=== PATIENT | female | born 1985 | race Asian ===

== ENCOUNTER 2023-04-07 09:47 | Outpatient (AMB) | payer OTHER, SELFPAY ==
[2023-04-07 09:54] VITALS: BP 150/90; PULSE 74; BMI 18.0
--- NOTE | 2023-04-07 09:54 | HO.NEPHOV_ITS ---
HPI HPI Comments History of Present Illness Details Thank you for referring Mr. Gasca for investigations and management of her chronic kidney disease. She has not had any regular physician appointments for many years until this year. She was found to be hypertensive and had been on amlodipine, the dose of which has been adjusted. Her blood pressure control continues to be labile. She has been feeling weak and tired. She denies diabetes, edema, microscopic or macroscopic hematuria, photosensitivity, joint swellings, hematemesis, melena, edema, proximal nocturnal dyspnea, orthopnea or chest pain. Her appetite is fair. 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 Her serum creatinine has been found to be close to 4. She denies taking excessive nonsteroidal anti-inflammatory medications. She has no other systemic complaints. She recently had some rash after eating some food which has been treated. She has strong family history of chronic kidney disease. She underwent an ultrasound of the kidneys recently. She has no new bone pain or back pain. She has a remote history of epistaxis which happened only once. She does not take any of his or any other jzfz-ipk-yddpslm medications. She is concerned about her renal dysfunction. [facility] Medical History (Updated 04/07/23 @ 16:44 by Niraj Corbin MD) Elevated blood pressure reading Gastroesophageal reflux disease Chronic kidney disease, stage 4 (severe) Family History (Updated 04/07/23 @ 08:54 by Janel Lange MA) Father Myocardial infarct Sister Chronic kidney disease Hypertension Hypercholesteremia Diabetes Mother Hypertension Hypercholesteremia Diabetes Coronary artery disease Brother Diabetes Hypercholesteremia Social History (Updated 04/07/23 @ 09:58 by Janel Lange MA) Alcohol intake: never Patient Tobacco Use Status: Never used Tobacco Vital Signs 04/07/23 09:54 Height 4 ft 10 in Weight 86 lb 4 oz BMI 18.0 BP 150/90 H Blood Pressure Location Lt brachial Position Sitting Pulse 74 Pulse Source Pulse Oximeter Physical Exam Vital Signs: Last Vital Signs Pulse 74 04/07/23 09:54 BP 150/90 H 08 09:54 BMI result Body Mass Index 18.0 Const General: comfortable and no acute distress Orientation/consciousness: patient oriented x3 HEENT Head: Yes normocephalic Mouth: Normal oral and palatal mucosa present Eyes EOM: EOMs intact bilaterally Neck Neck: Yes supple Resp Auscultation: clear to auscultation bilaterally Cardio Jugular venous distension: no JVD Rate: regular rate Heart sounds: Murmur heart sound present GI Palpation (GI): Soft to palpation Auscultation: normal bowel sounds General: Yes no CVA tenderness Back/Spine/Pelvis Back: no CVA tenderness Skin General skin exam: no rashes or lesions noted Neuro General: patient oriented x3 and moves all extremities Extrem General: Yes no pedal edema Assessment & Plan Assessment & Plan (1) HTN (hypertension): Code(s): I10 - Essential (primary) hypertension Qualifiers: Hypertension type: secondary to other renal disorders Qualified Code(s): I15.1 - Hypertension secondary to other renal disorders (2) Chronic kidney disease, stage 4 (severe): Code(s): N18.4 - Chronic kidney disease, stage 4 (severe) Plan Olesya has advanced chronic kidney disease due to unknown etiology. She is hypertensive. She is currently on amlodipine 7.5 mg daily which I have increased to 10 mg daily. She had a renal ultrasound the results of which not were not available for review at the time this consultation. I ordered further workup. Based on the workup and imaging studies I will consider whether she needs a renal biopsy. She should avoid nonsteroidal anti-inflammatory medications and any other ntqe-gdg-bpwgoru medications in addition to any unusual herbs. She should remain well hydrated. She could minimize animal protein intake. She is going to be seen in the office in couple weeks. At that time if she is not going to have renal biopsy, I intend to order 24 urine collection for estimation of GFR. If the GFR is low and she is thought to have advanced chronic kidney disease, further discussions are going to happen regarding renal replacement therapy and or renal transplantation. Further man agement has been involving data. All questions were answered. Time spent for retrieving data, patient encounter and documentation 47 minutes. Orders: Orders Hepatitis B Surface Antigen Today I10 - Essential (primary) hypertension, N18.4 - Chronic kidney disease, stage 4 (severe) Phosphorus Today I10 - Essential (primary) hypertension, N18.4 - Chronic kidney disease, stage 4 (severe) Vitamin D 25-OH Total Today I10 - Essential (primary) hypertension, N18.4 - Chronic kidney disease, stage 4 (severe) PTHI Today I10 - Essential (primary) hypertension, N18.4 - Chronic kidney disease, stage 4 (severe) Ferritin Today I10 - Essential (primary) hypertension, N18.4 - Chronic kidney disease, stage 4 (severe) Electrolytes Today I10 - Essential (primary) hypertension, N18.4 - Chronic kidney disease, stage 4 (severe) ELADIA Reflex Titer and Pattern Today I10 - Essential (primary) hypertension, N18.4 - Chronic kidney disease, stage 4 (severe) Streptolysin O Antibody Today I10 - Essential (primary) hypertension, N18.4 - Chronic kidney disease, stage 4 (severe) Anti DNA DS Antibody Today I10 - Essential (primary) hypertension, N18.4 - Chronic kidney disease, stage 4 (severe) Complement C3 Today I10 - Essential (primary) hypertension, N18.4 - Chronic kidney disease, stage 4 (severe) Neutrophil Cytoplasma Ab Today I10 - Essential (primary) hypertension, N18.4 - Chronic kidney disease, stage 4 (severe) Sjogren's Antibodies Today I10 - Essential (primary) hypertension, N18.4 - Chronic kidney disease, stage 4 (severe) Myeloperoxidase Antibody Today I10 - Essential (primary) hypertension, N18.4 - Chronic kidney disease, stage 4 (severe) Protein Electrophoresis, Serum Today I10 - Essential (primary) hypertension, N18.4 - Chronic kidney disease, stage 4 (severe) DIAZ 1 Antibody Today I10 - Essential (primary) hypertension, N18.4 - Chronic kidney disease, stage 4 (severe) Anti Glomerular Basement Memb Today I10 - Essential (primary) hypertension, N18.4 - Chronic kidney disease, stage 4 (severe) Immunofixation Pnl, Serum Today I10 - Essential (primary) hypertension, N18.4 - Chronic kidney disease, stage 4 (severe) UA and rflx microscopic Today I10 - Essential (primary) hypertension, N18.4 - Chronic kidney disease, stage 4 (severe) Hepatitis B Surface Antibody Today I10 - Essential (primary) hypertension, N18.4 - Chronic kidney disease, stage 4 (severe) Hepatitis B Core Antibody Today I10 - Essential (primary) hypertension, N18.4 - Chronic kidney disease, stage 4 (severe) Hepatitis C Antibody Reflex Today I10 - Essential (primary) hypertension, N18.4 - Chronic kidney disease, stage 4 (severe) Calcium Today I10 - Essential (primary) hypertension, N18.4 - Chronic kidney disease, stage 4 (severe) IRON PROFILE Today I10 - Essential (primary) hypertension, N18.4 - Chronic kidney disease, stage 4 (severe) Blood Urea Nitrogen Today I10 - Essential (primary) hypertension, N18.4 - Chronic kidney disease, stage 4 (severe) Creatinine Today I10 - Essential (primary) hypertension, N18.4 - Chronic kidney disease, stage 4 (severe) Phospholipase A2 Receptor Pnl Today I10 - Essential (primary) hypertension, N18.4 - Chronic kidney disease, stage 4 (severe) Anti Extractable Nuclear Ag Today I10 - Essential (primary) hypertension, N18.4 - Chronic kidney disease, stage 4 (severe) Complement C4 Today I10 - Essential (primary) hypertension, N18.4 - Chronic kidney disease, stage 4 (severe) Immunoglobulin A Today I10 - Essential (primary) hypertension, N18.4 - Chronic kidney disease, stage 4 (severe) Scleroderma 70 Antibody Today I10 - Essential (primary) hypertension, N18.4 - Chronic kidney disease, stage 4 (severe) Proteinase 3 PR3 Antibodies Today I10 - Essential (primary) hypertension, N18.4 - Chronic kidney disease, stage 4 (severe) Complete Blood Count Auto Diff Today I10 - Essential (primary) hypertension, N18.4 - Chronic kidney disease, stage 4 (severe) Prothrombin Time INR Today I10 - Essential (primary) hypertension, N18.4 - Chronic kidney disease, stage 4 (severe) Protein Creatinine Ratio, Ur Today I10 - Essential (primary) hypertension, N18.4 - Chronic kidney disease, stage 4 (severe) Medications: New amlodipine 10 mg PO DAILY 30 tabs 8RF Coding Level of Care Code New Pt Level 4 (24819) Diagnoses Hypertension secondary to other renal disorders I15.1 Hypertension type: secondary to other renal disorders Chronic kidney disease, stage 4 (severe) N18.4
== END 2023-04-07 10:37 | disposition home or self-care (01) ==
PROVIDERS: PCP Student in an Organized Health Care Education/Training Program; Visit Provider Internal Medicine Nephrology
DX: I15.1 Hypertension secondary to other renal disorders (principal); N18.4 Chronic kidney disease, stage 4 (severe)
CPT/HCPCS: 99204

== ENCOUNTER → 2023-04-07 09:47 | Outpatient (BNVA) | payer OTHER, SELFPAY | PROVIDERS: Visit Provider Internal Medicine Nephrology | DX: I15.1 Hypertension secondary to other renal disorders (principal); N18.4 Chronic kidney disease, stage 4 (severe) | CPT/HCPCS: 99202 ==

== ENCOUNTER 2023-04-29 09:15 | Outpatient (AMB) | payer OTHER, SELFPAY ==
--- NOTE | 2023-04-29 09:29 | HO.NEPHOV_ITS ---
HPI HPI Comments History of Present Illness Details I had the pleasure of seeing Ms. Gasca in follow up of her chronic kidney disease and hypertension. Recently she was found to be hypertensive and had been on amlodipine, the dose of which has been adjusted. Her blood pressure control continues to be labile. She has been feeling weak and tired. She is anemic. She denies diabetes, edema, microscopic or macroscopic hematuria, photosensitivity, joint swellings, hematemesis, melena, edema, proximal nocturnal dyspnea, orthopnea or chest pain. Her appetite is fair. 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 Her serum creatinine has been found to be close to mid 3's. She denies taking excessive nonsteroidal anti-inflammatory medications. She has no other systemic complaints. She recently had some rash after eating some food which has been treated. She has strong family history of chronic kidney disease. She underwent an ultrasound of the kidneys recently. She has no new bone pain or back pain. She has a remote history of epistaxis which happened only once. She does not take any of his or any other nccn-shh-ldnstmk medications. She is concerned about her renal dysfunction. 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 [facility] Medical History (Updated 04/29/23 @ 09:53 by Niraj Corbin MD) Elevated blood pressure reading Gastroesophageal reflux disease Chronic kidney disease, stage 4 (severe) Family History Father Myocardial infarct Sister Chronic kidney disease Hypertension Hypercholesteremia Diabetes Mother Hypertension Hypercholesteremia Diabetes Coronary artery disease Brother Diabetes Hypercholesteremia Social History Alcohol intake: never Patient Tobacco Use Status: Never used Tobacco Vital Signs 04/29/23 09:30 Height 4 ft 10 in Weight 88 lb 2 oz BMI 18.4 BP 134/90 H Blood Pressure Location Lt brachial Position Sitting Pulse 76 Pulse Source Pulse Oximeter Physical Exam Vital Signs: Last Vital Signs Pulse 76 04/29/23 09:30 BP 134/90 H 04/29/23 09:30 BMI result Body Mass Index 18.4 Assessment & Plan Assessment & Plan (1) Chronic kidney disease, stage 4 (severe): Code(s): N18.4 - Chronic kidney disease, stage 4 (severe) (2) HTN (hypertension): Code(s): I10 - Essential (primary) hypertension Qualifiers: Hypertension type: secondary to other renal disorders Qualified Code(s): I15.1 - Hypertension secondary to other renal disorders (3) Anemia in chronic kidney disease: Code(s): N18.9 - Chronic kidney disease, unspecified; D63.1 - Anemia in chronic kidney disease (4) PR3 ANCA antibodies present: Code(s): R76.8 - Other specified abnormal immunological findings in serum (5) Vitamin D deficiency: Code(s): E55.9 - Vitamin D deficiency, unspecified Plan 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 She had epistaxis and is Anti HI 3 positive. She is hypertensive. She is currently on amlodipine 5 mg twice daily. She had a renal ultrasound . she needs a renal biopsy( arranged). She should avoid nonsteroidal anti-inflammatory medications and any other hppc-cuq-fwuvmll medications in addition to any unusual herbs. She should remain well hydrated. She could minimize animal protein intake. I increased her Iron tablets to 2 tablets a day. I started her on Vitamin D 82709 Units once a week . She is going to be seen in the office in couple weeks. After next visit I intend to order 24 urine collection for estimation of GFR. If the GFR remains low, further discussions are going to happen regarding renal replacement therapy and or renal transplantation. Further management has been involving data. All questions were answered. Time spent for retrieving data, patient encounter and documentation 21 minutes Orders: Orders US biopsy renal Today N18.4 - Chronic kidney disease, stage 4 (severe), R76.8 - Other specified abnormal immunological findings in serum Medications: New ferrous sulfate 325 mg PO BID 180 tabs 3RF 90 days amlodipine 5 mg PO BID 180 tabs 3RF 90 days cholecalciferol (vitamin D3) 1,250 mcg PO QWEEK 13 caps 1RF 90 days Coding Level of Care Code Est Pt Level 4 (56437) Diagnoses Chronic kidney disease, stage 4 (severe) N18.4 Hypertension secondary to other renal disorders I15.1 Hypertension type: secondary to other renal disorders Anemia in chronic kidney disease N18.9; D63.1 PR3 ANCA antibodies present R76.8 Vitamin D deficiency E55.9
[2023-04-29 09:30] VITALS: BP 134/90; PULSE 76; BMI 18.4
== END 2023-04-29 10:06 | disposition home or self-care (01) ==
PROVIDERS: PCP Student in an Organized Health Care Education/Training Program; Visit Provider Internal Medicine Nephrology
DX: N18.4 Chronic kidney disease, stage 4 (severe) (principal); I15.1 Hypertension secondary to other renal disorders; N18.9 Chronic kidney disease, unspecified; D63.1 Anemia in chronic kidney disease; R76.8 Other specified abnormal immunological findings in serum; E55.9 Vitamin D deficiency, unspecified
CPT/HCPCS: 99214

== ENCOUNTER → 2023-04-29 09:15 | Outpatient (BNVA) | payer OTHER, SELFPAY | PROVIDERS: PCP Student in an Organized Health Care Education/Training Program; Visit Provider Internal Medicine Nephrology | DX: R76.8 Other specified abnormal immunological findings in serum (principal); I15.1 Hypertension secondary to other renal disorders; N18.4 Chronic kidney disease, stage 4 (severe); D63.1 Anemia in chronic kidney disease; E55.9 Vitamin D deficiency, unspecified | CPT/HCPCS: 99212 ==

== ENCOUNTER 2023-06-03 08:11 | Day surgery (SDC) | payer OTHER, SELFPAY ==
[2023-06-03] VITALS (11 sets, daily range): BP systolic 108–133; BP diastolic 74–88; PULSE 69–76; RESP 14–16; TEMP 36.9–37.1; O2SAT 100; BMI 18.1
--- NOTE | ~2023-06-03 | CT_ITS ---
CLINICAL HISTORY: Chronic kidney disease, + ANCA PROCEDURES: 1. Limited preprocedure CT of the abdomen. Permanent images saved in PACS. 2. Total of 3 core biopsies of the right kidney cortex 3. Limited post procedure CT of the abdomen. Permanent images taken PACS. CLINICIANS: Shaquille Roche PA-C MEDICATIONS: -Versed 1.5 mg, Fentanyl 75 mcg, and lidocaine 1% 10 mL SQ -Antibiotics: None -For additional details, please see nursing flowsheet. COMPLICATIONS: None ESTIMATED BLOOD LOSS: < 5 ml CONTRAST: None SPECIMENS: Total of 3 18-gauge biopsies of the right kidney MODERATE SEDATION TIME: 27 min PROCEDURE NOTE: The procedure, risks, benefits, and alternatives were carefully explained to the patient and written informed consent was obtained. The patient was placed prone on the CT table. A timeout was performed. A limited CT of the abdomen was performed to localize the right kidney and choose appropriate needle entry and trajectory. The patient was prepped and draped in usual sterile fashion. The skin and subcutaneous tissues were anesthetized with lidocaine. Under CT guidance, a trocar was advanced to the right mid/lower pole of the kidney. A 18-gauge core biopsy device was inserted through the double wall needle, with the needle tip advanced into the right renal cortex. A total of 3 core biopsies were obtained and sent fresh to histology. The trocar needle was then removed. A post procedure CT was then obtained, which demonstrated a small perinephric hematoma. The patient was stable after the procedure and was transferred to the post anesthesia care unit. The procedure was done under moderate sedation with a dedicated nurse for monitoring of vital signs. CT/CT biopsy renal LT Impression: CT-guided right renal biopsy. Small perinephric hematoma. This procedure was performed by Shaquille Roche PA-C and supervised by Dr. Aguilera.
--- NOTE | 2023-06-03 14:14 | PM.EVENT ---
Event Note Date of Service: 06/03/23 Event Note: Patient seen and examined. She is 2.5 hr post right renal biopsy. She had a small perinephric hematoma that did not worsen throughout the procedure. She reports of right flank pain at the biopsy site with movement, but denies discomfort at rest. Her BP have been consistent 110's to 130's post procedure and she has no tachycardia. She tolerated a small meal without nausea or vomiting. Will plan to discharge her within the next 30 min. She was educated on signs and symptoms of bleeding and to return to the hospital should she experience them. [employer] notified of plan for discharge. Shaquille DAVILA Time Spent With Patient Time: Total time managing care of this patient today ____ minutes.
--- NOTE | 2023-06-04 12:51 | HO.RADPN ---
RADIOLOGY Narrative Narrative: Procedure Note: CT right renal biopsy Indications: +ANCA, CKD Events: 3 x 18 g cores performed. Small perinephric hematoma Shaquille DAVILA Interventional Radiology
== END 2023-06-03 14:35 | disposition home or self-care (01) ==
PROVIDERS: Radiology Vascular & Interventional Radiology; PCP Student in an Organized Health Care Education/Training Program; Visit Provider Internal Medicine Nephrology
DX: N99.841 Postprocedural hematoma of a genitourinary system organ or structure following other procedure (principal); N18.4 Chronic kidney disease, stage 4 (severe); I15.1 Hypertension secondary to other renal disorders; I77.82 Antineutrophilic cytoplasmic antibody [ANCA] vasculitis; R10.9 Unspecified abdominal pain; R76.8 Other specified abnormal immunological findings in serum; E55.9 Vitamin D deficiency, unspecified
CPT/HCPCS: 36415; 50200; 77012; 81025; 85025; 85610; 85730; 86850; 86900; 86901; 88300; 88305; 88313; 88346; 88348; 88350; 99152; 99153; J2250; J2310; J3010

== ENCOUNTER → 2023-06-03 08:11 | Outpatient (BNV) | payer OTHER, SELFPAY | PROVIDERS: PCP Student in an Organized Health Care Education/Training Program; Visit Provider Physician Assistant Surgical | DX: R76.8 Other specified abnormal immunological findings in serum (principal) | CPT/HCPCS: 50200; 77012; 99152; 99499 ==

== ENCOUNTER 2023-06-15 09:48 | Outpatient (AMB) | payer OTHER, SELFPAY ==
--- NOTE | 2023-06-15 09:58 | HO.NEPHOV ---
HPI HPI Comments History of Present Illness Details I had the pleasure of seeing Ms. Gasca in follow up of her chronic kidney disease and hypertension. Recently she was found to be hypertensive and had been on amlodipine, the dose of which has been adjusted. Her blood pressure control continues to be labile, but better. She has been feeling weak and tired. She is anemic. She denies diabetes, edema, microscopic or macroscopic hematuria, photosensitivity, joint swellings, hematemesis, melena, edema, proximal nocturnal dyspnea, orthopnea or chest pain. Her appetite is fair. 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 Her serum creatinine has been found to be close to mid 3's. She denies taking excessive nonsteroidal anti-inflammatory medications. She has no other systemic complaints. She recently had some rash after eating some food which has been treated. She has strong family history of chronic kidney disease. She underwent an ultrasound and biopsy of the kidney recently. She has no new bone pain or back pain. She has a remote history of epistaxis which happened only once. She does not take any of his or any other acbc-tca-kduzfsn medications. She is concerned about her renal dysfunction. 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 [facility] Medical History (Updated 06/15/23 @ 10:00 by Niraj Corbin MD) Elevated blood pressure reading Gastroesophageal reflux disease Chronic kidney disease, stage 4 (severe) Family History Father Myocardial infarct Sister Chronic kidney disease Hypertension Hypercholesteremia Diabetes Mother Hypertension Hypercholesteremia Diabetes Coronary artery disease Brother Diabetes Hypercholesteremia Social History Alcohol intake: never Patient Tobacco Use Status: Never used Tobacco Vital Signs 06/15/23 10:02 Height 4 ft 10 in Weight 86 lb 4 oz BMI 18.0 BP 158/82 H Blood Pressure Location Lt brachial Position Sitting Pulse 79 Pulse Source Pulse Oximeter Pulse Oximetry (%) 100 Oxygen Delivery Method Room Air Physical Exam Vital Signs: Last Vital Signs Pulse 79 06/15/23 10:02 BP 158/82 H 06/15/23 10:02 Pulse Ox 100 06/15/23 10:02 Oxygen Delivery Method Room Air 06/15/23 10:02 BMI result Body Mass Index 18.0 Const General: comfortable and no acute distress Orientation/consciousness: patient oriented x3 HEENT Head: Yes normocephalic Mouth: Normal oral and palatal mucosa present Eyes EOM: EOMs intact bilaterally Neck Neck: Yes supple Resp Auscultation: clear to auscultation bilaterally Cardio Jugular venous distension: no JVD Rate: regular rate GI Palpation (GI): Soft to palpation Auscultation: normal bowel sounds General: Yes no CVA tenderness Back/Spine/Pelvis Back: no CVA tenderness Skin General skin exam: no rashes or lesions noted Neuro General: patient oriented x3 and moves all extremities Extrem General: Yes no pedal edema Assessment & Plan Assessment & Plan (1) Chronic kidney disease, stage 4 (severe): Code(s): N18.4 - Chronic kidney disease, stage 4 (severe) (2) HTN (hypertension): Code(s): I10 - Essential (primary) hypertension Qualifiers: Hypertension type: secondary to other renal disorders Qualified Code(s): I15.1 - Hypertension secondary to other renal disorders (3) Anemia in chronic kidney disease: Code(s): N18.9 - Chronic kidney disease, unspecified; D63.1 - Anemia in chronic kidney disease Qualifiers: Chronic kidney disease stage: stage 4 (severe) (4) PR3 ANCA antibodies present: Code(s): R76.8 - Other specified abnormal immunological findings in serum (5) Vitamin D deficiency: Code(s): E55.9 - Vitamin D deficiency, unspecified Plan Olesya has advanced chronic kidney disease .She had epistaxis and is Anti MO 3 positive. She underwent renal biopsy . Preliminary biopsy report showed focal segmental glomerulosclerosis with perihilar, peripheral and tip lesion. 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 Biopsy also showed severe interstitial fibrosis and tubular atrophy. There was arterial and arteriolar sclerosis variably mild to severe, with hyaline sclerosis. She is hypertensive. She should continue amlodipine 10 mg daily. I started her on PO prednisone 40 mg daily in the morning with food for a month. Side effects explained. She should avoid nonsteroidal anti-inflammatory medications and any other owmc-fzd-jzynfos medications in addition to any unusual herbs. She should remain well hydrated. She could minimize animal protein intake. She should continue 2 Iron tablets a day along with Vitamin D 80944 Units once a week . She is going to be seen in the office in couple weeks. After next visit I intend to order 24 urine collection for estimation of GFR. If the GFR remains low, further discussions are going to happen regarding renal replacement therapy and or renal transplantation. Further management has been involving data. All questions were answered. Orders: Orders Electrolytes 6 Weeks D63.1 - Anemia in chronic kidney disease, E55.9 - Vitamin D deficiency, unspecified, I10 - Essential (primary) hypertension, N18.4 - Chronic kidney disease, stage 4 (severe), N18.9 - Chronic kidney disease, unspecified, R76.8 - Other specified abnormal immunological findings in serum Creatinine 6 Weeks D63.1 - Anemia in chronic kidney disease, E55.9 - Vitamin D deficiency, unspecified, I10 - Essential (primary) hypertension, N18.4 - Chronic kidney disease, stage 4 (severe), N18.9 - Chronic kidney disease, unspecified, R76.8 - Other specified abnormal immunological findings in serum Proteinase 3 PR3 Antibodies Today D63.1 - Anemia in chronic kidney disease, E55.9 - Vitamin D deficiency, unspecified, I10 - Essential (primary) hypertension, N18.4 - Chronic kidney disease, stage 4 (severe), N18.9 - Chronic kidney disease, unspecified, R76.8 - Other specified abnormal immunological findings in serum Complete Blood Count Auto Diff 6 Weeks D63.1 - Anemia in chronic kidney disease, E55.9 - Vitamin D deficiency, unspecified, I10 - Essential (primary) hypertension, N18.4 - Chronic kidney disease, stage 4 (severe), N18.9 - Chronic kidney disease, unspecified, R76.8 - Other specified abnormal immunological findings in serum Electrolytes Today D63.1 - Anemia in chronic kidney disease, E55.9 - Vitamin D deficiency, unspecified, I10 - Essential (primary) hypertension, N18.4 - Chronic kidney disease, stage 4 (severe), N18.9 - Chronic kidney disease, unspecified, R76.8 - Other specified abnormal immunological findings in serum Blood Urea Nitrogen Today D63.1 - Anemia in chronic kidney disease, E55.9 - Vitamin D deficiency, unspecified, I10 - Essential (primary) hypertension, N18.4 - Chronic kidney disease, stage 4 (severe), N18.9 - Chronic kidney disease, unspecified, R76.8 - Other specified abnormal immunological findings in serum Calcium Today D63.1 - Anemia in chronic kidney disease, E55.9 - Vitamin D deficiency, unspecified, I10 - Essential (primary) hypertension, N18.4 - Chronic kidney disease, stage 4 (severe), N18.9 - Chronic kidney disease, unspecified, R76.8 - Other specified abnormal immunological findings in serum Creatinine Today D63.1 - Anemia in chronic kidney disease, E55.9 - Vitamin D deficiency, unspecified, I10 - Essential (primary) hypertension, N18.4 - Chronic kidney disease, stage 4 (severe), N18.9 - Chronic kidney disease, unspecified, R76.8 - Other specified abnormal immunological findings in serum Medications: New prednisone 40 mg (4 x 10 mg) PO DAILY 360 tabs 0RF 90 days Coding Level of Care Code Est Pt Level 4 (01397) Diagnoses Chronic kidney disease, stage 4 (severe) N18.4 Hypertension secondary to other renal disorders I15.1 Hypertension type: secondary to other renal disorders Anemia in chronic kidney disease N18.9; D63.1 Chronic kidney disease stage: stage 4 (severe) PR3 ANCA antibodies present R76.8 Vitamin D deficiency E55.9 Results Reviewed Nephrology Results: Hgb 10.7 g/dl (12.0-16.0) L 06/03/23 WBC 6.7 X10*3/uL (4.8-10.8) 06/03/23 Plt Count 172 X10*3/uL (160-400) 06/03/23
[2023-06-15 10:02] VITALS: BP 158/82; PULSE 79; O2SAT 100; BMI 18.0
== END 2023-06-15 10:18 | disposition home or self-care (01) ==
PROVIDERS: PCP Student in an Organized Health Care Education/Training Program; Visit Provider Internal Medicine Nephrology
DX: N18.4 Chronic kidney disease, stage 4 (severe) (principal); I15.1 Hypertension secondary to other renal disorders; N18.9 Chronic kidney disease, unspecified; D63.1 Anemia in chronic kidney disease; R76.8 Other specified abnormal immunological findings in serum; E55.9 Vitamin D deficiency, unspecified
CPT/HCPCS: 99214

== ENCOUNTER → 2023-06-15 09:48 | Outpatient (BNVA) | payer OTHER, SELFPAY | PROVIDERS: PCP Student in an Organized Health Care Education/Training Program; Visit Provider Internal Medicine Nephrology | DX: I12.9 Hypertensive chronic kidney disease with stage 1 through stage 4 chronic kidney disease, or unspecified chronic kidney disease (principal); N18.4 Chronic kidney disease, stage 4 (severe); R76.8 Other specified abnormal immunological findings in serum; E55.9 Vitamin D deficiency, unspecified; Z79.899 Other long term (current) drug therapy | CPT/HCPCS: 99212 ==

== ENCOUNTER 2023-07-06 08:40 | Outpatient (REF) | payer OTHER, SELFPAY ==
[2023-07-06 13:53] LABS: Anion Gap 17 (12-20); Blood Urea Nitrogen 74 mg/dL (9-16); Calcium 9.1 mg/dL (8.4-10.2); Carbon Dioxide 21 mmol/L (22-29); Chloride 103 mmol/L (96-108); Estimated Glomerular Filt Rate 14; Potassium 3.7 mmol/L (3.3-5.1); Sodium 137 mmol/L (135-145)
== END 2023-07-06 08:41 | disposition home or self-care (01) ==
LOC: HO.HKASLDS 08:40
PROVIDERS: Visit Provider Internal Medicine Nephrology
DX: I12.9 Hypertensive chronic kidney disease with stage 1 through stage 4 chronic kidney disease, or unspecified chronic kidney disease (principal); N18.4 Chronic kidney disease, stage 4 (severe); D63.1 Anemia in chronic kidney disease; R76.8 Other specified abnormal immunological findings in serum; E55.9 Vitamin D deficiency, unspecified
CPT/HCPCS: 36415; 80051; 82310; 82565; 84520

== ENCOUNTER 2023-07-27 14:49 | Outpatient (AMB) | payer OTHER, SELFPAY ==
--- NOTE | 2023-07-27 14:52 | HO.NEPHOV ---
HPI HPI Comments History of Present Illness Details I had the pleasure of seeing Ms. Gasca in follow up of her chronic kidney disease and hypertension. Recently she was found to be hypertensive and had been on amlodipine, the dose of which has been adjusted. Her blood pressure control continues to be labile. She is anemic. She denies diabetes, edema, microscopic or macroscopic hematuria, photosensitivity, joint swellings, hematemesis, melena, edema, proximal nocturnal dyspnea, orthopnea or chest pain. Her appetite is fair. 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 Her serum creatinine has been found to be close to mid 3's. She denies taking excessive nonsteroidal anti-inflammatory medications. She has no other systemic complaints. She has strong family history of chronic kidney disease. She underwent an ultrasound of the kidneys recently. She has no new bone pain or back pain. She has a remote history of epistaxis which happened only once. She does not take any of his or any other emsh-gmh-gchbvvg medications. She is concerned about her renal dysfunction. 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 She underwent renal biopsy which showed of focal segmental glomerulosclerosis with a perihilar, peripheral and tip lesions. She has chronic interstitial inflammation. She had global glomerulosclerosis 50-70%. Also there was severe interstitial fibrosis and tubular atrophy at 30-80% along with chronic thrombotic microangiopathic changes. She was started on prednisone 40 mg at the last visit. [facility] Medical History (Updated 06/15/23 @ 10:00 by Niraj Corbin MD) Elevated blood pressure reading Gastroesophageal reflux disease Chronic kidney disease, stage 4 (severe) Family History Father Myocardial infarct Sister Chronic kidney disease Hypertension Hypercholesteremia Diabetes Mother Hypertension Hypercholesteremia Diabetes Coronary artery disease Brother Diabetes Hypercholesteremia Social History Alcohol intake: never Patient Tobacco Use Status: Never used Tobacco Vital Signs 07/27/23 14:53 Height 4 ft 10 in Weight 92 lb 6 oz BMI 19.3 BP 150/80 H Blood Pressure Location Lt brachial Position Sitting Pulse 107 H Pulse Source Pulse Oximeter Pulse Oximetry (%) 99 Oxygen Delivery Method Room Air Physical Exam Vital Signs: Last Vital Signs Pulse 107 H 07/27/23 14:53 BP 150/80 H 07/27/23 14:53 Pulse Ox 99 07/27/23 14:53 Oxygen Delivery Method Room Air 07/27/23 14:53 BMI result Body Mass Index 19.3 Const General: comfortable and no acute distress Orientation/consciousness: patient oriented x3 HEENT Head: Yes normocephalic Mouth: Normal oral and palatal mucosa present Eyes EOM: EOMs intact bilaterally Neck Neck: Yes supple Resp Auscultation: clear to auscultation bilaterally Cardio Jugular venous distension: no JVD Rate: regular rate GI Palpation (GI): Soft to palpation Auscultation: normal bowel sounds General: Yes no CVA tenderness Back/Spine/Pelvis Back: no CVA tenderness Skin General skin exam: no rashes or lesions noted Neuro General: patient oriented x3 and moves all extremities Extrem General: Yes no pedal edema Assessment & Plan Assessment & Plan (1) Chronic kidney disease, stage 4 (severe): Code(s): N18.4 - Chronic kidney disease, stage 4 (severe) (2) HTN (hypertension): Code(s): I10 - Essential (primary) hypertension Qualifiers: Hypertension type: secondary to other renal disorders Qualified Code(s): I15.1 - Hypertension secondary to other renal disorders (3) Anemia in chronic kidney disease: Code(s): N18.9 - Chronic kidney disease, unspecified; D63.1 - Anemia in chronic kidney disease Qualifiers: Chronic kidney disease stage: stage 4 (severe) Qualified Code(s): N18.4 - Chronic kidney disease, stage 4 (severe); D63.1 - Anemia in chronic kidney disease (4) PR3 ANCA antibodies present: Code(s): R76.8 - Other specified abnormal immunological findings in serum (5) Vitamin D deficiency: Code(s): E55.9 - Vitamin D deficiency, unspecified Plan Olesya has advanced chronic kidney disease .She had epistaxis and is Anti MD 3 positive. renal biopsy which showed of focal segmental glomerulosclerosis with a perihilar, peripheral and tip lesions. She has chronic interstitial inflammation. She had global glomerulosclerosis 50-70%. Also there was severe interstitial fibrosis and tubular atrophy at 30-80% along with chronic thrombotic microangiopathic changes. She is hypertensive. She should continue amlodipine 10 mg daily. I started her on PO prednisone 40 mg daily at the last visit to be taken in the morning with food, at the last visit. I reduced her prednisone to 30 mg for 2 weeks followed by 20 mg until she is following with me . She should avoid nonsteroidal anti-inflammatory medications and any other wkzk-lks-jaciknp medications in addition to any unusual herbs. She should remain well hydrated. She could minimize animal protein intake. She should continue 2 Iron tablets a day along with Vitamin D 71504 Units once a week . She is going to be seen in the office in couple weeks. After next visit I intend to order 24 urine collection for estimation of GFR. If the GFR remains low, further discussions are going to happen regarding renal replacement therapy and or renal transplantation. Further management has been involving data. All questions were answered. Orders: Orders Blood Urea Nitrogen Today D63.1 - Anemia in chronic kidney disease, E55.9 - Vitamin D deficiency, unspecified, I10 - Essential (primary) hypertension, N18.4 - Chronic kidney disease, stage 4 (severe), N18.9 - Chronic kidney disease, unspecified, R76.8 - Other specified abnormal immunological findings in serum ANCA Vasculitides Today D63.1 - Anemia in chronic kidney disease, E55.9 - Vitamin D deficiency, unspecified, I10 - Essential (primary) hypertension, N18.4 - Chronic kidney disease, stage 4 (severe), N18.9 - Chronic kidney disease, unspecified, R76.8 - Other specified abnormal immunological findings in serum Creatinine 1 Week D63.1 - Anemia in chronic kidney disease, E55.9 - Vitamin D deficiency, unspecified, I10 - Essential (primary) hypertension, N18.4 - Chronic kidney disease, stage 4 (severe), N18.9 - Chronic kidney disease, unspecified, R76.8 - Other specified abnormal immunological findings in serum Electrolytes 1 Week D63.1 - Anemia in chronic kidney disease, E55.9 - Vitamin D deficiency, unspecified, I10 - Essential (primary) hypertension, N18.4 - Chronic kidney disease, stage 4 (severe), N18.9 - Chronic kidney disease, unspecified, R76.8 - Other specified abnormal immunological findings in serum Complete Blood Count Auto Diff 1 Week D63.1 - Anemia in chronic kidney disease, E55.9 - Vitamin D deficiency, unspecified, I10 - Essential (primary) hypertension, N18.4 - Chronic kidney disease, stage 4 (severe), N18.9 - Chronic kidney disease, unspecified, R76.8 - Other specified abnormal immunological findings in serum Coding Level of Care Code Est Pt Level 4 (14698) Diagnoses Chronic kidney disease, stage 4 (severe) N18.4 Hypertension secondary to other renal disorders I15.1 Hypertension type: secondary to other renal disorders Anemia in stage 4 chronic kidney disease N18.4; D63.1 Chronic kidney disease stage: stage 4 (severe) PR3 ANCA antibodies present R76.8 Vitamin D deficiency E55.9 Results Reviewed Nephrology Results: Hgb 10.7 g/dl (12.0-16.0) L 06/03/23 WBC 6.7 X10*3/uL (4.8-10.8) 06/03/23 Plt Count 172 X10*3/uL (160-400) 06/03/23 Sodium 137 mmol/L (135-145) 07/06/23 Potassium 3.7 mmol/L (3.3-5.1) 07/06/23 Chloride 103 mmol/L (96-108) 07/06/23 Carbon Dioxide 21 mmol/L (22-29) L 07/06/23 BUN 74 mg/dL (9-16) H 07/06/23 Creatinine 3.63 mg/dL (0.5-1.4) H 07/06/23 Calcium 9.1 mg/dL (8.4-10.2) 07/06/23
[2023-07-27 14:53] VITALS: BP 150/80; PULSE 107; O2SAT 99; BMI 19.3
== END 2023-07-27 15:21 | disposition home or self-care (01) ==
PROVIDERS: PCP Student in an Organized Health Care Education/Training Program; Visit Provider Internal Medicine Nephrology
DX: N18.4 Chronic kidney disease, stage 4 (severe) (principal); I15.1 Hypertension secondary to other renal disorders; D63.1 Anemia in chronic kidney disease; R76.8 Other specified abnormal immunological findings in serum; E55.9 Vitamin D deficiency, unspecified
CPT/HCPCS: 99214

== ENCOUNTER → 2023-07-27 14:49 | Outpatient (BNVA) | payer OTHER, SELFPAY | PROVIDERS: PCP Student in an Organized Health Care Education/Training Program; Visit Provider Internal Medicine Nephrology | DX: N18.4 Chronic kidney disease, stage 4 (severe) (principal); I15.1 Hypertension secondary to other renal disorders; D63.1 Anemia in chronic kidney disease; R76.8 Other specified abnormal immunological findings in serum; E55.9 Vitamin D deficiency, unspecified | CPT/HCPCS: 99212 ==

== ENCOUNTER 2023-08-03 08:37 | Outpatient (REF) | payer OTHER, SELFPAY ==
[2023-08-03 12:57] LABS: MANUAL DIFF FLAG NO
[2023-08-03 13:02] LABS: Basophils Percent Auto 0.1 % (0-2); Eosinophils Percent Auto 0.2 % (0-4); Hematocrit 29.6 % (37.0-47.0); Hemoglobin 10.1 g/dl (12.0-16.0); Imm Gran Abs Auto 0.14 X10*3/uL (0.00-0.03); Imm Gran Pct Auto 1.4 % (0.0-0.4); Lymphocytes Absolute Auto 1.7 X10*3/uL (1.2-4.9); Lymphocytes Percent Auto 16.6 % (20-40); Mean Corpuscular HGB Conc 34.1 g/dl (31.0-35.0); Mean Corpuscular Hemoglobin 31.5 pg (27.0-33.0); Mean Corpuscular Volume 92.2 fL (80.0-98.0); Mean Platelet Volume 9.6 fL (9.4-12.3); Monocytes Absolute Auto 0.6 X10*3/uL (0.1-1.2); Monocytes Percent Auto 5.6 % (2-11); Neutrophils Absolute Auto 7.7 x10*3/uL (2.0-8.3); Neutrophils Percent Auto 76.1 % (45-73); Platelet Count 142 X10*3/uL (160-400); Red Blood Count 3.21 X10*6/uL (4.20-5.50); Red Cell Distribution Width 13.2 % (11.0-16.0); White Blood Count 10.1 X10*3/uL (4.8-10.8)
[2023-08-03 14:05] LABS: Anion Gap 12 (12-20); Blood Urea Nitrogen 82 mg/dL (9-16); Carbon Dioxide 23 mmol/L (22-29); Chloride 104 mmol/L (96-108); Estimated Glomerular Filt Rate 13; Potassium 4.1 mmol/L (3.3-5.1); Sodium 135 mmol/L (135-145)
[2023-08-10 07:38] LABS: Myeloperoxidase Antibody <1.0 AI; Proteinase 3 PR3 Antibodies 3.8 AI
== END 2023-08-03 08:38 | disposition home or self-care (01) ==
LOC: HO.HKASLDS 08:37
PROVIDERS: Visit Provider Internal Medicine Nephrology
DX: I12.9 Hypertensive chronic kidney disease with stage 1 through stage 4 chronic kidney disease, or unspecified chronic kidney disease (principal); N18.4 Chronic kidney disease, stage 4 (severe); D63.1 Anemia in chronic kidney disease; R76.8 Other specified abnormal immunological findings in serum; E55.9 Vitamin D deficiency, unspecified
CPT/HCPCS: 36415; 80051; 82565; 84520; 85025; 86021

== ENCOUNTER 2023-08-24 15:05 | Outpatient (AMB) | payer OTHER, SELFPAY ==
[2023-08-24 15:14] VITALS: BP 140/70; PULSE 104; O2SAT 99; BMI 19.7
--- NOTE | 2023-08-24 15:14 | HO.NEPHOV_ITS ---
HPI HPI Comments History of Present Illness Details I had the pleasure of seeing Ms. Gasca in follow up of her chronic kidney disease and hypertension. Recently she was found to be hypertensive and had been on amlodipine, the dose of which has been adjusted. Her blood pressure control continues to be labile. She is anemic. She denies diabetes, edema, microscopic or macroscopic hematuria, photosensitivity, joint swellings, hematemesis, melena, edema, proximal nocturnal dyspnea, orthopnea or chest pain. Her appetite is fair. 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 Her serum creatinine has been found to be close to mid 3's. She denies taking excessive nonsteroidal anti-inflammatory medications. She has no other systemic complaints. She has strong family history of chronic kidney disease. 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 She has chronic interstitial inflammation. She had global glomerulosclerosis 50-70%. Also there was severe interstitial fibrosis and tubular atrophy at 30-80% along with chronic thrombotic microangiopathic changes. She was started on prednisone 40 mg at the last visit, now on a tapering dose. [facility] Medical History (Updated 06/15/23 @ 10:00 by Niraj Corbin MD) Elevated blood pressure reading Gastroesophageal reflux disease Chronic kidney disease, stage 4 (severe) Family History Father Myocardial infarct Sister Chronic kidney disease Hypertension Hypercholesteremia Diabetes Mother Hypertension Hypercholesteremia Diabetes Coronary artery disease Brother Diabetes Hypercholesteremia Social History Alcohol intake: never Patient Tobacco Use Status: Never used Tobacco Vital Signs 08/24/23 15:14 Height 4 ft 10 in Weight 94 lb 6 oz BMI 19.7 BP 140/70 H Blood Pressure Location Lt brachial Position Sitting Pulse 104 H Pulse Source Pulse Oximeter Pulse Oximetry (%) 99 Oxygen Delivery Method Room Air Physical Exam Const General: comfortable and no acute distress Orientation/consciousness: patient oriented x3 HEENT Head: Yes normocephalic Mouth: Normal oral and palatal mucosa present Eyes EOM: EOMs intact bilaterally Neck Neck: Yes supple Resp Auscultation: clear to auscultation bilaterally Cardio Jugular venous distension: no JVD Rate: regular rate GI Palpation (GI): Soft to palpation Auscultation: normal bowel sounds General: Yes no CVA tenderness Back/Spine/Pelvis Back: no CVA tenderness Skin General skin exam: no rashes or lesions noted Neuro General: patient oriented x3 and moves all extremities Extrem General: Yes no pedal edema Assessment & Plan Assessment & Plan (1) Chronic kidney disease, stage 4 (severe): Code(s): N18.4 - Chronic kidney disease, stage 4 (severe) (2) HTN (hypertension): Code(s): I10 - Essential (primary) hypertension Qualifiers: Hypertension type: secondary to other renal disorders Qualified Code(s): I15.1 - Hypertension secondary to other renal disorders (3) Anemia in chronic kidney disease: Code(s): N18.9 - Chronic kidney disease, unspecified; D63.1 - Anemia in chronic kidney disease Qualifiers: Chronic kidney disease stage: stage 4 (severe) Qualified Code(s): N18.4 - Chronic kidney disease, stage 4 (severe); D63.1 - Anemia in chronic kidney disease (4) Vitamin D deficiency: Code(s): E55.9 - Vitamin D deficiency, unspecified (5) PR3 ANCA antibodies present: Code(s): R76.8 - Other specified abnormal immunological findings in serum Danielle Dacosta has advanced chronic kidney disease .She had epistaxis and is Anti DE 3 positive. Her renal biopsy which showed of focal segmental glomerulosclerosis with a perihilar, peripheral and tip lesions. She has chronic interstitial inflammation. She had global glomerulosclerosis 50-70%. Also there was severe interstitial fibrosis and tubular atrophy at 30-80% along with chronic thrombotic microangiopathic changes. She is hypertensive. She should continue amlodipine 10 mg daily. She has been on PO prednisone tapering dose, currently 20 mg . I reduced it to 10 mg daily for 2 weeks followed by 5 mg for 2 weeks and asked her to stop. She should avoid nonsteroidal anti-inflammatory medications and any other irkk-atx-wpiflvd medications in addition to any unusual herbs. She should remain well hydrated. She could minimize animal protein intake. She should continue 2 Iron tablets a day along with Vitamin D 21027 Units once a week . She is going to be seen in the office in couple weeks. After next visit I intend to order 24 urine collection for estimation of GFR. If the GFR remains low, further discussions are going to happen regarding renal replacement therapy and or renal transplantation. Further management has been involving data. All questions were answered. Orders: Orders Electrolytes Today D63.1 - Anemia in chronic kidney disease, E55.9 - Vitamin D deficiency, unspecified, I10 - Essential (primary) hypertension, N18.4 - Chronic kidney disease, stage 4 (severe), N18.9 - Chronic kidney disease, unspecified, R76.8 - Other specified abnormal immunological findings in serum Creatinine Today D63.1 - Anemia in chronic kidney disease, E55.9 - Vitamin D deficiency, unspecified, I10 - Essential (primary) hypertension, N18.4 - Chronic kidney disease, stage 4 (severe), N18.9 - Chronic kidney disease, unspecified, R76.8 - Other specified abnormal immunological findings in serum Blood Urea Nitrogen Today D63.1 - Anemia in chronic kidney disease, E55.9 - Vitamin D deficiency, unspecified, I10 - Essential (primary) hypertension, N18.4 - Chronic kidney disease, stage 4 (severe), N18.9 - Chronic kidney disease, unspecified, R76.8 - Other specified abnormal immunological findings in serum Coding Level of Care Code Est Pt Level 4 (62014) Diagnoses Chronic kidney disease, stage 4 (severe) N18.4 Hypertension secondary to other renal disorders I15.1 Hypertension type: secondary to other renal disorders Anemia in stage 4 chronic kidney disease N18.4; D63.1 Chronic kidney disease stage: stage 4 (severe) Vitamin D deficiency E55.9 PR3 ANCA antibodies present R76.8 Results Reviewed Nephrology Results: Hgb 10.1 g/dl (12.0-16.0) L 08/03/23 WBC 10.1 X10*3/uL (4.8-10.8) 08/03/23 Plt Count 142 X10*3/uL (160-400) L 08/03/23 Sodium 135 mmol/L (135-145) 08/03/23 Potassium 4.1 mmol/L (3.3-5.1) 08/03/23 Chloride 104 mmol/L (96-108) 08/03/23 Carbon Dioxide 23 mmol/L (22-29) 08/03/23 BUN 82 mg/dL (9-16) H 08/03/23 Creatinine 3.83 mg/dL (0.5-1.4) H 08/03/23 Calcium 9.1 mg/dL (8.4-10.2) 07/06/23
== END 2023-08-24 15:34 | disposition home or self-care (01) ==
PROVIDERS: PCP Student in an Organized Health Care Education/Training Program; Visit Provider Internal Medicine Nephrology
DX: N18.4 Chronic kidney disease, stage 4 (severe) (principal); I15.1 Hypertension secondary to other renal disorders; D63.1 Anemia in chronic kidney disease; E55.9 Vitamin D deficiency, unspecified; R76.8 Other specified abnormal immunological findings in serum
CPT/HCPCS: 99214

== ENCOUNTER → 2023-08-24 15:05 | Outpatient (BNVA) | payer OTHER, SELFPAY | PROVIDERS: PCP Student in an Organized Health Care Education/Training Program; Visit Provider Internal Medicine Nephrology | DX: N18.4 Chronic kidney disease, stage 4 (severe) (principal) | CPT/HCPCS: 99212 ==

== ENCOUNTER 2023-09-22 14:32 | Outpatient (REF) | payer OTHER, SELFPAY ==
[2023-09-22 17:52] LABS: Anion Gap 12 (12-20); Blood Urea Nitrogen 33 mg/dL (9-16); Carbon Dioxide 25 mmol/L (22-29); Chloride 104 mmol/L (96-108); Estimated Glomerular Filt Rate 12; Potassium 4.6 mmol/L (3.3-5.1); Sodium 136 mmol/L (135-145)
== END 2023-09-22 14:33 | disposition home or self-care (01) ==
LOC: HO.HKASLDS 14:32
PROVIDERS: Visit Provider Internal Medicine Nephrology
DX: I12.9 Hypertensive chronic kidney disease with stage 1 through stage 4 chronic kidney disease, or unspecified chronic kidney disease (principal); N18.4 Chronic kidney disease, stage 4 (severe); R76.8 Other specified abnormal immunological findings in serum; D63.1 Anemia in chronic kidney disease; E55.9 Vitamin D deficiency, unspecified
CPT/HCPCS: 36415; 80051; 82565; 84520

== ENCOUNTER 2023-09-28 15:25 | Outpatient (AMB) | payer OTHER, SELFPAY ==
[2023-09-28 16:04] VITALS: BP 140/80; PULSE 101; O2SAT 99; BMI 18.9
--- NOTE | 2023-09-28 16:04 | HO.NEPHOV_ITS ---
Vital Signs 09/28/23 16:04 Height 4 ft 10 in Weight 90 lb 8 oz BMI 18.9 BP 140/80 H Blood Pressure Location Lt brachial Position Sitting Pulse 101 H Pulse Source Pulse Oximeter Pulse Oximetry (%) 99 Oxygen Delivery Method Room Air Intake Visit Reasons: 1 month F/U/ Confirmed Property Administrator Required: No Accompanied by: Self / Same As Patient Allergies alcohol Allergy (Verified 09/28/23 16:06) Unknown Beef Containing Products Allergy (Verified 09/28/23 16:06) Unknown HPI Comments Details: I had the pleasure of seeing Ms. Gasca in follow up of her chronic kidney disease and hypertension. Recently she was found to be hypertensive and had been on amlodipine, the dose of which has been adjusted. Her blood pressure control continues to be labile. She is anemic. She denies diabetes, edema, microscopic or macroscopic hematuria, photosensitivity, joint swellings, dheeraj temesis, melena, edema, proximal nocturnal dyspnea, orthopnea or chest pain. Her appetite is fair. 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 Her serum creatinine has been found to be close to mid 3's. She denies taking excessive nonsteroidal anti-inflammatory medications. She has no other systemic complaints. She has strong family history of chronic kidney disease. 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 She has chronic interstitial inflammation. She had global glomerulosclerosis 50-70%. Also there was severe interstitial fibrosis and tubular atrophy at 30-80% along with chronic thrombotic microangiopathic changes. She was started on prednisone 40 mg which was tapered to 5 mg daily. [facility] Medical History (Updated 06/15/23 @ 10:00 by Niraj Corbin MD) Elevated blood pressure reading Gastroesophageal reflux disease Chronic kidney disease, stage 4 (severe) Family History Father Myocardial infarct Sister Chronic kidney disease Hypertension Hypercholesteremia Diabetes Mother Hypertension Hypercholesteremia Diabetes Coronary artery disease Brother Diabetes Hypercholesteremia Social History Alcohol intake: never Patient Tobacco Use Status: Never used Tobacco Physical Exam Vital Signs: Last Vital Signs Pulse 101 H 09/28/23 16:04 BP 152/82 H 09/28/23 16:04 Pulse Ox 99 09/28/23 16:04 Oxygen Delivery Method Room Air 09/28/23 16:04 BMI result Body Mass Index 18.9 Const General: comfortable and no acute distress Orientation/consciousness: patient oriented x3 HEENT Head: Yes normocephalic Mouth: Normal oral and palatal mucosa present Eyes EOM: EOMs intact bilaterally Neck Neck: Yes supple Resp Auscultation: clear to auscultation bilaterally Cardio Jugular venous distension: no JVD Rate: regular rate GI Palpation (GI): Soft to palpation Auscultation: normal bowel sounds General: Yes no CVA tenderness Back/Spine/Pelvis Back: no CVA tenderness Skin General skin exam: no rashes or lesions noted Neuro General: patient oriented x3 and moves all extremities Extrem General: Yes no pedal edema Results Reviewed Nephrology Results: Hgb 10.1 g/dl (12.0-16.0) L 08/03/23 WBC 10.1 X10*3/uL (4.8-10.8) 08/03/23 Plt Count 142 X10*3/uL (160-400) L 08/03/23 Sodium 136 mmol/L (135-145) 09/22/23 Potassium 4.6 mmol/L (3.3-5.1) 09/22/23 Chloride 104 mmol/L (96-108) 09/22/23 Carbon Dioxide 25 mmol/L (22-29) 09/22/23 BUN 33 mg/dL (9-16) H 09/22/23 Creatinine 4.14 mg/dL (0.5-1.4) H* 09/22/23 Calcium 9.1 mg/dL (8.4-10.2) 07/06/23 Assessment & Plan Assessment & Plan (1) Vitamin D deficiency: Code(s): E55.9 - Vitamin D deficiency, unspecified Category: Medical (2) Anemia in chronic kidney disease: Code(s): N18.9 - Chronic kidney disease, unspecified; D63.1 - Anemia in chronic kidney disease Category: Medical Qualifiers: Chronic kidney disease stage: stage 4 (severe) Qualified Code(s): N18.4 - Chronic kidney disease, stage 4 (severe); D63.1 - Anemia in chronic kidney disease (3) HTN (hypertension): Code(s): I10 - Essential (primary) hypertension Category: Medical Qualifiers: Hypertension type: secondary to other renal disorders Qualified Code(s): I15.1 - Hypertension secondary to other renal disorders (4) Chronic kidney disease, stage 4 (severe): Code(s): N18.4 - Chronic kidney disease, stage 4 (severe) Category: Medical (5) PR3 ANCA antibodies present: Code(s): R76.8 - Other specified abnormal immunological findings in serum Category: Medical Plan Olesya has advanced chronic kidney disease .She had epistaxis and is Anti NC 3 positive. Her renal biopsy which showed of focal segmental glomerulosclerosis with a perihilar, peripheral and tip lesions. She has chronic interstitial inflammation. She had global glomerulosclerosis 50-70%. Also there was severe interstitial fibrosis and tubular atrophy at 30-80% along with chronic thrombotic microangiopathic changes. She is hypertensive. She should continue amlodipine 10 mg daily. She has been on PO prednisone tapering dose, currently 5 mg which I stopped. She should avoid nonsteroidal anti-inflammatory medications and any other [id number] medications in addition to any unusual herbs. She should remain well hydrated. She could minimize animal protein intake. She should continue 2 Iron tablets a day along with Vitamin D 14172 Units once a week . She is going to be seen in the office in couple weeks. After next visit I intend to order 24 urine collection for estimation of GFR. If the GFR remains low, further discussions are going to happen regarding renal replacement therapy and or renal transplantation. Further management has been involving data. All questions were answered. Orders: Orders Electrolytes Today D63.1 - Anemia in chronic kidney disease, E55.9 - Vitamin D deficiency, unspecified, I15.1 - Hypertension secondary to other renal disorders, N18.4 - Chronic kidney disease, stage 4 (severe), R76.8 - Other specified abnormal immunological findings in serum Blood Urea Nitrogen Today D63.1 - Anemia in chronic kidney disease, E55.9 - Vitamin D deficiency, unspecified, I15.1 - Hypertension secondary to other renal disorders, N18.4 - Chronic kidney disease, stage 4 (severe), R76.8 - Other specified abnormal immunological findings in serum Creatinine Today D63.1 - Anemia in chronic kidney disease, E55.9 - Vitamin D deficiency, unspecified, I15.1 - Hypertension secondary to other renal disorders, N18.4 - Chronic kidney disease, stage 4 (severe), R76.8 - Other spe cified abnormal immunological findings in serum Medications: Changed From ferrous sulfate 325 mg PO BID To ferrous sulfate 325 mg PO BID 90 days 180 tabs 3RF Discontinued prednisone Discontinued Reason: Doctor's Order 40 mg (4 x 10 mg) PO DAILY 360 tabs 0RF Coding Level of Care Code Est Pt Level 4 (53101) Diagnoses Vitamin D deficiency E55.9 Anemia in stage 4 chronic kidney disease N18.4; D63.1 Chronic kidney disease stage: stage 4 (severe) Hypertension secondary to other renal disorders I15.1 Hypertension type: secondary to other renal disorders Chronic kidney disease, stage 4 (severe) N18.4 PR3 ANCA antibodies present R76.8
== END 2023-09-28 16:24 | disposition home or self-care (01) ==
PROVIDERS: PCP Student in an Organized Health Care Education/Training Program; Visit Provider Internal Medicine Nephrology
DX: E55.9 Vitamin D deficiency, unspecified (principal); N18.4 Chronic kidney disease, stage 4 (severe); D63.1 Anemia in chronic kidney disease; I15.1 Hypertension secondary to other renal disorders; R76.8 Other specified abnormal immunological findings in serum
CPT/HCPCS: 99214

== ENCOUNTER → 2023-09-28 15:25 | Outpatient (BNVA) | payer OTHER, SELFPAY | PROVIDERS: PCP Student in an Organized Health Care Education/Training Program; Visit Provider Internal Medicine Nephrology | DX: I15.1 Hypertension secondary to other renal disorders (principal); N18.4 Chronic kidney disease, stage 4 (severe); D63.1 Anemia in chronic kidney disease; E55.9 Vitamin D deficiency, unspecified; R76.8 Other specified abnormal immunological findings in serum | CPT/HCPCS: 99212 ==

== ENCOUNTER 2023-11-17 11:17 | Outpatient (REF) | payer OTHER, SELFPAY ==
[2023-11-17 18:50] LABS: Anion Gap 14 (12-20); Blood Urea Nitrogen 45 mg/dL (9-16); Carbon Dioxide 25 mmol/L (22-29); Chloride 101 mmol/L (96-108); Estimated Glomerular Filt Rate 10; Potassium 4.1 mmol/L (3.3-5.1); Sodium 136 mmol/L (135-145)
== END 2023-11-17 11:18 | disposition home or self-care (01) ==
LOC: HO.HKASLDS 11:17
PROVIDERS: Visit Provider Internal Medicine Nephrology
DX: E55.9 Vitamin D deficiency, unspecified (principal); R76.8 Other specified abnormal immunological findings in serum; N18.4 Chronic kidney disease, stage 4 (severe); D63.1 Anemia in chronic kidney disease; I15.1 Hypertension secondary to other renal disorders
CPT/HCPCS: 36415; 80051; 82565; 84520

== ENCOUNTER 2023-11-23 13:25 | Outpatient (AMB) | payer OTHER, SELFPAY ==
--- NOTE | 2023-11-23 13:27 | HO.NEPHOV ---
Vital Signs 11/23/23 13:31 Height 4 ft 10 in Weight 89 lb 2 oz BMI 18.6 BP 132/80 Blood Pressure Location Lt brachial Position Sitting Pulse 88 Pulse Source Pulse Oximeter Pulse Oximetry (%) 100 Oxygen Delivery Method Room Air Intake Visit Reasons: 2 mon follow up/ Conf Time Study Technologist Required: No Accompanied by: Self / Same As Patient Allergies alcohol Allergy (Verified 11/23/23 13:33) Unknown Beef Containing Products Allergy (Verified 11/23/23 13:33) Unknown HPI Comments Details: I had the pleasure of seeing Ms. Gasca in follow up of her chronic kidney disease and hypertension. Recently she was found to be hypertensive and had been on amlodipine, the dose of which has been adjusted. Her blood pressure control is better. She is anemic. She denies diabetes, edema, microscopic or macroscopic hematuria, photosensitivity, joint swellings, hematemesis, melena, edema, proximal nocturnal dyspnea, orthopnea or chest pain. Her appetite is fair. 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 She denies taking excessive nonsteroidal anti-inflammatory medications. She has no other systemic complaints. She has family H/O rhuematoid arthritis( mom). SHe has morning stiffness and joint pains . She has strong family history of chronic kidney disease. 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 She has chronic interstitial inflammation. She had global glomerulosclerosis 50-70%. Also there was severe interstitial fibrosis and tubular atrophy at 30-80% along with chronic thrombotic microangiopathic changes. She is off prednisone now [facility] Medical History (Updated 06/15/23 @ 10:00 by Niraj Corbin MD) Elevated blood pressure reading Gastroesophageal reflux disease Chronic kidney disease, stage 4 (severe) Family History Father Myocardial infarct Sister Chronic kidney disease Hypertension Hypercholesteremia Diabetes Mother Hypertension Hypercholesteremia Diabetes Coronary artery disease Brother Diabetes Hypercholesteremia Social History Alcohol intake: never Patient Tobacco Use Status: Never used Tobacco Review of Systems Const All systems reviewed & are unremarkable except as noted in HPI and below Physical Exam Const General: comfortable and no acute distress Orientation/consciousness: patient oriented x3 HEENT Head: Yes normocephalic Mouth: Normal oral and palatal mucosa present Eyes EOM: EOMs intact bilaterally Neck Neck: Yes supple Resp Auscultation: clear to auscultation bilaterally Cardio Jugular venous distension: no JVD Rate: regular rate GI Palpation (GI): Soft to palpation Auscultation: normal bowel sounds General: Yes no CVA tenderness Back/Spine/Pelvis Back: no CVA tenderness Skin General skin exam: no rashes or lesions noted Neuro General: patient oriented x3 and moves all extremities Extrem General: Yes no pedal edema Results Reviewed Nephrology Results: Hgb 10.1 g/dl (12.0-16.0) L 08/03/23 WBC 10.1 X10*3/uL (4.8-10.8) 08/03/23 Plt Count 142 X10*3/uL (160-400) L 08/03/23 Sodium 136 mmol/L (135-145) 11/17/23 Potassium 4.1 mmol/L (3.3-5.1) 11/17/23 Chloride 101 mmol/L (96-108) 11/17/23 Carbon Dioxide 25 mmol/L (22-29) 11/17/23 BUN 45 mg/dL (9-16) H 11/17/23 Creatinine 4.73 mg/dL (0.5-1.4) H* 11/17/23 Calcium 9.1 mg/dL (8.4-10.2) 07/06/23 Assessment & Plan Assessment & Plan (1) Chronic kidney disease, stage 4 (severe): Code(s): N18.4 - Chronic kidney disease, stage 4 (severe) Category: Medical (2) HTN (hypertension): Code(s): I10 - Essential (primary) hypertension Category: Medical Qualifiers: Hypertension type: secondary to other renal disorders Qualified Code(s): I15.1 - Hypertension secondary to other renal disorders (3) Anemia in chronic kidney disease: Code(s): N18.9 - Chronic kidney disease, unspecified; D63.1 - Anemia in chronic kidney disease Category: Medical Qualifiers: Chronic kidney disease stage: stage 4 (severe) Qualified Code(s): N18.4 - Chronic kidney disease, stage 4 (severe); D63.1 - Anemia in chronic kidney disease (4) PR3 ANCA antibodies present: Code(s): R76.8 - Other specified abnormal immunological findings in serum Category: Medical (5) Vitamin D deficiency: Code(s): E55.9 - Vitamin D deficiency, unspecified Category: Medical Plan Olesya has advanced chronic kidney disease .She had epistaxis and is Anti ND 3 positive. Her renal biopsy which showed of focal segmental glomerulosclerosis with a perihilar, peripheral and tip lesions. She has chronic interstitial inflammation. She had global glomerulosclerosis 50-70%. Also there was severe interstitial fibrosis and tubular atrophy at 30-80% along with chronic thrombotic microangiopathic changes. She is hypertensive. She should continue amlodipine 10 mg daily. She is off PO prednisone . She should avoid nonsteroidal anti-inflammatory medications and any other [id number] medications in addition to any unusual herbs. She should remain well hydrated. She could minimize animal protein intake. She should continue 2 Iron tablets a day along with Vitamin D 44766 Units once a month. I ordered 24 urine collection for estimation of GFR. I had discussions regarding renal replacement therapy and or renal transplantation. I referred her for transplant evaluation and have referred her for PD education. I also referred her to Rheumatology given she has significant joint pains and strong family H/O rheumatoid arthritis. Further management has been involving data. All questions were answered. Orders: Orders Creatinine Today N18.4 - Chronic kidney disease, stage 4 (severe) Blood Urea Nitrogen Today N18.4 - Chronic kidney disease, stage 4 (severe) Electrolytes Today N18.4 - Chronic kidney disease, stage 4 (severe) Creatinine Clearance Urine 24U Today N18.4 - Chronic kidney disease, stage 4 (severe) Medications: Refilled ferrous sulfate 325 mg PO BID 90 days 180 tabs 3RF Coding Level of Care Code Est Pt Level 4 (39303) Diagnoses Chronic kidney disease, stage 4 (severe) N18.4 Hypertension secondary to other renal disorders I15.1 Hypertension type: secondary to other renal disorders Anemia in stage 4 chronic kidney disease N18.4; D63.1 Chronic kidney disease stage: stage 4 (severe) PR3 ANCA antibodies present R76.8 Vitamin D deficiency E55.9
[2023-11-23 13:31] VITALS: BP 132/80; PULSE 88; O2SAT 100; BMI 18.6
== END 2023-11-23 13:59 | disposition home or self-care (01) ==
LOC: HO.HKAS 13:25
PROVIDERS: PCP Student in an Organized Health Care Education/Training Program; Visit Provider Internal Medicine Nephrology
DX: N18.4 Chronic kidney disease, stage 4 (severe) (principal); I15.1 Hypertension secondary to other renal disorders; D63.1 Anemia in chronic kidney disease; R76.8 Other specified abnormal immunological findings in serum; E55.9 Vitamin D deficiency, unspecified
CPT/HCPCS: 99214

== ENCOUNTER → 2023-11-23 13:25 | Outpatient (BNVA) | payer OTHER, SELFPAY | PROVIDERS: PCP Student in an Organized Health Care Education/Training Program; Visit Provider Internal Medicine Nephrology | DX: I15.1 Hypertension secondary to other renal disorders (principal); N18.4 Chronic kidney disease, stage 4 (severe); D63.1 Anemia in chronic kidney disease; R76.8 Other specified abnormal immunological findings in serum; E55.9 Vitamin D deficiency, unspecified | CPT/HCPCS: 99212 ==

== ENCOUNTER 2023-12-03 08:45 | Outpatient (AMB) | payer OTHER, SELFPAY ==
[2023-12-03 08:51] VITALS: BP 110/72; PULSE 65; O2SAT 100; BMI 18.0
--- NOTE | 2023-12-03 08:51 | MHC.OFFVIS ---
Vital Signs 12/03/23 08:51 Height 4 ft 10 in Weight 85 lb 15.684 oz BMI 18.0 BP 110/72 Blood Pressure Location Rt brachial Position Sitting Pulse 65 Pulse Source Pulse Oximeter Pulse Oximetry (%) 100 Oxygen Delivery Method Room Air Intake Visit Reasons: Pain in unspecified joint Intake Note: New pt presents today for joint pain consult, internally referred by Dr Obregon. Family H/O RA. Has diffuse joint pain ; Background of CKD 4. Allergies alcohol Allergy (Verified 12/03/23 08:51) Unknown Beef Containing Products Allergy (Verified 12/03/23 08:51) Unknown Medication List - Last Reconciled 12/03/23 by Elliott Phan MD amlodipine 5 mg PO BID 90 days betamethasone, augmented 0.05 % topical cholecalciferol (vitamin D3) 1,250 mcg PO .q month 90 days ferrous sulfate 325 mg PO BID 90 days pantoprazole 40 mg PO DAILY HPI Comments Details: This is a 38-year-old female who is referred internally by Nephrology for polyarthralgias. Patient found to have significant hypertension towards the fall of 2022. She was evaluated and had a kidney biopsy which showed glomerulosclerosis. Labs also showed a positive PR3 antibody. She was on prednisone briefly by Nephrology for some time. Patient states that she was started on prednisone towards the end of May of 2023 until September of 2023. She stated that which when she was started on prednisone she started having joint pains in her hands, knees, ankles and feet. Associated with morning stiffness lasting 1 or 2 hours. Intermittent swelling. She states that soon after it was tapered off the pain came back with a vengeance. But over time her pains have improved but she continues to have morning stiffness of her hands, wrists, pain in her knees and feet with walking. She denies any skin rashes, fevers, weight loss, she denies any blood or frothy urine. Denies any history of DVT/PE. She has never been . States that her mother has rheumatoid arthritis and kidney disease which was diagnosed in her 40s. Her brother also has kidney disease [facility] Medical History (Updated 12/03/23 @ 09:39 by Elliott Phan MD) Elevated blood pressure reading Gastroesophageal reflux disease Chronic kidney disease, stage 4 (severe) Family History (Updated 12/03/23 @ 09:37 by Elliott Phan MD) Father Myocardial infarct Sister Chronic kidney disease Hypertension Hypercholesteremia Diabetes Mother Hypertension Hypercholesteremia Diabetes Coronary artery disease Rheumatoid arthritis Chronic kidney disease Brother Diabetes Hypercholesteremia Chronic kidney disease Social History Alcohol intake: never Patient Tobacco Use Status: Never used Tobacco Female Reproductive History Menstrual Total pregnancies: 0 Review of Systems Const Denies fever(s) and Denies weight loss Card Denies dyspnea and Denies dyspnea on exertion Resp Denies cough, Denies dyspnea and Denies dyspnea on exertion Musc Reports arthralgias, Reports joint swelling and Reports stiffness Skin/Breast Denies rash Physical Exam Vital Signs: Last Vital Signs Pulse 65 12/03/23 08:51 BP 110/72 12/03/23 08:51 Pulse Ox 100 12/03/23 08:51 Oxygen Delivery Method Room Air 12/03/23 08:51 BMI result Body Mass Index 18.0 Const General: cooperative, healthy appearing and comfortable Nutritional Appearance: thin Orientation/consciousness: patient oriented x3 Limitations: no limitations HEENT Head: Yes normocephalic and Yes atraumatic Mouth: moist mucous membranes Resp Effort & Inspection: normal respiratory effort and able to speak in complete sentences Auscultation: clear to auscultation bilaterally Cardio Rate: regular rate Rhythm: regular rhythm Skin General skin exam: no rashes or lesions noted Neuro General: patient oriented x3 Extrem Other: No swollen joints No tender joints on exam hands, wrists, ankles and feet No knee pain with flexion-extension No knee swelling Normal nailfold capillaroscopy Results Reviewed Results Reviewed: Kidney biopsy 05/2023 Addendum Addendum #1 [facility] department of pathology (their number [id number]): - Focal segmental glomerulosclerosis with perihilar, peripheral and tip lesions. - Chronic interstitial inflammation, and acute tubular injury. - Global glomerulosclerosis of approximately 50-70% of total glomeruli. - Severe interstitial fibrosis and tubular atrophy (from 30-80%). 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 Comment: Histologic sections demonstrate renal cortex with variable chronic disease in all renal compartments, with segmental glomerulosclerosis and severe vascular disease. The findings are nonspecific and can be seen in primary and secondary forms of FSGS, burned out glomerulonephritis, as a result of chronic endothelial cell injury in the form of chronic thrombotic microangiopathy, and/or tubulointerstitial disease due to drug toxicity. The differential is broad and requires clinical correlation. Features of an active immune complex mediated process or active small vessel vasculitis are not identified, although insufficient tissue was obtained for immunofluorescence and electron microscopy analysis. Clinical correlation advised Labs 03/2023 Immunofixation unremarkable ELADIA/dsDNA/SSA/SSB/Brasher/DOUGHMAKER/SCL 70/MPO/GBM/Ann on negative PR3 positive C3 low at 65 C4 nl Assessment & Plan Assessment & Plan (1) Polyarthralgia: Code(s): M25.50 - Pain in unspecified joint Category: Medical Plan: This is a 38-year-old female who presents for evaluation of polyarthralgia in the setting of newly diagnosed CKD stage 4 with glomerulosclerosis on kidney biopsy and positive PR3 antibody. Positive family history of rheumatoid arthritis in her mother. Will order comprehensive serology to screen for underlying autoimmune rheumatic disease. Check x-rays of involved joints Follow-up in 4-5 weeks (2) PR3 ANCA antibodies present: Code(s): R76.8 - Other specified abnormal immunological findings in serum Category: Medical Plan: Will repeat Plan I spent 47 minutes reviewing patient's chart, evaluating patient, ordering diagnostic workup, counseling patient and documenting in the chart Orders: Orders Scleroderma 12 Panel Today M34.9 - Systemic sclerosis, unspecified Cyclic Citrullinated Peptide Today M25.50 - Pain in unspecified joint Anti Extractable Nuclear Ag Today M32.9 - Systemic lupus erythematosus, unspecified ELADIA Reflex Titer and Pattern Today M32.9 - Systemic lupus erythematosus, unspecified Anti DNA DS Antibody Today M32.9 - Systemic lupus erythematosus, unspecified Complement C3 Today M32.9 - Systemic lupus erythematosus, unspecified Erythrocyte Sedimentation Rate Today M32.9 - Systemic lupus erythematosus, unspecified Protein Creatinine Ratio, Ur Today M32.9 - Systemic lupus erythematosus, unspecified Sjogren's Antibodies Today M32.9 - Systemic lupus erythematosus, unspecified UA w Microscopic Today M32.9 - Systemic lupus erythematosus, unspecified Hepatitis A,B,C Profile Today Z11.59 - Encounter for screening for other viral diseases T Spot TB Today Z11.7 - Encounter for testing for latent tuberculosis infection XR hand wrist LT Today M25.50 - Pain in unspecified joint XR hand wrist RT Today M25.50 - Pain in unspecified joint XR foot LT min 3V Today M25.50 - Pain in unspecified joint XR ankle RT min 3V Today M25.50 - Pain in unspecified joint XR knee LT 3V Today M25.50 - Pain in unspecified joint Beta-2 Glycoprotein Antibody Today D68.61 - Antiphospholipid syndrome Cardiolipin Antibodies Today D68.61 - Antiphospholipid syndrome Lupus Anticoagulant Panel Today D68.61 - Antiphospholipid syndrome Rheumatoid Factor Today M25.50 - Pain in unspecified joint ANCA Vasculitides Today I77.6 - Arteritis, unspecified Complement C4 Today M32.9 - Systemic lupus erythematosus, unspecified C Reactive Protein Today M32.9 - Systemic lupus erythematosus, unspecified DNA Double Stranded-Crithidia Today M32.9 - Systemic lupus erythematosus, unspecified Complete Blood Count Auto Diff Today M32.9 - Systemic lupus erythematosus, unspecified Comprehensive Met. Panel Today M32.9 - Systemic lupus erythematosus, unspecified Immunofixation Pnl, Serum Today M32.9 - Systemic lupus erythematosus, unspecified Protein Electrophoresis, Serum Today M32.9 - Systemic lupus erythematosus, unspecified XR foot RT min 3V Today M25.50 - Pain in unspecified joint XR ankle LT min 3V Today M25.50 - Pain in unspecified joint XR knee RT 3V Today M25.50 - Pain in unspecified joint XR knee standing BI Today M25.50 - Pain in unspecified joint Coding Level of Care Code New Pt Level 4 (97830) Diagnoses Polyarthralgia M25.50 PR3 ANCA antibodies present R76.8
== END 2023-12-03 09:28 | disposition home or self-care (01) ==
PROVIDERS: PCP Student in an Organized Health Care Education/Training Program; Visit Provider Student in an Organized Health Care Education/Training Program
DX: M25.50 Pain in unspecified joint (principal); R76.8 Other specified abnormal immunological findings in serum
CPT/HCPCS: 99204

== ENCOUNTER 2023-12-03 08:45 | Outpatient (REF) | payer OTHER, SELFPAY ==
[2023-12-03 10:07] LABS: MANUAL DIFF FLAG NO
[2023-12-03 10:48] LABS: Basophils Percent Auto 0.5 % (0-2); Eosinophils Absolute Auto 0.1 X10*3/uL (0.0-0.4); Eosinophils Percent Auto 2.4 % (0-4); Hematocrit 28.5 % (37.0-47.0); Hemoglobin 10.5 g/dl (12.0-16.0); Imm Gran Abs Auto 0.01 X10*3/uL (0.00-0.03); Imm Gran Pct Auto 0.2 % (0.0-0.4); Lymphocytes Absolute Auto 1.8 X10*3/uL (1.2-4.9); Lymphocytes Percent Auto 30.6 % (20-40); Mean Corpuscular HGB Conc 36.8 g/dl (31.0-35.0); Mean Corpuscular Hemoglobin 30.3 pg (27.0-33.0); Mean Corpuscular Volume 82.4 fL (80.0-98.0); Mean Platelet Volume 9.4 fL (9.4-12.3); Monocytes Absolute Auto 0.4 X10*3/uL (0.1-1.2); Monocytes Percent Auto 6.6 % (2-11); Neutrophils Absolute Auto 3.5 x10*3/uL (2.0-8.3); Neutrophils Percent Auto 59.7 % (45-73); Platelet Count 261 X10*3/uL (160-400); Red Blood Count 3.46 X10*6/uL (4.20-5.50); Red Cell Distribution Width 11.4 % (11.0-16.0); White Blood Count 5.8 X10*3/uL (4.8-10.8)
[2023-12-03 10:50] LABS: Appearance Urine Clear; Color Urine Yellow; Glucose Urine UA 100 mg/dL (Negative); Leukocyte Esterase Urine Negative (Negative); Nitrite Urine Negative (Negative); PH 6.5 (5.0-9.0); Specific Gravity - Urine <= 1.005 (1.005-1.025); UMIC TRIGGER UA YES; Urine Blood Small (1+) (Negative); Urine Ketones Negative (Negative); Urine Protein 300 (3+) mg/dL (Neg-Trace)
[2023-12-03 11:04] LABS: Bacteria Urine None Seen (None Seen); Hyaline Casts Urine 0-2 /LPF (0-2); RBC Urine 0-2 /HPF (0-2); Squamous Epithelial Cell Urine 0-2 /HPF (0-2); WBC Urine 0-5 /HPF (0-5)
[2023-12-03 11:09] LABS: Rheumatoid Factor < 13.0 IU/mL (<15.0)
[2023-12-03 11:18] LABS: Alanine Aminotransferase 63 U/L (0-31); Albumin Level 4.8 g/dL (3.5-5.0); Alkaline Phosphatase 55 U/L (39-117); Anion Gap 16 (12-20); Aspartate Amino Transferase 45 U/L (5-31); Bilirubin Total 0.4 mg/dL (0.0-1.0); Blood Urea Nitrogen 23 mg/dL (9-16); C Reactive Protein < 0.04 mg/dL (< or = 0.50); Calcium 9.7 mg/dL (8.4-10.2); Carbon Dioxide 26 mmol/L (22-29); Chloride 85 mmol/L (96-108); Estimated Glomerular Filt Rate 12; Glucose Random 92 mg/dL (60-115); Sodium 124 mmol/L (135-145); Total Protein 8.6 g/dL (6.5-8.0)
[2023-12-03 11:34] LABS: Erythrocyte Sedimentation Rate 17 MM/HR (0-20)
[2023-12-03 11:35] LABS: HBS Num1 85.34 mIU/mL (0-7.99); HBsAGNum1 0.29 S/CO (0.00-0.99); Hepatitis A Antibody IgM 0.29 Index (0-0.79); Hepatitis B Core Antibody Nonreactive (Nonreactive); Hepatitis B Surface Antigen Negative (Negative); ~HepC Num1 0.08 S/CO (0.00-0.79); ~Hepatitis A Antibody IgM Nonreactive (Nonreactive); ~Hepatitis B Surface Antibody REACTIVE (Nonreactive); ~Hepatitis C Antibody Nonreactive (Nonreactive)
[2023-12-03 12:00] LABS: Creatinine Urine 53.16 mg/dL; Protein/Creatinine Ratio, Ur 2.48 (<0.2); Total Protein Urine Random 132 mg/dL (<12)
[2023-12-05 20:54] LABS: TS Negative Control Passed; TS Panel A 0; TS Panel B 0; TS Positive Control Passed; TSpotTB Negative (Negative)
[2023-12-06 10:07] LABS: Complement C3 30 mg/dL (83-193)
[2023-12-06 20:43] LABS: Cardiolipin IgG Ab 3.8 GPL-U/mL; Cardiolipin IgM Ab 6.3 MPL-U/mL
[2023-12-07 10:54] LABS: Prot Elec - Albumin 4.8 g/dL (3.8-4.8); Prot Elec - Alpha1 0.2 g/dL (0.2-0.3); Prot Elec - Alpha2 0.6 g/dL (0.5-0.9); Prot Elec - Beta 1 0.4 g/dL (0.4-0.6); Prot Elec - Beta 2 0.3 g/dL (0.2-0.5); Prot Elec - Gamma 1.5 g/dL (0.8-1.7); Prot Elec - Total Protein 7.7 g/dL (6.1-8.1)
[2023-12-07 11:54] LABS: IgA 186 mg/dL (47-310); IgG 1482 mg/dL (600-1640); IgM 173 mg/dL (50-300)
[2023-12-07 14:18] LABS: Cyclic Citrullinated Peptide <16 UNITS
[2023-12-08 14:03] LABS: Anti DNA DS Antibody 1 IU/mL; Antibody to SS-A Antigen <1.0 NEG AI (<1.0 NEG); Antibody to SS-B Antigen <1.0 NEG AI (<1.0 NEG); Myeloperoxidase Antibody <1.0 AI; Proteinase 3 PR3 Antibodies 4.5 AI; SM/Ribonucleoprotein Ab <1.0 NEG AI (<1.0 NEG); Smith Protein <1.0 NEG AI (<1.0 NEG)
[2023-12-09 02:09] LABS: Beta-2 Glycoprotein IgA <2.0 U/mL (<20.0); Beta-2 Glycoprotein IgG 3.5 U/mL (<20.0); Beta-2 Glycoprotein IgM 5.1 U/mL (<20.0)
[2023-12-09 15:28] LABS: PTT (LAC) Screen 33 sec (<=40)
[2023-12-10 14:48] LABS: DNAds, Crithidia Antibody Negative (Negative)
[2023-12-10 16:28] LABS: Centromere Protein A Ab <11 SI (<11); Centromere Protein B Ab <11 SI (<11); Fibrillarin Ab <11 SI (<11); PM SCL 100 Ab <11 SI (<11); PM SCL 75 Ab <11 SI (<11); RNA Polymerase III RP11 Ab <11 SI (<11); RNA Polymerase III RP155 Ab <11 SI (<11); SCL-70 Extractable Nuclear Ab <11 SI (<11); Th-To Ab <11 SI (<11); U1 SNRNP RNP 70KD <11 SI (<11); U1 SNRNP RNP A <11 SI (<11); U1 SNRNP RNP C <11 SI (<11)
[2023-12-20 09:24] LABS: Anti Nuclear Antibody Screen POSITIVE (NEGATIVE)
[2023-12-20 09:27] LABS: ANA Pattern 2 Nuclear, Speckled; ANA Titer 2 1:40 titer
== END 2023-12-03 08:46 | disposition home or self-care (01) ==
LOC: HO.LAB 08:45
PROVIDERS: PCP Student in an Organized Health Care Education/Training Program; Visit Provider Student in an Organized Health Care Education/Training Program
DX: Z11.59 Encounter for screening for other viral diseases (principal); Z11.7 Encounter for testing for latent tuberculosis infection; M34.9 Systemic sclerosis, unspecified; M32.9 Systemic lupus erythematosus, unspecified; D68.61 Antiphospholipid syndrome; I77.6 Arteritis, unspecified; M25.50 Pain in unspecified joint
CPT/HCPCS: 36415; 80053; 81001; 82570; 82784; 84156; 84165; 84182; 85025; 85597; 85598; 85613; 85652; 85730; 86021; 86038; 86039; 86140; 86146; 86147; 86160; 86200; 86225; 86235; 86255; 86334; 86431; 86481; 86704; 86706; 86709; 86803; 87340; 99202

== ENCOUNTER 2023-12-21 08:40 | Outpatient (REF) | payer OTHER, SELFPAY ==
[2023-12-21 17:54] LABS: Anion Gap 17 (12-20); Blood Urea Nitrogen 26 mg/dL (9-16); Carbon Dioxide 21 mmol/L (22-29); Chloride 93 mmol/L (96-108); Estimated Glomerular Filt Rate 14; Potassium 4.2 mmol/L (3.3-5.1); Sodium 127 mmol/L (135-145)
[2023-12-21 18:06] LABS: Creatinine, mg/dL 19.78
[2023-12-21 19:38] LABS: Creatinine, 24Hr Urine 0.6 G/Day (1.0-2.0); Total Volume 24 Hour Urine 3250 mL
[2023-12-21 19:39] LABS: Creatinine (CrCl) 3.62 mg/dL (0.5-1.4); Creatinine Clearance 12.3 mL/min (85-125)
[2023-12-22 08:54] LABS: Hepatitis B Surface Antigen Negative (Negative)
== END 2023-12-21 08:41 | disposition home or self-care (01) ==
LOC: HO.HKASLDS 08:40
PROVIDERS: Visit Provider Internal Medicine Nephrology
DX: I12.9 Hypertensive chronic kidney disease with stage 1 through stage 4 chronic kidney disease, or unspecified chronic kidney disease (principal); N18.4 Chronic kidney disease, stage 4 (severe)
CPT/HCPCS: 36415; 80051; 82565; 82575; 84520; 87340

== ENCOUNTER 2023-12-28 15:20 | Outpatient (AMB) | payer OTHER, SELFPAY ==
--- NOTE | 2023-12-28 15:22 | HO.NEPHOV_ITS ---
Vital Signs 12/28/23 15:24 Height 4 ft 10 in Weight 87 lb 8 oz BMI 18.3 BP 136/84 Blood Pressure Location Lt brachial Position Sitting Pulse 96 Pulse Source Pulse Oximeter Pulse Oximetry (%) 100 Oxygen Delivery Method Room Air Intake Visit Reasons: 6 weeks F/U / LVM Evp Required: No Accompanied by: Sister Allergies alcohol Allergy (Verified 12/28/23 15:26) Unknown Beef Containing Products Allergy (Verified 12/28/23 15:26) Unknown HPI Comments Details: I had the pleasure of seeing Ms. Gasca in follow up of her chronic kidney disease and hypertension. Recently she was found to be hypertensive and had been on amlodipine, the dose of which has been adjusted. Her blood pressure control is better. She is anemic. She denies diabetes, edema, microscopic or macroscopic hematuria, photosensitivity, joint swellings, hematemesis, melena, edema, proximal nocturnal dyspnea, orthopnea or chest pain. Her appetite is fair. 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 She denies taking excessive nonsteroidal anti-inflammatory medications. She has no other systemic complaints. She has family H/O rhuematoid arthritis( mom). SHe has morning stiffness and joint pains . She has strong family history of chronic kidney disease. 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 She has chronic interstitial inflammation. She had global glomerulosclerosis 50-70%. Also there was severe interstitial fibrosis and tubular atrophy at 30-80% along with chronic thrombotic microangiopathic changes. She is off prednisone now [facility] Medical History (Updated 12/03/23 @ 09:39 by Elliott Phan MD) Elevated blood pressure reading Gastroesophageal reflux disease Chronic kidney disease, stage 4 (severe) Family History Father Myocardial infarct Sister Chronic kidney disease Hypertension Hypercholesteremia Diabetes Mother Hypertension Hypercholesteremia Diabetes Coronary artery disease Rheumatoid arthritis Chronic kidney disease Brother Diabetes Hypercholesteremia Chronic kidney disease Social History Alcohol intake: never Patient Tobacco Use Status: Never used Tobacco Review of Systems Const All systems reviewed & are unremarkable except as noted in HPI and below Physical Exam Vital Signs: Last Vital Signs Pulse 96 12/28/23 15:24 BP 136/84 12/28/23 15:24 Pulse Ox 100 12/28/23 15:24 Oxygen Delivery Method Room Air 12/28/23 15:24 BMI result Body Mass Index 18.3 Const General: comfortable and no acute distress Orientation/consciousness: patient oriented x3 HEENT Head: Yes normocephalic Mouth: Normal oral and palatal mucosa present Eyes EOM: EOMs intact bilaterally Neck Neck: Yes supple Resp Auscultation: clear to auscultation bilaterally Cardio Jugular venous distension: no JVD Rate: regular rate GI Palpation (GI): Soft to palpation Auscultation: normal bowel sounds General: Yes no CVA tenderness Back/Spine/Pelvis Back: no CVA tenderness Skin General skin exam: no rashes or lesions noted Neuro General: patient oriented x3 and moves all extremities Extrem General: Yes no pedal edema Results Reviewed Nephrology Results: Hgb 10.5 g/dl (12.0-16.0) L 12/03/23 WBC 5.8 X10*3/uL (4.8-10.8) 12/03/23 Plt Count 261 X10*3/uL (160-400) 12/03/23 Sodium 127 mmol/L (135-145) L 12/21/23 Potassium 4.2 mmol/L (3.3-5.1) 12/21/23 Chloride 93 mmol/L (96-108) L 12/21/23 Carbon Dioxide 21 mmol/L (22-29) L 12/21/23 BUN 26 mg/dL (9-16) H 12/21/23 Creatinine 3.62 mg/dL (0.5-1.4) H 12/21/23 Calcium 9.7 mg/dL (8.4-10.2) 12/03/23 Urine Protein 300 (3+) mg/dL (Neg-Trace) H 12/03/23 Urine Creatinine 53.16 mg/dL 12/03/23 Protein/Creatinin Ratio 2.48 (<0.2) H 12/03/23 Assessment & Plan Assessment & Plan (1) Chronic kidney disease, stage 4 (severe): Code(s): N18.4 - Chronic kidney disease, stage 4 (severe) Category: Medical (2) HTN (hypertension): Code(s): I10 - Essential (primary) hypertension Category: Medical Qualifiers: Hypertension type: secondary to other renal disorders Qualified Code(s): I15.1 - Hypertension secondary to other renal disorders (3) Anemia in chronic kidney disease: Code(s): N18.9 - Chronic kidney disease, unspecified; D63.1 - Anemia in chronic kidney disease Category: Medical Qualifiers: Chronic kidney disease stage: stage 4 (severe) Qualified Code(s): N18.4 - Chronic kidney disease, stage 4 (severe); D63.1 - Anemia in chronic kidney disease (4) Vitamin D deficiency: Code(s): E55.9 - Vitamin D deficiency, unspecified Category: Medical Plan Olesya has advanced chronic kidney disease .She had epistaxis and is Anti [place] 3 positive. Her renal biopsy which showed of focal segmental glomerulosclerosis with a perihilar, peripheral and tip lesions. She has chronic interstitial inflammation. She had global glomerulosclerosis 50-70%. Also there was severe interstitial fibrosis and tubular atrophy at 30-80% along with chronic thrombotic microangiopathic changes. She is hypertensive. She should continue amlodipine 10 mg daily. She is off PO prednisone . She should avoid nonsteroidal anti-inflammatory medications and any other qiof-sim-cfioevl medications in addition to any unusual herbs. She should remain well hydrated. She could minimize animal protein intake. She should continue 2 Iron tablets a day along with Vitamin D 59492 Units once a month. I ordered 24 urine collection for estimation of GFR. I had discussions regarding renal replacement therapy and or renal transplantation. I referred her for transplant evaluation and have referred her for PD education.Further management has been involving data. All questions were answered. Orders: Orders Blood Urea Nitrogen Today D63.1 - Anemia in chronic kidney disease, E55.9 - Vitamin D deficiency, unspecified, I15.1 - Hypertension secondary to other renal disorders, N18.4 - Chronic kidney disease, stage 4 (severe) Creatinine Today D63.1 - Anemia in chronic kidney disease, E55.9 - Vitamin D deficiency, unspecified, I15.1 - Hypertension secondary to other renal disorders, N18.4 - Chronic kidney disease, stage 4 (severe) Electrolytes Today D63.1 - Anemia in chronic kidney disease, E55.9 - Vitamin D deficiency, unspecified, I15.1 - Hypertension secondary to other renal disorders, N18.4 - Chronic kidney disease, stage 4 (severe) Complete Blood Count Auto Diff Today D63.1 - Anemia in chronic kidney disease, E55.9 - Vitamin D deficiency, unspecified, I15.1 - Hypertension secondary to other renal disorders, N18.4 - Chronic kidney disease, stage 4 (severe) Medications: Refilled amlodipine 5 mg PO BID 90 days 180 tabs 3RF ferrous sulfate 325 mg PO BID 90 days 180 tabs 3RF Coding Level of Care Code Est Pt Level 4 (82018) Diagnoses Chronic kidney disease, stage 4 (severe) N18.4 Hypertension secondary to other renal disorders I15.1 Hypertension type: secondary to other renal disorders Anemia in stage 4 chronic kidney disease N18.4; D63.1 Chronic kidney disease stage: stage 4 (severe) Vitamin D deficiency E55.9
[2023-12-28 15:24] VITALS: BP 136/84; PULSE 96; O2SAT 100; BMI 18.3
== END 2023-12-28 16:06 | disposition home or self-care (01) ==
PROVIDERS: PCP Student in an Organized Health Care Education/Training Program; Visit Provider Internal Medicine Nephrology
DX: N18.4 Chronic kidney disease, stage 4 (severe) (principal); I15.1 Hypertension secondary to other renal disorders; D63.1 Anemia in chronic kidney disease; E55.9 Vitamin D deficiency, unspecified
CPT/HCPCS: 99214

== ENCOUNTER → 2023-12-28 15:20 | Outpatient (BNVA) | payer OTHER, SELFPAY | PROVIDERS: PCP Student in an Organized Health Care Education/Training Program; Visit Provider Internal Medicine Nephrology | DX: I15.1 Hypertension secondary to other renal disorders (principal); N18.4 Chronic kidney disease, stage 4 (severe); D63.1 Anemia in chronic kidney disease; E55.9 Vitamin D deficiency, unspecified | CPT/HCPCS: 99212 ==

== ENCOUNTER 2024-01-24 13:46 | Outpatient (REF) | payer OTHER, SELFPAY ==
--- NOTE | ~2024-01-24 | XR_ITS ---
EXAMINATION: X-ray BILATERAL HAND SERIES X-ray BILATERAL ANKLE SERIES X-ray BILATERAL FOOT SERIES CLINICAL INFORMATION: Pain in unspecified joint. COMPARISON: None available. TECHNIQUE: 4 views of each hand and wrist. 3 views of each ankle. 3 views of each foot. FINDINGS: RIGHT HAND AND WRIST: The bones, joints and soft tissues are normal. No marginal erosions or joint space narrowing. No abnormal soft tissue calcifications. LEFT HAND AND WRIST: The bones, joints and soft tissues are normal. No joint space narrowing or marginal erosions. No abnormal soft tissue calcifications. RIGHT ANKLE AND FOOT: There is a type II accessory navicular. The bones, joints and soft tissues are normal. No joint space narrowing or marginal erosions. No abnormal soft tissue calcifications. LEFT ANKLE AND FOOT: There is a type II accessory navicular. The bones, joints and soft tissues are otherwise normal. XR/XR foot LT min 3V IMPRESSION: No radiographic evidence of arthritis. RIGHT HAND AND WRIST: Normal. LEFT HAND AND WRIST: Normal. RIGHT ANKLE AND FOOT: Type II accessory navicular. This can be associated with medial-sided of foot pain in some patients. Otherwise unremarkable. LEFT ANKLE AND FOOT. Type II accessory navicular. This can be associated with medial-sided foot pain in some patients. Otherwise unremarkable. Electronically signed by: Otis Hodge MD 01/28/2024 01:46 PM EDT
--- NOTE | ~2024-01-24 | XR_ITS ---
EXAMINATION: X-ray BILATERAL HAND SERIES X-ray BILATERAL ANKLE SERIES X-ray BILATERAL FOOT SERIES CLINICAL INFORMATION: Pain in unspecified joint. COMPARISON: None available. TECHNIQUE: 4 views of each hand and wrist. 3 views of each ankle. 3 views of each foot. FINDINGS: RIGHT HAND AND WRIST: The bones, joints and soft tissues are normal. No marginal erosions or joint space narrowing. No abnormal soft tissue calcifications. LEFT HAND AND WRIST: The bones, joints and soft tissues are normal. No joint space narrowing or marginal erosions. No abnormal soft tissue calcifications. RIGHT ANKLE AND FOOT: There is a type II accessory navicular. The bones, joints and soft tissues are normal. No joint space narrowing or marginal erosions. No abnormal soft tissue calcifications. LEFT ANKLE AND FOOT: There is a type II accessory navicular. The bones, joints and soft tissues are otherwise normal. XR/XR ankle LT min 3V IMPRESSION: No radiographic evidence of arthritis. RIGHT HAND AND WRIST: Normal. LEFT HAND AND WRIST: Normal. RIGHT ANKLE AND FOOT: Type II accessory navicular. This can be associated with medial-sided of foot pain in some patients. Otherwise unremarkable. LEFT ANKLE AND FOOT. Type II accessory navicular. This can be associated with medial-sided foot pain in some patients. Otherwise unremarkable. Electronically signed by: Otis Hodge MD 01/28/2024 01:46 PM EDT
--- NOTE | ~2024-01-24 | XR_ITS ---
EXAMINATION: X-ray BILATERAL HAND SERIES X-ray BILATERAL ANKLE SERIES X-ray BILATERAL FOOT SERIES CLINICAL INFORMATION: Pain in unspecified joint. COMPARISON: None available. TECHNIQUE: 4 views of each hand and wrist. 3 views of each ankle. 3 views of each foot. FINDINGS: RIGHT HAND AND WRIST: The bones, joints and soft tissues are normal. No marginal erosions or joint space narrowing. No abnormal soft tissue calcifications. LEFT HAND AND WRIST: The bones, joints and soft tissues are normal. No joint space narrowing or marginal erosions. No abnormal soft tissue calcifications. RIGHT ANKLE AND FOOT: There is a type II accessory navicular. The bones, joints and soft tissues are normal. No joint space narrowing or marginal erosions. No abnormal soft tissue calcifications. LEFT ANKLE AND FOOT: There is a type II accessory navicular. The bones, joints and soft tissues are otherwise normal. XR/XR hand wrist LT IMPRESSION: No radiographic evidence of arthritis. RIGHT HAND AND WRIST: Normal. LEFT HAND AND WRIST: Normal. RIGHT ANKLE AND FOOT: Type II accessory navicular. This can be associated with medial-sided of foot pain in some patients. Otherwise unremarkable. LEFT ANKLE AND FOOT. Type II accessory navicular. This can be associated with medial-sided foot pain in some patients. Otherwise unremarkable. Electronically signed by: Otis Hodge MD 01/28/2024 01:46 PM EDT
--- NOTE | ~2024-01-24 | XR_ITS ---
EXAMINATION: Bilateral knee series CLINICAL INFORMATION: Pain in the knees COMPARISON: None. TECHNIQUE: 4 views of each knee FINDINGS: Right knee The bones joints and soft tissues are normal. No effusion. Left knee: The bones are soft tissues are normal. No effusion. XR/XR knee LT 4V IMPRESSION: RIGHT KNEE: Normal. LEFT KNEE: Normal. Electronically signed by: Otis Hodge MD 01/28/2024 01:00 PM EDT
--- NOTE | ~2024-01-24 | XR_ITS ---
EXAMINATION: Bilateral knee series CLINICAL INFORMATION: Pain in the knees COMPARISON: None. TECHNIQUE: 4 views of each knee FINDINGS: Right knee The bones joints and soft tissues are normal. No effusion. Left knee: The bones are soft tissues are normal. No effusion. XR/XR knee RT 4V IMPRESSION: RIGHT KNEE: Normal. LEFT KNEE: Normal. Electronically signed by: Otis Hodge MD 01/28/2024 01:00 PM EDT
--- NOTE | ~2024-01-24 | XR_ITS ---
EXAMINATION: X-ray BILATERAL HAND SERIES X-ray BILATERAL ANKLE SERIES X-ray BILATERAL FOOT SERIES CLINICAL INFORMATION: Pain in unspecified joint. COMPARISON: None available. TECHNIQUE: 4 views of each hand and wrist. 3 views of each ankle. 3 views of each foot. FINDINGS: RIGHT HAND AND WRIST: The bones, joints and soft tissues are normal. No marginal erosions or joint space narrowing. No abnormal soft tissue calcifications. LEFT HAND AND WRIST: The bones, joints and soft tissues are normal. No joint space narrowing or marginal erosions. No abnormal soft tissue calcifications. RIGHT ANKLE AND FOOT: There is a type II accessory navicular. The bones, joints and soft tissues are normal. No joint space narrowing or marginal erosions. No abnormal soft tissue calcifications. LEFT ANKLE AND FOOT: There is a type II accessory navicular. The bones, joints and soft tissues are otherwise normal. XR/XR hand wrist RT IMPRESSION: No radiographic evidence of arthritis. RIGHT HAND AND WRIST: Normal. LEFT HAND AND WRIST: Normal. RIGHT ANKLE AND FOOT: Type II accessory navicular. This can be associated with medial-sided of foot pain in some patients. Otherwise unremarkable. LEFT ANKLE AND FOOT. Type II accessory navicular. This can be associated with medial-sided foot pain in some patients. Otherwise unremarkable. Electronically signed by: Otis Hodge MD 01/28/2024 01:46 PM EDT
--- NOTE | ~2024-01-24 | XR_ITS ---
EXAMINATION: X-ray BILATERAL HAND SERIES X-ray BILATERAL ANKLE SERIES X-ray BILATERAL FOOT SERIES CLINICAL INFORMATION: Pain in unspecified joint. COMPARISON: None available. TECHNIQUE: 4 views of each hand and wrist. 3 views of each ankle. 3 views of each foot. FINDINGS: RIGHT HAND AND WRIST: The bones, joints and soft tissues are normal. No marginal erosions or joint space narrowing. No abnormal soft tissue calcifications. LEFT HAND AND WRIST: The bones, joints and soft tissues are normal. No joint space narrowing or marginal erosions. No abnormal soft tissue calcifications. RIGHT ANKLE AND FOOT: There is a type II accessory navicular. The bones, joints and soft tissues are normal. No joint space narrowing or marginal erosions. No abnormal soft tissue calcifications. LEFT ANKLE AND FOOT: There is a type II accessory navicular. The bones, joints and soft tissues are otherwise normal. XR/XR foot RT min 3V IMPRESSION: No radiographic evidence of arthritis. RIGHT HAND AND WRIST: Normal. LEFT HAND AND WRIST: Normal. RIGHT ANKLE AND FOOT: Type II accessory navicular. This can be associated with medial-sided of foot pain in some patients. Otherwise unremarkable. LEFT ANKLE AND FOOT. Type II accessory navicular. This can be associated with medial-sided foot pain in some patients. Otherwise unremarkable. Electronically signed by: Otis Hodge MD 01/28/2024 01:46 PM EDT
--- NOTE | ~2024-01-24 | XR_ITS ---
EXAMINATION: X-ray BILATERAL HAND SERIES X-ray BILATERAL ANKLE SERIES X-ray BILATERAL FOOT SERIES CLINICAL INFORMATION: Pain in unspecified joint. COMPARISON: None available. TECHNIQUE: 4 views of each hand and wrist. 3 views of each ankle. 3 views of each foot. FINDINGS: RIGHT HAND AND WRIST: The bones, joints and soft tissues are normal. No marginal erosions or joint space narrowing. No abnormal soft tissue calcifications. LEFT HAND AND WRIST: The bones, joints and soft tissues are normal. No joint space narrowing or marginal erosions. No abnormal soft tissue calcifications. RIGHT ANKLE AND FOOT: There is a type II accessory navicular. The bones, joints and soft tissues are normal. No joint space narrowing or marginal erosions. No abnormal soft tissue calcifications. LEFT ANKLE AND FOOT: There is a type II accessory navicular. The bones, joints and soft tissues are otherwise normal. XR/XR ankle RT min 3V IMPRESSION: No radiographic evidence of arthritis. RIGHT HAND AND WRIST: Normal. LEFT HAND AND WRIST: Normal. RIGHT ANKLE AND FOOT: Type II accessory navicular. This can be associated with medial-sided of foot pain in some patients. Otherwise unremarkable. LEFT ANKLE AND FOOT. Type II accessory navicular. This can be associated with medial-sided foot pain in some patients. Otherwise unremarkable. Electronically signed by: Otis Hodge MD 01/28/2024 01:46 PM EDT
== END 2024-01-24 13:47 | disposition home or self-care (01) ==
LOC: HO.XRAY 13:46
PROVIDERS: PCP Student in an Organized Health Care Education/Training Program; Visit Provider Student in an Organized Health Care Education/Training Program
DX: M25.561 Pain in right knee (principal); M25.562 Pain in left knee; M79.642 Pain in left hand; M79.641 Pain in right hand; M25.532 Pain in left wrist; M25.531 Pain in right wrist; M25.572 Pain in left ankle and joints of left foot; M25.571 Pain in right ankle and joints of right foot
CPT/HCPCS: 73110; 73130; 73564; 73610; 73630

== ENCOUNTER 2024-01-27 12:23 | Outpatient (AMB) | payer OTHER, SELFPAY ==
[2024-01-27 12:39] VITALS: BP 106/68; PULSE 59; O2SAT 100; BMI 18.4
--- NOTE | 2024-01-27 12:39 | MHC.OFFVIS ---
Vital Signs 01/27/24 12:39 Height 4 ft 10 in Weight 88 lb 2.958 oz BMI 18.4 BP 106/68 Blood Pressure Location Lt brachial Position Sitting Pulse 59 Pulse Source Pulse Oximeter Pulse Oximetry (%) 100 Oxygen Delivery Method Room Air Intake Visit Reasons: RA/CKD Intake Note: Patient is here for follow up on RA/CKD. She was last seen on 12/23/2023. Allergies alcohol Allergy (Verified 01/27/24 12:46) Unknown Beef Containing Products Allergy (Verified 01/27/24 12:46) Unknown Medication List - Last Reconciled 01/27/24 by Elliott Phan MD amlodipine 5 mg PO BID 90 days betamethasone, augmented 0.05 % topical cholecalciferol (vitamin D3) 1,250 mcg PO .q month 90 days ferrous sulfate 325 mg PO BID 90 days pantoprazole 40 mg PO DAILY HPI Comments Details: Patient returns for follow-up after completion of her diagnostic workup. She states that she continues to have morning stiffness of her hands, ankles, knees. The stiffness lasts about 1 hour. She noticed intermittent swelling of her ankles. She does not take any medications for this. There are no skin rashes. No significant hair loss, no oral ulcers Initial history: This is a 38-year-old female who is referred internally by Nephrology for polyarthralgias. Patient found to have significant hypertension towards the fall of 2022. She was evaluated and had a kidney biopsy which showed glomerulosclerosis. Labs also showed a positive PR3 antibody. She was on prednisone briefly by Nephrology for some time. Patient states that she was started on prednisone towards the end of May of 2023 until September of 2023. She stated that which when she was started on prednisone she started having joint pains in her hands, knees, ankles and feet. Associated with morning stiffness lasting 1 or 2 hours. Intermittent swelling. She states that soon after it was tapered off the pain came back with a vengeance. But over time her pains have improved but she continues to have morning stiffness of her hands, wrists, pain in her knees and feet with walking. She denies any skin rashes, fevers, weight loss, she denies any blood or frothy urine. Denies any history of DVT/PE. She has never been . States that her mother has rheumatoid arthritis and kidney disease which was diagnosed in her 40s. Her brother also has kidney disease [facility] Medical History Elevated blood pressure reading Gastroesophageal reflux disease Chronic kidney disease, stage 4 (severe) Family History Father Myocardial infarct Sister Chronic kidney disease Hypertension Hypercholesteremia Diabetes Mother Hypertension Hypercholesteremia Diabetes Coronary artery disease Rheumatoid arthritis Chronic kidney disease Brother Diabetes Hypercholesteremia Chronic kidney disease Social History Alcohol intake: never Patient Tobacco Use Status: Never used Tobacco Female Reproductive History Menstrual Total pregnancies: 0 Review of Systems Const Denies fever(s) and Denies weight loss Card Denies dyspnea and Denies dyspnea on exertion Resp Denies cough, Denies dyspnea and Denies dyspnea on exertion Musc Reports arthralgias, Reports joint swelling and Reports stiffness Skin/Breast Denies rash Physical Exam Vital Signs: Last Vital Signs Pulse 59 01/27/24 12:39 BP 106/68 01/27/24 12:39 Pulse Ox 100 01/27/24 12:39 Oxygen Delivery Method Room Air 01/27/24 12:39 BMI result Body Mass Index 18.4 Const General: cooperative, healthy appearing and comfortable Nutritional Appearance: thin Orientation/consciousness: patient oriented x3 Limitations: no limitations HEENT Head: Yes normocephalic and Yes atraumatic Mouth: moist mucous membranes Resp Effort & Inspection: normal respiratory effort and able to speak in complete sentences Auscultation: clear to auscultation bilaterally Cardio Rate: regular rate Rhythm: regular rhythm Skin General skin exam: no rashes or lesions noted Neuro General: patient oriented x3 Extrem Other: No swollen joints No tender joints on exam hands, wrists, ankles and feet No knee pain with flexion-extension No knee swelling Normal nailfold capillaroscopy Results Reviewed Results Reviewed: Kidney biopsy 05/2023 Addendum Addendum #1 [facility] department of pathology (their number [id number]): - Focal segmental glomerulosclerosis with perihilar, peripheral and tip lesions. - Chronic interstitial inflammation, and acute tubular injury. - Global glomerulosclerosis of approximately 50-70% of total glomeruli. - Severe interstitial fibrosis and tubular atrophy (from 30-80%). 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 Comment: Histologic sections demonstrate renal cortex with variable chronic disease in all renal compartments, with segmental glomerulosclerosis and severe vascular disease. The findings are nonspecific and can be seen in primary and secondary forms of FSGS, burned out glomerulonephritis, as a result of chronic endothelial cell injury in the form of chronic thrombotic microangiopathy, and/or tubulointerstitial disease due to drug toxicity. The differential is broad and requires clinical correlation. Features of an active immune complex mediated process or active small vessel vasculitis are not identified, although insufficient tissue was obtained for immunofluorescence and electron microscopy analysis. Clinical correlation advised Labs 03/2023 Immunofixation unremarkable ELADIA/dsDNA/SSA/SSB/Brasher/RECYCLABLE MATERIALS SORTER/SCL 70/MPO/GBM/Ann on negative PR3 positive C3 low at 64 C4 nl Assessment & Plan Assessment & Plan (1) Polyarthralgia: Code(s): M25.50 - Pain in unspecified joint Category: Medical Plan: This is a 38-year-old female who presents for evaluation of polyarthralgia in the setting of newly diagnosed CKD stage 4 with glomerulosclerosis on kidney biopsy and positive PR3 antibody. Positive family history of rheumatoid arthritis in her mother. Upon evaluation patient does not fulfill criteria for any autoimmune rheumatic disease at this time. She does have low C3 and C4 which can be seen in lupus and can also be seen in significant proteinuria such as in her case. However she does complain of morning stiffness of multiple joints which can be seen in the setting of different autoimmune rheumatic diseases. I did discuss hydroxychloroquine therapeutic trial. She states however that those symptoms are improving. At this time I do not see any compelling indication to start a DMARD. Follow-up in 3 months (2) PR3 ANCA antibodies present: Code(s): R76.8 - Other specified abnormal immunological findings in serum Category: Medical Plan I spent 27 minutes reviewing patient's chart, evaluating patient, counseling patient and documenting in the chart Coding Level of Care Code Est Pt Level 4 (33263) Diagnoses Polyarthralgia M25.50 PR3 ANCA antibodies present R76.8
== END 2024-01-27 13:06 | disposition home or self-care (01) ==
PROVIDERS: PCP Student in an Organized Health Care Education/Training Program; Visit Provider Student in an Organized Health Care Education/Training Program
DX: M25.50 Pain in unspecified joint (principal); R76.8 Other specified abnormal immunological findings in serum
CPT/HCPCS: 99214

== ENCOUNTER → 2024-01-27 12:23 | Outpatient (BNVA) | payer OTHER, SELFPAY | PROVIDERS: PCP Student in an Organized Health Care Education/Training Program; Visit Provider Student in an Organized Health Care Education/Training Program | DX: M25.50 Pain in unspecified joint (principal); R76.8 Other specified abnormal immunological findings in serum | CPT/HCPCS: 99212 ==

== ENCOUNTER 2024-03-28 13:35 | Outpatient (AMB) | payer OTHER, SELFPAY ==
--- NOTE | 2024-03-28 13:55 | HO.NEPHOV ---
Vital Signs 03/28/24 13:56 Height 4 ft 10 in Weight 90 lb 6 oz BMI 18.9 BP 130/70 Blood Pressure Location Lt brachial Position Sitting Pulse 84 Pulse Source Pulse Oximeter Pulse Oximetry (%) 100 Oxygen Delivery Method Room Air Intake Visit Reasons: 3 mon follow up-Unable to reach Head Screen Worker Required: No Accompanied by: Self / Same As Patient Allergies alcohol Allergy (Verified 03/28/24 13:58) Unknown Beef Containing Products Allergy (Verified 03/28/24 13:58) Unknown HPI Comments Details: Ms. Gasca was seen in follow up of her chronic kidney disease and hypertension. Recently she was found to be hypertensive and had been on amlodipine, the dose of which has been adjusted. Her blood pressure control is better. She is anemic. She denies diabetes, edema, microscopic or macroscopic hematuria, photosensitivity, joint swellings, hematemesis, melena, edema, proximal nocturnal dyspnea, orthopnea or chest pain. Her appetite is fair. 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 She denies taking excessive nonsteroidal anti-inflammatory medications. She has no other systemic complaints. She has family H/O rhuematoid arthritis( mom). SHe has morning stiffness and joint pains . She has strong family history of chronic kidney disease. 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 She has chronic interstitial inflammation. She had global glomerulosclerosis 50-70%. Also there was severe interstitial fibrosis and tubular atrophy at 30-80% along with chronic thrombotic microangiopathic changes. She denies uremic symptoms. She was evaluated for transplant for transplant in [facility] Medical History Elevated blood pressure reading Gastroesophageal reflux disease Chronic kidney disease, stage 4 (severe) Family History Father Myocardial infarct Sister Chronic kidney disease Hypertension Hypercholesteremia Diabetes Mother Hypertension Hypercholesteremia Diabetes Coronary artery disease Rheumatoid arthritis Chronic kidney disease Brother Diabetes Hypercholesteremia Chronic kidney disease Social History Alcohol intake: never Patient Tobacco Use Status: Never used Tobacco Review of Systems Const All systems reviewed & are unremarkable except as noted in HPI and below Physical Exam Vital Signs: Last Vital Signs Pulse 84 03/28/24 13:56 BP 154/90 H 03/28/24 13:56 Pulse Ox 100 03/28/24 13:56 Oxygen Delivery Method Room Air 03/28/24 13:56 BMI result Body Mass Index 18.9 Const General: comfortable and no acute distress Orientation/consciousness: patient oriented x3 HEENT Head: Yes normocephalic Mouth: Normal oral and palatal mucosa present Eyes EOM: EOMs intact bilaterally Neck Neck: Yes supple Resp Auscultation: clear to auscultation bilaterally Cardio Jugular venous distension: no JVD Rate: regular rate GI Palpation (GI): Soft to palpation Auscultation: normal bowel sounds General: Yes no CVA tenderness Back/Spine/Pelvis Back: no CVA tenderness Skin General skin exam: no rashes or lesions noted Neuro General: patient oriented x3 and moves all extremities Extrem General: Yes no pedal edema Assessment & Plan Assessment & Plan (1) Anemia in chronic kidney disease: Code(s): N18.9 - Chronic kidney disease, unspecified; D63.1 - Anemia in chronic kidney disease Category: Medical Qualifiers: Chronic kidney disease stage: stage 4 (severe) Qualified Code(s): N18.4 - Chronic kidney disease, stage 4 (severe); D63.1 - Anemia in chronic kidney disease (2) HTN (hypertension): Code(s): I10 - Essential (primary) hypertension Category: Medical Qualifiers: Hypertension type: secondary to other renal disorders Qualified Code(s): I15.1 - Hypertension secondary to other renal disorders (3) Chronic kidney disease, stage 4 (severe): Code(s): N18.4 - Chronic kidney disease, stage 4 (severe) Category: Medical Plan Olesya has advanced chronic kidney disease .She had epistaxis and is Anti [place] 3 positive. Her renal biopsy which showed of focal segmental glomerulosclerosis with a perihilar, peripheral and tip lesions. She has chronic interstitial inflammation. She had global glomerulosclerosis 50-70%. Also there was severe interstitial fibrosis and tubular atrophy at 30-80% along with chronic thrombotic microangiopathic changes. She is hypertensive. She should continue amlodipine 10 mg daily. She is off PO prednisone . She should avoid nonsteroidal anti-inflammatory medications and any other ubvt-kqv-wbezcsj medications in addition to any unusual herbs. She should remain well hydrated. She could minimize animal protein intake. She should continue 2 Iron tablets a day along with Vitamin D 71577 Units once a month. I had discussions regarding renal replacement therapy and or renal transplantation ( [facility]). She had PD education.Further management has been involving data. All questions were answered Orders: Orders Creatinine 3 Months D63.1 - Anemia in chronic kidney disease, I15.1 - Hypertension secondary to other renal disorders, N18.4 - Chronic kidney disease, stage 4 (severe) Blood Urea Nitrogen 3 Months D63.1 - Anemia in chronic kidney disease, I15.1 - Hypertension secondary to other renal disorders, N18.4 - Chronic kidney disease, stage 4 (severe) Calcium 3 Months D63.1 - Anemia in chronic kidney disease, I15.1 - Hypertension secondary to other renal disorders, N18.4 - Chronic kidney disease, stage 4 (severe) Electrolytes 3 Months D63.1 - Anemia in chronic kidney disease, I15.1 - Hypertension secondary to other renal disorders, N18.4 - Chronic kidney disease, stage 4 (severe) Parathyroid Hormone Intact 3 Months D63.1 - Anemia in chronic kidney disease, I15.1 - Hypertension secondary to other renal disorders, N18.4 - Chronic kidney disease, stage 4 (severe) Coding Level of Care Code Est Pt Level 4 (42685) Diagnoses Anemia in stage 4 chronic kidney disease N18.4; D63.1 Chronic kidney disease stage: stage 4 (severe) Hypertension secondary to other renal disorders I15.1 Hypertension type: secondary to other renal disorders Chronic kidney disease, stage 4 (severe) N18.4
[2024-03-28 13:56] VITALS: BP 130/70; PULSE 84; O2SAT 100; BMI 18.9
== END 2024-03-28 14:38 | disposition home or self-care (01) ==
LOC: HO.HKAS 13:36
PROVIDERS: PCP Student in an Organized Health Care Education/Training Program; Visit Provider Internal Medicine Nephrology
DX: N18.4 Chronic kidney disease, stage 4 (severe) (principal); D63.1 Anemia in chronic kidney disease; I15.1 Hypertension secondary to other renal disorders
CPT/HCPCS: 99214

== ENCOUNTER → 2024-03-28 13:35 | Outpatient (BNVA) | payer OTHER, SELFPAY | PROVIDERS: PCP Student in an Organized Health Care Education/Training Program; Visit Provider Internal Medicine Nephrology | DX: I15.1 Hypertension secondary to other renal disorders (principal); N18.4 Chronic kidney disease, stage 4 (severe); D63.1 Anemia in chronic kidney disease | CPT/HCPCS: 99212 ==

== ENCOUNTER 2024-06-08 14:21 | Outpatient (AMB) | payer OTHER, SELFPAY ==
--- NOTE | 2024-06-08 14:37 | HO.NEPHOV_ITS ---
Vital Signs 06/08/24 14:38 Height 4 ft 10 in Weight 91 lb 2 oz BMI 19.0 BP 128/70 Blood Pressure Location Lt brachial Position Sitting Intake Visit Reasons: 3 mon follow [facility] Assistant Required: No Accompanied by: Self / Same As Patient Allergies alcohol Allergy (Verified 06/08/24 14:38) Unknown Beef Containing Products Allergy (Verified 06/08/24 14:38) Unknown HPI Comments Details: Ms. Gasca was seen in follow up of her chronic kidney disease and hypertension. Her blood pressure control is at goal. She is anemic. She denies diabetes, edema, microscopic or macroscopic hematuria, photosensitivity, joint swellings, hematemesis, melena, edema, proximal nocturnal dyspnea, orthopnea or chest pain. Her appetite is good. 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 She denies taking ex cessive nonsteroidal anti-inflammatory medications. She has no other systemic complaints. She has family H/O rhuematoid arthritis( mom). She has morning stiffness and joint pains . She has strong family history of chronic kidney disease. 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 She has chronic interstitial inflammation. She had global glomerulosclerosis 50-70%. Also there was severe interstitial fibrosis and tubular atrophy at 30-80% along with chronic thrombotic microangiopathic changes. She denies uremic symptoms. She was evaluated for transplant for transplant in [facility] Medical History Elevated blood pressure reading Gastroesophageal reflux disease Chronic kidney disease, stage 4 (severe) Family History Father Myocardial infarct Sister Chronic kidney disease Hypertension Hypercholesteremia Diabetes Mother Hypertension Hypercholesteremia Diabetes Coronary artery disease Rheumatoid arthritis Chronic kidney disease Brother Diabetes Hypercholesteremia Chronic kidney disease Social History Alcohol intake: never Patient Tobacco Use Status: Never used Tobacco Review of Systems Const All systems reviewed & are unremarkable except as noted in HPI and below Physical Exam Const General: comfortable and no acute distress Orientation/consciousness: patient oriented x3 HEENT Head: Yes normocephalic Mouth: Normal oral and palatal mucosa present Eyes EOM: EOMs intact bilaterally Neck Neck: Yes supple Resp Auscultation: clear to auscultation bilaterally Cardio Jugular venous distension: no JVD Rate: regular rate GI Palpation (GI): Soft to palpation Auscultation: normal bowel sounds General: Yes no CVA tenderness Back/Spine/Pelvis Back: no CVA tenderness Skin General skin exam: no rashes or lesions noted Neuro General: patient oriented x3 and moves all extremities Extrem General: Yes no pedal edema Results Reviewed Nephrology Results: Hgb 10.5 g/dl (12.0-16.0) L 12/03/23 WBC 5.8 X10*3/uL (4.8-10.8) 12/03/23 Plt Count 261 X10*3/uL (160-400) 12/03/23 Sodium 127 mmol/L (135-145) L 12/21/23 Potassium 4.2 mmol/L (3.3-5.1) 12/21/23 Chloride 93 mmol/L (96-108) L 12/21/23 Carbon Dioxide 21 mmol/L (22-29) L 12/21/23 BUN 26 mg/dL (9-16) H 12/21/23 Creatinine 3.62 mg/dL (0.5-1.4) H 12/21/23 Calcium 9.7 mg/dL (8.4-10.2) 12/03/23 Urine Protein 300 (3+) mg/dL (Neg-Trace) H 12/03/23 Urine Creatinine 53.16 mg/dL 12/03/23 Protein/Creatinin Ratio 2.48 (<0.2) H 12/03/23 Assessment & Plan Assessment & Plan (1) Chronic kidney disease, stage 4 (severe): Code(s): N18.4 - Chronic kidney disease, stage 4 (severe) Category: Medical (2) HTN (hypertension): Code(s): I10 - Essential (primary) hypertension Category: Medical Qualifiers: Hypertension type: secondary to other renal disorders Qualified Code(s): I15.1 - Hypertension secondary to other renal disorders (3) Anemia in chronic kidney disease: Code(s): N18.9 - Chronic kidney disease, unspecified; D63.1 - Anemia in chronic kidney disease Category: Medical Qualifiers: Chronic kidney disease stage: stage 4 (severe) Qualified Code(s): N18.4 - Chronic kidney disease, stage 4 (severe); D63.1 - Anemia in chronic kidney disease (4) PR3 ANCA antibodies present: Code(s): R76.8 - Other specified abnormal immunological findings in serum Category: Medical (5) Vitamin D deficiency: Code(s): E55.9 - Vitamin D deficiency, unspecified Category: Medical (6) Secondary hyperparathyroidism (of renal origin): Code(s): N25.81 - Secondary hyperparathyroidism of renal origin Category: Medical Plan Olesya has advanced chronic kidney disease .She had epistaxis and is Anti MA 3 positive. Her renal biopsy which showed of focal segmental glomerulosclerosis with a perihilar, peripheral and tip lesions. She has chronic interstitial inflammation. She had global glomerulosclerosis 50-70%. Also there was severe interstitial fibrosis and tubular atrophy at 30-80% along with chronic thrombotic microangiopathic changes. She is hypertensive. She should continue amlodipine 10 mg daily. She is off PO prednisone . She should avoid nonsteroidal anti-inflammatory medications and any other xoyk-cgf-axtedpz medications in addition to any unusual herbs. She should remain well hydrated. She could minimize animal protein intake. She should continue 2 Iron tablets a day along with Vitamin D 48055 Units once a month. I started her on calcitriol 0.25 mcg twice a week. She was evaluated in [facility] for renal [facility]. She had PD education.Further management has been involving data. All questions were answered Orders: Orders Complete Blood Count Auto Diff 3 Months D63.1 - Anemia in chronic kidney disease, E55.9 - Vitamin D deficiency, unspecified, I15.1 - Hypertension secondary to other renal disorders, N18.4 - Chronic kidney disease, stage 4 (severe), N25.81 - Secondary hyperparathyroidism of renal origin, R76.8 - Other specified abnormal immunological findings in serum Blood Urea Nitrogen 3 Months D63.1 - Anemia in chronic kidney disease, E55.9 - Vitamin D deficiency, unspecified, I15.1 - Hypertension secondary to other renal disorders, N18.4 - Chronic kidney disease, stage 4 (severe), N25.81 - Secondary hyperparathyroidism of renal origin, R76.8 - Other specified abnormal immunological findings in serum Electrolytes 3 Months D63.1 - Anemia in chronic kidney disease, E55.9 - Vitamin D deficiency, unspecified, I15.1 - Hypertension secondary to other renal disorders, N18.4 - Chronic kidney disease, stage 4 (severe), N25.81 - Secondary hyperparathyroidism of renal origin, R76.8 - Other specified abnormal immunological findings in serum Creatinine 3 Months D63.1 - Anemia in chronic kidney disease, E55.9 - Vitamin D deficiency, unspecified, I15.1 - Hypertension secondary to other renal disorders, N18.4 - Chronic kidney disease, stage 4 (severe), N25.81 - Secondary hyperparathyroidism of renal origin, R76.8 - Other specified abnormal immunological findings in serum Calcium 3 Months D63.1 - Anemia in chronic kidney disease, E55.9 - Vitamin D deficiency, unspecified, I15.1 - Hypertension secondary to other renal disorders, N18.4 - Chronic kidney disease, stage 4 (severe), N25.81 - Secondary hyperparathyroidism of renal origin, R76.8 - Other specified abnormal immunological findings in serum Medications: New calcitriol 0.25 mcg PO 2XW 90 days 26 caps 6RF Coding Level of Care Code Est Pt Level 4 (35988) Diagnoses Chronic kidney disease, stage 4 (severe) N18.4 Hypertension secondary to other renal disorders I15.1 Hypertension type: secondary to other renal disorders Anemia in stage 4 chronic kidney disease N18.4; D63.1 Chronic kidney disease stage: stage 4 (severe) PR3 ANCA antibodies present R76.8 Vitamin D deficiency E55.9 Secondary hyperparathyroidism (of renal origin) N25.81
[2024-06-08 14:38] VITALS: BP 128/70; BMI 19.0
== END 2024-06-08 14:51 | disposition home or self-care (01) ==
PROVIDERS: PCP Student in an Organized Health Care Education/Training Program; Visit Provider Internal Medicine Nephrology
DX: N18.4 Chronic kidney disease, stage 4 (severe) (principal); I15.1 Hypertension secondary to other renal disorders; D63.1 Anemia in chronic kidney disease; R76.8 Other specified abnormal immunological findings in serum; E55.9 Vitamin D deficiency, unspecified; N25.81 Secondary hyperparathyroidism of renal origin
CPT/HCPCS: 99214

== ENCOUNTER → 2024-06-08 14:21 | Outpatient (BNVA) | payer OTHER, SELFPAY | PROVIDERS: PCP Student in an Organized Health Care Education/Training Program; Visit Provider Internal Medicine Nephrology | DX: I15.1 Hypertension secondary to other renal disorders (principal); N18.4 Chronic kidney disease, stage 4 (severe); D63.1 Anemia in chronic kidney disease; R76.8 Other specified abnormal immunological findings in serum; E55.9 Vitamin D deficiency, unspecified | CPT/HCPCS: 99212 ==

== ENCOUNTER 2024-09-28 11:02 | Outpatient (AMB) | payer OTHER, SELFPAY ==
[2024-09-28 11:12] VITALS: BP 132/82; PULSE 79; O2SAT 100; BMI 18.9
--- NOTE | 2024-09-28 11:12 | HO.NEPHOV_ITS ---
Vital Signs 09/28/24 11:12 Height 4 ft 10 in Weight 90 lb 6 oz BMI 18.9 BP 132/82 Blood Pressure Location Lt brachial Position Sitting Pulse 79 Pulse Source Pulse Oximeter Pulse Oximetry (%) 100 Oxygen Delivery Method Room Air Intake Visit Reasons: 3 mon follow up-Conf Gas Engine Operator Required: No Accompanied by: Self / Same As Patient Allergies alcohol Allergy (Verified 09/28/24 11:12) Unknown Beef Containing Products Allergy (Verified 09/28/24 11:12) Unknown HPI Comments Details: Ms. Gasca was seen in follow up of her advance chronic kidney disease and hypertension. Her blood pressure control is at goal. She is anemic. She denies diabetes, edema, microscopic or macroscopic hematuria, photosensitivity, joint swellings, hematemesis, melena, edema, proximal nocturnal dyspnea, orthopnea or chest pain. Her appetite is good. 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 She denies taking excessive nonsteroidal anti-inflammatory medications. She has no other systemic complaints. She has family H/O rhuematoid arthritis( mom). She has strong family history of chronic kidney disease. 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 She also had chronic interstitial inflammation. She had global glomerulosclerosis 50-70%. Also there was severe interstitial fibrosis and tubular atrophy at 30-80% along with chronic thrombotic microangiopathic changes. She denies uremic symptoms. She was evaluated for transplant for transplant in [facility] Medical History Elevated blood pressure reading Gastroesophageal reflux disease Chronic kidney disease, stage 4 (severe) Family History Father Myocardial infarct Sister Chronic kidney disease Hypertension Hypercholesteremia Diabetes Mother Hypertension Hypercholesteremia Diabetes Coronary artery disease Rheumatoid arthritis Chronic kidney disease Brother Diabetes Hypercholesteremia Chronic kidney disease Social History Alcohol intake: never Patient Tobacco Use Status: Never used Tobacco Review of Systems Const All systems reviewed & are unremarkable except as noted in HPI and below Physical Exam Vital Signs: Last Vital Signs Pulse 79 09/28/24 11:12 BP 132/82 09/28/24 11:12 Pulse Ox 100 09/28/24 11:12 Oxygen Delivery Method Room Air 09/28/24 11:12 BMI result Body Mass Index 18.9 Const General: comfortable and no acute distress Orientation/consciousness: patient oriented x3 HEENT Head: Yes normocephalic Mouth: Normal oral and palatal mucosa present Eyes EOM: EOMs intact bilaterally Neck Neck: Yes supple Resp Auscultation: clear to auscultation bilaterally Cardio Jugular venous distension: no JVD Rate: regular rate GI Palpation (GI): Soft to palpation Auscultation: normal bowel sounds General: Yes no CVA tenderness Back/Spine/Pelvis Back: no CVA tenderness Skin General skin exam: no rashes or lesions noted Neuro General: patient oriented x3 and moves all extremities Extrem General: Yes no pedal edema Results Reviewed Nephrology Results: Hgb 10.5 g/dl (12.0-16.0) L 12/03/23 WBC 5.8 X10*3/uL (4.8-10.8) 12/03/23 Plt Count 261 X10*3/uL (160-400) 12/03/23 Sodium 127 mmol/L (135-145) L 12/21/23 Potassium 4.2 mmol/L (3.3-5.1) 12/21/23 Chloride 93 mmol/L (96-108) L 12/21/23 Carbon Dioxide 21 mmol/L (22-29) L 12/21/23 BUN 26 mg/dL (9-16) H 12/21/23 Creatinine 3.62 mg/dL (0.5-1.4) H 12/21/23 Calcium 9.7 mg/dL (8.4-10.2) 12/03/23 Urine Protein 300 (3+) mg/dL (Neg-Trace) H 12/03/23 Urine Creatinine 53.16 mg/dL 12/03/23 Protein/Creatinin Ratio 2.48 (<0.2) H 12/03/23 Assessment & Plan Assessment & Plan (1) HTN (hypertension): Code(s): I10 - Essential (primary) hypertension Category: Medical Qualifiers: Hypertension type: secondary to other renal disorders Qualified Code(s): I15.1 - Hypertension secondary to other renal disorders (2) Anemia in chronic kidney disease: Code(s): N18.9 - Chronic kidney disease, unspecified; D63.1 - Anemia in chronic kidney disease Category: Medical Qualifiers: Chronic kidney disease stage: stage 4 (severe) Qualified Code(s): N18.4 - Chronic kidney disease, stage 4 (severe); D63.1 - Anemia in chronic kidney disease (3) Vitamin D deficiency: Code(s): E55.9 - Vitamin D deficiency, unspecified Category: Medical (4) Secondary hyperparathyroidism (of renal origin): Code(s): N25.81 - Secondary hyperparathyroidism of renal origin Category: Medical (5) CKD (chronic kidney disease) stage 5, GFR less than 15 ml/min: Code(s): N18.5 - Chronic kidney disease, stage 5 Category: Medical Plan Olesya has advanced chronic kidney disease .She had epistaxis and is Anti [place] 3 positive. Her renal biopsy which showed of focal segmental glomerulosclerosis with a perihilar, peripheral and tip lesions. She has chronic interstitial inflammation. She had global glomerulosclerosis 50-70%. Also there was severe interstitial fibrosis and tubular atrophy at 30-80% along with chronic thrombotic microangiopathic changes. She is hypertensive. She should continue amlodipine 10 mg daily. She is off PO prednisone . She should avoid nonsteroidal anti-inflammatory medications and any other iyxx-gfk-ehuvqzd medications in addition to any unusual herbs. She should remain well hydrated. She could minimize animal protein intake. She should continue 2 Iron tablets a day along with Vitamin D 84461 Units once a month. I increased her calcitriol to 0.25 mcg four times a week. I gave her Kayexalate 30 Gram today and ordered repeat labs.[facility]. She had dialysis education. She will need an AVF soon. She wants a low dose ACEI but I did not initiate given her high K. She needs a referral to [facility] transplant( done). Further management has been involving data. All questions were answered Orders: Orders Complete Blood Count Auto Diff 1 Month N18.5 - Chronic kidney disease, stage 5 IRON PROFILE 1 Month N18.5 - Chronic kidney disease, stage 5 Creatinine 1 Month N18.5 - Chronic kidney disease, stage 5 Electrolytes 1 Month N18.5 - Chronic kidney disease, stage 5 Blood Urea Nitrogen 1 Month N18.5 - Chronic kidney disease, stage 5 Calcium 1 Month N18.5 - Chronic kidney disease, stage 5 Referrals Transplant Surgery Referral N18.5 - Chronic kidney disease, stage 5 Medications: New sodium polystyrene sulfonate 30 grams PO ONCE 30 grams 0RF Changed From calcitriol 0.25 mcg PO 2XW 90 days 26 caps 6RF To calcitriol 0.25 mcg PO DAILY 90 days 90 caps 6RF Coding Level of Care Code Est Pt Level 4 (29375) Diagnoses Hypertension secondary to other renal disorders I15.1 Hypertension type: secondary to other renal disorders Anemia in stage 4 chronic kidney disease N18.4; D63.1 Chronic kidney disease stage: stage 4 (severe) Vitamin D deficiency E55.9 Secondary hyperparathyroidism (of renal origin) N25.81 CKD (chronic kidney disease) stage 5, GFR less than 15 ml/min N18.5
--- OUTSIDE RECORDS SUMMARY | 2024-09-28 12:48 | XMS_ITS | Encounter Summary ---
Author Organization [facility] Address [address] [place] [address] Care Team Providers Care Nuisance Wildlife Specialist Name Role Phone Melissa Denton Primary Care Provider Reason for Referral * Consultation (Routine) - Authorized Specialty Diagnoses / Procedures Referred By Sangeetha leon Referred To Contact Otolaryngology Diagnoses PR3 ANCA antibodies present Davidson Garvey MD [address] [place] [address] Phone: tel: fax: [facility] [address] [place] [phone] Phone: tel: fax: Referral ID Status Reason Start Date Expiration Date Visits Requested Visits Authorized [id number] Authorized Specialty Services Required 09/08/2024 10/08/2025 6 6 Encounter Details Date Type Department Care Team (Late st Contact Info) Description 08/30/2024 myChart Message [facility] [address] [place] [address] Assistant Professor Of Mathematics: Davidson Caballero MD [address] [place] [address] [phone] Labs Social History Tobacco Use Types Packs/Day Years Used Date Smoking Tobacco: Never Passive Smoke Exposure: Never Smokeless Tobacco: Never Alcohol Use Standard Drinks/Week Comments Not Currently 0 (1 standard drink = 0.6 oz pur e alcohol) Comments Unknown Sex and Gender Information Value Date Recorded Sex Assigned at Female 02/07/2024 6:30 PM EDT Legal Sex Female 9:48 AM EDT Gender Identity Female 02/07/2024 6:30 PM EDT Sexual Orientation Choose not to disclose 2023 6:30 PM EDT documented as of this encounter Plan of Treatment Upcoming Encounters Date Type Department Care Team (Late st Contact Info) Description 10/18/2024 8:00 AM EDT Appointment [facility] [address] [place] [id number] Assistant Professor Of Mathematics: Surendra Prince Jr., MD [address] [place] [phone] 02/26/2025 1:20 PM EDT Follow-Up [facility] Rhe[facility]ology [facility] [address] [place] [phone] Assistant Professor Of Mathematics: Davidson Caballero MD [address] [place] [phone] 02/28/2025 1:40 PM EDT Follow-Up [facility] Renal Transplant [address] [place] [phone] Calvin Restrepo MD [address] [place] [phone] Scheduled Referrals Name Type Priority Associated Diagnoses Order Schedule Ambulatory referral to ENT Outpatient Referral Routine PR3 ANCA antibodies present Expected: 09/08/2024, Expires: 10/08/2025 documented as of this encounter Procedures * Due to [place] state law, this organization might not be sharing negative HIV tests. Procedure Name Priority Date/Time Associated Diagnosis Comments CARDIOLIPIN ANTIBODIES, IGG/IGM/IGA Routine 09/04/2024 2:47 PM EDT Chronic kidney disease, stage V (HCC) LUPUS ANTICOAGULATION EVALUATION W/REFLEX Routine 09/04/2024 2:47 PM EDT Chronic kidney disease, stage V (HCC) [id number] I ANTIBODIES, IGG/IGA/IGM Routine 09/04/2024 2:47 PM EDT Chronic kidney disease, stage V (HCC) documented in this encounter Results * Due to [place] state law, this organization might not be sharing negative HIV tests. * Cardiolipin Antibodies, IgG/IgM/IgA (09/04/2024 2:47 PM EDT) Cardiolipin Ab IgA <2.0 APL-U/mL 2024 1:30 PM EDT [employer] Comment: Value ?Interpretation ----- ? < 20.0 ? Antibody not detected > or = 20.0 ?Antibody detected Cardiolipin Ab IgG 2.9 GPL-U/mL 2024 1:30 PM EDT [employer] Comment: Value ?Interpretation ----- ? < 20.0 ? Antibody not detected > or = 20.0 ?Antibody detected Cardiolipin Ab IgM 5.6 MPL-U/mL 2024 1:30 PM EDT [employer] Comment: Value ?Interpretation ----- ? < 20.0 ? Antibody not detected > or = 20.0 ?Antibody detected The antiphospholipid antibody syndrome (APS) is a clinical-pathologic correlation that includes a clinical event (e.g. arterial or venous thrombosis, morbidity) and persistent positive antiphospholipid antibodies (IgM, IgG Cardiolipin or b2GPI antibodies greater than the 99th percentile; or a lupus anticoagulant). International consensus guidelines for APS suggest waiting at least 12 weeks before retesting to confirm antibody persistence. The [facility] Lup[facility] immunological classification criteria for systemic lupus erythematosus (SLE) include testing for isotype IgA, which has yet to be incorporated into APS criteria. Low level antiphospholipid antibodies may sometimes be detected in the setting of infection, drug therapy or aging. For additional information, please refer to http://Linkdex.Emme E2MS/faq/DPC650 (This link is being provided for informational/ educational purposes only.) Blood Structure of peripheral vein / Unknown 09/04/2024 2:47 PM EDT 09/05/2024 5:52 AM EDT Narrative [facility] - 09/07/2024 1:34 PM EDT FASTING:NO Davidson Garvey MD LAB BLOOD ORDERABLES Final Result [facility] [address] [facility] [address], [place] [address], [employer] [facility] [address] [place] [address] * Oeta-6-Stnfpinhzoit I Antibodies, IgG/IgA/IgM (09/04/2024 2:47 PM EDT) [facility] Beta2-Glycoprotein I (IgG) 3.1 <20.0 U/mL 09/07/2024 7:37 AM EDT [facility] Comment: Value ?Interpretation ----- ? < 20.0 ? Antibody not detected > or = 20.0 ?Antibody detected Beta2-Glycoprotein I (IgM) 4.0 <20.0 U/mL 09/07/2024 7:37 AM EDT [employer] Comment: Value ?Interpretation ----- ? < 20.0 ? Antibody not detected > or = 20.0 ?Antibody detected Beta2-Glycoprotein I (IgA) <2.0 <20.0 U/mL 09/07/2024 7:37 AM EDT [facility] Comment: Value ?Interpretation ----- ? < 20.0 ? Antibody not detected > or = 20.0 ?Antibody detected The antiphospholipid antibody syndrome (APS) is a clinical-pathologic correlation that includes a clinical event (e.g. arterial or venous thrombosis, morbidity) and persistent positive antiphospholipid antibodies (IgM, IgG Cardiolipin or b2GPI antibodies greater than the 99th percentile; or a lupus anticoagulant). International consensus guidelines for APS suggest waiting at least 12 weeks before retesting to confirm antibody persistence. The [facility] Lupus [facility] immunological classification criteria for systemic lupus erythematosus (SLE) include testing for isotype IgA, which has yet to be incorporated into APS criteria. Low level antiphospholipid antibodies may sometimes be detected in the setting of infection, drug therapy or aging. For additional information, please refer to http://education.Emme E2MS/faq/SGG845 (This link is being provided for informational/ educational purposes only.) ? Blood Structure of peripheral vein / Unknown 09/04/2024 2:47 PM EDT 09/06/2024 6:20 AM EDT Narrative [facility] - 09/07/2024 1:33 PM EDT FASTING:NO us Davidson Garvey MD LAB BLOOD ORDERABLES Final Result [facility] [address] [facility] [address] [place] [address], [employer] [facility] [address] [place] [address] * Lupus Anticoagulation Evaluation w/Reflex (09/04/2024 2:47 PM EDT) Lupus Anticoagulant see note 09/07/2024 6:55 AM EDT [facility] Comment: A Lupus Anticoagulant is not detected. Reference Range: ??Not Detected For additional information, please refer to http://education.Emme E2MS/faq/OCU97c9 (This link is being provided for informational/ educational purposes only.) ? This interpretation is based on the following test results. Ptt-LA Screen 32 <=40 sec 09/07/2024 6:55 AM EDT [facility] DRVVT Screen 33 <=45 sec 09/07/2024 6:55 AM EDT [facility] Blood Structure of peripheral vein / Unknown 09/04/2024 2:47 PM EDT 09/06/2024 6:20 AM EDT Narrative [facility] - 09/07/2024 1:33 PM EDT FASTING:NO us Davidson Garvey MD LAB BLOOD ORDERABLES Final Result [facility] [address] [facility] [address], [place] [address], [facility] [address] [place] [address] documented in this encounter Visit Diagnoses Diagnosis Chronic kidney disease, stage V (HCC)- Primary Chronic kidney disease, Stage V PR3 ANCA antibodies present documented in this encounter Care Teams Nuisance Wildlife Specialist Relationship Specialty Start Date End Date Melissa Denton [address] [facility] [address] [place] [address] PCP - General 02/14/24 documented as of this encounter
--- OUTSIDE RECORDS SUMMARY | 2024-09-28 12:48 | XMS_ITS | Clinical Summary ---
Author Organization [facility] Address [address] [place] [address] Care Team Providers Care Furniture Sander Name Role Phone Melissa Denton Primary Care Provider [phone] Allergies Active Allergy Reactions Criticality Noted Date Comments Alcohol Hives 02/14/2024 Beef Containing Products Hives 02/14/2024 Medications amLODIPine (NORVASC) 5 mg tablet Take 5 mg by mouth 2 times a day. Active cholecalciferol (VITAMIN D3) 1,250 mcg (50,000 unit) capsule Take 50,000 Units by mouth every 30 days. Active ferrous sulfate 325 mg (65 mg iron) EC tablet Take 65 mg by mouth 2 (two) times a day. Active pantoprazole DR (PROTONIX) 40 mg tablet Take 40 mg by mouth once a day. 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 Family history of autoimmunity (mother with RA). We have a paucity of data re: the events that led to the development of the chronic kidney disease bit sounds like probably started in early 2022. Given the report of nosebleeds, question of allergies and upper respiratory symptoms coupled with the renal disease and PR3 antibody - PR3-AAV certainly is a possibility although young age is a little unusual. Also unusual is the ELADIA positivity and somewhat low C3 as AAV patients are usually ELADIA negative and have complement levels in the reference range. I do not know what to make of the reported multiple first degree relatives also with chronic kidney disease. On visit today, there does not seem to be evidence of ongoing inflammation. -aim to get the renal biopsy report over from [facility] (I do not see in care everywhere or scanned into chart) -labs -would get ENT eval to make sure that there is no low grade ongoing upper respiratory inflammation --she prefers to do this locally and has PCP appointment next week so will ask then -would also given the CKD and prior systemic glucocorticoid use get a baseline DXA (is still pre-menopausal) --again she will ask PCP re: this so can do locally -we will regroup once results back but if there is lack of evidence of active systemic inflammation, I would not be in a lindquist to treat with immunosuppression at this point in time PR3 ANCA antibodies present 02/04/2024 Vitamin D deficiency 02/04/2024 Encounters Date Type Department Care Team Description 09/25/2024 virocytt Message [facility] [address] [place] [address] China Caputo, power reactor supervisor Monthly Lab Reminder 09/01/2024 Orders Only [facility] Transplant Department [address] [place] [address] China Caputo, RN Stage 4 chronic kidney disease (HCC) (Primary Dx); Pre-transplant evaluation for kidney transplant 08/30/2024 DRC Computer Message [facility] [address] [place] [phone] Specifications Writer: Davidson Caballero MD Labs 08/29/2024 Telephone [facility] [address] [place] [address] Specifications Writer: Davidson Caballero MD 08/23/2024 3:40 PM EDT Follow-Up [facility] [address] [place] [address] Calvin Restrepo MD Encounter for pre-transplant evaluation for kidney transplant (Primary Dx); Stage 2 chronic kidney disease; Stage 3 chronic kidney disease, unspecified whether stage 3a or 3b CKD; ANCA-associated vasculitis; Pre-transplant evaluation for kidney transplant 08/23/2024 1:00 PM EDT Office Visit [facility] [address] [place] [address] Specifications Writer: Calvin Hamm MD Cheah, Jonathan T., MD Chronic kidney disease, stage V (Primary Dx); Vasculitis 08/23/2024 Orders Only [facility] Transplant Department [address] [place] [phone] India Benavides, RN Stage 4 chronic kidney disease (Primary Dx); Pre-transplant evaluation for kidney transplant 08/22/2024 Telephone [facility] [address] [place] [address] Specifications Writer: Davidson Caballero MD PAC Appt Request - New 08/21/2024 Orders Only [facility] [address] [place] [address] Specifications Writer: Calvin Mckeon MD Vasculitis (Primary Dx) 08/01/2024 myChart Message [facility] [address] [place] [address] Calvin Restrepo MD Yen Nguyen 08/01/2024 myChart Message [facility] [address] [place] [phone] India Benavides RN This is Olesya Gasca 08/01/2024 Telephone [facility] Trans[facility] Department [address] [place] [address] [phone] Calvin Restrepo MD from Last 3 Months Family History Medical History Relation Name Comments Coronary artery disease Father Chronic Kidney Disease Mother Rheum arthritis Mother Chronic Kidney Disease Sister Relation Name Status Comments Father Mother Sister Social History Tobacco Use Types Packs/Day Years Used Date Smoking Tobacco: Never Passive Smoke Exposure: Never Smokeless Tobacco: Never Tobacco Cessation:Counseling Given: Not Answered Alcohol Use Standard Drinks/Week Comments Not Currently 0 (1 standard drink = 0.6 oz pur e alcohol) Comments Unknown Sex and Gender Information Value Date Recorded Sex Assigned at Female 02/07/2024 6:30 PM EDT Legal Sex Female 9:48 AM EDT Gender Identity Female 02/07/2024 6:30 PM EDT Sexual Orientation Choose not to disclose 2023 6:30 PM EDT Last Filed Vital Signs Vital Sign Reading Time Taken Comments Blood Pressure 139/80 08/23/2024 3:11 PM EDT Pulse 97 08/23/2024 3:11 PM EDT Temperature 36.6 ??C (97.9 ??F) 08/23/2024 3:11 PM ED T Respiratory Rate 16 08/23/2024 3:11 PM EDT Oxygen Saturation 99% 08/23/2024 3:11 PM EDT Inhaled Oxygen Concentration - - Weight 41.2 kg (90 lb 13.3 oz) 08/23/2024 3:11 P M EDT Height 149.9 cm (4' 11 ) 08/23/2024 12:29 PM EDT Body Mass Index 18.35 08/23/2024 12:29 PM EDT Plan of Treatment Upcoming Encounters Date Type Department Care Team (Late st Contact Info) Description 10/18/2024 8:00 AM EDT Appointment [facility] [address] [place] [phone] Specifications Writer: Surendra Prince Jr., MD [address] [place] [phone] 02/26/2025 1:20 PM EDT Follow-Up [facility] [address] [place] [address] Specifications Writer: Davidson Caballero MD [address] [place] [phone] 02/28/2025 1:40 PM EDT Follow-Up [facility] [address] [place] [address] Calvin Restrepo MD [address] [place] [address] Health Maintenance Due Date Last Done Comments 25 Hydroxy / Vitamin D 1984 CKD: Referral to Nutrition 1984 Cervical Cancer Screening 1984 HPV and Pap Smear 1984 Pap Smear 1984 Urine Microalbumin 1994 Varicella Vaccines (1 of 2 - 13+ 2-dose series) 1997 Hepatitis B Vaccines (1 of 3 - 19+ 3-dose series) 11/05/2003 COVID-19 Vaccine ( - 2023-2 5 season) 2024 DTaP,Tdap,and Td Vaccines (1 - Tdap) 03/25/2024 03/24/2024 Alcohol/Substance Use Screening 05/31/2024 Depression Screening and Follow-Up 05/31/2024 Social Drivers of Health Annual Screening 05/31/2024 Basic Metabolic Panel 11/23/2024 08/23/2024 Influenza Vaccine (Season Ended) 2025 Hemoglobin 08/23/2025 08/23/2024, 02/14/2024 PTH 08/23/2025 08/23/2024 Phosphorus 08/23/2025 08/23/2024, 02/14/2024 RSV Vaccine (60+ years old and patients) (1 - 1-dose 75+ series) 11/05/2059 HIV Screening Completed 02/14/2024 Hepatitis C Screening Completed 02/14/2024 , 04/07/2023 CKD: Referral to Nephrology Completed 08/23/2024 Pneumococcal Vaccine: Pediatric (0-5 Years) and At-Risk Patients (6-50 Years) Aged Out No longer eligible based on patient's age to complete this topic Procedures * Due to [place] state law, this organization might not be sharing negative HIV tests. Procedure Name Priority Date/Time Associated Diagnosis Comments CARDIOLIPIN ANTIBODIES, IGG/IGM/IGA Routine 09/04/2024 2:47 PM EDT Chronic kidney disease, stage V (HCC) [id number] I ANTIBODIES, IGG/IGA/IGM Routine 09/04/2024 2:47 PM EDT Chronic kidney disease, stage V (HCC) LUPUS ANTICOAGULATION EVALUATION W/REFLEX Routine 09/04/2024 2:47 PM EDT Chronic kidney disease, stage V (HCC) CAMARGO TOP, URN Routine 08/23/2024 4:40 PM EDT Chronic kidney disease, stage V UA/CULTURE REFLEX Routine 08/23/2024 4:4 0 PM EDT Chronic kidney disease, stage V URINALYSIS W/REFLEX TO MICROSCOPIC & CULTURE Routine 08/23/2024 4:40 PM EDT Chronic kidney disease, stage V PROTEIN, RANDOM URINE WITH CREATININE Routine 08/23/2024 4:40 PM EDT Chronic kidney disease, stage V MITOCHONDRIAL TITER Routine 08/23/2024 4 :12 PM EDT Chronic kidney disease, stage V (HCC) HLA MONTHLY ANTIBODY IDENTIFICATION - CLASS I Routine 08/23/2024 4:12 PM EDT Stage 4 chronic kidney disease Pre-transplant evaluation for kidney transplant CBC AUTO DIFFERENTIAL Routine 08/23/2024 4:12 PM EDT Chronic kidney disease, stage V COMPREHENSIVE METABOLIC PANEL Routine 08/23/2024 4:12 PM EDT Chronic kidney disease, stage V SEDIMENTATION RATE, AUTOMATED Routine 08/23/2024 4:12 PM EDT Chronic kidney disease, stage V C-REACTIVE PROTEIN Routine 08/23/2024 4: 12 PM EDT Chronic kidney disease, stage V IMMUNOGLOBULINS PANEL (IGG, IGA, IGM) Routine 08/23/2024 4:12 PM EDT Chronic kidney disease, stage V DNA ANTIBODY, DOUBLE-STRANDED Routine 08/23/2024 4:12 PM EDT Chronic kidney disease, stage V COMPLEMENT C3C AND C4C Routine 4:12 PM EDT Chronic kidney disease, stage V SSA & SSB (SJOGREN'S) ANTIBODIES Routine 08/23/2024 4:12 PM EDT Chronic kidney disease, stage V BRASHER (SM) ANTIBODY Routine 08/23/2024 4 :12 PM EDT Chronic kidney disease, stage V CURB BUILDER ANTIBODY Routine 08/23/2024 4:12 PM EDT Chronic kidney disease, stage V SCL-70 (SCLERODERMA) ANTIBODY Routine 08/23/2024 4:12 PM EDT Chronic kidney disease, stage V CENTROMERE B ANTIBODY Routine 08/23/2024 4:12 PM EDT Chronic kidney disease, stage V RNA POLYMERASE III, IGG Routine 08/24/19 4:12 PM EDT Chronic kidney disease, stage V MPO/OK-3 ANTIBODIES Routine 08/23/2024 4 :12 PM EDT Chronic kidney disease, stage V PHOSPHORUS Routine 08/23/2024 4:12 PM EDT Chronic kidney disease, stage V TSH Routine 08/23/2024 4:12 PM EDT Chronic kidney disease, stage V T4, FREE Routine 08/23/2024 4:12 PM EDT Chronic kidney disease, stage V PTH, INTACT (WITHOUT CALCIUM) Routine 08/23/2024 4:12 PM EDT Chronic kidney disease, stage V ALKALINE PHOSPHATASE, BONE SPECIFIC Routine 08/23/2024 4:12 PM EDT Chronic kidney disease, stage V PROCOLLAGEN TYPE-I [id number] Routine 08/23/2024 4:12 PM EDT Chronic kidney disease, stage V LIVER KIDNEY MICROSOMAL (LKM) ANTIBODY, IGG Routine 08/23/2024 4:12 PM EDT Chronic kidney disease, stage V SMOOTH MUSCLE ANTIBODY SCREEN W/REFLEX TO TITER Routine 08/23/2024 4:12 PM EDT Chronic kidney disease, stage V MITOCHONDRIAL ANTIBODY W/REFLEX Routine 08/23/2024 4:12 PM EDT Chronic kidney disease, stage V HLA MONTHYLY ANTIBODY IDENTIFICATION - CLASS II Routine 08/23/2024 4:12 PM EDT Stage 4 chronic kidney disease HLA MONTHLY ANTIBODY IDENTIFICATION - CLASS I Routine 07/27/2024 11:43 AM EST Stage 4 chronic kidney disease Encounter for pre-transplant evaluation for kidney transplant HLA MONTHYLY ANTIBODY IDENTIFICATION - CLASS II Routine 07/27/2024 11:43 AM EST Stage 4 chronic kidney disease Encounter for pre-transplant evaluation for kidney transplant HEPATITIS PANEL, ACUTE Today 4 3:23 PM EDT Stage 3 chronic kidney disease, unspecified whether stage 3a or 3b CKD from Last 3 Months or Most Recently Relevant to Health Maintenance Results * Due to [place] state law, this organization might not be sharing negative HIV tests. * Cardiolipin Antibodies, IgG/IgM/IgA (09/04/2024 2:47 PM EDT) Cardiolipin Ab IgA <2.0 APL-U/mL 2024 1:30 PM EDT [employer] Comment: Value ?Interpretation ----- ? < 20.0 ? Antibody not detected > or = 20.0 ?Antibody detected Cardiolipin Ab IgG 2.9 GPL-U/mL 2024 1:30 PM EDT [employer] Comment: Value ?Interpretation ----- ? < 20.0 ? Antibody not detected > or = 20.0 ?Antibody detected Cardiolipin Ab IgM 5.6 MPL-U/mL 2024 1:30 PM EDT [employer] Comment: Value ?Interpretation ----- ? < 20.0 [...] aging. For additional information, please refer to http://education.Startup Freak/faq/JBU063 (This link is being provided for informational/ educational purposes only.) Blood Structure of peripheral vein / Unknown 09/04/2024 2:47 PM EDT 09/05/2024 5:52 AM EDT Narrative [facility] - 09/07/2024 1:34 PM EDT FASTING:NO us Davidson Garvey MD LAB BLOOD ORDERABLES Final Result [facility] [address] [facility] [address], [place] [address], [place] [phone] [employer] [address] [place] [address] * Lupus Anticoagulation Evaluation w/Reflex (09/04/2024 2:47 PM EDT) Lupus Anticoagulant see note 09/07/2024 6:55 AM EDT [facility]/N ICHOLS [facility]ANT[facility] Comment: A Lupus Anticoagulant is not detected. Reference Range: ??Not Detected For additional information, please refer to http://UpCloo.Startup Freak/faq/OJV42g5 (This link is being provided for informational/ [...] AMBULATORY - 09/07/2024 1:33 PM EDT FASTING:NO Davidson Garvey MD LAB BLOOD ORDERABLES Final Result [facility] [address] [facility] [address], [place] [address], [facility]/RODRIGUEZ [place] [address] [place] [address] * Xzhm-1-Imknjkcyicop I Antibodies, IgG/IgA/IgM (09/04/2024 2:47 PM EDT) Beta2-Glycoprotein I (IgG) 3.1 <20.0 U/mL 09/07/2024 7:37 AM EDT [facility]/N I[facility] Comment: Value ?Interpretation ----- ? < 20.0 ? Antibody not detected > or = 20.0 ?Antibody detected Beta2-Glycoprotein I (IgM) 4.0 <20.0 U/mL 09/07/2024 7:37 AM EDT [facility]/N ICHOL[facility] Comment: Value ?Interpretation ----- ? < 20.0 [...] aging. For additional information, please refer to http://education.NutshellMail.Clifford Thames/faq/SGX443 (This link is being provided for informational/ educational purposes only.) ? Blood Structure of peripheral vein / Unknown 09/04/2024 2:47 PM EDT 09/06/2024 6:20 AM EDT Narrative [facility] - 09/07/2024 1:33 PM EDT FASTING:NO Davidson Garvey MD LAB BLOOD ORDERABLES Final Result [facility] [address], [place] [address], [employer]/JENNIFER PRATT [address] [place], [place] * Camargo Top, Urine (08/23/2024 4:40 PM EDT) Pathologist [facility] Extra Tube Hold for add-ons. 08/23/2024 9:05 PM EDT [facility] Comment:Auto resulted. Urine Urine specimen collection, clean catch / Unknown Non-Blood Collection / Unknown 08/23/2024 4:40 PM EDT 08/23/2024 4:51 PM EDT us Davidson Garvey MD LAB URINE ORDERABLES Final Result [facility] [address] [place] [address], [place] * (ABNORMAL) Urinalysis W/Reflex to Microscopic & Culture (08/23/2024 4:40 PM EDT) Pathologist [facility] Color, Urine Light Yellow Colorless, Light Yellow, Yellow, Dark Yellow 08/23/2024 5:36 PM EDT [facility] Clarity, Urine Clear Clear 08/23/2024 5:36 PM EDT [facility] Specific Hooker, Urine <1.005(L) 1.005 - 1.030 08/23/2024 5:36 PM EDT [facility] pH, Urine 7.0 4.6 - 8.0 08/23/2024 5:36 PM EDT [facility] Protein, Urine 2+(A) Negative 08/23/2024 5:36 PM EDT [facility] Glucose, Urine Negative Negative 08/23/2024 5:36 PM EDT [facility] Ketones, Urine Negative Negative 08/23/2024 5:36 PM EDT [facility] Bilirubin, Urine Negative Negative 08/23/2024 5:36 PM EDT [facility] Blood, Urine 1+(A) Negative 08/23/2024 5:36 PM EDT [facility] Nitrite, Urine Negative Negative 08/23/2024 5:36 PM EDT [facility] Urobilinogen, Urine Normal Normal 08/23/2024 5:36 PM EDT [facility] Leukocyte Esterase, Urine Negative Negative 08/23/2024 5:36 PM EDT [facility] WBC, Urine 1 0 - 2 /HPF 08/23/2024 5:36 PM EDT [facility] RBC, Urine <1 0 - 2 /HPF 08/23/2024 5:36 PM EDT [facility] Hyaline Casts, Urine 0 0 - 2 /LPF 08/23/2024 5:36 PM EDT [facility] Squamous Epithelial Cells, Urine 1 /HPF 08/23/2024 5:36 PM EDT [facility] Bacteria, Urine None None /HPF /HPF 08/23/2024 5:36 PM EDT [facility] Urine Urine specimen collection, clean catch / Unknown Non-Blood Collection / Unknown 08/23/2024 4:40 PM EDT 08/23/2024 4:51 PM EDT us Davidson Garvey MD LAB URINE ORDERABLES Final Result [facility] [address] [place] [address], [place] * (ABNORMAL) Protein, Random Urine with Creatinine (08/23/2024 4:40 PM EDT) Protein, Urine 107 mg/dL 08/23/2024 5:20 PM EDT [facility] Creatinine, Urine 26 15 - 278 mg/dL 08/23/2024 5:20 PM EDT [facility] Protein/Creat inine, Urine Ratio 4,115(H) <200 mg/gmCr 08/23/2024 5:20 PM EDT [facility] Urine Voided urine specimen / Unknown Non-Blood Collection / Unknown 08/23/2024 4:40 PM EDT 08/23/2024 4:51 PM EDT Davidson Garvey MD LAB URINE ORDERABLES Final Result [facility] [address] [place] [address], * (ABNORMAL) Mitochondrial Titer (08/23/2024 4:12 PM EDT) Mitochondrial Antibody Titer 1:640(H) <1:20 titer 08/29/2024 11:19 AM EDT [email or web address] Blood Structure of peripheral vein / Unknown Venipuncture / Unknown 08/23/2024 4:12 PM EDT 08/23/2024 4:18 PM EDT Narrative [facility] [place] - 08/29/2024 11:19 AM EDT [facility] Received Date:[id number] Davidson Garvey MD LAB BLOOD ORDERABLES Final Result [facility] [place] [address] [facility] [address], [place] [address], [place] [phone] [facility] [address] [facility] [address], [place] [address], [place] [phone] * (ABNORMAL) Procollagen Type-I Propeptide (08/23/2024 4:12 PM EDT) Procollagen Type I Intact N Terminal Propeptide 138(H) 22 - 104 mcg/L 08/26/2024 4:02 PM EDT [facility]) Blood Structure of peripheral vein / Unknown Venipuncture / Unknown 08/23/2024 4:12 PM EDT 08/23/2024 4:18 PM EDT Narrative [facility] - 08/26/2024 4:02 PM EDT [facility] Received Date:[id number] Davidson Garvey MD LAB BLOOD ORDERABLES Final Result [facility] [address] [facility] [address], [address] [place] [address], [facility] PRATT (RODRIGUEZ) [address] [place], [place] , [place] * RNA Polymerase III, IgG (08/23/2024 4:12 PM EDT) [facility] RNA Polymerase III Antibody IgG 5 0 - 19 Units 08/25/2024 12:15 AM EDT [facility] Comment: INTERPRETIVE INFORMATION: RNA Polymerase III Antibody, IgG ??19 Units or less ......Negative ??20 - 39 Units .........Weak Positive ??40 - 80 Units .........Moderate Positive ??81 Units or greater ...Strong Positive The presence of RNA polymerase III IgG antibody, when considered in conjunction with other laboratory and clinical findings, is an aid in the diagnosis of systemic sclerosis (SSc) with increased incidence of skin involvement and renal crisis with the diffuse cutaneous form of SSc. RNA polymerase III IgG antibody occur in about 11-23 percent of SSc patients, and typically in the absence of anti-centromere and anti-Scl-70 antibodies. A negative result indicates no detectable IgG antibodies to the dominant antigen of RNA polymerase III and does not rule out the possibility of SSc. False-positive results may also occur due to non-specific binding of immune complexes. Strong clinical correlation is recommended. If clinical suspicion remains, consider additional testing for other antibodies associated with SSc, including centromere, Scl-70, U3-CURB BUILDER, PM/Scl, or Th/To. Performed by [facility], [address] [place] [address],[place] [address] [email or web address], Francis Doyle MD, Lab. Director CLIA Number: [id number] Blood Structure of peripheral vein / Unknown Venipuncture / Unknown 08/23/2024 4:12 PM EDT 08/23/2024 4:18 PM EDT Davidson Garvey MD LAB BLOOD ORDERABLES Final Result [facility] [address] [place] [address], [place] * Centromere B Antibody (08/23/2024 4:12 PM EDT) Centromere B Antibody <1.0 NEG <1.0 NEG AI 08/24/2024 8:49 PM EDT [facility] Blood Structure of peripheral vein / Unknown Venipuncture / Unknown 08/23/2024 4:12 PM EDT 08/23/2024 4:18 PM EDT [facility]ative [facility] - 08/24/2024 8:49 PM EDT [facility] Received Date: Davidson Garvey MD LAB BLOOD ORDERABLES Final Result Performing Organization Address [facility]/ZIP Co de Phone Number [facility] [address] [facility] [address], [place] [address], [place] [phone], [place] [address], [place] [phone] * Brasher (Sm) Antibody (08/23/2024 4:12 PM EDT) Sm Antibody <1.0 NEG <1.0 NEG AI 08/24/2024 8:44 PM EDT [facility] Blood Structure of peripheral vein / Unknown Venipuncture / Unknown 08/23/2024 4:12 PM EDT 08/23/2024 4:18 PM EDT Narrative [facility] [place] - 08/24/2024 8:44 PM EDT [facility] Received Date: Davidson Garvey MD LAB BLOOD ORDERABLES Final Result [facility] [address] [facility] [address], [place] [address], [email or web address] [facility] [address] [facility] [address], [place] [address], * (ABNORMAL) MPO/OK-3 Antibodies (08/23/2024 4:12 PM EDT) Myeloperoxidase Antibody <1.0 08/24/2024 8:49 PM EDT [employer] Comment: ? Value ?Interpretation ? ----- ? <1.0 ? No Antibody Detected ? > or = 1.0 ?? Antibody Detected ? Autoantibodies to myeloperoxidase (MPO) are commonly associated with the following small-vessel vasculitides: microscopic polyangiitis, polyarteritis nodosa, Churg-Karine syndrome, necrotizing and crescentic glomerulonephritis and occasionally granulomatosis with polyangiitis (GPA, Kiarra's). The perinuclear IFA pattern, (p-ANCA) is based largely on autoantibody to myeloperoxidase which serves as the primary antigen. These autoantibodies are present in active disease. Proteinase-3 Antibody 4.1(H) AI 8:49 PM EDT [employer] Comment: ? Value ?Interpretation ? ----- ? <1.0 ? No Antibody Detected ? > or = 1.0 ?? Antibody Detected ? Autoantibodies to proteinase-3 (OK-3) are accepted as characteristic for granulomatosis with polyangiitis (GPA, Kiarra's), and are detectable in 95% of the histologically proven cases. The cytoplasmic IFA pattern, (c-ANCA), is based largely on autoantibody to OK-3 which serves as the primary antigen. These autoantibodies are present in active disease. Blood Structure of peripheral vein / Unknown Venipuncture / Unknown 08/23/2024 4:12 PM EDT 08/23/2024 4:18 PM EDT Narrative [facility] - 08/24/2024 8:49 PM EDT [facility] Received Date:[id number] Davidson Garvey MD LAB BLOOD ORDERABLES Final Result [facility] [place] [address], [place] [address], [place] [phone] [facility] [address], [place] [address], [place] [phone] * SSA & SSB (SJOGREN'S) Antibodies (08/23/2024 4:12 PM EDT) Sjogren's Ab (SS-A) <1.0 NEG <1.0 NEG AI 08/24/2024 8:44 PM EDT [employer] [facility] Sjogren's Ab (SS-B) <1.0 NEG <1.0 NEG AI 08/24/2024 8:44 PM EDT [employer] [facility] Blood Structure of peripheral vein / Unknown Venipuncture / Unknown 08/23/2024 4:12 PM EDT 08/23/2024 4:18 PM EDT Narrative Patients Know Best [facility]ANNER [facility] - 08/24/2024 8:44 PM EDT [facility] Received Date:[id number] Davidson Garvey MD LAB BLOOD ORDERABLES Final Result Performing Organization Address City/[facility]/ZIP Co de Phone Number JORDEN SEABROOK [address], [place] [address], [place] [phone] vocaltap [facility] [address], [place] [address], [place] [phone] * Liver Kidney Microsomal Antibody, IgG (08/23/2024 4:12 PM EDT) Liver Kidney Microsomal (LKM-1) AB (IGG) <=20.0 <=20.0 U 08/26/2024 9:32 AM EDT JORDEN GAINES) Comment: ? Reference Range: ??<=20.0 ?Negative ??20.1-24.9 ?? Equivocal ??>=25.0 ?Positive ? Anti-liver/kidney microsomal antibodies (Anti-LKM-1) were previously tested by indirect immunofluorescence (IF) using rodent liver/kidney substrate. Identification of a specific antibody target as cytochrome P450 IID6 has led to the current recombinant based BRIDGER. Antibodies to this cytochrome are present in approximately 70% of patients with autoimmune hepatitis type 2. This antibody is also present in approximately 10% of patients with hepatitis C infection. ? Blood Structure of peripheral vein / Unknown Venipuncture / Unknown 08/23/2024 4:12 PM EDT 08/23/2024 4:18 PM EDT Narrative JORDEN CAMARILLO - 08/26/2024 9:32 AM EDT [facility] Received Date: Davidson Garvey MD LAB BLOOD ORDERABLES Final Result JORDEN CAMARILLO [address] [place] [address] [address]rd Floor, [place] [address], JORDEN GAINES) [id number] [place] [address] , [place] * (ABNORMAL) Complement C3c and C4c (08/23/2024 4:12 PM EDT) Complement Component C3C 69(L) 83 - 193 mg/dL 08/24/2024 12:29 PM EDT [facility]altap [facility] Complement Component C4C 18 15 - 57 mg/dL 08/24/2024 12:29 PM EDT [employer] Blood Structure of peripheral vein / Unknown Venipuncture / Unknown 08/23/2024 4:12 PM EDT 08/23/2024 4:18 PM EDT Narrative [facility] - 08/24/2024 12:29 PM EDT [facility] Received Date: Davidson Garvey MD LAB BLOOD ORDERABLES Final Result JORDEN SEABROOK 200 [facility] 3rd Floor, [place] [address], [place] [phone] vocaltap [facility] 200 [facility] 3rd Floor, [place] [address], [place] [phone] * (ABNORMAL) CBC Auto Differential (08/23/2024 4:12 PM EDT) WBC 8.4 3.8 - 10.8 10*3/uL 08/23/2024 4:33 PM EDT [facility] RBC 2.96(L) 3.80 - 5.10 10*6/uL 08/23/2024 4:33 PM EDT [facility] Hemoglobin 8.9(L) 11.7 - 15.5 g/dL 08/23/2024 4:33 PM EDT [facility] Hematocrit 26.8(L) 35.0 - 45.0 % 08/23/2024 4:33 PM EDT [facility] MCV 90.5 80.0 - 100.0 fL 08/23/2024 4:33 PM EDT [facility] MCH 30.1 27.0 - 33.0 pg 08/23/2024 4:33 PM EDT [facility] MCHC 33.2 32.0 - 36.0 g/dL 08/23/2024 4:33 PM EDT [facility] RDW 12.3 11.0 - 15.0 % 08/23/2024 4:33 PM EDT [facility] Platelets 178 140 - 400 10*3/uL 08/23/2024 4:33 PM EDT [facility] MPV 9.6 7.5 - 12.5 fL 08/23/2024 4:33 PM EDT [facility] Neutrophil % 72.3 % 08/23/2024 4:33 PM EDT [facility] Immature Grans % 0.2 0.0 - 0.9 % 08/23/2024 4:33 PM EDT [facility] Lymphocyte % 19.9 % 08/23/2024 4:33 PM EDT [facility] Monocyte % 3.2 % 08/23/2024 4:33 PM EDT [facility] Eosinophil % 3.8 % 08/23/2024 4:33 PM EDT [facility] Basophil % 0.6 % 08/23/2024 4:33 PM EDT [facility] Neutrophil # 6.08 1.50 - 7.80 10*3/uL 08/23/2024 4:33 PM EDT [facility] Immature Grans # <0.03 <=0.03 10*3/uL 08/23/2024 4:33 PM EDT [facility] Lymphocyte # 1.70 0.85 - 3.90 10*3/uL 08/23/2024 4:33 PM EDT [facility] Monocyte # 0.30 0.20 - 0.95 10*3/uL 08/23/2024 4:33 PM EDT [facility] Eosinophil # 0.30 0.02 - 0.50 10*3/uL 08/23/2024 4:33 PM EDT [facility] Basophil # 0.10 0.00 - 0.20 10*3/uL 08/23/2024 4:33 PM EDT [facility] nRBC % 0.0 /100 WBCs 08/23/2024 4:33 PM EDT [facility] nRBC # <0.01 <0.01 10*3/uL 08/23/2024 4:33 PM EDT [facility] Blood Structure of peripheral vein / Unknown Venipuncture / Unknown 08/23/2024 4:12 PM EDT 08/23/2024 4:18 PM EDT Davidson Garvey MD LAB BLOOD ORDERABLES Final Result [facility] [address] [place] [address], [place] * Smooth Muscle Antibody Screen w/Titer (08/23/2024 4:12 PM EDT) Smooth Muscle AB Screen NEGATIVE NEGATIVE 08/29/2024 11:16 AM EDT vocaltap [facility] Blood Structure of peripheral vein / Unknown Venipuncture / Unknown 08/23/2024 4:12 PM EDT 08/23/2024 4:18 PM EDT Narrative QUEST SEABROOK - 08/29/2024 11:16 AM EDT [facility] Received Date:[id number] Davidson Garvey MD LAB BLOOD ORDERABLES Final Result Performing Organization Address [facility] Co de Phone Number [facility] 200 [facility] 3rd Floor, [place] [address], vocaltap [facility] 200 [facility] 3rd Floor, [place] [address], [place] [phone] * Scl-70 (Scleroderma) Antibody (08/23/2024 4:12 PM EDT) SCL-70 Antibody <1.0 NEG <1.0 NEG AI 08/24/2024 8:44 PM EDT [email or web address] [facility] Blood Structure of peripheral vein / Unknown Venipuncture / Unknown 08/23/2024 4:12 PM EDT 08/23/2024 4:18 PM EDT Narrative JORDEN CARO CENTERJORGE - 08/24/2024 8:44 PM EDT [facility] Received Date:[id number] Davidson Garvey MD LAB BLOOD ORDERABLES Final Result JORDEN SEABROOK 200 [facility] 3rd Floor, [place] [address], [email or web address] [facility] [address], [place] [address], * DNA Antibody, Double-Stranded (08/23/2024 4:12 PM EDT) [facility] DNA (Ds) Antibody 1 IU/mL 025 8:49 PM EDT [employer] Comment: ? IU/mL ? Interpretation ? < or = 4 ?Negative ? 5-9 ? Indeterminate ? > or = 10 ?? Positive Blood Structure of peripheral vein / Unknown Venipuncture / Unknown 08/23/2024 4:12 PM EDT 08/23/2024 4:18 PM EDT Narrative [facility] - 08/24/2024 8:49 PM EDT [facility] Received Date:[id number] Davidson Garvey MD LAB BLOOD ORDERABLES Final Result JORDEN SEABROOK 200 [facility] 3rd Floor, [place] [address], [email or web address] [facility] [address], [place] [address], [place] [phone] * CURB BUILDER Antibody (08/23/2024 4:12 PM EDT) [facility] CURB BUILDER Antibody <1.0 NEG <1.0 NEG AI 08/24/2024 8:49 PM EDT [employer]altap [facility] Blood Structure of peripheral vein / Unknown Venipuncture / Unknown 08/23/2024 4:12 PM EDT 08/23/2024 4:18 PM EDT Narrative QUEST SEABROOK - 08/24/2024 8:49 PM EDT [facility] Received Date:[id number] Davidson Garvey MD LAB BLOOD ORDERABLES Final Result [address], [place] [address], [place] [phone] vocaltap [facility] [address], [place] [address], [place] [phone] * Alkaline Phosphatase, Bone Specific (08/23/2024 4:12 PM EDT) [facility] Bone Specific 19.1 5.3 - 19.5 mcg/L 08/25/2024 1:23 PM EDT JORDEN PRATT (JENNIFER) Comment: Reference Range, Premenopausal (mcg/L) 35-45 years ?5.0-18.2 Blood Structure of peripheral vein / Unknown Venipuncture / Unknown 08/23/2024 4:12 PM EDT 08/23/2024 4:19 PM EDT Narrative JORDEN PRATT (JENNIFER) - 08/25/2024 1:23 PM EDT [facility] Received Date:[id number] us Davidson Garvey MD LAB BLOOD ORDERABLES Final Result JORDEN PRATT (JENNIFER) [address] [place] [address], [place] * (ABNORMAL) Antimitochonrial antibody (Mitochondrial Antibody w/Reflex) (08/23/2024 4:12 PM EDT) [facility] Mitochondrial Ab Screen POSITIVE (A) NEGATIVE 08/29/2024 11:16 AM EDT [facility] Blood Structure of peripheral vein / Unknown Venipuncture / Unknown 08/23/2024 4:12 PM EDT 08/23/2024 4:18 PM EDT [facility] - 08/29/2024 11:16 AM EDT [facility] Received Date:[id number] Davidson Garvey MD LAB BLOOD ORDERABLES Final Result [facility] 200 [facility] [address] [facility], [place] [address], [place] [phone] [employer]altap [facility] [address], [place] [address], [place] [phone] * Sedimentation Rate (08/23/2024 4:12 PM EDT) [facility] Sed Rate 11 <20 mm/Hr mm/Hr 08/23/2024 4:32 PM EDT [facility] Blood Structure of peripheral vein / Unknown Venipuncture / Unknown 08/23/2024 4:12 PM EDT 08/23/2024 4:18 PM EDT Davidson Garvey MD LAB BLOOD ORDERABLES Final Result [facility] [address] [place] [address], * Immunoglobulins Panel (IgG, IgA, IgM) (08/23/2024 4:12 PM EDT) [facility] Immunoglobulin A 190 47 - 310 mg/dL 08/23/2024 9:38 PM EDT [employer]altap [facility] IgG, Serum 1559 600 - 1640 mg/dL 08/23/2024 9:38 PM EDT [employer] [facility] Immunoglobulin M 176 50 - 300 mg/dL 08/23/2024 9:38 PM EDT [employer] [facility] Blood Structure of peripheral vein / Unknown Venipuncture / Unknown 08/23/2024 4:12 PM EDT 08/23/2024 4:18 PM EDT Narrative [facility] - 08/23/2024 9:38 PM EDT [facility] Received Date:[id number] Davidson Garvey MD LAB BLOOD ORDERABLES Final Result Patients [facility] Best [address]rd [address], [place] [address], [place] [phone], [place] [address], [place] [phone] * C-Reactive Protein (08/23/2024 4:12 PM EDT) C Reactive Protein <3.0 <=9.9 mg/L 08/23/2024 5:09 PM EDT [facility] Blood Structure of peripheral vein / Unknown Venipuncture / Unknown 08/23/2024 4:12 PM EDT 08/23/2024 4:23 PM EDT Davidson Garvey MD LAB BLOOD ORDERABLES Final Result [facility] [address] [place] [address], * TSH (08/23/2024 4:12 PM EDT) TSH 1.890 0.280 - 3.890 uIU/mL 08/23/2024 5:04 PM EDT [facility] Comment: Females: 1st trimester ? 0.150-4.000 ??IU/mL 2nd trimester ?? 0.310-4.170 ?IU/mL 3rd trimester ?0.380-4.150 ?IU/mL Blood Structure of peripheral vein / Unknown Venipuncture / Unknown 08/23/2024 4:12 PM EDT 08/23/2024 4:23 PM EDT Davidson Garvey MD LAB BLOOD ORDERABLES Final Result Performing Organization Address [facility] Co de Phone Number [facility] [address] [place] [address], * T4, Free (08/23/2024 4:12 PM EDT) Free T4 1.16 0.93 - 1.70 ng/dL 08/23/2024 5:04 PM EDT [facility] Comment: Females: (ng/dL) First Trimester ? 0.95-1.58 ng/dL Second Trimester ?0.76-1.24 ng/dL Third Trimester ? 0.70-1.25 ng/dL Dietary supplements containing biotin may interfere in assays and may skew analyte results to be falsely high. ?? For patients receiving the recommended daily doses of biotin, draw samples at least 8 hours following the last biotin supplementation. ?? For patients on azra-doses of biotin supplements, draw samples at least 72 hours following the last biotin supplementation. Blood Structure of peripheral vein / Unknown Venipuncture / Unknown 08/23/2024 4:12 PM EDT 08/23/2024 4:23 PM EDT Davidson Garvey MD LAB BLOOD ORDERABLES Final Result Performing Organization Address [facility] Co de Phone Number [facility] [address] [place] [address], * Phosphorus (08/23/2024 4:12 PM EDT) Phosphorus 3.2 2.5 - 4.5 mg/dL 08/23/2024 5:04 PM EDT [facility] Blood Structure of peripheral vein / Unknown Venipuncture / Unknown 08/23/2024 4:12 PM EDT 08/23/2024 4:23 PM EDT Davidson Garvey MD LAB BLOOD ORDERABLES Final Result [facility] [address] [place] [address], * (ABNORMAL) PTH, Intact (without Calcium) (08/23/2024 4:12 PM EDT) Parathyroid Hormone, Intact 273(H) 16 - 77 pg/mL 08/24/2024 8:06 AM EDT [employer] Comment: Interpretive Guide ?Intact PTH ? Calcium ? ------- Normal Parathyroid ?Normal ? Normal Hypoparathyroidism ?Low or Low Normal ?Low Hyperparathyroidism ?? Primary ?Normal or High ? High ?? Secondary ?High ? Normal or Low ?? Tertiary ? High ? High Non-Parathyroid ?? Hypercalcemia ?Low or Low Normal ?High Blood Structure of peripheral vein / Unknown Venipuncture / Unknown 08/23/2024 4:12 PM EDT 08/23/2024 4:18 PM EDT Narrative [facility] - 08/24/2024 8:06 AM EDT [facility] Received Date:[id number] us Davidson Garvey MD LAB BLOOD ORDERABLES Final Result [facility] 200 [facility] 3rd Floor, [place] [address], [place] [phone] [employer] [facility] [address] [facility] [address]rd [address], [place] [address], [place] [phone] * (ABNORMAL) Comprehensive Metabolic Panel (08/23/2024 4:12 PM EDT) NA 136 135 - 145 mmol/L 08/23/2024 5:04 PM EDT [facility] K 3.7 3.5 - 5.3 mmol/L 08/23/2024 5:04 PM EDT [facility] Cl 100 98 - 107 mmol/L 08/23/2024 5:04 PM EDT [facility] CO2 19(L) 22 - 32 mmol/L 08/23/2024 5:04 PM EDT [facility] Anion Gap 17(H) 5 - 15 08/23/2024 5:04 PM EDT [facility] Glucose 104(H) 65 - 99 mg/dL 08/23/2024 5:04 PM EDT [facility] Creatinine 4.92(H) 0.50 - 1.20 mg/dL 08/23/2024 5:04 PM EDT [facility] Calcium 8.9 8.6 - 10.5 mg/dL 08/23/2024 5:04 PM EDT [facility] Total Protein 7.7 6.0 - 8.0 g/dL 08/23/2024 5:04 PM EDT [facility] Albumin 4.5 3.5 - 5.2 g/dL 08/23/2024 5:04 PM EDT [facility] Bilirubin, Total 0.3 0.2 - 1.2 mg/dL 08/23/2024 5:04 PM EDT [facility] Alkaline Phosphatase 99 35 - 129 U/L 08/23/2024 5:04 PM EDT [facility] AST 19 10 - 40 U/L 08/23/2024 5:04 PM EDT [facility] ALT 13 10 - 40 U/L 08/23/2024 5:04 PM EDT [facility] BUN 42(H) 7 - 23 mg/dL 08/23/2024 5:04 PM EDT [facility] eGFR 11(L) >=60 mL/min/1 .73m2 08/23/2024 5:04 PM EDT [facility] Comment:The estimated glomer ular filtration rate (eGFR) is calculated using a new formula developed by the NKF-ASN task force to eliminate race-based correction factors. The new formula uses serum/plasma creatinine, age, and gender to determine eGFR. A value below 60mls/min might indicate kidney disease and will be flagged. For additional information, see Doyle et al, Am J Kidney Dis. 2021;79(2):268- 288, A Unifying Approach for GFR estimation: Recommendations of the NKF-ASN Task Force on Reassessing the Inclusion of Race in Diagnosing Kidney Disease . Globulin, Total 3.2 2.1 - 4.2 g/dL 08/23/2024 5:04 PM EDT [facility] A/G Ratio 1.4(L) 1.5 - 3.0 08/23/2024 5:04 PM EDT [facility] Blood Structure of peripheral vein / Unknown Venipuncture / Unknown 08/23/2024 4:12 PM EDT 08/23/2024 4:23 PM EDT us Davidson Garvey MD LAB BLOOD ORDERABLES Final Result [facility] [address] [place] [address], [place] * Hepatitis Panel, Acute (02/14/2024 3:23 PM EDT) Hepatitis A IgM NON-REACT HILDA NON-REACT HILDA 02/15/2024 3:21 AM EDT [employer] Hepatitis B Surface Antigen NON-REACT HILDA NON-REACT HILDA 02/15/2024 3:21 AM EDT [employer] [facility] Hepatitis B Core Antibody NON-REACT HILDA NON-REACT HILDA 02/15/2024 3:21 AM EDT [employer] Hepatitis C Antibody NON-REACT HILDA NON-REACT HILDA 02/15/2024 3:21 AM EDT [employer] [facility] Comment: HCV antibody was non-reactive. There is no laboratory evidence of HCV infection. In most cases, no further action is required. However, if recent HCV exposure is suspected, a test for HCV RNA (test code 25870) is suggested. For additional information please refer to http://UpCloo.Start[employer] Freak/faq/MID02t8 (This link is being provided for informational/ educational purposes only.) For additional information, please refer to http://UpCloo[employer]/faq/HKD426 (This link is being provided for informational/ educational purposes only.) Blood Structure of peripheral vein / Unknown Venipuncture / Unknown 02/14/2024 3:23 PM EDT 02/14/2024 3:32 PM EDT Narrative [facility] - 02/15/2024 3:21 AM EDT [facility] Received Date: us Calvin Restrepo MD LAB BLOOD ORDERABLES Final Re sult JORDEN SEABROOK [address] [facility] 3rd Floor, [place] [address], [place] [phone] [employer] [facility] 200 [facility] 3rd Floor, [place] [address], [place] [phone] from Last 3 Months or Most Recently Relevant to Health Maintenance [place] [address] [address] MEDICAID [facility] MEDICAID Advance Directives Documents on File Type Date Recorded Patient Corporate Travel Expert Expl anation Health Care Proxy 02/21/2024 8:06 AM 02-13 Care Teams Furniture Sander Relationship Specialty Start Date End Date Melissa Denton [address] [facility] [address] [place] [address] PCP - General 02/14/24
--- OUTSIDE RECORDS SUMMARY | 2024-09-28 12:48 | XMS_ITS ---
Author Organization [facility] Address [address] [place] [address] Care Team Providers Care Television News Photographer Name Role Phone Melissa Denton Primary Care Provider [phone] Transplant Episode Kidney Candidate [facility] ([place], [place]) - [facility] waitlisted on 03/16/2024 Marked as Active on 03/16/2024 Kidney CoordinatorIndia Benavides RN Fax: N/A Email: N/A Scores Score Value Updated Exceptions/Reas ons CPRA 0 04/03/2024 EPTS (Calc) 7 09/28/2024 Care Team Name Role Phone Fax Email India Benavides RN Kidney Coordinator [phone] N/A N/A Niraj Corbin Referring Physician [phone] N/A Events Pre-Transplant Referred: 11/26/2023 Evaluation began: 02/14/2024 Committee: 02/16/2024 Center waitlisted: 03/16/2024
--- OUTSIDE RECORDS SUMMARY | 2024-09-28 12:48 | XMS_ITS | Encounter Summary ---
Author Organization [facility] Address [address] [place] [address] Care Team Providers Care Associate Consulting Engineer Name Role Phone Melissa Denton Primary Care Provider [phone] Encounter Details Date Type Department Care Team (Late st Contact Info) Description 09/25/2024 myChart Message [facility] Renal Transplant [address] [place] [address] China Caputo RN [address] [place], [place] [phone] Transplant Monthly Lab Reminder Social History Tobacco Use Types Packs/Day Years [...] Info) Description 10/18/2024 8:00 AM EDT Appointment [facility] [address] [place], [place] [id number] [place] [address] Driver: Surendra Prince Jr., MD [address] [place], [place] [phone] 02/26/2025 1:20 PM EDT Follow-Up [facility] [address] [place] [address] [address] Driver: Davidson Caballero MD [address] [place] [address] 02/28/2025 1:40 PM EDT Follow-Up [facility] Transplant [address] [place], [place] [phone] Calvin Restrepo MD [address] [place], [place] [phone] documented as of this encounter Visit Diagnoses Not on filedocumented in this encounter Care Teams Associate Consulting Engineer Relationship Specialty Start Date End Date Melissa Denotn [address] [place] [id number] PCP - General 02/14/24 documented as of this encounter
--- OUTSIDE RECORDS SUMMARY | 2024-09-28 12:48 | XMS_ITS | Clinical Summary ---
Author Organization [facility], Address [address] [place] [address] [place] [address] Phone Care Team Providers Care Office Services Representative Name Role Phone Melissa Denton Primary Care Provider [phone] Social History Tobacco Use Types Packs/Day Years Used Date Smoking Tobacco: Never Assessed Comments Unknown Sex and Gender Information Value Date Recorded Sex Assigned at Not on file Legal Sex Female 1:42 PM EDT Gender Identity Not on file Sexual Orientation Not on file Plan of Treatment Health Maintenance Due Date Last Done Comments Hepatitis B Vaccine (1 of 3 - 19+ 3-dose series) 11/04 Pneumococcal Vaccine: Peds ( 0 to 5 Years) and At-Risk Patients (6 to 49 Years) (1 of 2 - PCV) 11/05/2003 Influenza Vaccine (Season Ended) 2025 Insurance [facility] Medicaid Care Teams Office Services Representative Relationship Specialty Start Date End Date Melissa Denton [address] [place] [address] PCP - General 03/05/23
--- OUTSIDE RECORDS SUMMARY | 2024-09-28 12:48 | XMS_ITS | Clinical Summary ---
Author Organization 175 [facility] Address [address] [place] [address] Phone Care Team Providers [employer] Name Role Phone Melissa Denton MD Primary Care Provider [phone] Allergies Active Allergy Reactions Criticality Noted Date Comments Alcohol 02/22/2023 Medications betamethasone, augmented, (DIPROLENE-AF) 0.05 % cream Apply topically 2 times daily. Active fluticasone propionate (FLONASE) 50 mcg/actuation nasal spray 2 times/day as needed. 4 Active predniSONE (DELTASONE) 20 mg tablet Take 2 Tablets by mouth daily. Active calcium carbonate-vitam in D 500 mg-5 mcg (200 unit) per tablet Take 1 tablet by mouth 2 (two) times a day. 180 each 3 5 09/01/19 26 Active pantoprazole (PROTONIX) 40 mg EC tablet Take 1 tablet (40 mg total) by mouth 1 (one) time each day. Do not crush, chew, or split. 90 each 1 5 02/28/20 25 Active psyllium (MetamuciL) 0.4 gram capsule Take 1 capsule (400 mg total) by mouth 1 (one) time each day if needed for constipation. 90 capsule 1 5 02/28/20 25 Active polyethylene glycol (MIRALAX) 17 gram packet Take 17 g by mouth 1 (one) time each day. 1530 g 1 5 02/28/20 25 Active amLODIPine (NORVASC) 10 mg tablet Take 1 tablet (10 mg total) by mouth 1 (one) time each day. Active calcitrioL (ROCALTROL) 0.25 mcg capsule Take 1 capsule (0.25 mcg total) by mouth 2 (two) times a week. Active ferrous sulfate 325 mg (65 mg iron) EC tablet Take 65 mg by mouth 2 times daily. Active Active Problems Problem Noted Date Diagnosed Date Primary hypertension 07/05/2023 Gastroesophageal reflux disease 03/24/2023 Overview (08/01/2024): DX:GERD (gastroesophageal reflux disease) Elevated blood pressure reading 03/24/2023 Stage 4 chronic kidney disease ([facility] V24, CMS /HCC V28) 03/24/2023 Encounters Date Type Department Care Team Description 09/21/2024 11:00 AM EDT Consult Endocrinology [address] [phone] Latonia Garvin MD Hypercalcemia (Primary Dx); Hyperparathyroidism ([facility] V24); Hypocalcemia 09/07/2024 10:32 AM EDT - 09/07/2024 11:59 PM EDT Hospital Encounter [facility] Ultrasound [address] [place] [phone] Antimitochondrial antibody positive Discharge Disposition: Home or Self Care 09/05/2024 Telephone Internal Medicine [facility] [address] [phone] Melissa Denton MD Khan: Bone density 08/31/2024 10:00 AM EDT Office Visit Internal Medicine [facility] [address] [phone] Melissa Denton MD Encounter for annual physical exam (Primary Dx); Primary hypertension; Stage 4 chronic kidney disease ([facility] V24, CMS/[facility] V28); Gastroesophageal reflux disease, unspecified whether esophagitis present; Hyperparathyroidism ([facility] V24); Current chronic use of systemic steroids; Constipation, unspecified constipation type; Other fatigue; Vitamin D deficiency; Other abnormal glucose; Encounter for lipid screening for cardiovascular disease; Antimitochondrial antibody positive; Skin tag of anus from Last 3 Months Immunizations Name Administration Dates Next Due Td Tetanus diptheria (Tdvax) 7yo and older 03/24 Surgical History Surgery Date Site/Laterality Comments OTHER SURGICAL HISTORY 06/03/2023 PROCEDURE: KS RENAL BIOPSY SURG EXPOSURE KIDNEY Medical History Medical History Date Comments GERD (gastroesophageal reflu x disease) DX:GERD (gastroesophageal re flux disease) Renal failure 2022 DX:Renal failure ; COMMENT: SAtage 4 Essential (primary) hypertension DX:Essential (primary) hypertension Stage 4 chronic kidney disea se ([facility] V24, [facility] V28) 03/24/2023 Family History Medical History Relation Name Comments Diabetes Brother Hyperlipidemia Brother Kidney disease Brother Heart attack Father Coronary artery disease Mother Diabetes Mother Hyperlipidemia Mother Hypertension Mother Rheum arthritis Mother Diabetes Sister Hyperlipidemia Sister Hypertension Sister Other: chronic kidney diease Sister Relation Name Status Comments Brother Father Mother Alive Sister Social History Tobacco Use Types Packs/Day Years Used Date Smoking Tobacco: Never Smokeless Tobacco: Never Alcohol Use Standard Drinks/Week Comments Never 0 (1 standard drink = 0.6 oz pur e alcohol) Education Answer Date Recorded What is the highest level of school you have completed or the highest degree you have received? Bachelor's degree (e.g., BA, AB, BS) 08/31/2024 Comments Unknown Sex and Gender Information Value Date Recorded Sex Assigned at Female 09/01/2024 3:49 PM EDT Legal Sex Female 8:49 PM EST Gender Identity Female 09/01/2024 3:49 PM EDT Sexual Orientation Not on file Obstetrics History Last Filed Vital Signs Vital Sign Reading Time Taken Comments Blood Pressure 137/75 09/21/2024 10:57 AM EDT Pulse 87 09/21/2024 10:57 AM EDT Temperature 36.8 ??C (98.2 ??F) 09/21/2024 10:57 AM E DT Respiratory Rate - - Oxygen Saturation 100% 08/31/2024 9:50 AM EDT Inhaled Oxygen Concentration - - Weight 44.2 kg (97 lb 6.4 oz) 09/21/2024 10:57 A M EDT Height 148.6 cm (4' 10.5 ) 09/21/2024 10:57 AM E DT Body Mass Index 20.01 09/21/2024 10:57 AM EDT Plan of Treatment Upcoming Encounters Date Type Department Care Team (Late st Contact Info) Description 10/17/2024 9:30 AM EDT Appointment [facility] Bone Density [address] [place] [phone] 03/05/2025 1:30 PM EDT Office Visit Internal Medicine - [place] [address] [facility] [address] [place] [phone] Melissa Denton MD 175 [facility] [address] [place] [address] Health Maintenance Due Date Last Done Comments COVID-19 Vaccine (#1) 1989 Hepatitis B Vaccines (1 of 3 - 19+ 3-dose series) 11/05/2003 Pneumococcal Vaccine: Pediatrics (0 to 5 Years) and At-Risk Patients (6 to 64 Years) (1 of 2 - PCV) 11/05/2003 HIV Screening 06/25/2023 Influenza Vaccine (Season Ended) 2025 Depression Screening 08/31/2025 08/31/2024 Social Influencers of Health Screening 08/31/2025 08/31/2024 Hypertension/CHF/CAD Annual BMP Blood Test 09/25/2025 09/25/2024, 08/23/2024, 06/05/2024, Additional history exists Cervical Cancer Screening: HPV 07/01/2028 07/01/2023 Cholesterol Screening (Lipid Panel) 08/31/2029 08/31/2024, 02/22/2023 DTaP,Tdap,and Td Vaccines (2 - Td or Tdap) 03/24/2034 03/24/2024 Hepatitis C Screening Completed 02/14/2024, 023 HIB Vaccines Aged Out No longer eligi ble based on patient's age to complete this topic HPV Vaccines Aged Out No longer eligi ble based on patient's age to complete this topic Hepatitis A Vaccines Aged Out No long er eligible based on patient's age to complete this topic IPV Vaccines Aged Out No longer eligi ble based on patient's age to complete this topic MMR Vaccines Aged Out No longer eligi ble based on patient's age to complete this topic Meningococcal ACWY Vaccine Aged Out N o longer eligible based on patient's age to complete this topic Meningococcal B Vaccine Aged Out No l onger eligible based on patient's age to complete this topic RSV Immunization Patients Under 20 months Aged Out No longer eligible based on patient's age to complete this topic Varicella Vaccines Aged Out No longer eligible based on patient's age to complete this topic Procedures Procedure Name Priority Date/Time Associated Diagnosis Comments EXTERNAL LAB - COLLECTION, PROCESSING AND HANDLING Routine 09/25/2024 11:33 AM EDT Chronic kidney disease, stage IV (severe) (CMS/HCC V24, CMS/HCC V28) ALBUMIN Routine 09/25/2024 11:32 AM EDT Hyperparathyroidism (CMS/HCC V24) CALCIUM Routine 09/25/2024 11:31 AM EDT Chronic kidney disease, stage IV (severe) (CMS/HCC V24, CMS/HCC V28) Secondary hyperparathyroidism of renal origin (CMS/HCC V24) Avitaminosis D Anemia of chronic renal failure Benign renal hypertension, non-vascular CREATININE, SERUM Routine 09/25/2024 11: 31 AM EDT Chronic kidney disease, stage IV (severe) (CMS/HCC V24, CMS/HCC V28) Secondary hyperparathyroidism of renal origin (CMS/HCC V24) Avitaminosis D Anemia of chronic renal failure Benign renal hypertension, non-vascular ELECTROLYTE PANEL Routine 09/25/2024 11: 31 AM EDT Chronic kidney disease, stage IV (severe) (CMS/HCC V24, CMS/HCC V28) Secondary hyperparathyroidism of renal origin (CMS/HCC V24) Avitaminosis D Anemia of chronic renal failure Benign renal hypertension, non-vascular BUN Routine 09/25/2024 11:31 AM EDT Chronic kidney disease, stage IV (severe) (CMS/HCC V24, CMS/HCC V28) Secondary hyperparathyroidism of renal origin (CMS/HCC V24) Avitaminosis D Anemia of chronic renal failure Benign renal hypertension, non-vascular US ABDOMEN COMPLETE Routine 09/07/2024 1 1:01 AM EDT Antimitochondrial antibody positive CBC WITH AUTO DIFFERENTIAL Routine 08/31/2024 11:23 AM EDT Encounter for annual physical exam Other fatigue VITAMIN D 25 HYDROXY Routine 08/31/2024 11:23 AM EDT Encounter for annual physical exam Vitamin D deficiency LIPID PANEL WITH REFLEX TO DIRECT LDL Routine 08/31/2024 11:23 AM EDT Encounter for annual physical exam Encounter for lipid screening for cardiovascular disease VITAMIN B12 Routine 08/31/2024 11:23 AM EDT Encounter for annual physical exam Other fatigue HEMOGLOBIN A1C Routine 08/31/2024 11:23 AM EDT Encounter for annual physical exam Other abnormal glucose CBC AND DIFFERENTIAL Routine 08/31/2024 11:23 AM EDT Encounter for annual physical exam Other fatigue EXTERNAL LAB - COLLECTION, PROCESSING AND HANDLING Routine 07/27/2024 12:29 PM EST Pre-transplant evaluation for chronic kidney disease HM HPV Routine 07/01/2023 HM HEPATITIS C SCREENING Routine 02/22/2023 from Last 3 Months or Most Recently Relevant to Health Maintenance Results * External lab - collection, processing and handling (09/25/2024 11:33 AM EDT) Only the most recent of2 resultswithin the time period is included. Extra Tube Hold for add-ons. 09/25/2024 1:[address] [facility] Comment:Auto resulted. Blood Venous blood specimen / Unknown Venipuncture / Unknown 09/25/2024 11:33 AM EDT 09/25/2024 11:58 AM EDT us Calvin Restrepo MD LAB BLOOD ORDERABLES Final Resu lt [facility] [address] [place] [address], [place] [phone] * Albumin (09/25/2024 11:32 AM EDT) Pathologist [facility] Albumin 4.4 3.2 - 5.0 g/dL LAB CHEMISTRY METHOD 09/25/2024 7:[address] [facility] Blood Venous blood specimen / Unknown Venipuncture / Unknown 09/25/2024 11:32 AM EDT 09/25/2024 11:59 AM EDT Latonia Garvin MD LAB BLOOD ORDERABLES Final Res ult Performing Organization Address [facility]/ZIP Co de Phone Number [facility] [address] [place] [address], * (ABNORMAL) Creatinine (09/25/2024 11:31 AM EDT) [facility] Creatinine 5.93(H) 0.50 - 1.10 mg/dL LAB CHEMISTRY METHOD 09/25/2024 7:[address] [facility] eGFR 9(L) >=60 mL/min/1. 73m2 LAB CHEMISTRY METHOD 09/25/2024 7:[address] [facility] Comment:Calculation based on the??Chronic Kidney Disease Epidemiology Collaboration (CKD-EPI) equation refit??without adjustment for race. Blood Venous blood specimen / Unknown Venipuncture / Unknown 09/25/2024 11:31 AM EDT 09/25/2024 11:59 AM EDT Niraj Corbin MD LAB BLOOD ORDERABLES Final Resul t Performing Organization Address [facility]/ZIP Co de Phone Number [facility] [address] [place] [address], * (ABNORMAL) BUN (09/25/2024 11:31 AM EDT) Pathologist [facility] BUN 30(H) 5 - 25 mg/dL LAB CHEMISTRY METHOD 09/25/2024 7:[address] [facility] Blood Venous blood specimen / Unknown Venipuncture / Unknown 09/25/2024 11:31 AM EDT 09/25/2024 11:59 AM EDT Niraj Corbin MD LAB BLOOD ORDERABLES Final Resul t Performing Organization Address City/[facility]/ZIP Co de Phone Number [facility] [address] [place] [address], [place] [phone] * Calcium (09/25/2024 11:31 AM EDT) Calcium 9.2 8.5 - 10.5 mg/dL LAB CHEMISTRY METHOD 09/25/2024 7:[address] [facility] Blood Venous blood specimen / Unknown Venipuncture / Unknown 09/25/2024 11:31 AM EDT 09/25/2024 11:59 AM EDT Niraj Corbin MD LAB BLOOD ORDERABLES Final Resul t Performing Organization Address [facility]/ZIP Co de Phone Number [facility] [address] [place] [address], [place] [phone] * (ABNORMAL) Electrolyte panel (09/25/2024 11:31 AM EDT) Sodium 131(L) 133 - 145 mmol/L LAB CHEMISTRY METHOD 09/25/2024 7:[address] [facility] Potassium 5.7(H) 3.5 - 5.5 mmol/L LAB CHEMISTRY METHOD 09/25/2024 7:[address] [facility] Chloride 101 96 - 110 mmol/L LAB CHEMISTRY METHOD 09/25/2024 7:[address] [facility] CO2 23 21 - 32 mmol/L LAB CHEMISTRY METHOD 09/25/2024 7:[address] [facility] Anion Gap 7 3 - 11 LAB CHEMISTRY METHOD 09/25/2024 7:[address] [facility] Blood Venous blood specimen / Unknown Venipuncture / Unknown 09/25/2024 11:31 AM EDT 09/25/2024 11:59 AM EDT us Niraj Corbin MD LAB BLOOD ORDERABLES Final Resul t [facility] [address] [place] [address], [place] [phone] * US Abdomen Complete (09/07/2024 11:01 AM EDT) Anatomical Region Laterality Modality Body Ultrasound 09/08/2024 11:0 8 AM EDT Impressions 09/08/2024 11:24 AM EDT No focal liver lesion, ascites or splenomegaly. No intrahepatic or extrahepatic biliary dilation. No definite irregularity of the extrahepatic bile ducts. Small echogenic kidneys. This is nonspecific. Among the many causes lupus could give this appearance. A positive AMA test is most often associated with primary biliary sclerosis but could also be related to autoimmune hepatitis, lupus, or rheumatoid arthritis. -------- FINAL REPORT -------- Dictated By: Alvaro Gutierrez Dictated Date: 09/08/2024 11:08 ET Assigned Physician: Alvaro Gutierrez Reviewed and Electronically Signed By: Alvaro Gutierrez Signed Date: 09/08/2024 11:24 ET Workstation ID: [id number] Transcribed By: Self Edit Transcribed Date: 09/08/2024 11:08 ET Narrative 09/08/2024 11:24 AM EDT EXAMINATION: ABDOMEN ULTRASOUND CLINICAL INFORMATION: Abnormal blood testing. Abnormal elevated antimitochondrial antibodies tests. COMPARISON: Portions of a renal ultrasound 04/02/23 TECHNIQUE: Ultrasound of the abdomen FINDINGS: QUALITY: Adequate LI - ??RADS visualization score = Visualization A: No or minimal limitations GALARZA for visualization scoring: A - Minimal limitations-unlikely to meaningfully affect sensitivity B - Moderate limitations-limitations may obscure small masses C - Severe limitations-limitations significantly lowers sensitivity for focal liver lesions PANCREAS: No abnormality in the visualized portions of the pancreas. No pancreatic ductal dilation. No fluid around the pancreas. ABDOMINAL AORTA/IVC: IVC is well-visualized and appears normal. The abdominal aorta is normal caliber. No enlarged retroperitoneal lymph nodes or abnormal fluid in the retroperitoneum. LIVER: The right lobe of the liver measures 12.7 cm. The liver contour appears smooth. The portal tracts are well visualized. The diaphragm is well visualized. There is no suspicious focal liver lesion. There is no significant intrahepatic biliary dilation. BILIARY: There is no shadowing gallstone. There is a 1 mm echogenic focus which is too small to characterize. No fluid around the gallbladder. No gallbladder wall thickening. COMMON BILE DUCT: The common duct measures 0.5 cm which is within normal limits. GALLBLADDER TENDERNESS: There is no reported tenderness to transducer pressure over the gallbladder. KIDNEYS: Right renal length: ??8.2 cm in greatest length Left renal length: ??8.2 cm in greatest length The cortical echogenicity is mildly to moderately diffusely increased. There is no dilation of the intrarenal collecting system on either side. There is no suspicious focal lesion demonstrated on either side. There are cysts bilaterally. There are some bright reflectors associated with the margin of some of the cysts. Bosniak 2. There is no shadowing calculus demonstrated ??on either side. SPLEEN: The spleen measures approximately 10.2 cm. No focal abnormality. FLUID: No intraperitoneal fluid demonstrated in the upper abdomen Procedure Note Alvaro Gutierrez MD - 09/08/2024 EXAMINATION: ABDOMEN ULTRASOUND CLINICAL INFORMATION: Abnormal blood testing. Abnormal elevated antimitochondrial antibodiestests. COMPARISON: Portions of a renal ultrasound 04/02/23 TECHNIQUE: Ultrasound of the abdomen FINDINGS: QUALITY: Adequate LI - RADS visualization score = Visualization A: No or minimallimitations GALARZA for visualization scoring: A - Minimal limitations-unlikely to meaningfully affect sensitivity B - Moderate limitations-limitations may obscure small masses C - Severe limitations-limitations significantly lowers sensitivity forfocal liver lesions PANCREAS: No abnormality in the visualized portions of the pancreas. Nopancreatic ductal dilation. No fluid around the pancreas. ABDOMINAL AORTA/IVC: IVC is well-visualized and appears normal. The abdominal aorta is normal caliber. No enlarged retroperitoneal lymphnodes or abnormal fluid in the retroperitoneum. LIVER: The right lobe of the liver measures 12.7 cm. The liver contour appears smooth. The portal tracts are well visualized.The diaphragm is well visualized. There is no suspicious focal liver lesion. There is no significantintrahepatic biliary dilation. BILIARY: There is no shadowing gallstone. There is a 1 mm echogenic focuswhich is too small to characterize. No fluid around the gallbladder. Nogallbladder wall thickening. COMMON BILE DUCT: The common duct measures 0.5 cm which is within normallimits. GALLBLADDER TENDERNESS: There is no reported tenderness to transducerpressure over the gallbladder. KIDNEYS: Right renal length: 8.2 cm in greatest length Left renal length: 8.2 cm in greatest length The cortical echogenicity is mildly to moderately diffusely increased. There is no dilation of the intrarenal collecting system on either side. There is no suspicious focal lesion demonstrated on either side. There arecysts bilaterally. There are some bright reflectors associated with themargin of some of the cysts. Bosniak 2. There is no shadowing calculus demonstrated on either side. SPLEEN: The spleen measures approximately 10.2 cm. No focal abnormality. FLUID: No intraperitoneal fluid demonstrated in the upper abdomen IMPRESSION: No focal liver lesion, ascites or splenomegaly. No intrahepatic or extrahepatic biliary dilation. No definite irregularityof the extrahepatic bile ducts. Small echogenic kidneys. This is nonspecific. Among the many causes lupuscould give this appearance. A positive AMA test is most often associated with primary biliarysclerosis but could also be related to autoimmune hepatitis, lupus, orrheumatoid arthritis. -------- FINAL REPORT -------- Dictated By: Alvaro Gutierrez Dictated Date: 09/08/2024 11:08 ET Assigned Physician: Alvaro Gutierrez Reviewed and Electronically Signed By: Alvaro Gutierrez Signed Date: 09/08/2024 11:24 ET Workstation ID: [id number] Transcribed By: Self Edit Transcribed Date: 09/08/2024 11:08 ET us Melissa Denton MD IM US PROCEDURES Final Result * (ABNORMAL) Lipid panel with reflex to direct LDL (08/31/2024 11:23 AM EDT) Cholesterol 247(H) 0 - 200 mg/dL LAB CHEMISTRY METHOD 08/31/2024 4:[address] [facility] Triglycerides 125 0 - 150 mg/dL LAB CHEMISTRY METHOD 08/31/2024 4:[address] [facility] HDL 89 >=40 mg/dL LAB CHEMISTRY METHOD 08/31/2024 4:[address] [facility] LDL Calculated 133(H) 0 - 100 mg/dL LAB CHEMISTRY METHOD 08/31/2024 4:[address] [facility] VLDL Cholesterol Germán 25 mg/dL LAB CHEMISTRY METHOD 08/31/2024 4:[address] [facility] Non HDL Chol. (LDL+VLDL) 158(H) <145 mg/dL LAB CHEMISTRY METHOD 08/31/2024 4:[address] [facility] Chol/HDL Ratio 2.8 0.0 - 4.4 LAB CHEMISTRY METHOD 08/31/2024 4:[address] [facility] Blood Venous blood specimen / Unknown Venipuncture / Unknown 08/31/2024 11:23 AM EDT 08/31/2024 12:49 PM EDT us Melissa Denton MD LAB BLOOD ORDERABLES Final Resul t [facility] [address] [place] [address], * (ABNORMAL) CBC auto differential (08/31/2024 11:23 AM EDT) WBC 7.1 4.8 - 10.8 K/mcL LAB HEMETOLOGY METHOD 08/31/2024 1:[address] [facility] RBC 3.00(L) 3.80 - 4.80 M/mcL LAB HEMETOLOGY METHOD 08/31/2024 1:[address] [facility] Hemoglobin 9.2(L) 11.5 - 16.0 g/dL LAB [facility]ETOLOGY [facility] Hematocrit 27.5(L) 35.0 - 47.0 % LAB HEMETOLOGY METHOD 08/31/2024 1:[address] [facility] MCV 91.7 79.0 - 98.0 FL LAB HEMETOLOGY [facility] MCH 30.7 27.0 - 32.0 pcg LAB HEMETOLOGY METHOD 08/31/2024 1:[address] [facility] MCHC 33.5 32.0 - 37.0 g/dL LAB HEMETOLOGY METHOD 08/31/2024 1:[address] [facility] RDW 12.4 11.0 - 15.0 % LAB HEMETOLOGY METHOD 08/31/2024 1:[address] [facility] Platelets 174 130 - 400 K/mcL LAB HEMETOLOGY METHOD 08/31/2024 1:[address] [facility] MPV 10.1 7.0 - 11.0 FL LAB HEMETOLOGY METHOD 08/31/2024 1:[address] [facility] NRBC 0.0 <1.0 % LAB HEMETOLOGY METHOD 08/31/2024 1:[address] [facility] NRBC Absolute 0.00 <0.10 K/mcL LAB HEMETOLOGY METHOD 08/31/2024 1:[address] [facility] Neutrophils Relative 70.0 % LAB HEMETOLOGY METHOD 08/31/2024 1:[address] [facility] Lymphocytes Relative 17.0 % LAB HEMETOLOGY METHOD 08/31/2024 1:[address] [facility] Monocytes Relative 6.2 % LAB HEMETOLOGY METHOD 08/31/2024 1:[address] [facility] Eosinophils Relative 5.8 % LAB HEMETOLOGY METHOD 08/31/2024 1:[address] [facility] Basophils Relative 0.6 % LAB HEMETOLOGY METHOD 08/31/2024 1:[address] [facility] Immature Granulocytes Relative 0.4 % LAB HEMETOLOGY METHOD 08/31/2024 1:[address] [facility] Neutrophils Absolute 4.94 1.50 - 7.00 K/mcL LAB HEMETOLOGY METHOD 08/31/2024 1:[address] [facility] Lymphocytes Absolute 1.20 1.00 - 5.00 K/mcL LAB HEMETOLOGY METHOD 08/31/2024 1:[address] [facility] Monocytes Absolute 0.44 0.20 - 1.00 K/mcL LAB HEMETOLOGY METHOD 08/31/2024 1:[address] [facility] Eosinophils Absolute 0.41 0.00 - 0.50 K/mcL LAB HEMETOLOGY METHOD 08/31/2024 1:[address] [facility] Basophils Absolute 0.04 0.00 - 0.20 K/mcL LAB HEMETOLOGY METHOD 08/31/2024 1:[address] [facility] Immature Granulocytes Absolute 0.03 0.00 - 0.03 K/mcL LAB HEMETOLOGY METHOD 08/31/2024 1:[address] [facility] Blood Venous blood specimen / Unknown Venipuncture / Unknown 08/31/2024 11:23 AM EDT 08/31/2024 12:50 PM EDT us Melissa Denton MD LAB BLOOD ORDERABLES Final Resul t [facility] [address] [place] [address], * Vitamin D 25 hydroxy (08/31/2024 11:23 AM EDT) Vit D, 25-Hydroxy 38.8 30.0 - 80.0 ng/mL LAB CHEMISTRY METHOD 08/31/2024 5:[address] [facility] Blood Venous blood specimen / Unknown Venipuncture / Unknown 08/31/2024 11:23 AM EDT 08/31/2024 12:49 PM EDT Melissa Denton MD LAB BLOOD ORDERABLES Final Resul t Performing Organization Address City/[facility]/ZIP Co de Phone Number [facility] [address] [place] [address], * Hemoglobin A1c (08/31/2024 11:23 AM EDT) [facility] Hemoglobin A1C 4.3 <6.5 % LAB CHEMISTRY METHOD 08/31/2024 11:[address] [facility] Mean Bld Glu Estim. 77 mg/dL LAB CHEMISTRY METHOD 08/31/2024 11:[address] [facility] Blood Venous blood specimen / Unknown Venipuncture / Unknown 08/31/2024 11:23 AM EDT 08/31/2024 12:50 PM EDT Melissa Denton MD LAB BLOOD ORDERABLES Final Resul t [facility] [address] [place] [address], [place] [phone] * Vitamin B12 (08/31/2024 11:23 AM EDT) Pathologist [facility] Vitamin B-12 534 250 - 900 pcg/mL LAB CHEMISTRY METHOD 08/31/2024 4:[address] [facility] Blood Venous blood specimen / Unknown Venipuncture / Unknown 08/31/2024 11:23 AM EDT 08/31/2024 12:49 PM EDT Melissa Denton MD LAB BLOOD ORDERABLES Final Resul t [facility] ([facility] [address] [place] [address], * Cervical Cancer Screening: HPV (07/01/2023) Pathologist [facility] Cervical Cancer Screening: HPV Negative, Abstracted Historical Provider HEALTH MAINTENANCE Final Result * Hepatitis C Screening (02/22/2023) [facility] Hepatitis C Screening Abstracted Historical Provider HEALTH MAINTENANCE Final Result from Last 3 Months or Most Recently Relevant to Health Maintenance Insurance [facility] [employer] Care Teams Real Estate Associate Relationship Specialty Start Date End Date Melissa Denton MD [address] [facility] [address] [place] [address] PCP - General Internal Medicine 06/05/24
--- OUTSIDE RECORDS SUMMARY | 2024-09-28 12:48 | XMS_ITS | Referral Summary ---
Author Organization [facility] Address [address] [place] [address] Care Team Providers Care Leather Leveler Name Role Phone Melissa Denton Primary Care Provider [phone] Encounters Date Type Department Care Team Description 09/25/2024 SmartStart Message [facility] Renal Transplant [address] [place] [address] China Caputo, naval police coxswain Monthly Lab Reminder 09/01/2024 Orders Only [facility] Transplant Department [address] [place] [address] China Caputo, JAS Stage 4 chronic kidney disease (HCC) (Primary Dx); Pre-transplant evaluation for kidney transplant 08/30/2024 SmartStart Message [facility]ology [facility] [address] [place] [address] Farm Loan Representative: Davidson Caballero MD Labs 08/29/2024 Telephone [facility] [address] [place] [address] Farm Loan Representative: Davidson Caballero MD 08/23/2024 Orders Only [facility] Transplant Department [address] [place] [address] India Benavides RN Stage 4 chronic kidney disease (Primary Dx); Pre-transplant evaluation for kidney transplant 08/23/2024 1:00 PM EDT Office Visit [facility] [address] [place] [address] Farm Loan Representative: Calvin Hamm MD Cheah, Jonathan T., MD Chronic kidney disease, stage V (Primary Dx); Vasculitis 08/23/2024 3:40 PM EDT Follow-Up [facility] Renal Transplant [address] [place] [address] Calvin Restrepo MD Encounter for pre-transplant evaluation for kidney transplant (Primary Dx); Stage 2 chronic kidney disease; Stage 3 chronic kidney disease, unspecified whether stage 3a or 3b CKD; ANCA-associated vasculitis; Pre-transplant evaluation for kidney transplant 08/22/2024 Telephone [facility] [address] [place] [address] Farm Loan Representative: Davidson Caballero MD PAC Appt Request - New 08/21/2024 Orders Only [facility] Nephrology Clinic [address] [place] [phone] Farm Loan Representative: Calvin Mckeon MD Vasculitis (Primary Dx) 08/01/2024 myChart Message [facility] Renal Transplant [address] [place] [phone] Calvin Restrepo MD Yen Nguyen 08/01/2024 myChart Message [facility] Renal Transplant [address] [place] [address] India Benavides RN This is Olesya Gasca 08/01/2024 Telephone [facility] Transplant Department [address] [place] [phone] Calvin Restrepo MD from Last 3 Months Allergies Active Allergy Reactions Criticality Noted Date [...] get the renal biopsy report over from [facility] (I do not see in care [...] antibodies present 02/04/2024 Vitamin D deficiency 02/04/2024 Social History Tobacco Use Types Packs/Day Years [...] Info) Description 10/18/2024 8:00 AM EDT Appointment [facility] Otolaryngology Clinic [address] [place] [address] 13867 Farm Loan Representative: Surendra Prince Jr., MD [address] [place] [phone] 02/26/2025 1:20 PM EDT Follow-Up [facility] [address] [place] [address] Farm Loan Representative: Davidson Caballero MD [address] [place] [address] 02/28/2025 1:40 PM EDT Follow-Up [facility] Renal Transplant [address] [place] [address] [phone] Calvin Restrepo MD [address] [place] [phone] Procedures * Due to [place] state law, this organization might not be sharing negative HIV tests. Procedure Name Priority Date/Time Associated Diagnosis Comments CARDIOLIPIN ANTIBODIES, IGG/IGM/IGA Routine 09/04/2024 2:47 PM EDT Chronic kidney disease, stage V (HCC) [id number] I ANTIBODIES, IGG/IGA/IGM Routine 09/04/2024 2:47 PM [...] PM EDT Chronic kidney disease, stage V PROFESSOR OF BUSINESS ANTIBODY Routine 08/23/2024 4:12 PM EDT Chronic kidney disease, stage V SCL-70 (SCLERODERMA) ANTIBODY Routine 08/23/2024 4:12 PM EDT Chronic kidney disease, stage V CENTROMERE B ANTIBODY Routine 08/23/2024 4:12 PM EDT Chronic kidney disease, stage V RNA POLYMERASE III, IGG Routine 08/24/19 4:12 PM EDT Chronic kidney disease, stage V MPO/PA-3 ANTIBODIES Routine 08/23/2024 4 :12 PM EDT [...] Chronic kidney disease, stage V PROCOLLAGEN TYPE-I [id number] Routine 08/23/2024 4:12 PM EDT Chronic kidney [...] to Health Maintenance Results * Due to [place] state law, this organization might not be sharing negative HIV tests. * Cardiolipin Antibodies, IgG/IgM/IgA (09/04/2024 2:47 PM EDT) Cardiolipin Ab IgA <2.0 APL-U/mL 2024 1:30 PM EDT [facility] [employer] Comment: Value ?Interpretation ----- ? < 20.0 ? Antibody not detected > or = 20.0 ?Antibody detected Cardiolipin Ab IgG 2.9 GPL-U/mL 2024 1:30 PM EDT [employer] Comment: Value ?Interpretation ----- ? < 20.0 ? Antibody not detected > or = 20.0 ?Antibody detected Cardiolipin Ab IgM 5.6 MPL-U/mL 2024 1:30 PM EDT [employer] Comment: Value ?Interpretation ----- ? < 20.0 [...] aging. For additional information, please refer to http://education.[employer].TeePee [employer]/faq/TDP805 (This link is being provided for informational/ educational purposes only.) Blood Structure of peripheral vein / Unknown 09/04/2024 2:47 PM EDT 09/05/2024 5:52 AM EDT Narrative [facility] - 09/07/2024 1:34 PM EDT FASTING:NO us Davidson Garvey MD LAB BLOOD ORDERABLES Final Result [facility] [address] [facility] [address] [facility], [place] [address], [place] [phone] [facility] [address] [place] [address] * Lupus Anticoagulation Evaluation w/Reflex (09/04/2024 2:47 PM EDT) Lupus Anticoagulant see note 09/07/2024 6:55 AM EDT [facility]/N ICHOLS CHANTILLY Comment: A Lupus Anticoagulant is not detected. Reference Range: ??Not Detected For additional information, please refer to http://groSolar.VisEn Medical/faq/TBN12e7 (This link is being provided for informational/ [...] BLOOD ORDERABLES Final Result [facility] [address] [facility] 3rd Floor, [place] [address], [place] [phone] [facility]/RODRIGUEZ GIUSEPPETILLY [address] [place] [address] * Zolh-5-Irbbjtxivwii I Antibodies, IgG/IgA/IgM (09/04/2024 2:47 PM EDT) Beta2-Glycoprotein I (IgG) 3.1 <20.0 U/mL 09/07/2024 7:37 AM EDT [facility]/N [facility] Comment: Value ?Interpretation ----- ? < 20.0 ? Antibody not detected > or = 20.0 ?Antibody detected Beta2-Glycoprotein I (IgM) 4.0 <20.0 U/mL 09/07/2024 7:37 AM EDT [facility] [facility] Comment: Value ?Interpretation ----- ? < 20.0 ? Antibody not detected > or = 20.0 ?Antibody detected Beta2-Glycoprotein I (IgA) <2.0 <20.0 U/mL 09/07/2024 7:37 AM EDT [facility] [facility] Comment: Value ?Interpretation ----- ? < 20.0 [...] aging. For additional information, please refer to http://education.VisEn Medical/faq/TNX223 (This link is being provided for informational/ educational purposes only.) ? Blood Structure of peripheral vein / Unknown 09/04/2024 2:47 PM EDT 09/06/2024 6:20 AM EDT Narrative [facility] - 09/07/2024 1:33 PM EDT FASTING:NO Davidson Garvey MD LAB BLOOD ORDERABLES Final Result [facility] [address] [facility] 3rd Floor, [place] [address], [place] [phone] [facility] [address] [place] [address] * Camargo Top, Urine (08/23/2024 4:40 PM EDT) Extra Tube Hold for add-ons. 08/23/2024 9:05 PM EDT [facility] Comment:Auto resulted. Urine Urine specimen collection, clean catch / Unknown Non-Blood Collection / Unknown 08/23/2024 4:40 PM EDT 08/23/2024 4:51 PM EDT Davidson Garvey MD LAB URINE ORDERABLES Final Result [facility] [address] [place] [address], * (ABNORMAL) Urinalysis W/Reflex to Microscopic & Culture (08/23/2024 4:40 PM EDT) Color, Urine Light Yellow Colorless, Light Yellow, Yellow, Dark Yellow 08/23/2024 5:36 PM EDT [facility] Clarity, Urine Clear Clear 08/23/2024 5:36 PM EDT [facility] Specific [place], Urine <1.005(L) 1.005 - 1.030 08/23/2024 5:36 PM EDT [facility] pH, Urine 7.0 4.6 - 8.0 08/23/2024 5:36 PM EDT [facility] Protein, Urine 2+(A) Negative 08/23/2024 5:36 PM EDT [facility] Glucose, Urine Negative Negative 08/23/2024 5:36 PM EDT [facility] Ketones, Urine Negative Negative 08/23/2024 5:36 PM EDT [facility] Bilirubin, Urine Negative Negative 08/23/2024 5:36 PM EDT [facility] Blood, Urine 1+(A) Negative 08/23/2024 5:36 PM EDT [facility] Nitrite, Urine Negative Negative 08/23/2024 5:36 PM EDT [facility] Urobilinogen, Urine Normal Normal 08/23/2024 5:36 PM EDT [facility] Leukocyte Esterase, Urine Negative Negative 08/23/2024 5:36 PM EDT [facility] WBC, Urine 1 0 - 2 /HPF 08/23/2024 5:36 PM EDT [facility] RBC, Urine <1 0 - 2 /HPF 08/23/2024 5:36 PM EDT [facility] Hyaline Casts, Urine 0 0 - 2 /LPF 08/23/2024 5:36 PM EDT [facility] Squamous Epithelial Cells, Urine 1 /HPF 08/23/2024 5:36 PM EDT [facility] Bacteria, Urine None None /HPF /HPF 08/23/2024 5:36 PM EDT [employer] Urine Urine specimen collection, clean catch / Unknown Non-Blood Collection / Unknown 08/23/2024 4:40 PM EDT 08/23/2024 4:51 PM EDT us Davidson Garvey MD LAB URINE ORDERABLES Final Result [facility] [address] [place] [address], [place] * (ABNORMAL) Protein, Random Urine with Creatinine (08/23/2024 4:40 PM EDT) Pathologist [facility] Protein, Urine 107 mg/dL 08/23/2024 5:20 PM EDT [facility] Creatinine, Urine 26 15 - 278 mg/dL 08/23/2024 5:20 PM EDT [facility] Protein/Creat inine, Urine Ratio 4,115(H) <200 mg/gmCr 08/23/2024 5:20 PM EDT [facility] Urine Voided urine specimen / Unknown Non-Blood Collection / Unknown 08/23/2024 4:40 PM EDT 08/23/2024 4:51 PM EDT Davidson Garvey MD LAB URINE ORDERABLES Final Result [facility] [address] [place] [address], [place] * (ABNORMAL) Mitochondrial Titer (08/23/2024 4:12 PM EDT) Pathologist [facility] Mitochondrial Antibody Titer 1:640(H) <1:20 titer 08/29/2024 11:19 AM EDT [facility] Blood Structure of peripheral vein / Unknown Venipuncture / Unknown 08/23/2024 4:12 PM EDT 08/23/2024 4:18 PM EDT Narrative [facility] - 08/29/2024 11:19 AM EDT [facility] Received Date:[id number] Davidson Garvey MD LAB BLOOD ORDERABLES Final Result [facility] [address] [facility] 3rd Floor, [place] [address], [place] [phone] [facility] [address] [facility] [address] Floor, [place] [address], [place] [phone] * (ABNORMAL) Procollagen Type-I Propeptide (08/23/2024 4:12 PM EDT) Pathologist [facility] Procollagen Type I Intact N Terminal Propeptide 138(H) 22 - 104 mcg/L 08/26/2024 4:02 PM EDT [facility] (RODRIGUEZ) Blood Structure of peripheral vein / Unknown Venipuncture / Unknown 08/23/2024 4:12 PM EDT 08/23/2024 4:18 PM EDT Narrative [facility] - 08/26/2024 4:02 PM EDT [facility] Received Date: Davidson Garvey MD LAB BLOOD ORDERABLES Final Result [facility] [address] [facility] 3rd Floor, [place] [address], [facility] PRATT (RODRIGUEZ) [address] [place] [address] , * RNA Polymerase III, IgG (08/23/2024 4:12 PM EDT) [facility] RNA Polymerase III Antibody IgG 5 0 - 19 Units 08/25/2024 12:15 AM EDT [facility] Comment: INTERPRETIVE INFORMATION: RNA Polymerase III [...] antibodies associated with SSc, including centromere, Scl-70, U3-PROFESSOR OF BUSINESS, PM/Scl, or Th/To. Performed by [facility], [address] [place] [address] [email or web address], Francis Doyle MD, Lab. Director CLIA Number: [id number] Blood Structure of peripheral vein / Unknown Venipuncture / Unknown 08/23/2024 4:12 PM EDT 08/23/2024 4:18 PM EDT Davidson Garvey MD LAB BLOOD ORDERABLES Final Result [facility] [address] [place] [address], * Centromere B Antibody (08/23/2024 4:12 PM EDT) Centromere B Antibody <1.0 NEG <1.0 NEG AI 08/24/2024 8:49 PM EDT [facility] Blood Structure of peripheral vein / Unknown Venipuncture / Unknown 08/23/2024 4:12 PM EDT 08/23/2024 4:18 PM EDT Narrative [facility] - 08/24/2024 8:49 PM EDT [facility] Received Date:[id number] Davidson Garvey MD LAB BLOOD ORDERABLES Final Result [facility] [address] [facility] 3rd Floor, [place] [address], [place] [phone] [facility] [facility] [address] [facility] [address] Floor, [place] [address], [place] [phone] * Brasher (Sm) Antibody (08/23/2024 4:12 PM EDT) Sm Antibody <1.0 NEG <1.0 NEG AI 08/24/2024 8:44 PM EDT [facility] [employer] Blood Structure of peripheral vein / Unknown Venipuncture / Unknown 08/23/2024 4:12 PM EDT 08/23/2024 4:18 PM EDT Narrative [facility] - 08/24/2024 8:44 PM EDT [facility] Received Date: Davidson Garvey MD LAB BLOOD ORDERABLES Final Result [facility] [address] [facility] 3rd Floor, [place] [address], [employer] [facility] [address], [place] [address], * (ABNORMAL) MPO/PA-3 Antibodies (08/23/2024 4:12 PM EDT) Myeloperoxidase Antibody <1.0 AI 08/24/2024 8:49 PM EDT [employer] Comment: ? Value ?Interpretation ? ----- ? [...] Proteinase-3 Antibody 4.1(H) AI 8:49 PM EDT [employer] Comment: ? Value ?Interpretation ? ----- ? <1.0 ? No Antibody Detected ? > or = 1.0 ?? Antibody Detected ? Autoantibodies to proteinase-3 (PA-3) are accepted as characteristic for granulomatosis with polyangiitis (GPA, Kiarra's), and are detectable in 95% of the histologically proven cases. The cytoplasmic IFA pattern, (c-ANCA), is based largely on autoantibody to PA-3 which serves as the primary antigen. These autoantibodies are present in active disease. Blood Structure of peripheral vein / Unknown Venipuncture / Unknown 08/23/2024 4:12 PM EDT 08/23/2024 4:18 PM EDT [employer] - 08/24/2024 8:49 PM EDT [facility] Received Date: Davidson Garvey MD LAB BLOOD ORDERABLES Final Result [facility] [address] [facility] 3rd Floor, [place] [address], [employer] [address], [place] [address], * SSA & SSB (SJOGREN'S) Antibodies (08/23/2024 4:12 PM EDT) Sjogren's Ab (SS-A) <1.0 NEG <1.0 NEG AI 08/24/2024 8:44 PM EDT [facility] Sjogren's Ab (SS-B) <1.0 NEG <1.0 NEG AI 08/24/2024 8:44 PM EDT [employer] Blood Structure of peripheral vein / Unknown Venipuncture / Unknown 08/23/2024 4:12 PM EDT 08/23/2024 4:18 PM EDT Narrative [facility] - 08/24/2024 8:44 PM EDT [facility] Received Date: us Davidson Garvey MD LAB BLOOD ORDERABLES Final Result [facility] [address] [facility] 3rd Floor, [place] [address], [place] [phone] [facility] [address] [facility] [address], [place] [address], [place] [phone] * Liver Kidney Microsomal Antibody, IgG (08/23/2024 4:12 PM EDT) Liver Kidney Microsomal (LKM-1) AB (IGG) <=20.0 <=20.0 U 08/26/2024 9:32 AM EDT [facility] PR[facility] (JENNIFER) Comment: ? Reference Range: ??<=20.0 ?Negative ??20.1-24.9 [...] 4:18 PM EDT Narrative [facility] - 08/26/2024 9:32 AM EDT [facility] Received Date:[id number] Davidson Garvey MD LAB BLOOD ORDERABLES Final Result [facility] [address] [facility] [address]rd Floor, [place] [address], [place] [phone] [facility] PRATT (JENNIFER) [address] [place], [place] , [place] * (ABNORMAL) Complement C3c and C4c (08/23/2024 4:12 PM EDT) Pathologist [facility] Complement Component C3C 69(L) 83 - 193 mg/dL 08/24/2024 12:29 PM EDT [facility] Complement Component C4C 18 15 - 57 mg/dL 08/24/2024 12:29 PM EDT [facility] Blood Structure of peripheral vein / Unknown Venipuncture / Unknown 08/23/2024 4:12 PM EDT 08/23/2024 4:18 PM EDT Narrative [facility] - 08/24/2024 12:29 PM EDT [facility] Received Date:[id number] Davidson Garvey MD LAB BLOOD ORDERABLES Final Result [address], [place] [address], [employer] [address], [place] [address], [place] [phone] * (ABNORMAL) CBC Auto Differential (08/23/2024 4:12 PM EDT) Pathologist [facility] WBC 8.4 3.8 - 10.8 10*3/uL 08/23/2024 4:33 PM EDT [facility] RBC 2.96(L) 3.80 - 5.10 10*6/uL 08/23/2024 4:33 PM EDT [facility] Hemoglobin 8.9(L) 11.7 - 15.5 g/dL 08/23/2024 4:33 PM EDT [facility] Hematocrit 26.8(L) 35.0 - 45.0 % 08/23/2024 4:33 PM EDT [facility] MCV 90.5 80.0 - 100.0 fL 08/23/2024 4:33 PM EDT [facility] MCH 30.1 27.0 - 33.0 pg 08/23/2024 4:33 PM EDT [facility] MCHC 33.2 32.0 - 36.0 g/dL 08/23/2024 4:33 PM EDT [facility] RDW 12.3 11.0 - 15.0 % 08/23/2024 4:33 PM EDT [facility] Platelets 178 140 - 400 10*3/uL 08/23/2024 4:33 PM EDT [facility] MPV 9.6 7.5 - 12.5 fL 08/23/2024 4:33 PM EDT [facility] Neutrophil % 72.3 % 08/23/2024 4:33 PM EDT [facility] Immature Grans % 0.2 0.0 - 0.9 % 08/23/2024 4:33 PM EDT [facility] Lymphocyte % 19.9 % 08/23/2024 4:33 PM EDT [facility] Monocyte % 3.2 % 08/23/2024 4:33 PM EDT [facility] Eosinophil % 3.8 % 08/23/2024 4:33 PM EDT [facility] Basophil % 0.6 % 08/23/2024 4:33 PM EDT [facility] Neutrophil # 6.08 1.50 - 7.80 10*3/uL 08/23/2024 4:33 PM EDT [facility] Immature Grans # <0.03 <=0.03 10*3/uL 08/23/2024 4:33 PM EDT [facility] Lymphocyte # 1.70 0.85 - 3.90 10*3/uL 08/23/2024 4:33 PM EDT [facility] Monocyte # 0.30 0.20 - 0.95 10*3/uL 08/23/2024 4:33 PM EDT [facility] Eosinophil # 0.30 0.02 - 0.50 10*3/uL 08/23/2024 4:33 PM EDT [facility] Basophil # 0.10 0.00 - 0.20 10*3/uL 08/23/2024 4:33 PM EDT [facility] nRBC % 0.0 /100 WBCs 08/23/2024 4:33 PM EDT [facility] nRBC # <0.01 <0.01 10*3/uL 08/23/2024 4:33 PM EDT [facility] [employer] Blood Structure of peripheral vein / Unknown Venipuncture / Unknown 08/23/2024 4:12 PM EDT 08/23/2024 4:18 PM EDT Davidson Garvey MD LAB BLOOD ORDERABLES Final Result [facility] [address] [place] [address], * Smooth Muscle Antibody Screen w/Titer (08/23/2024 4:12 PM EDT) Smooth Muscle AB Screen NEGATIVE NEGATIVE 08/29/2024 11:16 AM EDT [facility] Blood Structure of peripheral vein / Unknown Venipuncture / Unknown 08/23/2024 4:12 PM EDT 08/23/2024 4:18 PM EDT Narrative [facility] - 08/29/2024 11:16 AM EDT [facility] Received Date:[id number] Davidson Garvey MD LAB BLOOD ORDERABLES Final Result [facility] [address] [facility] [address]rd Floor, [place] [address], [place] [phone] [facility] [address] [facility] [address] Floor, [place] [address], [place] [phone] * Scl-70 (Scleroderma) Antibody (08/23/2024 4:12 PM EDT) SCL-70 Antibody <1.0 NEG <1.0 NEG AI 08/24/2024 8:44 PM EDT [facility] Blood Structure of peripheral vein / Unknown Venipuncture / Unknown 08/23/2024 4:12 PM EDT 08/23/2024 4:18 PM EDT Narrative [facility] 08/24/2024 8:44 PM EDT [facility] Received Date:[id number] Davidson Garvey MD LAB BLOOD ORDERABLES Final Result Performing Organization Address City/State/[facility] Co de Phone Number [facility] [address] [facility] [address] Floor, [place] [address], [employer] [facility] [address], [place] [address], * DNA Antibody, Double-Stranded (08/23/2024 4:12 PM EDT) DNA (Ds) Antibody 1 IU/mL 025 8:49 PM EDT [employer] Comment: ? IU/mL ? Interpretation ? < or = 4 ?Negative ? 5-9 ? Indeterminate ? > or = 10 ?? Positive Blood Structure of peripheral vein / Unknown Venipuncture / Unknown 08/23/2024 4:12 PM EDT 08/23/2024 4:18 PM EDT Narrative [facility] - 08/24/2024 8:49 PM EDT [facility] Received Date:[id number] Davidson Garvey MD LAB BLOOD ORDERABLES Final Result Performing Organization Address City/[facility]/ZIP Co de Phone Number [facility] [address], [place] [address], [place] [phone] [facility] [address], [place] [address], [place] [phone] * PROFESSOR OF BUSINESS Antibody (08/23/2024 4:12 PM EDT) PROFESSOR OF BUSINESS Antibody <1.0 NEG <1.0 NEG AI 08/24/2024 8:49 PM EDT [facility] Blood Structure of peripheral vein / Unknown Venipuncture / Unknown 08/23/2024 4:12 PM EDT 08/23/2024 4:18 PM EDT N[facility]ative [facility] - 08/24/2024 8:49 PM EDT [facility] Received Date:[id number] Davidson Garvey MD LAB BLOOD ORDERABLES Final Result Performing Organization Address City/[facility]/ZIP Co de Phone Number [facility] [address], [place] [address], [place] [phone] [facility] [address], [place] [address], [place] [phone] * Alkaline Phosphatase, Bone Specific (08/23/2024 4:12 PM EDT) Bone Specific 19.1 5.3 - 19.5 mcg/L 08/25/2024 1:23 PM EDT JORDEN GAINES) Comment: Reference Range, Premenopausal (mcg/L) 35-45 years ?5.0-18.2 Blood Structure of peripheral vein / Unknown Venipuncture / Unknown 08/23/2024 4:12 PM EDT 08/23/2024 4:19 PM EDT Narrative JORDEN GAINES) - 08/25/2024 1:23 PM EDT [facility] Received Date:[id number] Davidson Garvey MD LAB BLOOD ORDERABLES Final Result JORDEN GAINES) [address] [place], [place] , [place] * (ABNORMAL) Antimitochonrial antibody (Mitochondrial Antibody w/Reflex) (08/23/2024 4:12 PM EDT) Mitochondrial Ab Screen POSITIVE (A) NEGATIVE 08/29/2024 11:16 AM EDT [facility] Blood Structure of peripheral vein / Unknown Venipuncture / Unknown 08/23/2024 4:12 PM EDT 08/23/2024 4:18 PM EDT Narrative [facility] [place] - 08/29/2024 11:16 AM EDT [facility] Received Date:[id number] Davidson Garvey MD LAB BLOOD ORDERABLES Final Result Performing Organization Address [facility] Co de Phone Number JORDEN [address], [place] [address], [place] [phone] [facility] [address], [place] [address], [place] [phone] * Sedimentation Rate (08/23/2024 4:12 PM EDT) Pathologist [facility] Sed Rate 11 <20 mm/Hr mm/Hr 08/23/2024 4:32 PM EDT [facility] Blood Structure of peripheral vein / Unknown Venipuncture / Unknown 08/23/2024 4:12 PM EDT 08/23/2024 4:18 PM EDT Davidson Garvey MD LAB BLOOD ORDERABLES Final Result [facility] [address] [place] [address], * Immunoglobulins Panel (IgG, IgA, IgM) (08/23/2024 4:12 PM EDT) Immunoglobulin A 190 47 - 310 mg/dL 08/23/2024 9:38 PM EDT [facility] IgG, Serum 1559 600 - 1640 mg/dL 08/23/2024 9:38 PM EDT [facility] Immunoglobulin M 176 50 - 300 mg/dL 08/23/2024 9:38 PM EDT [facility] Blood Structure of peripheral vein / Unknown Venipuncture / Unknown 08/23/2024 4:12 PM EDT 08/23/2024 4:18 PM EDT Narrative [facility] - 08/23/2024 9:38 PM EDT [facility] Received Date:[id number] Davidson Garvey MD LAB BLOOD ORDERABLES Final Result [facility] [place] [address] [facility] [address], [place] [address], [place] [phone] [facility] [address] [facility] [address], [place] [address], [place] [phone] * C-Reactive Protein (08/23/2024 4:12 PM EDT) C Reactive Protein <3.0 <=9.9 mg/L 08/23/2024 5:09 PM EDT [facility] Blood Structure of peripheral vein / Unknown Venipuncture / Unknown 08/23/2024 4:12 PM EDT 08/23/2024 4:23 PM EDT Davidson Garvey MD LAB BLOOD ORDERABLES Final Result [facility] [address] [place] [address], [place] * TSH (08/23/2024 4:12 PM EDT) TSH 1.890 0.280 - 3.890 uIU/mL 08/23/2024 5:04 PM EDT [facility] Comment: Females: 1st trimester ? 0.150-4.000 ??IU/mL 2nd trimester ?? 0.310-4.170 ?IU/mL 3rd trimester ?0.380-4.150 ?IU/mL Blood Structure of peripheral vein / Unknown Venipuncture / Unknown 08/23/2024 4:12 PM EDT 08/23/2024 4:23 PM EDT Davidson Garvey MD LAB BLOOD ORDERABLES Final Result [facility] [address] [place] [address], * T4, Free (08/23/2024 4:12 PM EDT) Free T4 1.16 0.93 - 1.70 ng/dL 08/23/2024 5:04 PM EDT [facility] Comment: Females: (ng/dL) First [...] BLOOD ORDERABLES Final Result Performing Organization Address [facility] de Phone Number [facility] [address] [place] [address] * Phosphorus (08/23/2024 4:12 PM EDT) [facility] Phosphorus 3.2 2.5 - 4.5 mg/dL 08/23/2024 5:04 PM EDT [facility] Blood Structure of peripheral vein / Unknown Venipuncture / Unknown 08/23/2024 4:12 PM EDT 08/23/2024 4:23 PM EDT Davidson Garvey MD LAB BLOOD ORDERABLES Final Result Performing Organization Address [facility] de Phone Number [facility] [address] [place] [address] * (ABNORMAL) PTH, Intact (without Calcium) (08/23/2024 4:12 PM EDT) [facility] Parathyroid Hormone, Intact 273(H) 16 - 77 pg/mL 08/24/2024 8:06 AM EDT [employer] Comment: Interpretive Guide ?Intact PTH ? Calcium [...] 4:18 PM EDT Narrative JORDEN CAMARILLO - 08/24/2024 8:06 AM EDT [facility] Received Date: Davidson Garvey MD LAB BLOOD ORDERABLES Final Result [employer] [place] [address] [facility] [address], [place] [address], [facility] [address] [facility] [address], [place] [address], * (ABNORMAL) Comprehensive Metabolic Panel (08/23/2024 4:12 PM EDT) NA 136 135 - 145 mmol/L 08/23/2024 5:04 PM EDT [facility] K 3.7 3.5 - 5.3 mmol/L 08/23/2024 5:04 PM EDT [facility] Cl 100 98 - 107 mmol/L 08/23/2024 5:04 PM EDT [facility] CO2 19(L) 22 - 32 mmol/L 08/23/2024 5:04 PM EDT [facility] Anion Gap 17(H) 5 - 15 08/23/2024 5:04 PM EDT [facility] Glucose 104(H) 65 - 99 mg/dL 08/23/2024 5:04 PM EDT [facility] Creatinine 4.92(H) 0.50 - 1.20 mg/dL 08/23/2024 5:04 PM EDT [facility] Calcium 8.9 8.6 - 10.5 mg/dL 08/23/2024 5:04 PM EDT [facility] Total Protein 7.7 6.0 - 8.0 g/dL 08/23/2024 5:04 PM EDT [facility] Albumin 4.5 3.5 - 5.2 g/dL 08/23/2024 5:04 PM EDT [employer] Bilirubin, Total 0.3 0.2 - 1.2 mg/dL 08/23/2024 5:04 PM EDT [facility] Alkaline Phosphatase 99 35 - 129 U/L 08/23/2024 5:04 PM EDT [facility] AST 19 10 - 40 U/L 08/23/2024 5:04 PM EDT [employer] [facility] ALT 13 10 - 40 U/L 08/23/2024 5:04 PM EDT [facility] BUN 42(H) 7 - 23 mg/dL 08/23/2024 5:04 PM EDT [employer] eGFR 11(L) >=60 mL/min/1 .73m2 08/23/2024 5:04 PM EDT [facility] Comment:The estimated glomer ular filtration rate (eGFR) is calculated using a new formula developed by the NKF-ASN task force to eliminate race-based correction factors. The new formula uses serum/plasma creatinine, age, and gender to determine eGFR. A value below 60mls/min might indicate kidney disease and will be flagged. For additional information, see Samia et al, Am J Kidney Dis. 2021;79(2):268- 288, A Unifying Approach for GFR estimation: Recommendations of the NKF-ASN Task Force on Reassessing the Inclusion of Race in Diagnosing Kidney Disease . Globulin, Total 3.2 2.1 - 4.2 g/dL 08/23/2024 5:04 PM EDT [employer] [employer] A/G Ratio 1.4(L) 1.5 - 3.0 08/23/2024 5:04 PM EDT [facility] Blood Structure of peripheral vein / Unknown Venipuncture / Unknown 08/23/2024 4:12 PM EDT 08/23/2024 4:23 PM EDT Davidson Garvey MD LAB BLOOD ORDERABLES Final Result Performing Organization Address [facility] Co de Phone Number [facility] [employer] [facility] [address] [place] [address], * Hepatitis Panel, Acute (02/14/2024 3:23 PM EDT) Hepatitis A IgM NON-REACT HILDA NON-REACT HILDA 02/15/2024 3:21 AM EDT [facility] Hepatitis B Surface Antigen NON-REACT HILDA NON-REACT HILDA 02/15/2024 3:21 AM EDT [facility] Hepatitis B Core Antibody NON-REACT HILDA NON-REACT HILDA 02/15/2024 3:21 AM EDT [facility] Hepatitis C Antibody NON-REACT HILDA NON-REACT HILDA 02/15/2024 3:21 AM EDT [facility] Comment: HCV antibody was non-reactive. There is no laboratory evidence of HCV infection. In most cases, no further action is required. However, if recent HCV exposure is suspected, a test for HCV RNA (test code 26305) is suggested. For additional information please refer to [email or web address]/[email or web address] (This link is being provided for informational/ educational purposes only.) For additional information, please refer to [email or web address] (This link is being provided for informational/ educational purposes only.) Blood Structure of peripheral vein / Unknown Venipuncture / Unknown 02/14/2024 3:23 PM EDT 02/14/2024 3:32 PM EDT [facility]ative [facility] 02/15/2024 3:21 AM EDT [facility] Received Date:[id number] Calvin Restrepo MD LAB BLOOD ORDERABLES Final Re sult JORDEN CAMARILLO [address], [place] [address], [place] [phone] JORDEN ELLIOTT [facility] [address], [place] [address], [place] [phone] from Last 3 Months or Most Recently Relevant to Health Maintenance Insurance [facility] MEDICAID [facility] MEDICAID Advance Directives Documents on File Type Date Recorded Patient Environmental Science Technician Expl anation Health Care Proxy 02/21/2024 8:06 AM 02-13 Care Teams Leather Leveler Relationship Specialty Start Date End Date Denton, Melissa [address] [place] [address] PCP - General 02/14/24
== END 2024-09-28 11:57 | disposition home or self-care (01) ==
LOC: HO.HKAS 11:02
PROVIDERS: PCP Student in an Organized Health Care Education/Training Program; Visit Provider Internal Medicine Nephrology
DX: I15.1 Hypertension secondary to other renal disorders (principal); N18.4 Chronic kidney disease, stage 4 (severe); D63.1 Anemia in chronic kidney disease; E55.9 Vitamin D deficiency, unspecified; N25.81 Secondary hyperparathyroidism of renal origin; N18.5 Chronic kidney disease, stage 5
CPT/HCPCS: 99214

== ENCOUNTER → 2024-09-28 11:02 | Outpatient (BNVA) | payer OTHER, SELFPAY | PROVIDERS: PCP Student in an Organized Health Care Education/Training Program; Visit Provider Internal Medicine Nephrology | DX: N18.5 Chronic kidney disease, stage 5 (principal); D63.1 Anemia in chronic kidney disease; I15.1 Hypertension secondary to other renal disorders; N25.81 Secondary hyperparathyroidism of renal origin; E55.9 Vitamin D deficiency, unspecified | CPT/HCPCS: 99212 ==

== ENCOUNTER 2024-11-15 11:24 | Outpatient (REF) | payer OTHER, SELFPAY ==
--- OUTSIDE RECORDS SUMMARY | 2024-11-15 13:20 | XMS_ITS | Clinical Summary ---
Author Organization [facility] Address [address] [place] [address] Care Team Providers Care Telephone Answering Service Operator Name Role Phone Melissa Denton Primary Care Provider [phone] Allergies Active Allergy Reactions Criticality Noted Date [...] get the renal biopsy report over from [facility] (I do not see in care [...] Encounters Date Type Department Care Team Description 11/09/2024 Make Meaning Message [facility] [address] [place] [address] Sld Educational Aide: Davidson Caballero MD ENT visit 11/01/2024 8:52 AM EDT - 11/01/2024 11:59 PM EDT Hospital Encounter [facility] [address] [place] [address] Sld Educational Aide: Brooklyn Pal MD Nasal congestion (Primary Dx) Discharge Disposition: Home or Self Care (01) 10/20/2024 Make Meaning Message [facility] [address] [place] [phone] Sindy Hough RN Your Recent Visit 09/25/2024 Make Meaning Message [facility] [address] [place] [phone] China Caputo, cap sizer Monthly Lab Reminder 09/01/2024 Orders Only [facility] [address] [place] [phone] China Caputo, RN Stage 4 chronic kidney disease (HCC) (Primary Dx); Pre-transplant evaluation for kidney transplant 08/30/2024 myChart Message [facility] [address] [place] [phone] Sld Educational Aide: Davidson Caballero MD Labs 08/29/2024 Telephone [facility] [address] [place] [phone] Sld Educational Aide: Davidson Caballero MD 08/23/2024 3:40 PM EDT Follow-Up [facility] [address] [place] [address] [phone] Calvin Restrepo MD Encounter for pre-transplant evaluation for kidney transplant (Primary Dx); Stage 2 chronic kidney disease; Stage 3 chronic kidney disease, unspecified whether stage 3a or 3b CKD; ANCA-associated vasculitis; Pre-transplant evaluation for kidney transplant 08/23/2024 1:00 PM EDT Office Visit [facility] [address] [place] [address] Sld Educational Aide: Calvin Hamm MD Cheah, Jonathan T., MD Chronic kidney disease, stage V (Primary Dx); Vasculitis 08/23/2024 Orders Only [facility] [address] [place] [phone] India Benavides RN Stage 4 chronic kidney disease (Primary Dx); Pre-transplant evaluation for kidney transplant 08/22/2024 Telephone [facility] [address] [place] [phone] Sld Educational Aide: Davidson Caballero MD PAC Appt Request - New 08/21/2024 Orders Only [facility] [address] [place] [address] [phone] Sld Educational Aide: Calvin Mckeon MD Vasculitis (Primary Dx) from Last 3 Months Family History Medical [...] Sign Reading Time Taken Comments Blood Pressure 155/88 11/01/2024 9:05 AM EDT Pulse 79 11/01/2024 9:05 AM EDT Temperature 36.6 C (97.9 F) 08/23/2024 3:11 PM EDT Respiratory Rate 18 11/01/2024 9:05 AM EDT Oxygen Saturation 99% 11/01/2024 9:05 AM EDT Inhaled Oxygen Concentration - - Weight 40.8 kg (90 lb) 11/01/2024 9:05 AM EDT Height 149.9 cm (4' 11.02 ) 11/01/2024 9:05 AM E DT Body Mass Index 18.17 11/01/2024 9:05 AM EDT Plan of Treatment Upcoming Encounters Date Type Department Care Team (Late st Contact Info) Description 11/28/2024 1:00 PM EDT Appointment [facility] CT Scan Department [address] [place] [phone] 02/26/2025 1:20 PM EDT Follow-Up [facility] [address] [place] [phone] Sld Educational Aide: Davidson Caballero MD [address] [place] [phone] 02/28/2025 1:40 PM EDT Follow-Up [facility] [address] [place] [phone] Calvin Restrepo MD [address] [place] [phone] Health Maintenance Due Date Last Done Comments [...] Td Vaccines (1 - Tdap) 03/25/2024 03/24/2024 Depression Screening and Follow-Up 05/31/2024 Social Drivers of Health Annual Screening 05/31/2024 Mammogram 2024 Basic Metabolic Panel 11/23/2024 08/23/2024 Influenza Vaccine (Season Ended) 2025 Hemoglobin 08/23/2025 08/23/2024, 02/14/2024 PTH 08/23/2025 08/23/2024 Phosphorus 08/23/2025 08/23/2024, 02/14/2024 RSV Vaccine (60+ years old and patients) (1 - 1-dose 75+ series) 11/05/2059 HIV Screening Completed 02/14/2024 Hepatitis C Screening Completed 02/14/2024 , 04/07/2023 CKD: Referral to Nephrology Completed 08/23/2024 Alcohol/Substance Use Screening Completed 11/01/2024 Pneumococcal Vaccine: Pediatric (0-5 Years) and At-Risk Patients (6-50 Years) Aged Out No longer eligible based on patient's age to complete this topic Procedures * Due to [place] state law, this organization might not be sharing negative HIV tests. Procedure Name Priority Date/Time Associated Diagnosis Comments HLA MONTHLY ANTIBODY IDENTIFICATION - CLASS I Routine 10/25/2024 11:32 AM EDT Stage 4 chronic kidney disease (HCC) Pre-transplant evaluation for kidney transplant HLA MONTHYLY ANTIBODY IDENTIFICATION - CLASS II Routine 10/25/2024 11:32 AM EDT Stage 4 chronic kidney disease (HCC) Pre-transplant evaluation for kidney transplant HLA MONTHLY ANTIBODY IDENTIFICATION - CLASS I Routine 09/25/2024 10:10 AM EDT Stage 4 chronic kidney disease (HCC) Pre-transplant evaluation for kidney transplant HLA MONTHYLY ANTIBODY IDENTIFICATION - CLASS II Routine 09/25/2024 10:10 AM EDT Stage 4 chronic kidney disease (HCC) Pre-transplant evaluation for kidney transplant CARDIOLIPIN ANTIBODIES, IGG/IGM/IGA Routine 09/04/2024 2:47 PM EDT Chronic kidney disease, stage V (HCC) [id number] I ANTIBODIES, IGG/IGA/IGM Routine 09/04/2024 2:47 PM [...] PM EDT Chronic kidney disease, stage V NIP WRAPPER ANTIBODY Routine 08/23/2024 4:12 PM EDT Chronic kidney disease, stage V SCL-70 (SCLERODERMA) ANTIBODY Routine 08/23/2024 4:12 PM EDT Chronic kidney disease, stage V CENTROMERE B ANTIBODY Routine 08/23/2024 4:12 PM EDT Chronic kidney disease, stage V RNA POLYMERASE III, IGG Routine 08/24/19 4:12 PM EDT Chronic kidney disease, stage V MPO/ND-3 ANTIBODIES Routine 08/23/2024 4 :12 PM EDT [...] Chronic kidney disease, stage V PROCOLLAGEN TYPE-I [id number] Routine 08/23/2024 4:12 PM EDT Chronic kidney [...] PM EDT Stage 4 chronic kidney disease HEPATITIS PANEL, ACUTE Today 4 3:23 PM EDT Stage 3 chronic kidney disease, unspecified whether stage 3a or 3b CKD from Last 3 Months or Most Recently Relevant to Health Maintenance Results * Due to [place] state law, this organization might not be sharing negative HIV tests. * Cardiolipin Antibodies, IgG/IgM/IgA (09/04/2024 2:47 PM EDT) Cardiolipin Ab IgA <2.0 APL-U/mL 2024 1:30 PM EDT [employer] [facility] Comment: Value Interpretation ----- < 20.0 Antibody not detected > or = 20.0 Antibody detected Cardiolipin Ab IgG 2.9 GPL-U/mL 2024 1:30 PM EDT [employer] [facility] Comment: Value Interpretation ----- < 20.0 Antibody not detected > or = 20.0 Antibody detected Cardiolipin Ab IgM 5.6 MPL-U/mL 2024 1:30 PM EDT [employer] [facility] Comment: Value Interpretation ----- < 20.0 Antibody not detected > or = 20.0 Antibody detected The antiphospholipid antibody syndrome (APS) is [...] aging. For additional information, please refer to http://education.Pressly/faq/LQQ542 (This link is being provided for informational/ educational purposes only.) Blood Structure of peripheral vein / Unknown 09/04/2024 2:47 PM EDT 09/05/2024 5:52 AM EDT Narrative [facility] - 09/07/2024 1:34 PM EDT FASTING:NO us Davidson Garvey MD LAB BLOOD ORDERABLES Final Result [facility] [address] [facility] 3rd Floor, [place] [address], [employer] [facility] [address] [place] [address] * Lupus Anticoagulation Evaluation w/Reflex (09/04/2024 2:47 PM EDT) Lupus Anticoagulant see note 09/07/2024 6:55 AM EDT [facility]/N [email or web address] Comment: A Lupus Anticoagulant is not detected. Reference Range: Not Detected For additional information, please refer to http://education.Pressly/faq/XHN03b3 (This link is being provided for informational/ educational purposes only.) This interpretation is based on the following test results. Ptt-LA Screen 32 <=40 sec 09/07/2024 6:55 AM EDT [facility]/N ICHOLS FinalCADTILLY DRVVT Screen 33 <=45 sec 09/07/2024 6:55 AM EDT [facility]/N [facility]CHOLS CHANTILLY Blood Structure of peripheral vein / Unknown 09/04/2024 2:47 PM EDT 09/06/2024 6:20 AM EDT Narrative [facility] - 09/07/2024 1:33 PM EDT FASTING:NO Davidson Garvey MD LAB BLOOD ORDERABLES Final Result [facility] [address] [place] [address] [address]rd Floor, [place] [address], [place] [phone] [facility]/[place]le [address] [place] [address] * [id number] I Antibodies, IgG/IgA/IgM (09/04/2024 2:47 PM EDT) Beta2-Glycoprotein I (IgG) 3.1 <20.0 U/mL 09/07/2024 7:37 AM EDT [email or web address] Comment: Value Interpretation ----- < 20.0 Antibody not detected > or = 20.0 Antibody detected Beta2-Glycoprotein I (IgM) 4.0 <20.0 U/mL 09/07/2024 7:37 AM EDT [facility]/N [employer] CHANTILLY Comment: Value Interpretation ----- < 20.0 Antibody not detected > or = 20.0 Antibody detected Beta2-Glycoprotein I (IgA) <2.0 <20.0 U/mL 09/07/2024 7:37 AM EDT [facility]/Francisco PRATT Comment: Value Interpretation ----- < 20.0 Antibody not detected > or = 20.0 Antibody detected The antiphospholipid antibody syndrome (APS) is [...] aging. For additional information, please refer to http://education.Pressly/faq/GXS264 (This link is being provided for informational/ educational purposes only.) Blood Structure of peripheral vein / Unknown 09/04/2024 2:47 PM EDT 09/06/2024 6:20 AM EDT Narrative [facility] - 09/07/2024 1:33 PM EDT FASTING:NO Davidson Garvey MD LAB BLOOD ORDERABLES Final Result [facility] [address] [facility] 3rd Floor, [place] [address], [facility]/JENNIFER PRATT [address] [place] [address] * Camargo Top, Urine (08/23/2024 4:40 PM EDT) Extra Tube Hold for add-ons. 08/23/2024 9:05 PM EDT [facility] Comment:Auto resulted. Urine Urine specimen collection, clean catch / Unknown Non-Blood Collection / Unknown 08/23/2024 4:40 PM EDT 08/23/2024 4:51 PM EDT us Davidsno Garvey MD LAB URINE ORDERABLES Final Result [facility] [address] [place] [address], [place] * (ABNORMAL) Urinalysis W/Reflex to Microscopic & Culture (08/23/2024 4:40 PM EDT) Color, Urine Light Yellow Colorless, Light Yellow, Yellow, Dark Yellow 08/23/2024 5:36 PM EDT [facility] Clarity, Urine Clear Clear 08/23/2024 5:36 PM EDT [facility] Specific Clyde, Urine <1.005(L) 1.005 - 1.030 08/23/2024 5:36 PM EDT [facility] pH, Urine 7.0 4.6 - 8.0 08/23/2024 5:36 PM EDT [facility] Protein, Urine 2+(A) Negative 08/23/2024 5:36 PM EDT [facility] Glucose, Urine Negative Negative 08/23/2024 5:36 PM EDT [facility] Ketones, Urine Negative Negative 08/23/2024 5:36 PM EDT [facility] Bilirubin, Urine Negative Negative 08/23/2024 5:36 PM EDT [facility] Blood, Urine 1+(A) Negative 08/23/2024 5:36 PM EDT [facility] Nitrite, Urine Negative Negative 08/23/2024 5:36 PM EDT [facility] Urobilinogen, Urine Normal Normal 08/23/2024 5:36 PM EDT [facility] Leukocyte Esterase, Urine Negative Negative 08/23/2024 5:36 PM EDT [facility] WBC, Urine 1 0 - 2 /HPF 08/23/2024 5:36 PM EDT [facility] RBC, Urine <1 0 - 2 /HPF 08/23/2024 5:36 PM EDT [facility] Hyaline Casts, Urine 0 0 - 2 /LPF 08/23/2024 5:36 PM EDT [facility] Squamous Epithelial Cells, Urine 1 /HPF 08/23/2024 5:36 PM EDT [facility] Bacteria, Urine None None /HPF /HPF 08/23/2024 5:36 PM EDT [facility] Urine Urine specimen collection, clean catch / Unknown Non-Blood Collection / Unknown 08/23/2024 4:40 PM EDT 08/23/2024 4:51 PM EDT Davidson Garvey MD LAB URINE ORDERABLES Final Result [facility] [address] [place] [address], [place] * (ABNORMAL) Protein, Random Urine with Creatinine (08/23/2024 4:40 PM EDT) Protein, Urine 107 mg/dL 08/23/2024 5:20 PM EDT [facility] Creatinine, Urine 26 15 - 278 mg/dL 08/23/2024 5:20 PM EDT [facility] Protein/Creat inine, Urine Ratio 4,115(H) <200 mg/gmCr 08/23/2024 5:20 PM EDT [facility] Urine Voided urine specimen / Unknown Non-Blood Collection / Unknown 08/23/2024 4:40 PM EDT 08/23/2024 4:51 PM EDT Davidson Garvey MD LAB URINE ORDERABLES Final Result Performing Organization Address City/[facility]/ZIP Co de Phone Number [id number] [facility] [address] [place] [address], [place] * (ABNORMAL) Mitochondrial Titer (08/23/2024 4:12 PM EDT) Mitochondrial Antibody Titer 1:640(H) <1:20 titer 08/29/2024 11:19 AM EDT [facility] Blood Structure of peripheral vein / Unknown Venipuncture / Unknown 08/23/2024 4:12 PM EDT 08/23/2024 4:18 PM EDT [facility]ative [facility] - 08/29/2024 11:19 AM EDT [facility] Received Date:[id number] Davidson Garvey MD LAB BLOOD ORDERABLES Final Result Performing Organization Address [facility] de Phone Number [facility] [address] [facility] 3rd Floor, [place] [address], [place] [phone] [facility] [address] [facility] 3rd Floor, [place] [address], [place] [phone] * (ABNORMAL) Procollagen Type-I Propeptide (08/23/2024 4:12 PM EDT) Pathologist [facility] Procollagen Type I Intact N Terminal Propeptide 138(H) 22 - 104 mcg/L 08/26/2024 4:02 PM EDT [facility]) Blood Structure of peripheral vein / Unknown Venipuncture / Unknown 08/23/2024 4:12 PM EDT 08/23/2024 4:18 PM EDT Narrative [facility] - 08/26/2024 4:02 PM EDT [facility] Received Date:[id number] Davidson Garvey MD LAB BLOOD ORDERABLES Final Result Performing Organization Address City/[facility]/ZIP Co de Phone Number [facility] [address] [facility] 3rd Floor, [place] [address], [place] [phone] [facility] [place]) [address] [place], [place] , [place] * RNA Polymerase III, IgG (08/23/2024 4:12 PM EDT) Pathologist [facility] RNA Polymerase III Antibody IgG 5 0 - 19 Units 08/25/2024 12:15 AM EDT [facility] Comment: INTERPRETIVE INFORMATION: RNA Polymerase III Antibody, IgG 19 Units or less ......Negative 20 - 39 Units .........Weak Positive 40 - 80 Units .........Moderate Positive 81 Units or greater ...Strong Positive The presence [...] antibodies associated with SSc, including centromere, Scl-70, U3-NIP WRAPPER, PM/Scl, or Th/To. Performed by [facility], [address] [place], [place] [id number] [email or web address], Francis Doyle MD, Lab. Director [place] Number: [id number] Blood Structure of peripheral vein / Unknown Venipuncture / Unknown 08/23/2024 4:12 PM EDT 08/23/2024 4:18 PM EDT us Davidson Garvey MD LAB BLOOD ORDERABLES Final Result [facility] [address] [place] [address], * Centromere B Antibody (08/23/2024 4:12 PM EDT) Pathologist [facility] Centromere B Antibody <1.0 NEG <1.0 NEG AI 08/24/2024 8:49 PM EDT [facility] Blood Structure of peripheral vein / Unknown Venipuncture / Unknown 08/23/2024 4:12 PM EDT 08/23/2024 4:18 PM EDT Narrative [facility] - 08/24/2024 8:49 PM EDT [facility] Received Date: Davidson Garvey MD LAB BLOOD ORDERABLES Final Result [facility] [address], [place] [address], [place] [phone] [employer] [facility] [address], [place] [address], [place] [phone] * Brasher (Sm) Antibody (08/23/2024 4:12 PM EDT) Sm Antibody <1.0 NEG <1.0 NEG AI 08/24/2024 8:44 PM EDT [facility] Blood Structure of peripheral vein / Unknown Venipuncture / Unknown 08/23/2024 4:12 PM EDT 08/23/2024 4:18 PM EDT Narrative [facility] - 08/24/2024 8:44 PM EDT [facility] Received Date: Davidson Garvey MD LAB BLOOD ORDERABLES Final Result [facility] [address] [facility] [address] [facility], [place] [address], [place] [phone] [facility] [address], [place] [address], [place] [phone] * (ABNORMAL) MPO/ND-3 Antibodies (08/23/2024 4:12 PM EDT) Myeloperoxidase Antibody <1.0 AI 08/24/2024 8:49 PM EDT [facility] Comment: Value Interpretation ----- <1.0 No Antibody Detected > or = 1.0 Antibody Detected Autoantibodies to myeloperoxidase (MPO) are commonly associated with the following small-vessel vasculitides: microscopic polyangiitis, polyarteritis nodosa, Churg-Karine syndrome, necrotizing and crescentic glomerulonephritis and occasionally granulomatosis with polyangiitis (GPA, Kiarra's). The perinuclear IFA pattern, (p-ANCA) is based largely on autoantibody to myeloperoxidase which serves as the primary antigen. These autoantibodies are present in active disease. Proteinase-3 Antibody 4.1(H) AI 8:49 PM EDT [facility] Comment: Value Interpretation ----- <1.0 No Antibody Detected > or = 1.0 Antibody Detected Autoantibodies to proteinase-3 (ND-3) are accepted as characteristic for granulomatosis with polyangiitis (GPA, Kiarra's), and are detectable in 95% of the histologically proven cases. The cytoplasmic IFA pattern, (c-ANCA), is based largely on autoantibody to ND-3 which serves as the primary antigen. These autoantibodies are present in active disease. Blood Structure of peripheral vein / Unknown Venipuncture / Unknown 08/23/2024 4:12 PM EDT 08/23/2024 4:18 PM EDT [facility] - 08/24/2024 8:49 PM EDT [facility] Received Date: Davidson Garvey MD LAB BLOOD ORDERABLES Final Result [facility] [address] [facility] 3rd Floor, [place] [address], [place] [phone] [facility] [address] [facility] 3rd [address], [place] [address], [place] [phone] * SSA & SSB (SJOGREN'S) Antibodies (08/23/2024 4:12 PM EDT) Sjogren's Ab (SS-A) <1.0 NEG <1.0 NEG AI 08/24/2024 8:44 PM EDT [employer] [facility] Sjogren's Ab (SS-B) <1.0 NEG <1.0 NEG AI 08/24/2024 8:44 PM EDT [employer] [facility] Blood Structure of peripheral vein / Unknown Venipuncture / Unknown 08/23/2024 4:12 PM EDT 08/23/2024 4:18 PM EDT Narrative [employer] [facility] - 08/24/2024 8:44 PM EDT [facility] Received Date:[id number] Davidson Garvey MD LAB BLOOD ORDERABLES Final Result [address] [facility], [place] [address], [employer] [facility] [address], [place] [address], * Liver Kidney Microsomal Antibody, IgG (08/23/2024 4:12 PM EDT) Liver Kidney Microsomal (LKM-1) AB (IGG) <=20.0 <=20.0 U 08/26/2024 9:32 AM EDT [facility] ([facility]ENN[facility]) Comment: Reference Range: <=20.0 Negative 20.1-24.9 Equivocal >=25.0 Positive Anti-liver/kidney microsomal antibodies (Anti-LKM-1) were previously tested by indirect immunofluorescence (IF) using rodent liver/kidney substrate. Identification of a specific antibody target as cytochrome P450 IID6 has led to the current recombinant based BRIDGER. Antibodies to this cytochrome are present in approximately 70% of patients with autoimmune hepatitis type 2. This antibody is also present in approximately 10% of patients with hepatitis C infection. Blood Structure of peripheral vein / Unknown Venipuncture / Unknown 08/23/2024 4:12 PM EDT 08/23/2024 4:18 PM EDT Narrative [facility] - 08/26/2024 9:32 AM EDT [facility] Received Date:[id number] Davidson Garvey MD LAB BLOOD ORDERABLES Final Result [facility] [address], [place] [address], [place] [phone] [facility] [employer] [address], [place] * (ABNORMAL) Complement C3c and C4c (08/23/2024 4:12 PM EDT) Complement Component C3C 69(L) 83 - 193 mg/dL 08/24/2024 12:29 PM EDT [employer] [facility] Complement Component C4C 18 15 - 57 mg/dL 08/24/2024 12:29 PM EDT [employer] [facility] Blood Structure of peripheral vein / Unknown Venipuncture / Unknown 08/23/2024 4:12 PM EDT 08/23/2024 4:18 PM EDT Narrative [facility] - 08/24/2024 12:29 PM EDT [facility] Received Date:[id number] Davidson Garvey MD LAB BLOOD ORDERABLES Final Result Performing Organization Address City/[facility]/ZIP Co de Phone Number [facility] [address] [facility] [address] [facility], [place] [address], [place] [phone] [employer] [facility] [address], [place] [address], [place] [phone] * (ABNORMAL) CBC Auto Differential (08/23/2024 4:12 PM EDT) WBC 8.4 3.8 - 10.8 10*3/uL 08/23/2024 4:33 PM EDT [employer] RBC 2.96(L) 3.80 - 5.10 10*6/uL 08/23/2024 4:33 PM EDT [facility] Hemoglobin 8.9(L) 11.7 - 15.5 g/dL 08/23/2024 4:33 PM EDT [facility] Hematocrit 26.8(L) 35.0 - 45.0 % 08/23/2024 4:33 PM EDT [facility] MCV 90.5 80.0 - 100.0 fL 08/23/2024 4:33 PM EDT [facility] MCH 30.1 27.0 - 33.0 pg 08/23/2024 4:33 PM EDT [facility] MCHC 33.2 32.0 - 36.0 g/dL 08/23/2024 4:33 PM EDT [facility] RDW 12.3 11.0 - 15.0 % 08/23/2024 4:33 PM EDT [facility] Platelets 178 140 - 400 10*3/uL 08/23/2024 4:33 PM EDT [facility] MPV 9.6 7.5 - 12.5 fL 08/23/2024 4:33 PM EDT [facility] Neutrophil % 72.3 % 08/23/2024 4:33 PM EDT [facility] Immature Grans % 0.2 0.0 - 0.9 % 08/23/2024 4:33 PM EDT [facility] Lymphocyte % 19.9 % 08/23/2024 4:33 PM EDT [facility] Monocyte % 3.2 % 08/23/2024 4:33 PM EDT [facility] Eosinophil % 3.8 % 08/23/2024 4:33 PM EDT [facility] Basophil % 0.6 % 08/23/2024 4:33 PM EDT [facility] Neutrophil # 6.08 1.50 - 7.80 10*3/uL 08/23/2024 4:33 PM EDT [facility] Immature Grans # <0.03 <=0.03 10*3/uL 08/23/2024 4:33 PM EDT [facility] Lymphocyte # 1.70 0.85 - 3.90 10*3/uL 08/23/2024 4:33 PM EDT [facility] Monocyte # 0.30 0.20 - 0.95 10*3/uL 08/23/2024 4:33 PM EDT [facility] Eosinophil # 0.30 0.02 - 0.50 10*3/uL 08/23/2024 4:33 PM EDT [facility] Basophil # 0.10 0.00 - 0.20 10*3/uL 08/23/2024 4:33 PM EDT [email or web address] [facility] CLINICAL PATHOLOGY LABORATORY nRBC % 0.0 /100 WBCs 08/23/2024 4:33 PM EDT [facility] nRBC # <0.01 <0.01 10*3/uL 08/23/2024 4:33 PM EDT [facility] Blood Structure of peripheral vein / Unknown Venipuncture / Unknown 08/23/2024 4:12 PM EDT 08/23/2024 4:18 PM EDT Davidson Garvey MD LAB BLOOD ORDERABLES Final Result [facility] [address] [place] [address], * Smooth Muscle Antibody Screen w/Titer (08/23/2024 4:12 PM EDT) Smooth Muscle AB Screen NEGATIVE NEGATIVE 08/29/2024 11:16 AM EDT [facility] Blood Structure of peripheral vein / Unknown Venipuncture / Unknown 08/23/2024 4:12 PM EDT 08/23/2024 4:18 PM EDT Narrative JORDEN CAMARILLO - 08/29/2024 11:16 AM EDT [facility] Received Date:[id number] Davidson Garvey MD LAB BLOOD ORDERABLES Final Result JORDEN CAMARILLO [address], [place] [address], [place] [phone] [facility] [address] [facility] [address] [facility], [place] [address], [place] [phone] * Scl-70 (Scleroderma) Antibody (08/23/2024 4:12 PM EDT) SCL-70 Antibody <1.0 NEG <1.0 NEG AI 08/24/2024 8:44 PM EDT [facility] Blood Structure of peripheral vein / Unknown Venipuncture / Unknown 08/23/2024 4:12 PM EDT 08/23/2024 4:18 PM EDT Narrative JORDEN CAMARILLO - 08/24/2024 8:44 PM EDT [facility] Received Date:[id number] Davidson Garvey MD LAB BLOOD ORDERABLES Final Result JORDEN CAMARILLO 200 [facility] [address] [facility], [place] [address], [place] [phone] [facility] [address], [place] [address], [place] [phone] * DNA Antibody, Double-Stranded (08/23/2024 4:12 PM EDT) DNA (Ds) Antibody 1 IU/mL 025 8:49 PM EDT [facility] Comment: IU/mL Interpretation < or = 4 Negative 5-9 Indeterminate > or = 10 Positive Blood Structure of peripheral vein / Unknown Venipuncture / Unknown 08/23/2024 4:12 PM EDT 08/23/2024 4:18 PM EDT Narrative [facility] - 08/24/2024 8:49 PM EDT [facility] Received Date:[id number] Davidson Garvey MD LAB BLOOD ORDERABLES Final Result Performing Organization Address [facility]/ZIP Co de Phone Number [facility] [address], [place] [address], [place] [phone] [employer] [facility] [address], [place] [address], [place] [phone] * NIP WRAPPER Antibody (08/23/2024 4:12 PM EDT) NIP WRAPPER Antibody <1.0 NEG <1.0 NEG AI 08/24/2024 8:49 PM EDT [employer] [facility] Blood Structure of peripheral vein / Unknown Venipuncture / Unknown 08/23/2024 4:12 PM EDT 08/23/2024 4:18 PM EDT Narrative [employer] [facility] - 08/24/2024 8:49 PM EDT [facility] Received Date:[id number] Davidson Garvey MD LAB BLOOD ORDERABLES Final Result Performing Organization Address City/[facility]/ZIP Co de Phone Number [facility] [address], [place] [address], [place] [phone] [employer] [address], [place] [address], [place] [phone] * Alkaline Phosphatase, Bone Specific (08/23/2024 4:12 PM EDT) Bone Specific 19.1 5.3 - 19.5 mcg/L 08/25/2024 1:23 PM EDT JORDEN GAINES) Comment: Reference Range, Premenopausal (mcg/L) 35-45 years 5.0-18.2 Blood Structure of peripheral vein / Unknown Venipuncture / Unknown 08/23/2024 4:12 PM EDT 08/23/2024 4:19 PM EDT Narrative JORDEN GAINES) - 08/25/2024 1:23 PM EDT [facility] Received Date:[id number] Davidson Garvey MD LAB BLOOD ORDERABLES Final Result JORDEN GAINES) [address] [place], [place] , [place] * (ABNORMAL) Antimitochonrial antibody (Mitochondrial Antibody w/Reflex) (08/23/2024 4:12 PM EDT) Pathologist [facility] Mitochondrial Ab Screen POSITIVE (A) NEGATIVE 08/29/2024 11:16 AM EDT [employer] [facility] Blood Structure of peripheral vein / Unknown Venipuncture / Unknown 08/23/2024 4:12 PM EDT 08/23/2024 4:18 PM EDT Narrative [employer] [facility] - 08/29/2024 11:16 AM EDT [facility] Received Date:[id number] Davidson Garvey MD LAB BLOOD ORDERABLES Final Result Performing Organization Address City/[facility]/ZIP Co de Phone Number JORDEN [address] Floor, [place] [address], [place] [phone] [employer] [address], [place] [address], [place] [phone] * Sedimentation Rate (08/23/2024 4:12 PM EDT) Pathologist [facility] Sed Rate 11 <20 mm/Hr mm/Hr 08/23/2024 4:32 PM EDT [facility] Blood Structure of peripheral vein / Unknown Venipuncture / Unknown 08/23/2024 4:12 PM EDT 08/23/2024 4:18 PM EDT Davidson Garvey MD LAB BLOOD ORDERABLES Final Result [facility] [address] [place] [address], [place] * Immunoglobulins Panel (IgG, IgA, IgM) (08/23/2024 4:12 PM EDT) Immunoglobulin A 190 47 - 310 mg/dL 08/23/2024 9:38 PM EDT [employer] [facility] IgG, Serum 1559 600 - 1640 mg/dL 08/23/2024 9:38 PM EDT [employer] [facility] Immunoglobulin M 176 50 - 300 mg/dL 08/23/2024 9:38 PM EDT [employer] [facility] Blood Structure of peripheral vein / Unknown Venipuncture / Unknown 08/23/2024 4:12 PM EDT 08/23/2024 4:18 PM EDT Narrative [facility] - 08/23/2024 9:38 PM EDT [facility] Received Date:[id number] Davidson Garvey MD LAB BLOOD ORDERABLES Final Result [facility] 200 [facility] 3rd Floor, [place] [address], [place] [phone] [employer] [facility] 200 [facility] 3rd Floor, [place] [address], [place] [phone] * C-Reactive Protein (08/23/2024 4:12 PM EDT) C Reactive Protein <3.0 <=9.9 mg/L 08/23/2024 5:09 PM EDT [facility] Blood Structure of peripheral vein / Unknown Venipuncture / Unknown 08/23/2024 4:12 PM EDT 08/23/2024 4:23 PM EDT Davidson Garvey MD LAB BLOOD ORDERABLES Final Result [facility] [address] [place] [address], [place] * TSH (08/23/2024 4:12 PM EDT) TSH 1.890 0.280 - 3.890 uIU/mL 08/23/2024 5:04 PM EDT [facility] CL[facility] PATHOLOG[facility] LABORATORY Comment: Females: 1st trimester 0.150-4.000 IU/mL 2nd trimester 0.310-4.170 IU/mL 3rd trimester 0.380-4.150 IU/mL Blood Structure of peripheral vein / Unknown Venipuncture / Unknown 08/23/2024 4:12 PM EDT 08/23/2024 4:23 PM EDT Davidson Garvey MD LAB BLOOD ORDERABLES Final Result Performing Organization Address [facility]/ZIP Co de Phone Number [facility] CLINICAL PATHOLOGY LABORATORY [address] [place] [address], * T4, Free (08/23/2024 4:12 PM EDT) Free T4 1.16 0.93 - 1.70 ng/dL 08/23/2024 5:04 PM EDT [facility] Comment: Females: (ng/dL) First Trimester 0.95-1.58 ng/dL Second Trimester 0.76-1.24 ng/dL Third Trimester 0.70-1.25 ng/dL Dietary supplements containing biotin may interfere in assays and may skew analyte results to be falsely high. For patients receiving the recommended daily doses of biotin, draw samples at least 8 hours following the last biotin supplementation. For patients on azra-doses of biotin supplements, draw samples at least 72 hours following the last biotin supplementation. Blood Structure of peripheral vein / Unknown Venipuncture / Unknown 08/23/2024 4:12 PM EDT 08/23/2024 4:23 PM EDT Davidson Garvey MD LAB BLOOD ORDERABLES Final Result Performing Organization Address City/[facility]/ZIP Co de Phone Number [facility] [employer] CLINICAL PATHOLOGY LABORATORY [address] [place] [address], * Phosphorus (08/23/2024 4:12 PM EDT) Phosphorus 3.2 2.5 - 4.5 mg/dL 08/23/2024 5:04 PM EDT [facility] CLINICAL PATHOLOGY LABORAT[facility] Blood Structure of peripheral vein / Unknown Venipuncture / Unknown 08/23/2024 4:12 PM EDT 08/23/2024 4:23 PM EDT Davidson Garvey MD LAB BLOOD ORDERABLES Final Result [facility] [address] [place] [address], * (ABNORMAL) PTH, Intact (without Calcium) (08/23/2024 4:12 PM EDT) Parathyroid Hormone, Intact 273(H) 16 - 77 pg/mL 08/24/2024 8:06 AM EDT [employer] [facility] Comment: Interpretive Guide Intact PTH Calcium ------- Normal Parathyroid Normal Normal Hypoparathyroidism Low or Low Normal Low Hyperparathyroidism Primary Normal or High High Secondary High Normal or Low Tertiary High High Non-Parathyroid Hypercalcemia Low or Low Normal High Blood Structure of peripheral vein / Unknown Venipuncture / Unknown 08/23/2024 4:12 PM EDT 08/23/2024 4:18 PM EDT Narrative [facility] - 08/24/2024 8:06 AM EDT [facility] Received Date:[id number] Davidson Garvey MD LAB BLOOD ORDERABLES Final Result JORDEN KIRBY 200 [facility] 3rd Floor, [place] [address], [place] [phone] [employer] [facility] 200 [facility] 3rd Floor, [place] [address], [place] [phone] * (ABNORMAL) Comprehensive Metabolic Panel (08/23/2024 4:12 PM EDT) NA 136 135 - 145 mmol/L 08/23/2024 5:04 PM EDT [facility] K 3.7 3.5 - 5.3 mmol/L 08/23/2024 5:04 PM EDT [facility] Cl 100 98 - 107 mmol/L 08/23/2024 5:04 PM EDT [facility] CO2 19(L) 22 - 32 mmol/L 08/23/2024 5:04 PM EDT [facility] Anion Gap 17(H) 5 - 15 08/23/2024 5:04 PM EDT [facility] Glucose 104(H) 65 - 99 mg/dL 08/23/2024 5:04 PM EDT [facility] Creatinine 4.92(H) 0.50 - 1.20 mg/dL 08/23/2024 5:04 PM EDT [facility] Calcium 8.9 8.6 - 10.5 mg/dL 08/23/2024 5:04 PM EDT [facility] Total Protein 7.7 6.0 - 8.0 g/dL 08/23/2024 5:04 PM EDT [facility] Albumin 4.5 3.5 - 5.2 g/dL 08/23/2024 5:04 PM EDT [facility] Bilirubin, Total 0.3 0.2 - 1.2 mg/dL 08/23/2024 5:04 PM EDT [facility] Alkaline Phosphatase 99 35 - 129 U/L 08/23/2024 5:04 PM EDT [facility] AST 19 10 - 40 U/L 08/23/2024 5:04 PM EDT [facility] ALT 13 10 - 40 U/L 08/23/2024 5:04 PM EDT [facility] CLINICAL PATHOLOGY LABORATORY BUN 42(H) 7 - 23 mg/dL 08/23/2024 5:04 PM EDT [facility] PATHOLOG[facility] LABORATORY eGFR 11(L) >=60 mL/min/1 .73m2 08/23/2024 5:04 PM EDT [facility] PATHOLOG[facility] LABORAT[facility] Comment:The estimated glomer ular [...] - 4.2 g/dL 08/23/2024 5:04 PM EDT [facility] PATH[facility] LAB[facility] A/G Ratio 1.4(L) 1.5 - 3.0 08/23/2024 5:04 PM EDT [facility] PATHOLOG[facility] LABORAT[facility] Blood Structure of peripheral vein / Unknown Venipuncture / Unknown 08/23/2024 4:12 PM EDT 08/23/2024 4:23 PM EDT us Davidson Garvey MD LAB BLOOD ORDERABLES Final Result [facility] CLINICAL PATHOLOGY LABORATORY [address] [place] [address], * Hepatitis Panel, Acute (02/14/2024 3:23 PM EDT) Hepatitis A IgM NON-REACT HILDA NON-REACT HILDA 02/15/2024 3:21 AM EDT [facility] Hepatitis B Surface Antigen NON-REACT HILDA NON-REACT HILDA 02/15/2024 3:21 AM EDT [employer] [facility] Hepatitis B Core Antibody NON-REACT HILDA NON-REACT HILDA 02/15/2024 3:21 AM EDT [employer] [facility] Hepatitis C Antibody NON-REACT HILDA NON-REACT HILDA 02/15/2024 3:21 AM EDT [employer] [facility] Comment: HCV antibody was non-reactive. There is no laboratory evidence of HCV infection. In most cases, no further action is required. However, if recent HCV exposure is suspected, a test for HCV RNA (test code 80766) is suggested. For additional information please refer to http://EQO.Pressly/faq/AGL48p9 (This link is being provided for informational/ educational purposes only.) For additional information, please refer to http://EQO.Pressly/faq/ILU449 (This link is being provided for informational/ educational purposes only.) Blood Structure of peripheral vein / Unknown Venipuncture / Unknown 02/14/2024 3:23 PM EDT 02/14/2024 3:32 PM EDT Narrative [facility] - 02/15/2024 3:21 AM EDT [facility] Received Date: Calvin Restrepo MD LAB BLOOD ORDERABLES Final Re sult JORDEN KIRBY [address], [place] [address], [employer] [facility] [address], [place] [address], from Last 3 Months or Most Recently Relevant to Health Maintenance Insurance [facility] MEDICAID [employer] Advance Directives Documents on File Type Date Recorded Patient Client Resource Specialist Expl [facility] Health Care Proxy 02/21/2024 8:06 AM 02-13 Care Teams Telephone Answering Service Operator Relationship Specialty Start Date End Date Melissa Denton [address] [facility] [address] [place], [place] [id number] PCP - General 02/14/24
[2024-11-15 17:55] LABS: MANUAL DIFF FLAG NO
[2024-11-15 18:14] LABS: Basophils Percent Auto 0.5 % (0-2); Eosinophils Absolute Auto 0.4 X10*3/uL (0.0-0.4); Eosinophils Percent Auto 6.8 % (0-4); Imm Gran Abs Auto 0.01 X10*3/uL (0.00-0.03); Imm Gran Pct Auto 0.2 % (0.0-0.4); Lymphocytes Absolute Auto 1.2 X10*3/uL (1.2-4.9); Lymphocytes Percent Auto 21.6 % (20-40); Mean Corpuscular HGB Conc 33.3 g/dl (31.0-35.0); Mean Corpuscular Hemoglobin 30.7 pg (27.0-33.0); Mean Platelet Volume 10.1 fL (9.4-12.3); Monocytes Absolute Auto 0.3 X10*3/uL (0.1-1.2); Monocytes Percent Auto 5.9 % (2-11); Neutrophils Absolute Auto 3.7 x10*3/uL (2.0-8.3); Platelet Count 158 X10*3/uL (160-400); Red Blood Count 2.61 X10*6/uL (4.20-5.50); Red Cell Distribution Width 12.7 % (11.0-16.0); White Blood Count 5.8 X10*3/uL (4.8-10.8)
[2024-11-15 19:08] LABS: Anion Gap 15 (12-20); Blood Urea Nitrogen 52 mg/dL (9-16); Calcium 8.8 mg/dL (8.4-10.2); Carbon Dioxide 23 mmol/L (22-29); Chloride 105 mmol/L (96-108); Estimated Glomerular Filt Rate 8; Iron 114 mcg/dL (30-160); Percent Iron Saturation 50 % (15-50); Potassium 4.9 mmol/L (3.3-5.1); Sodium 138 mmol/L (135-145); Total Iron Binding Capacity 227 mcg/dL (228-428); Unsaturated Iron Binding 113 ug/dL
== END 2024-11-15 11:25 | disposition home or self-care (01) ==
LOC: HO.HKASLDS 11:24
PROVIDERS: Visit Provider Internal Medicine Nephrology
DX: N18.5 Chronic kidney disease, stage 5 (principal)
CPT/HCPCS: 36415; 80051; 82310; 82565; 83540; 84520; 85025

== ENCOUNTER 2024-11-21 14:18 | Outpatient (AMB) | payer OTHER, SELFPAY ==
--- NOTE | 2024-11-21 14:40 | HO.NEPHOV ---
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 Gasca was seen in follow up of her advance chronic kidney disease and hypertension. Her blood pressure control is at goal. She is anemic. She denies diabetes, edema, microscopic or macroscopic hematuria, photosensitivity, joint swellings, hematemesis, melena, edema, proximal nocturnal dyspnea, orthopnea or chest pain. Her appetite is good. 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 She denies taking excessive nonsteroidal anti-inflammatory medications. She has no other systemic complaints. She has family H/O rhuematoid arthritis( mom). She has strong family history of chronic kidney disease. 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 She also had chronic interstitial inflammation. She had global glomerulosclerosis 50-70%. Also there was severe interstitial fibrosis and tubular atrophy at 30-80% along with chronic thrombotic microangiopathic changes. She denies uremic symptoms but feeling tired. She is listed for transplant in [facility] Medical History Elevated blood pressure reading Gastroesophageal reflux disease Chronic kidney disease, stage 4 (severe) Family History Father Myocardial infarct Sister Chronic kidney disease Hypertension Hypercholesteremia Diabetes Mother Hypertension Hypercholesteremia Diabetes Coronary artery disease Rheumatoid arthritis Chronic kidney disease Brother Diabetes Hypercholesteremia Chronic kidney disease Social History Alcohol intake: never Patient Tobacco Use Status: Never used Tobacco Review of Systems Const All systems reviewed & are unremarkable except as noted in HPI and below Physical Exam Vital Signs: Last Vital Signs Pulse 90 11/21/24 14:52 BP 136/70 11/21/24 14:52 Pulse Ox 100 11/21/24 14:52 BMI result Body Mass Index 19.7 Const General: comfortable and no acute distress Orientation/consciousness: patient oriented x3 HEENT Head: Yes normocephalic Mouth: Normal oral and palatal mucosa present Eyes EOM: EOMs intact bilaterally Neck Neck: Yes supple Resp Auscultation: clear to auscultation bilaterally Cardio Jugular venous distension: no JVD Rate: regular rate GI Palpation (GI): Soft to palpation Auscultation: normal bowel sounds General: Yes no CVA tenderness Back/Spine/Pelvis Back: no CVA tenderness Skin General skin exam: no rashes or lesions noted Neuro General: patient oriented x3 and moves all extremities Extrem General: Yes no pedal edema Results Reviewed Nephrology Results: Hgb, (12.0-16.0) 8.0 g/dl L Δ 11/15/24 WBC, (4.8-10.8) 5.8 X10*3/uL 11/15/24 Plt Count, (160-400) 158 X10*3/uL L Δ 11/15/24 Sodium, (135-145) 138 mmol/L 11/15/24 Potassium, (3.3-5.1) 4.9 mmol/L 11/15/24 Chloride, (96-108) 105 mmol/L 11/15/24 Carbon Dioxide, (22-29) 23 mmol/L 11/15/24 BUN, (9-16) 52 mg/dL H 11/15/24 Creatinine, (0.5-1.4) 5.68 mg/dL H* 11/15/24 Calcium, (8.4-10.2) 8.8 mg/dL Δ 11/15/24 Assessment & Plan Assessment & Plan (1) HTN (hypertension): Code(s): I10 - Essential (primary) hypertension Category: Medical Qualifiers: Hypertension type: secondary to other renal disorders Qualified Code(s): I15.1 - Hypertension secondary to other renal disorders (2) Secondary hyperparathyroidism (of renal origin): Code(s): N25.81 - Secondary hyperparathyroidism of renal origin Category: Medical (3) Vitamin D deficiency: Code(s): E55.9 - Vitamin D deficiency, unspecified Category: Medical (4) CKD (chronic kidney disease) stage 5, GFR less than 15 ml/min: Code(s): N18.5 - Chronic kidney disease, stage 5 Category: Medical (5) Anemia in chronic kidney disease: Code(s): N18.9 - Chronic kidney disease, unspecified; D63.1 - Anemia in chronic kidney disease Category: Medical Qualifiers: Chronic kidney disease stage: stage 4 (severe) Qualified Code(s): N18.4 - Chronic kidney disease, stage 4 (severe); D63.1 - Anemia in chronic kidney disease Danielle Dacosta has advanced chronic kidney disease .She had epistaxis and is Anti MS 3 positive. Her renal biopsy which showed of focal segmental glomerulosclerosis with a perihilar, peripheral and tip lesions. She has chronic interstitial inflammation. She had global glomerulosclerosis 50-70%. Also there was severe interstitial fibrosis and tubular atrophy at 30-80% along with chronic thrombotic microangiopathic changes. She is hypertensive. She should continue amlodipine 10 mg daily. She is off PO prednisone . She should avoid nonsteroidal anti-inflammatory medications and any other zfbs-kni-tnqlkiu medications in addition to any unusual herbs. She should remain well hydrated. She could minimize animal protein intake. She should continue 2 Iron tablets a day along with Vitamin D 00084 Units once a month. I increased her calcitriol to 0.25 mcg four times a week. [facility] is [facility] for [facility]. She had dialysis education. She was referred for AVF. She wants a low dose ACEI but I did not initiate given her high K. Further management has been involving data. All questions were answered Orders: Referrals Transplant Surgery Referral N18.5 - Chronic kidney disease, stage 5 Medications: Discontinued sodium polystyrene sulfonate Discontinued Reason: Doctor's Order 30 grams PO ONCE 30 grams 0RF Coding Level of Care Code Est Pt Level 4 (31791) Diagnoses Hypertension secondary to other renal disorders I15.1 Hypertension type: secondary to other renal disorders Secondary hyperparathyroidism (of renal origin) N25.81 Vitamin D deficiency E55.9 CKD (chronic kidney disease) stage 5, GFR less than 15 ml/min N18.5 Anemia in stage 4 chronic kidney disease N18.4; D63.1 Chronic kidney disease stage: stage 4 (severe)
[2024-11-21 14:52] VITALS: BP 136/70; PULSE 90; O2SAT 100; BMI 19.7
--- OUTSIDE RECORDS SUMMARY | 2024-11-21 17:28 | XMS_ITS | Clinical Summary ---
Author Organization [facility] Address [address] [place] [address] Care Team Providers Care Recovery Analyst Name Role Phone Melissa Denton Primary Care Provider [phone] Allergies Active Allergy Reactions Criticality Noted Date [...] get the renal biopsy report over from [facility] (I do not see in care [...] Encounters Date Type Department Care Team Description 11/20/2024 Descomplicat Message [facility]plant [address] [place] [address] China Caputo, JAS Your Recent Visit 11/09/2024 Descomplicat Message [facility] [address] [place] [address] Marine Consultant: Davidson Caballero MD ENT visit 11/01/2024 8:52 AM EDT - 11/01/2024 11:59 PM EDT Hospital Encounter [facility] [address] [place] [address] Marine Consultant: Brooklyn Pal MD Nasal congestion (Primary Dx) Discharge Disposition: Home or Self Care (01) 10/20/2024 [employer] Message [facility] Transplant Department [address] [place] [address] Sindy Hough RN Your Recent Visit 09/25/2024 [employer] Message [facility] [address] [place] [address] China Caputo, supervisor typesetting Monthly Lab Reminder 09/01/2024 Orders Only [facility] Transplant Department [address] [place] [address] China Caputo RN Stage 4 chronic kidney disease (HCC) (Primary Dx); Pre-transplant evaluation for kidney transplant 08/30/2024 myChart Message [facility] [address] [place] [address] Marine Consultant: Davidson Caballero MD Labs 08/29/2024 Telephone [facility] [address] [place] [address] Marine Consultant: Davidson Caballero MD 08/23/2024 3:40 PM EDT Follow-Up [facility] [address] [place] [address] Calvin Restrepo MD Encounter for pre-transplant evaluation for kidney transplant (Primary Dx); Stage 2 chronic kidney disease; Stage 3 chronic kidney disease, unspecified whether stage 3a or 3b CKD; ANCA-associated vasculitis; Pre-transplant evaluation for kidney transplant 08/23/2024 1:00 PM EDT Office Visit [facility] [address] [place] [address] Marine Consultant: Calvin Hamm MD Cheah, Jonathan T., MD Chronic kidney disease, stage V (Primary Dx); Vasculitis 08/23/2024 Orders Only [facility] Transplant Department [address] [place] [phone] India Benavides RN Stage 4 chronic kidney disease (Primary Dx); Pre-transplant evaluation for kidney transplant 08/22/2024 Telephone [facility] [address] [address] Marine Consultant: Davidson Caballero MD PAC Appt Request - New 08/21/2024 Orders Only [facility] [address] [place] [address] Marine Consultant: Calvin Mckeon MD Vasculitis (Primary Dx) from [...] Info) Description 11/28/2024 1:00 PM EDT Appointment [facility] CT Scan Department [address] [place] [address] 02/26/2025 1:20 PM EDT Follow-Up [facility] [address] [place] [address] Marine Consultant: Davidson Caballero MD [address], [place] [phone] 02/28/2025 1:40 PM EDT Follow-Up [facility] [address] [place] [address] Calvin Restrepo MD [address] [place] [address] Health Maintenance Due Date Last Done Comments [...] complete this topic Procedures * Due to [place] state law, this organization might not be [...] EDT Chronic kidney disease, stage V (HCC) [id number]-[id number] I ANTIBODIES, IGG/IGA/IGM Routine 09/04/2024 2:47 PM [...] PM EDT Chronic kidney disease, stage V SOFTWARE RELIABILITY ENGINEER ANTIBODY Routine 08/23/2024 4:12 PM EDT Chronic kidney disease, stage V SCL-70 (SCLERODERMA) ANTIBODY Routine 08/23/2024 4:12 PM EDT Chronic kidney disease, stage V CENTROMERE B ANTIBODY Routine 08/23/2024 4:12 PM EDT Chronic kidney disease, stage V RNA POLYMERASE III, IGG Routine 08/24/19 4:12 PM EDT Chronic kidney disease, stage V MPO/NE-3 ANTIBODIES Routine 08/23/2024 4 :12 PM EDT [...] Chronic kidney disease, stage V PROCOLLAGEN TYPE-I [id number] Routine 08/23/2024 4:12 PM EDT Chronic kidney [...] to Health Maintenance Results * Due to [place] state law, this organization might not be sharing negative HIV tests. * Cardiolipin Antibodies, IgG/IgM/IgA (09/04/2024 2:47 PM EDT) Cardiolipin Ab IgA <2.0 APL-U/mL 2024 1:30 PM EDT [facility] Comment: Value Interpretation ----- < 20.0 Antibody not detected > or = 20.0 Antibody detected Cardiolipin Ab IgG 2.9 GPL-U/mL 2024 1:30 PM EDT [facility] Comment: Value Interpretation ----- < 20.0 Antibody not detected > or = 20.0 Antibody detected Cardiolipin Ab IgM 5.6 MPL-U/mL 2024 1:30 PM EDT [facility] Comment: Value Interpretation ----- < 20.0 Antibody [...] aging. For additional information, please refer to http://education.TuneUp/faq/MUR668 (This link is being provided for informational/ educational purposes only.) Blood Structure of peripheral vein / Unknown 09/04/2024 2:47 PM EDT 09/05/2024 5:52 AM EDT Narrative [facility] - 09/07/2024 1:34 PM EDT FASTING:NO us Davidson Garvey MD LAB BLOOD ORDERABLES Final Result [facility] [address] [facility] [address] Floor, [place] [address], [place] [phone] [facility] [address] [place] [address] * Lupus Anticoagulation Evaluation w/Reflex (09/04/2024 2:47 PM EDT) Lupus Anticoagulant see note 09/07/2024 6:55 AM EDT [facility] Comment: A Lupus Anticoagulant is not detected. Reference Range: Not Detected For additional information, please refer to http://[employer] Hot [employer].TuneUp/faq/TEV56c5 (This link is being provided for informational/ educational purposes only.) This interpretation is based on the following test results. Ptt-LA Screen 32 <=40 sec 09/07/2024 6:55 AM EDT [facility]N ICHOLS GIUSEPPETILLY DRVVT Screen 33 <=45 sec 09/07/2024 6:55 AM EDT [facility] CHANT[facility] Blood Structure of peripheral vein / Unknown 09/04/2024 2:47 PM EDT 09/06/2024 6:20 AM EDT Narrative [facility] - 09/07/2024 1:33 PM EDT FASTING:NO us Davidson Garvey MD LAB BLOOD ORDERABLES Final Result [facility] [address] [facility] [address] Floor, [place] [address], [facility]JENNIFER PRATT [address] [place] [address] * Tkkj-9-Bjgnxfulxhxe I Antibodies, IgG/IgA/IgM (09/04/2024 2:47 PM EDT) Beta2-Glycoprotein I (IgG) 3.1 <20.0 U/mL 09/07/2024 7:37 AM EDT [facility] Comment: Value Interpretation ----- < 20.0 Antibody not detected > or = 20.0 Antibody detected Beta2-Glycoprotein I (IgM) 4.0 <20.0 U/mL 09/07/2024 7:37 AM EDT [facility] Comment: Value Interpretation ----- < 20.0 Antibody [...] aging. For additional information, please refer to http://education.TuneUp/faq/MXY040 (This link is being provided for informational/ educational purposes only.) Blood Structure of peripheral vein / Unknown 09/04/2024 2:47 PM EDT 09/06/2024 6:20 AM EDT Narrative [facility] - 09/07/2024 1:33 PM EDT FASTING:NO Davidson Garvey MD LAB BLOOD ORDERABLES Final Result [facility] [address] [facility] [address], [place] [address], [facility]JENNIFER PRATT [address] [place] [address] * Camargo Top, Urine (08/23/2024 4:40 PM EDT) Extra Tube Hold for add-ons. 08/23/2024 9:05 PM EDT [facility] Comment:Auto resulted. Urine Urine specimen collection, clean catch / Unknown Non-Blood Collection / Unknown 08/23/2024 4:40 PM EDT 08/23/2024 4:51 PM EDT us Davidson Garvey MD LAB URINE ORDERABLES Final Result [email or web address] [address] [place] [address], [place] * (ABNORMAL) Urinalysis W/Reflex to Microscopic & Culture (08/23/2024 4:40 PM EDT) Color, Urine Light Yellow Colorless, Light Yellow, Yellow, Dark Yellow 08/23/2024 5:36 PM EDT [facility] Clarity, Urine Clear Clear 08/23/2024 5:36 PM EDT [facility] Specific [place], Urine <1.005(L) 1.005 - 1.030 08/23/2024 5:36 PM EDT [facility] pH, Urine 7.0 4.6 - 8.0 08/23/2024 5:36 PM EDT [facility] Protein, Urine 2+(A) Negative 08/23/2024 5:36 PM EDT [facility] Glucose, Urine Negative Negative 08/23/2024 5:36 PM EDT [facility] Ketones, Urine Negative Negative 08/23/2024 5:36 PM EDT [facility] Bilirubin, Urine Negative Negative 08/23/2024 5:36 PM EDT [facility] Blood, Urine 1+(A) Negative 08/23/2024 5:36 PM EDT [facility] Nitrite, Urine Negative Negative 08/23/2024 5:36 PM EDT [employer] Urobilinogen, Urine Normal Normal 08/23/2024 5:36 PM EDT [facility] LAB[facility] Leukocyte Esterase, Urine Negative Negative 08/23/2024 5:36 PM EDT [facility] WBC, Urine 1 0 - 2 /HPF 08/23/2024 5:36 PM EDT [facility] RBC, Urine <1 0 - 2 /HPF 08/23/2024 5:36 PM EDT [facility] Hyaline Casts, Urine 0 0 - 2 /LPF 08/23/2024 5:36 PM EDT [facility] Squamous Epithelial Cells, Urine 1 /HPF 08/23/2024 5:36 PM EDT [facility] Bacteria, Urine None None /HPF /HPF 08/23/2024 5:36 PM EDT [facility] Urine Urine specimen collection, clean catch / Unknown Non-Blood Collection / Unknown 08/23/2024 4:40 PM EDT 08/23/2024 4:51 PM EDT us Davidson Garvey MD LAB URINE ORDERABLES Final Result [facility] LAB[facility] [address] [place] [address], * (ABNORMAL) Protein, Random Urine with Creatinine (08/23/2024 4:40 PM EDT) Protein, Urine 107 mg/dL 08/23/2024 5:20 PM EDT [facility] Creatinine, Urine 26 15 - 278 mg/dL 08/23/2024 5:20 PM EDT [facility]OLOG[facility] LAB[facility] Protein/Creat inine, Urine Ratio 4,115(H) <200 mg/gmCr 08/23/2024 5:20 PM EDT [facility] Urine Voided urine specimen / Unknown Non-Blood Collection / Unknown 08/23/2024 4:40 PM EDT 08/23/2024 4:51 PM EDT Davidson Garvey MD LAB URINE ORDERABLES Final Result [facility] [address] [place] [address], * (ABNORMAL) Mitochondrial Titer (08/23/2024 4:12 PM EDT) Pathologist [facility] Mitochondrial Antibody Titer 1:640(H) <1:20 titer 08/29/2024 11:19 AM EDT [facility] Blood Structure of peripheral vein / Unknown Venipuncture / Unknown 08/23/2024 4:12 PM EDT 08/23/2024 4:18 PM EDT Narrative [facility] - 08/29/2024 11:19 AM EDT [facility] Received Date:[id number] Davidson Garvey MD LAB BLOOD ORDERABLES Final Result Performing Organization Address City/[facility]/ZIP Co de Phone Number [facility] [address], [place] [address], [place] [phone] [facility] [address], [place] [address], [place] [phone] * (ABNORMAL) Procollagen Type-I Propeptide (08/23/2024 4:12 PM EDT) Pathologist [facility] Procollagen Type I Intact N Terminal Propeptide 138(H) 22 - 104 mcg/L 08/26/2024 4:02 PM EDT [facility] (JENNIFER) Blood Structure of peripheral vein / Unknown Venipuncture / Unknown 08/23/2024 4:12 PM EDT 08/23/2024 4:18 PM EDT Narrative [facility] - 08/26/2024 4:02 PM EDT [facility] Received Date:[id number] Davidson Garvey MD LAB BLOOD ORDERABLES Final Result JORDEN CAMARILLO [address] [facility] 3rd Floor, [place] [address], JORDEN PRATT (RODRIGUEZ) [address] [place] [address], [place] * RNA Polymerase III, IgG (08/23/2024 4:12 PM EDT) RNA Polymerase III Antibody IgG 5 0 - 19 Units 08/25/2024 12:15 AM EDT [email or web address] Comment: INTERPRETIVE INFORMATION: RNA Polymerase III [...] antibodies associated with SSc, including centromere, Scl-70, U3-SOFTWARE RELIABILITY ENGINEER, PM/Scl, or Th/To. Performed by [employer], [address] [place] [id number] [email or web address], Francis Doyle MD, Lab. Director CLIA Number: [id number] Blood Structure of peripheral vein / Unknown Venipuncture / Unknown 08/23/2024 4:12 PM EDT 08/23/2024 4:18 PM EDT Davidson Garvey MD LAB BLOOD ORDERABLES Final Result [facility] [address] [place] [address], [place] * Centromere B Antibody (08/23/2024 4:12 PM EDT) Centromere B Antibody <1.0 NEG <1.0 NEG AI 08/24/2024 8:49 PM EDT [facility] Blood Structure of peripheral vein / Unknown Venipuncture / Unknown 08/23/2024 4:12 PM EDT 08/23/2024 4:18 PM EDT Narrative [facility] - 08/24/2024 8:49 PM EDT [facility] Received Date: Davidson Garvey MD LAB BLOOD ORDERABLES Final Result Performing Organization Address City/[facility]/ZIP Co de Phone Number JORDEN DILLE [address], [place] [address], [place] [phone] [facility] [address], [place] [address], * Brasher (Sm) Antibody (08/23/2024 4:12 PM EDT) Sm Antibody <1.0 NEG <1.0 NEG AI 08/24/2024 8:44 PM EDT [facility] Blood Structure of peripheral vein / Unknown Venipuncture / Unknown 08/23/2024 4:12 PM EDT 08/23/2024 4:18 PM EDT Narrative [facility] - 08/24/2024 8:44 PM EDT [facility] Received Date:[id number] Davidson Garvey MD LAB BLOOD ORDERABLES Final Result JORD[facility] DILLE [address] [facility] [address] [facility], [place] [address], [place] [phone] [facility] [address], [place] [address], * (ABNORMAL) MPO/NE-3 Antibodies (08/23/2024 4:12 PM EDT) Myeloperoxidase Antibody <1.0 AI 08/24/2024 8:49 PM EDT [facility] Comment: Value Interpretation ----- <1.0 No Antibody [...] Proteinase-3 Antibody 4.1(H) AI 8:49 PM EDT [facility] Comment: Value Interpretation ----- <1.0 No Antibody Detected > or = 1.0 Antibody Detected Autoantibodies to proteinase-3 (NE-3) are accepted as characteristic for granulomatosis with polyangiitis (GPA, Kiarra's), and are detectable in 95% of the histologically proven cases. The cytoplasmic IFA pattern, (c-ANCA), is based largely on autoantibody to NE-3 which serves as the primary antigen. These autoantibodies are present in active disease. Blood Structure of peripheral vein / Unknown Venipuncture / Unknown 08/23/2024 4:12 PM EDT 08/23/2024 4:18 PM EDT Narrative [facility] [place] - 08/24/2024 8:49 PM EDT [facility] Received Date: Davidson Garvey MD LAB BLOOD ORDERABLES Final Result JORDEN CAMARILLO [address] [facility] [address] [facility], [place] [address], [facility] [address], [place] [address], [place] [phone] * SSA & SSB (SJOGREN'S) Antibodies (08/23/2024 4:12 PM EDT) Sjogren's Ab (SS-A) <1.0 NEG <1.0 NEG AI 08/24/2024 8:44 PM EDT [facility] Sjogren's Ab (SS-B) <1.0 NEG <1.0 NEG AI 08/24/2024 8:44 PM EDT [facility] Blood Structure of peripheral vein / Unknown Venipuncture / Unknown 08/23/2024 4:12 PM EDT 08/23/2024 4:18 PM EDT Narrative [facility] - 08/24/2024 8:44 PM EDT [facility] Received Date: Davidson Garvey MD LAB BLOOD ORDERABLES Final Result [facility] [address] [facility] 3rd Floor, [place] [address], [facility] [address] [facility] [address], [place] [address], * Liver Kidney Microsomal Antibody, IgG (08/23/2024 4:12 PM EDT) Pathologist [facility] Liver Kidney Microsomal (LKM-1) AB (IGG) <=20.0 [...] 4:12 PM EDT 08/23/2024 4:18 PM EDT Declan CAMARILLO - 08/26/2024 9:32 AM EDT [facility] Received Date:[id number] Davidson Garvey MD LAB BLOOD ORDERABLES Final Result JORDEN DILLE [address] [facility] [address] [facility], [place] [address], [place] [phone] [facility] [employer]ODRIGUE[facility]) [address] [place] [address], [place] * (ABNORMAL) Complement C3c and C4c (08/23/2024 4:12 PM EDT) Complement Component C3C 69(L) 83 - 193 mg/dL 08/24/2024 12:29 PM EDT [facility] Complement Component C4C 18 15 - 57 mg/dL 08/24/2024 12:29 PM EDT [facility] Blood Structure of peripheral vein / Unknown Venipuncture / Unknown 08/23/2024 4:12 PM EDT 08/23/2024 4:18 PM EDT Declan CAMARILLO - 08/24/2024 12:29 PM EDT [facility] Received Date:[id number] Davidson Garvey MD LAB BLOOD ORDERABLES Final Result JORDEN DILLE [address] [facility] [address] [facility], [place] [address], [place] [phone] [facility] [address] [facility] [address], [place] [address], [place] [phone] * (ABNORMAL) CBC Auto Differential (08/23/2024 4:12 PM EDT) WBC 8.4 3.8 - 10.8 10*3/uL 08/23/2024 4:33 PM EDT [facility] RBC 2.96(L) 3.80 - 5.10 10*6/uL 08/23/2024 4:33 PM EDT [facility] Hemoglobin 8.9(L) 11.7 - 15.5 g/dL 08/23/2024 4:33 PM EDT [facility] Hematocrit 26.8(L) 35.0 - 45.0 % 08/23/2024 4:33 PM EDT [facility] MCV 90.5 80.0 - 100.0 fL 08/23/2024 4:33 PM EDT [facility] MCH 30.1 27.0 - 33.0 pg 08/23/2024 4:33 PM EDT [facility] MCHC 33.2 32.0 - 36.0 g/dL 08/23/2024 4:33 PM EDT [facility] RDW 12.3 11.0 - 15.0 % 08/23/2024 4:33 PM EDT [facility] Platelets 178 140 - 400 10*3/uL 08/23/2024 4:33 PM EDT [facility] MPV 9.6 7.5 - 12.5 fL 08/23/2024 4:33 PM EDT [facility] Neutrophil % 72.3 % 08/23/2024 4:33 PM EDT [facility] Immature Grans % 0.2 0.0 - 0.9 % 08/23/2024 4:33 PM EDT [facility] Lymphocyte % 19.9 % 08/23/2024 4:33 PM EDT [facility] Monocyte % 3.2 % 08/23/2024 4:33 PM EDT [facility] Eosinophil % 3.8 % 08/23/2024 4:33 PM EDT [facility] Basophil % 0.6 % 08/23/2024 4:33 PM EDT [facility] LAB[facility] Neutrophil # 6.08 1.50 - 7.80 10*3/uL 08/23/2024 4:33 PM EDT [employer] LAB[facility] Immature Grans # <0.03 <=0.03 10*3/uL 08/23/2024 4:33 PM EDT [employer] [facility] Lymphocyte # 1.70 0.85 - 3.90 10*3/uL 08/23/2024 4:33 PM EDT [employer] [facility] Monocyte # 0.30 0.20 - 0.95 10*3/uL 08/23/2024 4:33 PM EDT [employer] [facility] Eosinophil # 0.30 0.02 - 0.50 10*3/uL 08/23/2024 4:33 PM EDT [employer] [facility] Basophil # 0.10 0.00 - 0.20 10*3/uL 08/23/2024 4:33 PM EDT [employer] [facility] nRBC % 0.0 /100 WBCs 08/23/2024 4:33 PM EDT [employer] [facility] LAB[facility] nRBC # <0.01 <0.01 10*3/uL 08/23/2024 4:33 PM EDT [facility] Blood Structure of peripheral vein / Unknown Venipuncture / Unknown 08/23/2024 4:12 PM EDT 08/23/2024 4:18 PM EDT us Davidson Garvey MD LAB BLOOD ORDERABLES Final Result [facility] [address] [place] [address], * Smooth Muscle Antibody Screen w/Titer (08/23/2024 4:12 PM EDT) Smooth Muscle AB Screen NEGATIVE NEGATIVE 08/29/2024 11:16 AM EDT [facility] Blood Structure of peripheral vein / Unknown Venipuncture / Unknown 08/23/2024 4:12 PM EDT 08/23/2024 4:18 PM EDT Narrative JORDEN CAMARILLO - 08/29/2024 11:16 AM EDT [facility] Received Date:[id number] Davidson Garvey MD LAB BLOOD ORDERABLES Final Result [facility] [address], [place] [address], [place] [phone] [facility] [address], [place] [address], [place] [phone] * Scl-70 (Scleroderma) Antibody (08/23/2024 4:12 PM EDT) SCL-70 Antibody <1.0 NEG <1.0 NEG AI 08/24/2024 8:44 PM EDT [facility] Blood Structure of peripheral vein / Unknown Venipuncture / Unknown 08/23/2024 4:12 PM EDT 08/23/2024 4:18 PM EDT Narrative JORDEN DYEJORGE - 08/24/2024 8:44 PM EDT [facility] Received Date:[id number] Davidson Garvey MD LAB BLOOD ORDERABLES Final Result [facility] [address] [facility] [address] [facility], [place] [address], [place] [phone] [facility] [address], [place] [address], * DNA Antibody, Double-Stranded (08/23/2024 4:12 PM EDT) DNA (Ds) Antibody 1 IU/mL 025 8:49 PM EDT [facility] Comment: IU/mL Interpretation < or = 4 Negative 5-9 Indeterminate > or = 10 Positive Blood Structure of peripheral vein / Unknown Venipuncture / Unknown 08/23/2024 4:12 PM EDT 08/23/2024 4:18 PM EDT Narrative JORDEN CAMARILLO - 08/24/2024 8:49 PM EDT [facility] Received Date:[id number] Davidson Garvey MD LAB BLOOD ORDERABLES Final Result Performing Organization Address [facility] Co de Phone Number JORDEN DILLE [address], [place] [address], [place] [phone] [facility] [address], [place] [address], [place] [phone] * SOFTWARE RELIABILITY ENGINEER Antibody (08/23/2024 4:12 PM EDT) SOFTWARE RELIABILITY ENGINEER Antibody <1.0 NEG <1.0 NEG AI 08/24/2024 8:49 PM EDT [facility] Blood Structure of peripheral vein / Unknown Venipuncture / Unknown 08/23/2024 4:12 PM EDT 08/23/2024 4:18 PM EDT Narrative [facility] - 08/24/2024 8:49 PM EDT [facility] Received Date:[id number] Davidson Garvey MD LAB BLOOD ORDERABLES Final Result Performing Organization Address [facility] Co de Phone Number JORDEN DILLE [address] [facility] [address] [facility], [place] [address], [place] [phone] [facility] [address], [place] [address], [place] [phone] * Alkaline Phosphatase, Bone Specific (08/23/2024 4:12 PM EDT) Bone Specific 19.1 5.3 - 19.5 mcg/L 08/25/2024 1:23 PM EDT JORDEN GAINES) Comment: Reference Range, Premenopausal (mcg/L) 35-45 years 5.0-18.2 Blood Structure of peripheral vein / Unknown Venipuncture / Unknown 08/23/2024 4:12 PM EDT 08/23/2024 4:19 PM EDT Narrative JORDEN PRATT (RODRIGUEZ) - 08/25/2024 1:23 PM EDT [facility] Received Date:[id number] Davidson Garvey MD LAB BLOOD ORDERABLES Final Result JORDEN PRATT (RODRIGUEZ) [address] [place] [address], [place] * (ABNORMAL) Antimitochonrial antibody (Mitochondrial Antibody w/Reflex) (08/23/2024 4:12 PM EDT) Pathologist [facility] Mitochondrial Ab Screen POSITIVE (A) NEGATIVE 08/29/2024 11:16 AM EDT [facility] Blood Structure of peripheral vein / Unknown Venipuncture / Unknown 08/23/2024 4:12 PM EDT 08/23/2024 4:18 PM EDT [employer] [facility] - 08/29/2024 11:16 AM EDT [facility] Received Date:[id number] Davidson Garvey MD LAB BLOOD ORDERABLES Final Result Performing Organization Address City/[facility]/ZIP Co de Phone Number JORDEN [address] Floor, [place] [address], [place] [phone] [facility] [address] [facility] [address], [place] [address], [place] [phone] * Sedimentation Rate (08/23/2024 4:12 PM EDT) Pathologist [facility] Sed Rate 11 <20 mm/Hr mm/Hr 08/23/2024 4:32 PM EDT [facility] CLINICAL PATHOLOGY LABORATORY Blood Structure of peripheral vein / Unknown Venipuncture / Unknown 08/23/2024 4:12 PM EDT 08/23/2024 4:18 PM EDT Davidson Garvey MD LAB BLOOD ORDERABLES Final Result [facility] LABORATORY [address] [place] [address], * Immunoglobulins Panel (IgG, IgA, IgM) (08/23/2024 4:12 PM EDT) Immunoglobulin A 190 47 - 310 mg/dL 08/23/2024 9:38 PM EDT [facility] IgG, Serum 1559 600 - 1640 mg/dL 08/23/2024 9:38 PM EDT [facility] Immunoglobulin M 176 50 - 300 mg/dL 08/23/2024 9:38 PM EDT [facility] Blood Structure of peripheral vein / Unknown Venipuncture / Unknown 08/23/2024 4:12 PM EDT 08/23/2024 4:18 PM EDT Narrative [facility] - 08/23/2024 9:38 PM EDT [facility] Received Date:[id number] Davidson Garvey MD LAB BLOOD ORDERABLES Final Result Performing Organization Address City/[facility]/ZIP Co de Phone Number [facility] [address] [facility] [address], [place] [address], [place] [phone] [facility] [address], [place] [address], [place] [phone] * C-Reactive Protein (08/23/2024 4:12 PM EDT) C Reactive Protein <3.0 <=9.9 mg/L 08/23/2024 5:09 PM EDT [facility] CL[facility]ICAL PATHOLOG[facility] LAB[facility] Blood Structure of peripheral vein / Unknown Venipuncture / Unknown 08/23/2024 4:12 PM EDT 08/23/2024 4:23 PM EDT Davidson Garvey MD LAB BLOOD ORDERABLES Final Result Performing Organization Address [facility] de Phone Number [facility] [address] [place] [address], * TSH (08/23/2024 4:12 PM EDT) TSH 1.890 0.280 - 3.890 uIU/mL 08/23/2024 5:04 PM EDT [facility]Gu[facility] Comment: Females: 1st trimester 0.150-4.000 IU/mL 2nd trimester 0.310-4.170 IU/mL 3rd trimester 0.380-4.150 IU/mL Blood Structure of peripheral vein / Unknown Venipuncture / Unknown 08/23/2024 4:12 PM EDT 08/23/2024 4:23 PM EDT Davidson Garvey MD LAB BLOOD ORDERABLES Final Result Performing Organization Address [facility] de Phone Number [facility]Gu[email or web address] [address] [place] [address], * T4, Free (08/23/2024 4:12 PM EDT) Free T4 1.16 0.93 - 1.70 ng/dL 08/23/2024 5:04 PM EDT [facility]USset[email or web address] CL[facility] Comment: Females: (ng/dL) First [...] Garvey MD LAB BLOOD ORDERABLES Final Result [facility] LAB[facility]ATORY [address] [place] [address], * Phosphorus (08/23/2024 4:12 PM EDT) Phosphorus 3.2 2.5 - 4.5 mg/dL 08/23/2024 5:04 PM EDT [facility] CLINICAL PATHOLOG[facility] LABOR[facility]ORY Blood Structure of peripheral vein / Unknown Venipuncture / Unknown 08/23/2024 4:12 PM EDT 08/23/2024 4:23 PM EDT Davidson Garvey MD LAB BLOOD ORDERABLES Final Result Performing Organization Address [facility] Co de Phone Number [facility] CL[facility] LABOR[facility]ORY [address] [place] [address] * (ABNORMAL) PTH, Intact (without Calcium) (08/23/2024 4:12 PM EDT) Parathyroid Hormone, Intact 273(H) 16 - 77 pg/mL 08/24/2024 8:06 AM EDT [facility] Comment: Interpretive Guide Intact PTH Calcium ------- Normal Parathyroid Normal Normal Hypoparathyroidism Low or Low Normal Low Hyperparathyroidism Primary Normal or High High Secondary High Normal or Low Tertiary High High Non-Parathyroid Hypercalcemia Low or Low Normal High Blood Structure of peripheral vein / Unknown Venipuncture / Unknown 08/23/2024 4:12 PM EDT 08/23/2024 4:18 PM EDT Declan CAMARILLO - 08/24/2024 8:06 AM EDT [facility] Received Date:[id number] Davidson Garvey MD LAB BLOOD ORDERABLES Final Result JORDEN CAMARILLO [address] [place] [address] [address], [place] [address], [place] [phone] [facility] [address] [facility] [address], [place] [address], [place] [phone] * (ABNORMAL) Comprehensive Metabolic Panel (08/23/2024 4:12 PM EDT) NA 136 135 - 145 mmol/L 08/23/2024 5:04 PM EDT [facility] CL[facility]ICAL PATHOLOG[facility] LAB[facility] K 3.7 3.5 - 5.3 mmol/L 08/23/2024 5:04 PM EDT [facility] LAB[facility] Cl 100 98 - 107 mmol/L 08/23/2024 5:04 PM EDT [facility] CO2 19(L) 22 - 32 mmol/L 08/23/2024 5:04 PM EDT [facility] Anion Gap 17(H) 5 - 15 08/23/2024 5:04 PM EDT [facility] Glucose 104(H) 65 - 99 mg/dL 08/23/2024 5:04 PM EDT [facility] Creatinine 4.92(H) 0.50 - 1.20 mg/dL 08/23/2024 5:04 PM EDT [facility] Calcium 8.9 8.6 - 10.5 mg/dL 08/23/2024 5:04 PM EDT [facility] Total Protein 7.7 6.0 - 8.0 g/dL 08/23/2024 5:04 PM EDT [facility] Albumin 4.5 3.5 - 5.2 g/dL 08/23/2024 5:04 PM EDT [facility]OLOG[facility] LAB[facility] Bilirubin, Total 0.3 0.2 - 1.2 mg/dL 08/23/2024 5:04 PM EDT [facility] PATHOLOG[facility] LAB[facility] Alkaline Phosphatase 99 35 - 129 U/L 08/23/2024 5:04 PM EDT [facility] CLINICAL PATHOLOGY LABORATORY AST 19 10 - 40 U/L 08/23/2024 5:04 PM EDT [facility] CL[facility]ICAL PATHOLOGY LABORATORY ALT 13 10 - 40 U/L 08/23/2024 5:04 PM EDT [facility] CL[facility] PATHOLOGY LABORATORY BUN 42(H) 7 - 23 mg/dL 08/23/2024 5:04 PM EDT [facility] PATHOLOG[facility] LAB[facility]ORY eGFR 11(L) >=60 mL/min/1 .73m2 08/23/2024 5:04 PM EDT [facility] CL[facility]ICAL PATHOLOGY LABORATORY Comment:The estimated glomer [...] - 4.2 g/dL 08/23/2024 5:04 PM EDT [facility] PATHOLOGY LABOR[facility] A/G Ratio 1.4(L) 1.5 - 3.0 08/23/2024 5:04 PM EDT [facility] PATHOLOG[facility] LAB[facility]ORY Blood Structure of peripheral vein / Unknown Venipuncture / Unknown 08/23/2024 4:12 PM EDT 08/23/2024 4:23 PM EDT us Davidson Garvey MD LAB BLOOD ORDERABLES Final Result [facility] CL[facility]ICAL PATHOLOGY LABORATORY [address] [place] [address], * Hepatitis Panel, Acute (02/14/2024 3:23 PM EDT) Hepatitis A IgM NON-REACT HILDA NON-REACT HILDA 02/15/2024 3:21 AM EDT [facility] Hepatitis B Surface Antigen NON-REACT HILDA NON-REACT HILDA 02/15/2024 3:21 AM EDT [facility] Hepatitis B Core Antibody NON-REACT HILDA NON-REACT HILDA 02/15/2024 3:21 AM EDT [facility] Hepatitis C Antibody NON-REACT HILDA NON-REACT HILDA 02/15/2024 3:21 AM EDT [facility] Comment: HCV antibody was non-reactive. There is no laboratory evidence of HCV infection. In most cases, no further action is required. However, if recent HCV exposure is suspected, a test for HCV RNA (test code 84132) is suggested. For additional information please refer to http://[employer] [facility] [employer]uneUp/faq/ZVP21o7 (This link is being provided for informational/ educational purposes only.) For additional information, please refer to http://[employer]/faq/PAT388 (This link is being provided for informational/ educational purposes only.) Blood Structure of peripheral vein / Unknown Venipuncture / Unknown 02/14/2024 3:23 PM EDT 02/14/2024 3:32 PM EDT [facility] - 02/15/2024 3:21 AM EDT [facility] Received Date: Calvin Restrepo MD LAB BLOOD ORDERABLES Final Re sult [facility] [address] [facility] [address], [place] [address], [place] [phone] [facility] [address] [facility] [address], [place] [address], [place] [phone] from Last 3 Months or Most Recently Relevant to Health Maintenance Insurance [employer] [place] [address] [place] [address] MEDICAID Advance Directives Documents on File Type Date Recorded Patient Literature Professor Expl anation Health Care Proxy 02/21/2024 8:06 AM 02-13 Care Teams Recovery Analyst Relationship Specialty Start Date End Date Melissa [place] [address] [facility] [address] [place] [address] PCP - General 02/14/24
== END 2024-11-21 15:16 | disposition home or self-care (01) ==
LOC: HO.HKAS 14:19
PROVIDERS: PCP Student in an Organized Health Care Education/Training Program; Visit Provider Internal Medicine Nephrology
DX: I15.1 Hypertension secondary to other renal disorders (principal); N25.81 Secondary hyperparathyroidism of renal origin; E55.9 Vitamin D deficiency, unspecified; N18.5 Chronic kidney disease, stage 5; N18.4 Chronic kidney disease, stage 4 (severe); D63.1 Anemia in chronic kidney disease
CPT/HCPCS: 99214

== ENCOUNTER → 2024-11-21 14:18 | Outpatient (BNVA) | payer OTHER, SELFPAY | PROVIDERS: PCP Student in an Organized Health Care Education/Training Program; Visit Provider Internal Medicine Nephrology | DX: I15.1 Hypertension secondary to other renal disorders (principal); N25.81 Secondary hyperparathyroidism of renal origin; E55.9 Vitamin D deficiency, unspecified; N18.5 Chronic kidney disease, stage 5; D63.1 Anemia in chronic kidney disease | CPT/HCPCS: 99212 ==

== ENCOUNTER 2024-12-07 15:24 | Outpatient (AMB) | payer OTHER, SELFPAY ==
--- OUTSIDE RECORDS SUMMARY | 2024-12-07 15:27 | XMS_ITS | Clinical Summary ---
Author Organization [facility], Address [address] [place] [address] [place] [address] Phone Care Team Providers Care Pig Conveyor Operator Name Role Phone Melissa [place] Primary Care Provider [phone] Social History Tobacco Use Types Packs/Day Years [...] of 2 - PCV) 11/05/2003 Influenza Vaccine (#1) 2025 Insurance [facility] Medicaid Care Teams Pig Conveyor Operator Relationship Specialty Start Date End Date Melissa [place] [address] [place] [id number] PCP - General 03/05/23
--- OUTSIDE RECORDS SUMMARY | 2024-12-07 15:27 | XMS_ITS | Clinical Summary ---
Author Organization [facility] Address [address] [place] [address] Phone Care Team Providers Care Therapeutic Strategy Lead Name Role Phone Melissa Denton MD Primary Care Provider [phone] Allergies Active Allergy Reactions Criticality Noted Date [...] reading 03/24/2023 Stage 4 chronic kidney disease ([facility] V24, [facility] V28) 03/24/2023 Encounters Date Type Department Care Team Description 10/17/2024 9:08 AM EDT - 10/17/2024 11:59 PM EDT Hospital Encounter [facility] Bone Density [address] [place] [phone] Stage 4 chronic kidney disease ([facility] V24, [facility] V28); Hyperparathyroidism ([facility] V24) Discharge Disposition: Home or Self Care 10/17/2024 9:00 AM EDT - 10/17/2024 11:59 PM EDT Hospital Encounter [facility] Bone Density [address] [place] [phone] Current chronic use of systemic steroids Discharge Disposition: Home or Self Care 09/21/2024 11:00 AM EDT Consult Endocrinology - [address] [phone] Latonia Garvin MD Hypercalcemia (Primary Dx); Hyperparathyroidism ([facility] V24); Hypocalcemia 09/07/2024 10:32 AM EDT - 09/07/2024 11:59 PM EDT Hospital Encounter [facility] Ultrasound [address] [place] [phone] Antimitochondrial antibody positive Discharge Disposition: Home or Self Care from Last 3 Months Immunizations Name Administration Dates Next Due Td Tetanus diptheria (Tdvax) 7yo and older 03/24 Surgical History Surgery Date Site/Laterality Comments OTHER SURGICAL HISTORY 06/03/2023 PROCEDURE: WI RENAL BIOPSY SURG EXPOSURE KIDNEY Medical History Medical History Date Comments GERD (gastroesophageal reflu x disease) DX:GERD (gastroesophageal re flux disease) Renal failure 2022 DX:Renal failure ; COMMENT: SAtage 4 Essential (primary) hypertension DX:Essential (primary) hypertension Stage 4 chronic kidney disea se ([facility] V24, [facility] V28) 03/24/2023 Family History Medical History Relation [...] 87 09/21/2024 10:57 AM EDT Temperature 36.8 C (98.2 F) 09/21/2024 10:57 AM EDT Respiratory Rate - - Oxygen Saturation 100% 08/31/2024 9:50 AM EDT Inhaled Oxygen Concentration - - Weight 44.2 kg (97 lb 6.4 oz) 09/21/2024 10:57 A M EDT Height 148.6 cm (4' 10.5 ) 09/21/2024 10:57 AM E DT Body Mass Index 20.01 09/21/2024 10:57 AM EDT Plan of Treatment Upcoming Encounters Date Type Department Care Team (Late st Contact Info) Description 12/20/2024 9:30 AM EDT Consult General Surgery - [place] 175 [facility] [address] [place] [address] Adama Solis MD 175 [facility] [address] [place] [address] 03/05/2025 1:30 PM EDT Office Visit Internal Medicine - [address] [place] [phone] Melissa Denton MD 175 [facility] [address] [place] [address] Health Maintenance Due Date Last Done Comments Breast Cancer Screening 1984 COVID-19 Vaccine (#1) 1989 Hepatitis B Vaccines (1 of 3 - 19+ 3-dose series) 11/05/2003 HIV Screening 06/25/2023 Influenza Vaccine (#1) 2025 Depression Screening 08/31/2025 08/31/2024 Social Influencers [...] on patient's age to complete this topic Pneumococcal Vaccine: Pediatrics (0 to 5 Years) and At-Risk Patients (6 to 49 Years) Aged Out No longer eligible based on patient's age to complete this topic RSV Immunization Patients Under 20 months Aged Out No longer eligible based on patient's age to complete this topic Varicella Vaccines Aged Out No longer eligible based on patient's age to complete this topic Procedures Procedure Name Priority Date/Time Associated Diagnosis Comments VENIPUNCTURE CHARGE Routine 11/22/2024 1 :45 PM EDT Chronic kidney disease, stage IV (severe) ([facility] V24, [facility] V28) Encounter for pre-transplant evaluation for kidney transplant EXTERNAL LAB - COLLECTION, PROCESSING AND HANDLING Routine 10/25/2024 10:50 AM EDT Chronic kidney disease, stage IV (severe) ([facility] V24, [facility] V28) BD BONE DENSITY DXA AXIAL SKELETON Routine 10/17/2024 9:49 AM EDT Stage 4 chronic kidney disease ([facility] V24, [facility] V28) Hyperparathyroidism ([facility] V24) BD BONE DENSITY DXA APPENDICULAR SKELETON Routine 10/17/2024 9:49 AM EDT Current chronic use of systemic steroids EXTERNAL LAB - COLLECTION, PROCESSING AND HANDLING Routine 09/25/2024 11:33 AM EDT Chronic kidney disease, stage IV (severe) ([facility] V24, [facility] V28) ALBUMIN Routine 09/25/2024 11:32 AM EDT Hyperparathyroidism ([facility] V24) CALCIUM Routine 09/25/2024 11:31 AM EDT Chronic kidney disease, stage IV (severe) ([facility] V24, [facility] V28) Secondary hyperparathyroidism of renal origin ([facility] V24) Avitaminosis D Anemia of chronic renal failure Benign renal hypertension, non-vascular CREATININE, SERUM Routine 09/25/2024 11: 31 AM EDT Chronic kidney disease, stage IV (severe) ([facility] V24, [facility] V28) Secondary hyperparathyroidism of renal origin ([facility] V24) Avitaminosis D Anemia of chronic renal [...] 1 1:01 AM EDT Antimitochondrial antibody positive LIPID PANEL WITH REFLEX TO DIRECT LDL Routine 08/31/2024 11:23 AM EDT Encounter for annual physical exam Encounter for lipid screening for cardiovascular disease HM HPV Routine 07/01/2023 HEPATITIS C SCREENING Routine 02/22/2023 from Last 3 Months or Most Recently Relevant to Health Maintenance Results * Venipuncture charge (11/22/2024 1:45 PM EDT) Extra Tube Hold for add-ons. 11/22/2024 4:01 PM EDT [facility] Comment:Auto resulted. Blood Venous blood specimen / Unknown Venipuncture / Unknown 11/22/2024 1:45 PM EDT 11/22/2024 2:11 PM EDT us Calvin Restrepo MD LAB BLOOD ORDERABLES Final Resu lt [facility] [address] [place] [address], * External lab - collection, processing and handling (10/25/2024 10:50 AM EDT) Only the most recent of2 resultswithin the time period is included. Extra Tube Hold for add-ons. 10/25/2024 1:02 PM EDT [facility] Comment:Auto resulted. Blood Venous blood specimen / Unknown Venipuncture / Unknown 10/25/2024 10:50 AM EDT 10/25/2024 11:20 AM EDT us Calvin Restrepo MD LAB BLOOD ORDERABLES Final Resu lt [facility] [address] [place] [address], * BD Bone Density DXA Axial Skeleton (10/17/2024 9:49 AM EDT) Anatomical Region Laterality Modality Wrist, Hip, L-spine Bone Densito metry 10/17/2024 10:1 5 AM EDT Impressions 10/17/2024 10:17 AM EDT Osteopenia. Code 94830 -------- FINAL REPORT -------- Dictated By: Wilfrido Covington Dictated Date: 10/17/2024 10:15 ET Assigned Physician: Wilfrido Covington Reviewed and Electronically Signed By: Wilfrido Covington Signed Date: 10/17/2024 10:17 ET Workstation ID: [id number] Transcribed By: Self Edit Transcribed Date: 10/17/2024 10:15 ET Narrative 10/17/2024 10:17 AM EDT HISTORY: The patient is a 38-year-old female with hyperparathyroidism and renal disease, with clinical concern for metabolic bone disease. FINDINGS: Dual energy x-ray absorptiometry of the lumbar spine and femurs is performed. The mean bone mineral density at L1-L4 is 1.078 gm/cm2 which is 91% of that of young normals and 100% of that of age matched controls. This yields a T-score of -0.8 and a Z-score of 0.0 and there is therefore no evidence of osteoporosis or osteopenia here. The mean bone mineral density of the femurs bilaterally is 0.729 gm/cm2 which is 72% of that of young normals and 80% of that of age matched controls. This yields a T-score of -2.2 and a Z-score of -1.4 which is diagnostic of osteopenia. Procedure Note Wilfrido Covington MD - 10/17/2024 HISTORY: The patient is a 38-year-old female with hyperparathyroidism andrenal disease, with clinical concern for metabolic bone disease. FINDINGS: Dual energy x-ray absorptiometry of the lumbar spine and femursis performed. The mean bone mineral density at L1-L4 is 1.078 gm/cm2 whichis 91% of that of young normals and 100% of that of age matched controls.This yields a T-score of -0.8 and a Z-score of 0.0 and there is thereforeno evidence of osteoporosis or osteopenia here. The mean bone mineral density of the femurs bilaterally is 0.729 gm/zm5wnuzp is 72% of that of young normals and 80% of that of age matchedcontrols. This yields a T-score of -2.2 and a Z-score of -1.4 which isdiagnostic of osteopenia. IMPRESSION: Osteopenia. Code 86924 -------- FINAL REPORT -------- Dictated By: Wilfrido Covington Dictated Date: 10/17/2024 10:15 ET Assigned Physician: Wilfrido Covington Reviewed and Electronically Signed By: Wilfrido Covington Signed Date: 10/17/2024 10:17 ET Workstation ID: [id number] Transcribed By: Self Edit Transcribed Date: 10/17/2024 10:15 ET us Melissa Denton MD IMG DXA PROCEDURES Final Result * BD Bone Density DXA Appendicular Skeleton (10/17/2024 9:49 AM EDT) Anatomical Region Laterality Modality Body Bone Densitometr y 10/17/2024 10:1 3 AM EDT Impressions 10/17/2024 10:17 AM EDT There is no evidence of osteoporosis or osteopenia in the left forearm. Code 41061 -------- FINAL REPORT -------- Dictated By: Wilfrido Covington Dictated Date: 10/17/2024 10:13 ET Assigned Physician: Wilfrido Covington Reviewed and Electronically Signed By: Wilfrido Covington Signed Date: 10/17/2024 10:17 ET Workstation ID: [id number] Transcribed By: Self Edit Transcribed Date: 10/17/2024 10:13 ET Narrative 10/17/2024 10:17 AM EDT HISTORY: The patient is a 38-year-old female with hyperparathyroidism, renal disease, and clinical concern for metabolic bone disease. FINDINGS: Dual energy x-ray absorptiometry of the left forearm is performed. The mean bone mineral density at the distal one third of the left radius is 1.070 gm/cm2 which is 121% of that of young normals and 121% of that of age matched controls. This yields a T-score of 2.1 and a Z-score of 2.1 and there is therefore no evidence of osteoporosis or osteopenia here. Procedure Note Wilfrido Covington MD - 10/17/2024 HISTORY: The patient is a 38-year-old female with hyperparathyroidism,renal disease, and clinical concern for metabolic bone disease. FINDINGS: Dual energy x-ray absorptiometry of the left forearm isperformed. The mean bone mineral density at the distal one third of theleft radius is 1.070 gm/cm2 which is 121% of that of young normals ooa063% of that of age matched controls. This yields a T-score of 2.1 and aZ-score of 2.1 and there is therefore no evidence of osteoporosis orosteopenia here. IMPRESSION: There is no evidence of osteoporosis or osteopenia in the left forearm. Code 27626 -------- FINAL REPORT -------- Dictated By: Wilfrido Covington Dictated Date: 10/17/2024 10:13 ET Assigned Physician: Wilfrido Covington Reviewed and Electronically Signed By: Wilfrido Covington Signed Date: 10/17/2024 10:17 ET Workstation ID: [id number] Transcribed By: Self Edit Transcribed Date: 10/17/2024 10:13 ET Melissa Denton MD IMG DXA PROCEDURES Final Result * Albumin (09/25/2024 11:32 AM EDT) [facility] Albumin 4.4 3.2 - 5.0 g/dL LAB CHEMISTRY METHOD 09/25/2024 7:51 PM EDT [facility] Blood Venous blood specimen / Unknown Venipuncture / Unknown 09/25/2024 11:32 AM EDT 09/25/2024 11:59 AM EDT Latonia Garvin MD LAB BLOOD ORDERABLES Final Res ult [facility] [address] [place] [address], * (ABNORMAL) Creatinine (09/25/2024 11:31 AM EDT) [facility] Creatinine 5.93(H) 0.50 - 1.10 mg/dL LAB CHEMISTRY METHOD 09/25/2024 7:54 PM EDT [facility] eGFR 9(L) >=60 mL/min/1. 73m2 LAB CHEMISTRY METHOD 09/25/2024 7:54 PM EDT [facility] Comment:Calculation based on the Chronic Kidney Disease Epidemiology Collaboration (CKD-EPI) equation refit without adjustment for race. Blood Venous blood specimen / Unknown Venipuncture / Unknown 09/25/2024 11:31 AM EDT 09/25/2024 11:59 AM EDT Niraj Corbin MD LAB BLOOD ORDERABLES Final Resul t [facility] [address] [place] [address], [place] [phone] * (ABNORMAL) BUN (09/25/2024 11:31 AM EDT) [facility] BUN 30(H) 5 - 25 mg/dL LAB CHEMISTRY METHOD 09/25/2024 7:50 PM EDT [facility] Blood Venous blood specimen / Unknown Venipuncture / Unknown 09/25/2024 11:31 AM EDT 09/25/2024 11:59 AM EDT us Niraj Corbin MD LAB BLOOD ORDERABLES Final Resul t [facility] [address] [place] [address], [place] [phone] * Calcium (09/25/2024 11:31 AM EDT) Calcium 9.2 8.5 - 10.5 mg/dL LAB CHEMISTRY METHOD 09/25/2024 7:50 PM EDT [facility] Blood Venous blood specimen / Unknown Venipuncture / Unknown 09/25/2024 11:31 AM EDT 09/25/2024 11:59 AM EDT us Niraj Corbin MD LAB BLOOD ORDERABLES Final Resul t Performing Organization Address City/[facility]/ZIP Co de Phone Number [facility] [address] [place] [address], [place] [phone] * (ABNORMAL) Electrolyte panel (09/25/2024 11:31 AM EDT) Sodium 131(L) 133 - 145 mmol/L LAB CHEMISTRY METHOD 09/25/2024 7:50 PM EDT [facility] Potassium 5.7(H) 3.5 - 5.5 mmol/L LAB CHEMISTRY METHOD 09/25/2024 7:50 PM EDT [facility] Chloride 101 96 - 110 mmol/L LAB CHEMISTRY METHOD 09/25/2024 7:50 PM EDT [facility] CO2 23 21 - 32 mmol/L LAB CHEMISTRY METHOD 09/25/2024 7:50 PM EDT [facility] Anion Gap 7 3 - 11 LAB CHEMISTRY METHOD 09/25/2024 7:50 PM EDT [facility] Blood Venous blood specimen / Unknown Venipuncture / Unknown 09/25/2024 11:31 AM EDT 09/25/2024 11:59 AM EDT us Niraj [place]bin MD LAB BLOOD ORDERABLES Final Resul t [facility] [address] [place] [address], [place] [phone] * US Abdomen Complete (09/07/2024 11:01 AM [...] Signed Date: 09/08/2024 11:24 ET Workstation ID: [id number] Transcribed By: Self Edit Transcribed Date: 09/08/2024 [...] Signed Date: 09/08/2024 11:24 ET Workstation ID: [id number] Transcribed By: Self Edit Transcribed Date: 09/08/2024 11:08 ET Melissa Denton MD [facility] US PROCEDURES Final Result * (ABNORMAL) Lipid panel with reflex to direct LDL (08/31/2024 11:23 AM EDT) Cholesterol 247(H) 0 - 200 mg/dL LAB CHEMISTRY METHOD 08/31/2024 4:33 PM EDT [facility] Triglycerides 125 0 - 150 mg/dL LAB CHEMISTRY METHOD 08/31/2024 4:33 PM EDT [facility] HDL 89 >=40 mg/dL LAB CHEMISTRY METHOD 08/31/2024 4:33 PM EDT [facility] LDL Calculated 133(H) 0 - 100 mg/dL LAB CHEMISTRY METHOD 08/31/2024 4:33 PM EDT [facility] VLDL Cholesterol Germán 25 mg/dL LAB CHEMISTRY METHOD 08/31/2024 4:33 PM EDT [facility] Non HDL Chol. (LDL+VLDL) 158(H) <145 mg/dL LAB CHEMISTRY METHOD 08/31/2024 4:33 PM EDT [facility] Chol/HDL Ratio 2.8 0.0 - 4.4 LAB CHEMISTRY METHOD 08/31/2024 4:33 PM EDT [facility] Blood Venous blood specimen / Unknown Venipuncture / Unknown 08/31/2024 11:23 AM EDT 08/31/2024 12:49 PM EDT Melissa Denton MD LAB BLOOD ORDERABLES Final Resul t [facility] [address] [place] [address], [place] [phone] * Cervical Cancer Screening: HPV (07/01/2023) Pathologist Replaced by [facility] Cervical Cancer Screening: HPV Negative, Abstracted Agustina Bey MD HEALTH MAINTENANCE Final Result * Hepatitis C Screening (02/22/2023) [facility] Hepatitis C Screening Abstracted Agustina Bey MD HEALTH MAINTENANCE Final Result from Last 3 Months or Most Recently Relevant to Health Maintenance Insurance [facility] [employer] Care Teams Therapeutic Strategy Lead Relationship Specialty Start Date End Date Melissa Denton MD [address] [place] [address] [address] [place] [address] PCP - General Internal Medicine 06/05/24
--- OUTSIDE RECORDS SUMMARY | 2024-12-07 15:27 | XMS_ITS | Clinical Summary ---
Author Organization [facility] Address [address] [place] [address] Care Team Providers Care Relay Operator Name Role Phone Melissa Denton Primary Care Provider [phone] Allergies Active Allergy Reactions Criticality Noted Date [...] get the renal biopsy report over from [facility] (I do not see in care [...] Encounters Date Type Department Care Team Description 11/28/2024 12:12 PM EDT - 11/28/2024 11:59 PM EDT Hospital Encounter [facility] [address] [place] [address] PR3 ANCA antibodies present Discharge Disposition: Home or Self Care () 11/20/2024 [place] [employer] Message [facility] Renal Transplant [address] [place] [address] China Caputo RN Your Recent Visit 11/09/2024 [employer] Message [facility] Rheumatology Clinic [address] [place] [address] Can Capper: Davidson Caballero MD ENT visit 11/01/2024 8:52 AM EDT - 11/01/2024 11:59 PM EDT Hospital Encounter [facility] Otolaryngology Clinic [address] [place] [address] Can Capper: Brooklyn Pal MD Nasal congestion (Primary Dx) Discharge Disposition: Home or Self Care () 10/20/2024 myChart Message [facility] Transplant Department [address] [place] [address] Sindy Hough RN Your Recent Visit 09/25/2024 myChart Message [facility] Renal Transplant [address] [place] [address] China Caputo RN Transplant Monthly Lab Reminder from Last 3 Months Family History Medical [...] Care Team (Late st Contact Info) Description 02/26/2025 1:20 PM EDT Follow-Up [facility] Rheumatology Clinic [address] [place] [phone] Can Capper: Davidson Caballero MD [address] [place] [phone] 02/28/2025 1:40 PM EDT Follow-Up [facility] Renal Transplant [address], [place] [phone] Calvin Restrepo MD [address] [place] [address] Health Maintenance Due Date Last Done Comments [...] Basic Metabolic Panel 11/23/2024 08/23/2024 Influenza Vaccine (#1) 2025 Hemoglobin 08/23/2025 08/23/2024, 02/14/2024 PTH 08/23/2025 [...] complete this topic Procedures * Due to [place] state law, this organization might not be sharing negative HIV tests. Procedure Name Priority Date/Time Associated Diagnosis Comments HLA MONTHLY ANTIBODY IDENTIFICATION - CLASS I Routine 11/22/2024 10:01 AM EDT Stage 4 chronic kidney disease (HCC) Pre-transplant evaluation for kidney transplant HLA MONTHYLY ANTIBODY IDENTIFICATION - CLASS II Routine 11/22/2024 10:01 AM EDT Stage 4 chronic kidney disease [...] disease (HCC) Pre-transplant evaluation for kidney transplant CBC AUTO DIFFERENTIAL Routine 08/23/2024 4:12 PM EDT Chronic kidney disease, stage V PTH, INTACT (WITHOUT CALCIUM) Routine 08/23/2024 4:12 PM EDT Chronic kidney disease, stage V PHOSPHORUS Routine 08/23/2024 4:12 PM EDT Chronic kidney disease, stage V COMPREHENSIVE METABOLIC PANEL Routine 08/23/2024 4:12 PM EDT Chronic kidney disease, stage V HEPATITIS PANEL, ACUTE Today 4 3:23 PM EDT Stage 3 chronic kidney disease, unspecified whether stage 3a or 3b CKD from Last 3 Months or Most Recently Relevant to Health Maintenance Results * Due to [place] state law, this organization might not be sharing negative HIV tests. * (ABNORMAL) CBC Auto Differential (08/23/2024 4:12 PM EDT) WBC 8.4 3.8 - 10.8 10*3/uL 08/23/2024 4:33 PM EDT [facility] RBC 2.96(L) 3.80 - 5.10 10*6/uL 08/23/2024 4:33 PM EDT [facility] Hemoglobin 8.9(L) 11.7 - 15.5 g/dL 08/23/2024 4:33 PM EDT [facility] Hematocrit 26.8(L) 35.0 - 45.0 % 08/23/2024 4:33 PM EDT [facility] MCV 90.5 80.0 - 100.0 fL 08/23/2024 4:33 PM EDT [facility] MCH 30.1 27.0 - 33.0 pg 08/23/2024 4:33 PM EDT [facility] MCHC 33.2 32.0 - 36.0 g/dL 08/23/2024 4:33 PM EDT [facility] RDW 12.3 11.0 - 15.0 % 08/23/2024 4:33 PM EDT [facility] Platelets 178 140 - 400 10*3/uL 08/23/2024 4:33 PM EDT [facility] MPV 9.6 7.5 - 12.5 fL 08/23/2024 4:33 PM EDT [facility] Neutrophil % 72.3 % 08/23/2024 4:33 PM EDT [facility] Immature Grans % 0.2 0.0 - 0.9 % 08/23/2024 4:33 PM EDT [facility] Lymphocyte % 19.9 % 08/23/2024 4:33 PM EDT [facility] Monocyte % 3.2 % 08/23/2024 4:33 PM EDT [facility] Eosinophil % 3.8 % 08/23/2024 4:33 PM EDT [facility] Basophil % 0.6 % 08/23/2024 4:33 PM EDT [facility] Neutrophil # 6.08 1.50 - 7.80 10*3/uL 08/23/2024 4:33 PM EDT [facility] Immature Grans # <0.03 <=0.03 10*3/uL 08/23/2024 4:33 PM EDT [facility] Lymphocyte # 1.70 0.85 - 3.90 10*3/uL 08/23/2024 4:33 PM EDT [facility] Monocyte # 0.30 0.20 - 0.95 10*3/uL 08/23/2024 4:33 PM EDT [facility] Eosinophil # 0.30 0.02 - 0.50 10*3/uL 08/23/2024 4:33 PM EDT [facility] Basophil # 0.10 0.00 - 0.20 10*3/uL 08/23/2024 4:33 PM EDT [facility] nRBC % 0.0 /100 WBCs 08/23/2024 4:33 PM EDT [facility] nRBC # <0.01 <0.01 10*3/uL 08/23/2024 4:33 PM EDT [facility] Blood Structure of peripheral vein / Unknown Venipuncture / Unknown 08/23/2024 4:12 PM EDT 08/23/2024 4:18 PM EDT us Davidson Garvey MD LAB BLOOD ORDERABLES Final Result [facility] [address] [place] [address], * Phosphorus (08/23/2024 4:12 PM EDT) Phosphorus 3.2 2.5 - 4.5 mg/dL 08/23/2024 5:04 PM EDT [facility] Blood Structure of peripheral vein / Unknown Venipuncture / Unknown 08/23/2024 4:12 PM EDT 08/23/2024 4:23 PM EDT Davidson Garvey MD LAB BLOOD ORDERABLES Final Result [facility] [address] [place] [address], * (ABNORMAL) PTH, Intact (without Calcium) (08/23/2024 4:12 PM EDT) Parathyroid Hormone, Intact 273(H) 16 - 77 pg/mL 08/24/2024 8:06 AM EDT [facility] Comment: Interpretive Guide Intact PTH Calcium ------- Normal Parathyroid Normal Normal Hypoparathyroidism Low or Low Normal Low Hyperparathyroidism Primary Normal or High High Secondary High Normal or Low Tertiary High High Non-Parathyroid Hypercalcemia Low or Low Normal High Blood Structure of peripheral vein / Unknown Venipuncture / Unknown 08/23/2024 4:12 PM EDT 08/23/2024 4:18 PM EDT Narrative [facility] - 08/24/2024 8:06 AM EDT [facility] Received Date:[id number] Davidson Garvey MD LAB BLOOD ORDERABLES Final Result [facility] [address], [place] [address], [place] [phone] [facility] [address], [place] [address], [place] [phone] * (ABNORMAL) Comprehensive Metabolic Panel (08/23/2024 4:12 PM EDT) NA 136 135 - 145 mmol/L 08/23/2024 5:04 PM EDT [facility] K 3.7 3.5 - 5.3 mmol/L 08/23/2024 5:04 PM EDT [facility] Cl 100 98 - 107 mmol/L 08/23/2024 5:04 PM EDT [facility] CO2 19(L) 22 - 32 mmol/L 08/23/2024 5:04 PM EDT [facility] Anion Gap 17(H) 5 - 15 08/23/2024 5:04 PM EDT [facility] Glucose 104(H) 65 - 99 mg/dL 08/23/2024 5:04 PM EDT [facility] Creatinine 4.92(H) 0.50 - 1.20 mg/dL 08/23/2024 5:04 PM EDT [facility] Calcium 8.9 8.6 - 10.5 mg/dL 08/23/2024 5:04 PM EDT [facility] Total Protein 7.7 6.0 - 8.0 g/dL 08/23/2024 5:04 PM EDT [facility] Albumin 4.5 3.5 - 5.2 g/dL 08/23/2024 5:04 PM EDT [facility] Bilirubin, Total 0.3 0.2 - 1.2 mg/dL 08/23/2024 5:04 PM EDT [facility] Alkaline Phosphatase 99 35 - 129 U/L 08/23/2024 5:04 PM EDT [facility] AST 19 10 - 40 U/L 08/23/2024 5:04 PM EDT [facility] ALT 13 10 - 40 U/L 08/23/2024 5:04 PM EDT [facility] BUN 42(H) 7 - 23 mg/dL 08/23/2024 5:04 PM EDT [facility] eGFR 11(L) >=60 mL/min/1 .73m2 08/23/2024 5:04 PM EDT [facility] Comment:The estimated glomer ular [...] - 4.2 g/dL 08/23/2024 5:04 PM EDT [facility] A/G Ratio 1.4(L) 1.5 - 3.0 08/23/2024 5:04 PM EDT [facility] Blood Structure of peripheral vein / Unknown Venipuncture / Unknown 08/23/2024 4:12 PM EDT 08/23/2024 4:23 PM EDT Davidson Garvey MD LAB BLOOD ORDERABLES Final Result Performing Organization Address City/State/[facility] Co de Phone Number [facility] [address] [place] [address], * Hepatitis Panel, Acute (02/14/2024 3:23 PM EDT) Hepatitis A IgM NON-REACT HILDA NON-REACT HILDA 02/15/2024 3:21 AM EDT [facility] Hepatitis B Surface Antigen NON-REACT HILDA NON-REACT HILDA 02/15/2024 3:21 AM EDT [facility] Hepatitis B Core Antibody NON-REACT HILDA NON-REACT HILDA 02/15/2024 3:21 AM EDT [facility] Hepatitis C Antibody NON-REACT HILDA NON-REACT HILDA 02/15/2024 3:21 AM EDT [facility] Comment: HCV antibody was non-reactive. There is no laboratory evidence of HCV infection. In most cases, no further action is required. However, if recent HCV exposure is suspected, a test for HCV RNA (test code 88041) is suggested. For additional information please refer to http://[employer]ala[employer]/faq/TGW28f7 (This link is being provided for informational/ educational purposes only.) For additional information, please refer to http://Masala[employer]/faq/YHN854 (This link is being provided for informational/ educational purposes only.) Blood Structure of peripheral vein / Unknown Venipuncture / Unknown 02/14/2024 3:23 PM EDT 02/14/2024 3:32 PM EDT Narrative [facility] [[email or web address] [place] - 02/15/2024 3:21 AM EDT [facility] Received Date:[id number] Calvin Restrepo MD LAB BLOOD ORDERABLES Final Re sult [facility] [address], [place] [address], [facility] [address], [place] [address], from Last 3 Months or Most Recently Relevant to Health Maintenance Insurance [employer] [facility] MEDICAID Advance Directives Documents on File Type Date Recorded Patient Quality Control Tester Expl [facility] Care Proxy 02/21/2024 8:06 AM 02-13 Care Teams Relay Operator Relationship Specialty Start Date End Date Melissa Denton [address] [facility] [address] [place] [address] PCP - General 02/14/24
--- NOTE | 2024-12-07 16:00 | HO.NEPHOV ---
Vital Signs 12/07/24 16:01 Height 4 ft 10 in Weight 93 lb BMI 19.4 BP 140/70 H Blood Pressure Location Lt brachial Position Sitting Pulse 72 Pulse Source Pulse Oximeter Pulse Oximetry (%) 98 Oxygen Delivery Method Room Air Intake Visit Reasons: Procrit-Conf Inspector Timers Required: No Accompanied by: Self / Same As Patient Allergies alcohol Allergy (Verified 12/07/24 16:00) Unknown Beef Containing Products Allergy (Verified 12/07/24 16:00) Unknown HPI Comments Details: Ms. Gasca was seen in follow up of her advance chronic kidney disease and hypertension. Her blood pressure control is at goal. She is anemic. She denies diabetes, edema, microscopic or macroscopic hematuria, photosensitivity, joint swellings, hematemesis, melena, edema, proximal nocturnal dyspnea, orthopnea or chest pain. Her appetite is good. 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 She denies taking excessive nonsteroidal anti-inflammatory medications. She has no other systemic complaints. She has family H/O rhuematoid arthritis( mom). She has strong family history of chronic kidney disease. 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 She also had chronic interstitial inflammation. She had global glomerulosclerosis 50-70%. Also there was severe interstitial fibrosis and tubular atrophy at 30-80% along with chronic thrombotic microangiopathic changes. She denies uremic symptoms but feeling tired. She is listed for transplant in [facility] Medical History Elevated blood pressure reading Gastroesophageal reflux disease Chronic kidney disease, stage 4 (severe) Family History Father Myocardial infarct Sister Chronic kidney disease Hypertension Hypercholesteremia Diabetes Mother Hypertension Hypercholesteremia Diabetes Coronary artery disease Rheumatoid arthritis Chronic kidney disease Brother Diabetes Hypercholesteremia Chronic kidney disease Social History Alcohol intake: never Patient Tobacco Use Status: Never used Tobacco Review of Systems Const All systems reviewed & are unremarkable except as noted in HPI and below Physical Exam Vital Signs: Last Vital Signs Pulse 72 12/07/24 16:01 BP 140/70 H 12/07/24 16:01 Pulse Ox 98 12/07/24 16:01 Oxygen Delivery Method Room Air 12/07/24 16:01 BMI result Body Mass Index 19.4 Const General: comfortable and no acute distress Orientation/consciousness: patient oriented x3 HEENT Head: Yes normocephalic Mouth: Normal oral and palatal mucosa present Eyes EOM: EOMs intact bilaterally Neck Neck: Yes supple Resp Auscultation: clear to auscultation bilaterally Cardio Jugular venous distension: no JVD Rate: regular rate GI Palpation (GI): Soft to palpation Auscultation: normal bowel sounds General: Yes no CVA tenderness Back/Spine/Pelvis Back: no CVA tenderness Skin General skin exam: no rashes or lesions noted Neuro General: patient oriented x3 and moves all extremities Extrem General: Yes no pedal edema Office Meds epoetin tea-epbx 10,000 unit/mL injection solution Performing Provider: Niraj Corbin MD Performing Location: [facility] Administered by: iNraj Corbin MD on 12/07/24 16:09 Dose Route Admin Location Dispensed Lot Number Expiration Date [facility] Claims Counsel 20,000 unit subcut LUE 2 mL obey [id number] 07/01/26 [phone] [employer] Total Dispensed Waste 2 mL 0 % Results Reviewed Nephrology Results: Hgb, (12.0-16.0) 8.0 g/dl L Δ 11/15/24 WBC, (4.8-10.8) 5.8 X10*3/uL 11/15/24 Plt Count, (160-400) 158 X10*3/uL L Δ 11/15/24 Sodium, (135-145) 138 mmol/L 11/15/24 Potassium, (3.3-5.1) 4.9 mmol/L 11/15/24 Chloride, (96-108) 105 mmol/L 11/15/24 Carbon Dioxide, (22-29) 23 mmol/L 11/15/24 BUN, (9-16) 52 mg/dL H 11/15/24 Creatinine, (0.5-1.4) 5.68 mg/dL H* 11/15/24 Calcium, (8.4-10.2) 8.8 mg/dL Δ 06/18/25 Assessment & Plan Assessment & Plan (1) HTN (hypertension): Code(s): I10 - Essential (primary) hypertension Category: Medical Qualifiers: Hypertension type: secondary to other renal disorders Qualified Code(s): I15.1 - Hypertension secondary to other renal disorders (2) Secondary hyperparathyroidism (of renal origin): Code(s): N25.81 - Secondary hyperparathyroidism of renal origin Category: Medical (3) Vitamin D deficiency: Code(s): E55.9 - Vitamin D deficiency, unspecified Category: Medical (4) CKD (chronic kidney disease) stage 5, GFR less than 15 ml/min: Code(s): N18.5 - Chronic kidney disease, stage 5 Category: Medical (5) Anemia in chronic kidney disease: Code(s): N18.9 - Chronic kidney disease, unspecified; D63.1 - Anemia in chronic kidney disease Category: Medical Qualifiers: Chronic kidney disease stage: stage 4 (severe) Qualified Code(s): N18.4 - Chronic kidney disease, stage 4 (severe); D63.1 - Anemia in chronic kidney disease Plan Olesya has advanced chronic kidney disease .She had epistaxis and is Anti NH 3 positive. Her renal biopsy which showed of focal segmental glomerulosclerosis with a perihilar, peripheral and tip lesions. She has chronic interstitial inflammation. She had global glomerulosclerosis 50-70%. Also there was severe interstitial fibrosis and tubular atrophy at 30-80% along with chronic thrombotic microangiopathic changes. She is hypertensive. She should continue amlodipine 10 mg daily. She is off PO prednisone . She should avoid nonsteroidal anti-inflammatory medications and any other eery-ymg-dtwuego medications in addition to any unusual herbs. She should remain well hydrated. She could minimize animal protein intake. She should continue 2 Iron tablets a day along with Vitamin D [address]70 Units once a month. She can continue calcitriol 0.25 mcg four times a week. She is listed in [facility] for renal transplantation. She had dialysis education. I gave [id number] U of Procrit today. She was referred for AVF. She wants a low dose ACEI but I did not initiate given her high K. Further management has been involving data. All questions were answered Orders: Orders AMB Epoetin Injection Practice Supplied Today D63.1 - Anemia in chronic kidney disease, N18.4 - Chronic kidney disease, stage 4 (severe) Electrolytes 1 Month D63.1 - Anemia in chronic kidney disease, N18.4 - Chronic kidney disease, stage 4 (severe), N18.5 - Chronic kidney disease, stage 5 Creatinine 1 Month D63.1 - Anemia in chronic kidney disease, N18.4 - Chronic kidney disease, stage 4 (severe), N18.5 - Chronic kidney disease, stage 5 Complete Blood Count Auto Diff 1 Month D63.1 - Anemia in chronic kidney disease, N18.4 - Chronic kidney disease, stage 4 (severe), N18.5 - Chronic kidney disease, stage 5 Calcium 1 Month D63.1 - Anemia in chronic kidney disease, N18.4 - Chronic kidney disease, stage 4 (severe), N18.5 - Chronic kidney disease, stage 5 Blood Urea Nitrogen 1 Month D63.1 - Anemia in chronic kidney disease, N18.4 - Chronic kidney disease, stage 4 (severe), N18.5 - Chronic kidney disease, stage 5 Coding Level of Care Code Est Pt Level 4 (28675) Diagnoses Hypertension secondary to other renal disorders I15.1 Hypertension type: secondary to other renal disorders Secondary hyperparathyroidism (of renal origin) N25.81 Vitamin D deficiency E55.9 CKD (chronic kidney disease) stage 5, GFR less than 15 ml/min N18.5 Anemia in stage 4 chronic kidney disease N18.4; D63.1 Chronic kidney disease stage: stage 4 (severe)
[2024-12-07 16:01] VITALS: BP 140/70; PULSE 72; O2SAT 98; BMI 19.4
== END 2024-12-07 16:24 | disposition home or self-care (01) ==
PROVIDERS: PCP Student in an Organized Health Care Education/Training Program; Visit Provider Internal Medicine Nephrology
DX: I15.1 Hypertension secondary to other renal disorders (principal); N25.81 Secondary hyperparathyroidism of renal origin; E55.9 Vitamin D deficiency, unspecified; N18.5 Chronic kidney disease, stage 5; N18.4 Chronic kidney disease, stage 4 (severe); D63.1 Anemia in chronic kidney disease
CPT/HCPCS: 99214

== ENCOUNTER → 2024-12-07 15:24 | Outpatient (BNVA) | payer OTHER, SELFPAY | PROVIDERS: PCP Student in an Organized Health Care Education/Training Program; Visit Provider Internal Medicine Nephrology | DX: I15.1 Hypertension secondary to other renal disorders (principal); N18.5 Chronic kidney disease, stage 5; D63.1 Anemia in chronic kidney disease; E55.9 Vitamin D deficiency, unspecified; N25.81 Secondary hyperparathyroidism of renal origin | CPT/HCPCS: 96372; 99212; Q5106 ==

== ENCOUNTER 2025-01-11 12:55 | Outpatient (REF) | payer OTHER, SELFPAY ==
--- OUTSIDE RECORDS SUMMARY | 2025-01-11 13:41 | XMS_ITS | Clinical Summary ---
Author Organization [facility] Address [address] [place] [address] Care Team Providers Care Business Manager Name Role Phone Melissa Denton Primary Care Provider [phone] Allergies Active Allergy Reactions Criticality Noted Date [...] get the renal biopsy report over from [facility] (I do not see in care [...] Encounters Date Type Department Care Team Description 12/23/2024 Voxli Message [facility] [address] [place] [address] Welder Tech: Davidson Caballero MD Mn Dr Garvey 12/20/2024 Voxli Message [facility] [address] [place] [address] China Caputo, JAS Your Recent Visit 11/28/2024 12:12 PM EDT - 11/28/2024 11:59 PM EDT Hospital Encounter [facility] [address] [place] [address] PR3 ANCA antibodies present Discharge Disposition: Home or Self Care () 11/20/2024 Voxli Message [facility] [address] [place] [address] China Caputo, RN Your Recent Visit 11/09/2024 Voxli Message [facility] [address] [place] [address] Welder Tech: Davidson Caballero MD ENT visit 11/01/2024 8:52 AM EDT - 11/01/2024 11:59 PM EDT Hospital Encounter [facility] [address] [place] [address] Welder Tech: Brooklyn Pal MD Nasal congestion (Primary Dx) Discharge Disposition: Home or Self Care (01) 10/20/2024 myChart Message [facility] [address] [place] [address] Sindy Hough RN Your Recent Visit from Last 3 Months Family History Medical [...] Info) Description 02/26/2025 1:20 PM EDT Follow-Up [facility] [address] [place] [address] Welder Tech: Davidson Caballero MD [address] [place] [address] 02/28/2025 1:40 PM EDT Follow-Up [facility] [address], [place] [phone] Calvin Restrepo MD [address] [place] [address] Health Maintenance Due Date Last Done Comments [...] this topic Procedures * Due to [place] law, this organization might not be sharing negative HIV tests. Procedure Name Priority Date/Time Associated Diagnosis Comments HLA MONTHLY ANTIBODY IDENTIFICATION - CLASS I Routine 12/27/2024 12:24 PM EDT Stage 4 chronic kidney disease (HCC) Pre-transplant evaluation for kidney transplant HLA MONTHYLY ANTIBODY IDENTIFICATION - CLASS II Routine 12/27/2024 12:24 PM EDT Stage 4 chronic kidney disease (HCC) Pre-transplant evaluation for kidney transplant CT CHEST INTERSTITIAL LUNG DISEASE/FIBROSIS Routine 11/28/2024 12:47 PM EDT PR3 ANCA antibodies present HLA MONTHLY ANTIBODY IDENTIFICATION - CLASS I [...] Health Maintenance Results * Due to [place] law, this organization might not be sharing negative HIV tests. * CT Chest Interstitial Lung Disease/Fibrosis (11/28/2024 12:47 PM EDT) Anatomical Region Laterality Modality Body Computed Tomogra phy 11/28/2024 1:56 PM EDT Impressions 12/14/2024 4:50 PM EDT Impression: 1. No evidence of diffuse interstitial fibrosis. 2. Slightly enlarged and heterogeneous thyroid gland. Recommend further evaluation with ultrasound. I, Win Abdi, have reviewed the examination and concur with the findings as reported or so edited. Trainee: Veda Higginbotham If this radiology report contains a blank impression section, it is an incomplete radiology report. Please contact the interpreting radiologist or applicable radiology division as soon as possible to obtain the completed interpretation. Workstation ID: [id number] Up-to-date CT equipment and radiation dose reduction techniques were employed. CTDIvol: 3.0 - 3.8 mGy. DLP: 312 mGy-cm. Narrative 12/14/2024 4:[address] CHEST INTERSTITIAL LUNG DISEASE/FIBROSIS Indication: Diffuse/interstitial lung disease suspected R76.8 - I10 - Other specified abnormal immunological findings in serum. . Technique: Helical images were obtained from the thoracic inlet to the lung bases without intravenous contrast material. Coronal and sagittal reformatted images were provided. For radiation dose control at least one of the following techniques was used in this procedure: (1) Automated exposure control (2) Adjustment of the mA and/or kV according to patient size (3) Use of iterative reconstruction technique. High-resolution CT images: Thin section inspiration and expiration as well as limited prone views were obtained. Comparison: None Findings: Neck and thoracic inlet: Slightly enlarged and heterogeneous thyroid gland. MEDIASTINUM AND LARGE VESSELS: Aorta Normal aortic diameter. Pulmonary arteries Unremarkable shape and diameter. Esophagus Nondilated. Other mediastinal findings No other abnormal mediastinal findings are present. HEART: Cardiac size Normal. Coronary arteries No visible coronary calcifications. Valves No valvular calcifications. Pericardium Unremarkable. LYMPH NODES: Supraclavicular and axillary Normal sized lymph nodes, no enlarged lymph nodes. Mediastinal Normal sized lymph nodes, no enlarged lymph nodes. Hilar Normal sized lymph nodes, no enlarged lymph nodes. Others None. LUNG PARENCHYMA: No peripheral reticulation. No architectural distortion. No honeycombing. No consolidation. No air trapping. Airways: Unremarkable. Pleura: No pleural effusion, thickening, or pneumothorax. UPPER ABDOMEN: A 3.7 cm hypodense lesion at the upper pole of the left kidney, likely a cyst CHEST WALL AND BONES: Unremarkable chest wall. Unremarkable and normal thoracic vertebral body heights. Resulting Agency Comment [id number] Procedure Note Win Abdi MD PhD - 12/14/2024 CT CHEST INTERSTITIAL LUNG DISEASE/FIBROSIS Indication: Diffuse/interstitial lung disease suspected R76.8 - I10 -Other specified abnormal immunological findings in serum. . Technique: Helical images were obtained from the thoracic inlet to thelung bases without intravenous contrast material. Coronal and sagittalreformatted images were provided. For radiation dose control at least oneof the following techniques was used in this procedure: (1) Automatedexposure control (2) Adjustment of the mA and/or kV according to patientsize (3) Use of iterative reconstruction technique. High-resolution CT images: Thin section inspiration and expiration as wellas limited prone views were obtained. Comparison: None Findings: Neck and thoracic inlet: Slightly enlarged and heterogeneous thyroid gland. MEDIASTINUM AND LARGE VESSELS: Aorta Normal aortic diameter. Pulmonary arteries Unremarkable shape and diameter. Esophagus Nondilated. Other mediastinal findings No other abnormal mediastinal findings are present. HEART: Cardiac size Normal. Coronary arteries No visible coronary calcifications. Valves No valvular calcifications. Pericardium Unremarkable. LYMPH NODES: Supraclavicular and axillary Normal sized lymph nodes, no enlarged lymph nodes. Mediastinal Normal sized lymph nodes, no enlarged lymph nodes. Hilar Normal sized lymph nodes, no enlarged lymph nodes. Others None. LUNG PARENCHYMA: No peripheral reticulation. No architectural distortion. Nohoneycombing. No consolidation. No air trapping. Airways: Unremarkable. Pleura: No pleural effusion, thickening, or pneumothorax. UPPER ABDOMEN: A 3.7 cm hypodense lesion at the upper pole of the left kidney, likely acyst CHEST WALL AND BONES: Unremarkable chest wall. Unremarkable and normal thoracic vertebral bodyheights. IMPRESSION: Impression: 1. No evidence of diffuse interstitial fibrosis. 2. Slightly enlarged and heterogeneous thyroid gland. Recommend furtherevaluation with ultrasound. I, Win Abdi, have reviewed the examination and concur with thefindings as reported or so edited. Trainee: Veda Higginbotham If this radiology report contains a blank impression section, it is anincomplete radiology report. Please contact the interpreting radiologistor applicable radiology division as soon as possible to obtain thecompleted interpretation. Workstation ID: [id number] Up-to-date CT equipment and radiation dose reduction techniques wereemployed. CTDIvol: 3.0 - 3.8 mGy. DLP: 312 mGy-cm. us Davidson Garvey MD IMG CT PROCEDURES Final Res ult * (ABNORMAL) CBC Auto Differential (08/23/2024 4:12 PM EDT) WBC 8.4 3.8 - 10.8 10*3/uL 08/23/2024 4:33 PM EDT [facility] RBC 2.96(L) 3.80 - 5.10 10*6/uL 08/23/2024 4:33 PM EDT [facility] Hemoglobin 8.9(L) 11.7 - 15.5 g/dL 08/23/2024 4:33 PM EDT [facility] Hematocrit 26.8(L) 35.0 - 45.0 % 08/23/2024 4:33 PM EDT [facility] MCV 90.5 80.0 - 100.0 fL 08/23/2024 4:33 PM EDT [facility] MCH 30.1 27.0 - 33.0 pg 08/23/2024 4:33 PM EDT [facility] MCHC 33.2 32.0 - 36.0 g/dL 08/23/2024 4:33 PM EDT [facility] RDW 12.3 11.0 - 15.0 % 08/23/2024 4:33 PM EDT [facility] Platelets 178 140 - 400 10*3/uL 08/23/2024 4:33 PM EDT [facility] MPV 9.6 7.5 - 12.5 fL 08/23/2024 4:33 PM EDT [facility] Neutrophil % 72.3 % 08/23/2024 4:33 PM EDT [facility] Immature Grans % 0.2 0.0 - 0.9 % 08/23/2024 4:33 PM EDT [facility] Lymphocyte % 19.9 % 08/23/2024 4:33 PM EDT [facility] Monocyte % 3.2 % 08/23/2024 4:33 PM EDT [facility] Eosinophil % 3.8 % 08/23/2024 4:33 PM EDT [facility] Basophil % 0.6 % 08/23/2024 4:33 PM EDT [facility] Neutrophil # 6.08 1.50 - 7.80 10*3/uL 08/23/2024 4:33 PM EDT [facility] Immature Grans # <0.03 <=0.03 10*3/uL 08/23/2024 4:33 PM EDT [facility] Lymphocyte # 1.70 0.85 - 3.90 10*3/uL 08/23/2024 4:33 PM EDT [facility] Monocyte # 0.30 0.20 - 0.95 10*3/uL 08/23/2024 4:33 PM EDT [facility] Eosinophil # 0.30 0.02 - 0.50 10*3/uL 08/23/2024 4:33 PM EDT [facility] Basophil # 0.10 0.00 - 0.20 10*3/uL 08/23/2024 4:33 PM EDT [facility] nRBC % 0.0 /100 WBCs 08/23/2024 4:33 PM EDT [facility] nRBC # <0.01 <0.01 10*3/uL 08/23/2024 4:33 PM EDT [facility] Blood Structure of peripheral vein / Unknown Venipuncture / Unknown 08/23/2024 4:12 PM EDT 08/23/2024 4:18 PM EDT Davidson Garvey MD LAB BLOOD ORDERABLES Final Result [facility] [address] [place] [address], * Phosphorus (08/23/2024 4:12 PM EDT) Phosphorus 3.2 2.5 - 4.5 mg/dL 08/23/2024 5:04 PM EDT [facility] Blood Structure of peripheral vein / Unknown Venipuncture / Unknown 08/23/2024 4:12 PM EDT 08/23/2024 4:23 PM EDT Davidson Garvey MD LAB BLOOD ORDERABLES Final Result Performing Organization Address City/[facility]/ZIP Co de Phone Number [facility] [address] [place] [address], * (ABNORMAL) PTH, Intact (without Calcium) (08/23/2024 4:12 PM EDT) Parathyroid Hormone, Intact 273(H) 16 - 77 pg/mL 08/24/2024 8:06 AM EDT [facility] Comment: Interpretive Guide Intact PTH Calcium [...] - 08/24/2024 8:06 AM EDT [facility] Received Date:[id number] Davidson Garvey MD LAB BLOOD ORDERABLES Final Result JORDEN REVELO [address] [facility] [address], [place] [address], [employer] [facility] [address] [facility] [address], [place] [address], * (ABNORMAL) Comprehensive Metabolic Panel (08/23/2024 4:12 PM EDT) NA 136 135 - 145 mmol/L 08/23/2024 5:04 PM EDT [facility] K 3.7 3.5 - 5.3 mmol/L 08/23/2024 5:04 PM EDT [facility] Cl 100 98 - 107 mmol/L 08/23/2024 5:04 PM EDT [facility] CO2 19(L) 22 - 32 mmol/L 08/23/2024 5:04 PM EDT [facility] Anion Gap 17(H) 5 - 15 08/23/2024 5:04 PM EDT [facility] Glucose 104(H) 65 - 99 mg/dL 08/23/2024 5:04 PM EDT [facility] Creatinine 4.92(H) 0.50 - 1.20 mg/dL 08/23/2024 5:04 PM EDT [facility] Calcium 8.9 8.6 - 10.5 mg/dL 08/23/2024 5:04 PM EDT [facility] Total Protein 7.7 6.0 - 8.0 g/dL 08/23/2024 5:04 PM EDT [facility] Albumin 4.5 3.5 - 5.2 g/dL 08/23/2024 5:04 PM EDT [facility] Bilirubin, Total 0.3 0.2 - 1.2 mg/dL 08/23/2024 5:04 PM EDT [facility] Alkaline Phosphatase 99 35 - 129 U/L 08/23/2024 5:04 PM EDT [facility] [facility] AST 19 10 - 40 U/L 08/23/2024 5:04 PM EDT [facility] [employer] [facility] ALT 13 10 - 40 U/L 08/23/2024 5:04 PM EDT [facility] [employer] [facility] BUN 42(H) 7 - 23 mg/dL 08/23/2024 5:04 PM EDT [facility] eGFR 11(L) >=60 mL/min/1 .73m2 08/23/2024 5:04 PM EDT [facility] Comment:The estimated glomer ular [...] 2.1 - 4.2 g/dL 08/23/2024 5:04 PM T [facility] A/G Ratio 1.4(L) 1.5 - 3.0 08/23/2024 5:04 PM T [facility] Blood Structure of peripheral vein / Unknown Venipuncture / Unknown 08/23/2024 4:12 PM EDT 08/23/2024 4:23 PM EDT us Davidson Garvey MD LAB BLOOD ORDERABLES Final Result Performing Organization Address [facility]/ZIP Co de Phone Number [facility] [address] [place] [address], * Hepatitis Panel, Acute (02/14/2024 3:23 PM EDT) Pathologist [facility] Hepatitis A IgM NON-REACT HILDA NON-REACT HILDA 02/15/2024 3:21 AM EDT [employer] Hepatitis B Surface Antigen NON-REACT HILDA NON-REACT HILDA 02/15/2024 3:21 AM EDT [employer] [facility] Hepatitis B Core Antibody NON-REACT HILDA NON-REACT HILDA 02/15/2024 3:21 AM EDT [employer] [facility] Hepatitis C Antibody NON-REACT HILDA NON-REACT HILDA 02/15/2024 3:21 AM EDT [employer] [facility] Comment: HCV antibody was non-reactive. There is no laboratory evidence of HCV infection. In most cases, no further action is required. However, if recent HCV exposure is suspected, a test for HCV RNA (test code 28134) is suggested. For additional information please refer to http://Add2paper.ImmunoGen/faq/VSV55c5 (This link is being provided for informational/ educational purposes only.) For additional information, please refer to http://Add2paper.[employer]oGen/faq/LXZ883 (This link is being provided for informational/ educational purposes only.) Blood Structure of peripheral vein / Unknown Venipuncture / Unknown 02/14/2024 3:23 PM EDT 02/14/2024 3:32 PM EDT Narrative JORDEN CAMARILLO - 02/15/2024 3:21 AM EDT [facility] Received Date:[id number] us Calvin Restrepo MD LAB BLOOD ORDERABLES Final Re sult JORDEN CAMARILLO [address], [place] [address], [place] [phone] JORDEN ELLIOTT [facility] [address] [facility] [address], [address] [place] [address], [place] [phone] from Last 3 Months or Most Recently Relevant to Health Maintenance Insurance [facility] [place] [address] [place] [address] MEDICAID Advance Directives Documents on File Type Date Recorded Patient Principal Investigator Expl anation Health Care Proxy 02/21/2024 8:06 AM 02-13 Care Teams Business Manager Relationship Specialty Start Date End Date Melissa Denton [address] [place] [address] PCP - General 02/14/24
--- OUTSIDE RECORDS SUMMARY | 2025-01-11 13:41 | XMS_ITS | Clinical Summary ---
Author Organization [facility], Address [address] [place] [address] [place] [address] Phone Care Team Providers Care Hide Or Skin Buffer Name Role Phone Melissa Denton Primary Care Provider [phone] Allergies Active Allergy Reactions Criticality Noted Date Comments Alcohol Hives 02/22/2023 Beef Allergy Hives 02/14/2024 Medications amLODIPine (NORVASC) 10 MG tablet Take 10 mg by mouth in the morning. Active betamethasone, augmented, (DIPROLENE) 0.05 % cream Apply topically in the morning and in the evening. APPLY TOPICALLY 2 TIMES DAILY. Active calcitriol (ROCALTROL) 0.25 MCG capsule Take 0.25 mcg by mouth 2 (two) times a week 5 Active Calcium Carb-Cholecalci ferol (Oyster Shell Calcium w/D) 500-5 MG-MCG tablet Take 1 tablet by mouth in the morning and 1 tablet in the evening. 5 09/01/19 26 Active ferrous sulfate 325 (65 Fe) MG EC tablet Take 65 mg by mouth in the morning and 65 mg in the evening. Active fluticasone (FLONASE) 50 MCG/ACT nasal spray 2 times/day as needed. 4 Active pantoprazole (PROTONIX) 40 MG EC tablet Take 40 mg by mouth 5 Active polyethylene glycol (GLYCOLAX) 17 g packet Take 17 g by mouth in the morning. 5 02/28/20 25 Active predniSONE (DELTASONE) 20 MG tablet Take 40 mg by mouth 1 (one) time each day Active Psyllium (Metamucil) 0.36 g capsule Take 400 mg by mouth 5 09/30/20 25 Active Active Problems Problem Noted Date Diagnosed Date Vitamin D deficiency 02/04/2024 Primary hypertension 07/05/2023 Gastroesophageal reflux disease 03/24/2023 Overview (12/26/2024): DX:GERD (gastroesophageal reflux disease) Elevated blood pressure reading 03/24/2023 Chronic kidney disease stage 4 03/24/2023 Encounters Date Type Department Care Team Description 12/27/2024 9:45 AM EDT Office Visit [facility] [address] [place] [address] [place] [address] Adama Solis MD Stage 5 chronic kidney disease (HCC) (Primary Dx) 12/26/2024 Orders Only [facility] Access [address] [place] [address] Peg Crouch from Last 3 Months Social History Tobacco Use Types Packs/Day Years [...] PCV) 11/05/2003 Influenza Vaccine (#1) 2025 Insurance [facility] Medicaid Care Teams Hide Or Skin Buffer Relationship Specialty Start Date End Date Neil Dentonluis fernandomaxine 175 [facility] [address] [place] [address] PCP - General 03/05/23
--- OUTSIDE RECORDS SUMMARY | 2025-01-11 13:41 | XMS_ITS | Encounter Summary ---
Author Organization [facility] Address [address] [place] [address] Care Team Providers Care Arborist Climber Name Role Phone Melissa Denton MD Primary Care Provider [phone] Reason for Visit * Reason Onset Date Comments Prior Authorization 01/10/2025 01/24/25 Dr. Adama Solis Encounter Details Date Type Department Care Team ([facility] st Contact Info) Description 01/10/2025 Telephone General Surgery - [place] [address] [facility] [address] [place] [phone] Adama Solis MD 175 [facility] [address] [place] [address] Prior Authorization (01/24/25 Dr. Adama Solis) Social History Tobacco Use Types Packs/Day Years [...] PM EDT Sexual Orientation Not on file documented as of this encounter Progress Notes * Virginia Ambrosio - 01/10/2025 3:10 PM EDT She is having surgery with Dr. Patel Solis on 01/24/25 at [facility]. She has [employer] for insurance.I went online and it is pending for CPT code 53513. documented in this encounter Plan of Treatment Upcoming Encounters Date Type Department Care Team (Latest Contact Info) Description 01/24/2025 1:00 PM EDT Hospital Encounter [facility] Main OR [address] [place] [id number] Adama Solis MD [address] [address] 01/24/2025 1:00 PM EDT - 01/24/2025 3:30 PM EDT Surgery [facility] Main OR [address] [place] [id number] Adama Solis MD [address] [address] CREATION FISTULA AV LEFT UPPER EXTREMITY; ?LEFT ARM GRAFT INSERTION [97631 (CPT )] 03/05/2025 1:30 PM EDT Office Visit Internal Medicine - [address] [address] Melissa Denton MD [address] [place] [address] Scheduled Procedures Name Priority Associated Diagnoses Date/Ti me CREATION FISTULA AV UPPER EXTREMITY CKD (chronic kidney disease) stage 5, GFR less than 15 ml/min (CMS/HCC V24, CMS/HCC V28) 01/24/2025 1:00 PM EDT documented as of this encounter Visit Diagnoses Not on filedocumented in this encounter Care Teams Arborist Climber Relationship Specialty Start Date End Date Melissa Denton MD [address] [address] PCP - General Internal Medicine 06/05/24 documented as of this encounter
--- OUTSIDE RECORDS SUMMARY | 2025-01-11 13:41 | XMS_ITS ---
Author Name [facility] Organization Unknown Care Team Organization Name Specialty Phone Email Start Date End Da rekha [facility] Melissa Denton Primary Care 03/03/2023 024
[2025-01-11 17:42] LABS: MANUAL DIFF FLAG NO
[2025-01-11 18:12] LABS: Hematocrit 26.7 % (37.0-47.0); Hemoglobin 9.0 g/dl (12.0-16.0); Imm Gran Abs Auto 0.00 X10*3/uL (0.00-0.03); Imm Gran Pct Auto 0.0 % (0.0-0.4); Lymphocytes Absolute Auto 1.4 X10*3/uL (1.2-4.9); Mean Corpuscular HGB Conc 33.7 g/dl (31.0-35.0); Mean Corpuscular Hemoglobin 30.4 pg (27.0-33.0); Mean Corpuscular Volume 90.2 fL (80.0-98.0); NRBC Abs Auto 0.000 X10*3/uL (0.0-0.012); NRBC Pct Auto 0.0 /100WBC (0.0-0.2); Platelet Count 163 X10*3/uL (160-400); Red Blood Count 2.96 X10*6/uL (4.20-5.50); White Blood Count 5.7 X10*3/uL (4.8-10.8)
[2025-01-11 18:16] LABS: Anion Gap 15 (12-20); Blood Urea Nitrogen 69 mg/dL (9-16); Calcium 8.4 mg/dL (8.4-10.2); Carbon Dioxide 20 mmol/L (22-29); Chloride 107 mmol/L (96-108); Estimated Glomerular Filt Rate 6; Potassium 4.2 mmol/L (3.3-5.1); Sodium 138 mmol/L (135-145)
== END 2025-01-11 12:56 | disposition home or self-care (01) ==
LOC: HO.HKASLDS 12:55
PROVIDERS: Visit Provider Internal Medicine Nephrology
DX: N18.5 Chronic kidney disease, stage 5 (principal); D63.1 Anemia in chronic kidney disease
CPT/HCPCS: 36415; 80051; 82310; 82565; 84520; 85025

== ENCOUNTER 2025-01-18 14:53 | Outpatient (AMB) | payer OTHER, SELFPAY ==
--- OUTSIDE RECORDS SUMMARY | 2025-01-18 14:58 | XMS_ITS | Clinical Summary ---
Author Organization [facility], Address [address] [place] [address] [place] [address] Phone Care Team Providers Care Chute Boss Name Role Phone Melissa Denton Primary Care Provider [phone] Allergies Active Allergy Reactions Criticality Noted Date [...] Visit [facility] [address] [place] [address] [place] [address] Adama Solis MD Stage 5 chronic kidney disease (HCC) (Primary Dx) 12/26/2024 Orders Only [facility] V[facility] Access [address] [place] [address] Peg Crouch from Last 3 Months Social [...] PCV) 11/05/2003 Influenza Vaccine (#1) 2025 Insurance [facility] [place] [address] Care Teams Chute Boss Relationship Specialty Start Date End Date Neil Dentonluis fernandomaxine 175 [facility] [address] [place] [address] PCP - General 03/05/23
--- OUTSIDE RECORDS SUMMARY | 2025-01-18 14:58 | XMS_ITS | Clinical Summary ---
Author Organization [facility] Address [address] [place] [address] Care Team Providers Care Sketch Maker Name Role Phone Melissa Denton Primary Care Provider [phone] Allergies Active Allergy Reactions Criticality Noted Date [...] get the renal biopsy report over from [facility] (I do not see in care everywhere [...] Date Type Department Care Team Description 12/23/2024 Inline.me Message [facility] [address] [place] [address] Granulating Machine Operator: Davidson Caballero MD Wy Dr Garvey 12/20/2024 Inline.me Message [facility]plant [address] [place] [address] China Caputo, JAS Your Recent Visit 11/28/2024 12:12 PM EDT - 11/28/2024 11:59 PM EDT Hospital Encounter [facility] [address] [place] [address] PR3 ANCA antibodies present Discharge Disposition: Home or Self Care () 11/20/2024 Inline.me Message [facility] [address] [place] [address] China Caputo, RN Your Recent Visit 11/09/2024 Inline.me Message [facility] [address] [place] [address] Granulating Machine Operator: Davidson Caballero MD ENT visit 11/01/2024 8:52 AM EDT - 11/01/2024 11:59 PM EDT Hospital Encounter [facility] [address] [place] [address] Granulating Machine Operator: Brooklyn Pal MD Nasal congestion (Primary Dx) Discharge Disposition: Home or Self Care (01) 10/20/2024 myChart Message [facility] Transplant Department [address] [place] [address] Sindy Hough RN Your Recent Visit from [...] Info) Description 02/26/2025 1:20 PM EDT Follow-Up [facility] [address] [place] [address] Granulating Machine Operator: Davidson Caballero MD [address] [place] [address] 02/28/2025 1:40 PM EDT Follow-Up [facility] [address] [place], [place] [id number] Calvin Restrepo MD [address] [place] [address] Health Maintenance Due Date Last Done Comments [...] complete this topic Procedures * Due to [place] Contentful law, this organization might not be sharing [...] to Health Maintenance Results * Due to [place] Contentful law, this organization might not be sharing [...] to obtain the completed interpretation. Workstation ID: [id number] Up-to-date CT equipment and radiation dose reduction [...] thoracic vertebral body heights. Resulting Agency Comment [id number] Procedure Note Win Abdi MD PhD - [...] possible to obtain thecompleted interpretation. Workstation ID: [id number] Up-to-date CT equipment and radiation dose reduction techniques wereemployed. CTDIvol: 3.0 - 3.8 mGy. DLP: 312 mGy-cm. us Davidson Garvey MD IMG CT PROCEDURES Final Res ult * (ABNORMAL) CBC Auto Differential (08/23/2024 4:12 PM EDT) WBC 8.4 3.8 - 10.8 10*3/uL 08/23/2024 4:33 PM EDT [facility] RBC 2.96(L) 3.80 - 5.10 10*6/uL 08/23/2024 4:33 PM EDT [facility] Hemoglobin 8.9(L) 11.7 - 15.5 g/dL 08/23/2024 4:33 PM EDT [facility] Hematocrit 26.8(L) 35.0 - 45.0 % 08/23/2024 4:33 PM EDT [facility] MCV 90.5 80.0 - 100.0 fL 08/23/2024 4:33 PM EDT [facility] MCH 30.1 27.0 - 33.0 pg 08/23/2024 4:33 PM EDT [facility] MCHC 33.2 32.0 - 36.0 g/dL 08/23/2024 4:33 PM EDT [facility] RDW 12.3 11.0 - 15.0 % 08/23/2024 4:33 PM EDT [facility] Platelets 178 140 - 400 10*3/uL 08/23/2024 4:33 PM EDT [facility] MPV 9.6 7.5 - 12.5 fL 08/23/2024 4:33 PM EDT [facility] Neutrophil % 72.3 % 08/23/2024 4:33 PM EDT [facility] Immature Grans % 0.2 0.0 - 0.9 % 08/23/2024 4:33 PM EDT [facility] Lymphocyte % 19.9 % 08/23/2024 4:33 PM EDT [facility] Monocyte % 3.2 % 08/23/2024 4:33 PM EDT [facility] Eosinophil % 3.8 % 08/23/2024 4:33 PM EDT [facility] Basophil % 0.6 % 08/23/2024 4:33 PM EDT [facility] Neutrophil # 6.08 1.50 - 7.80 10*3/uL 08/23/2024 4:33 PM EDT [facility] Immature Grans # <0.03 <=0.03 10*3/uL 08/23/2024 4:33 PM EDT [facility] Lymphocyte # 1.70 0.85 - 3.90 10*3/uL 08/23/2024 4:33 PM EDT [facility] Monocyte # 0.30 0.20 - 0.95 10*3/uL 08/23/2024 4:33 PM EDT [facility] Eosinophil # 0.30 0.02 - 0.50 10*3/uL 08/23/2024 4:33 PM EDT [facility] Basophil # 0.10 0.00 - 0.20 10*3/uL 08/23/2024 4:33 PM EDT [facility] nRBC % 0.0 /100 WBCs 08/23/2024 4:33 PM EDT [facility] nRBC # <0.01 <0.01 10*3/uL 08/23/2024 4:33 PM EDT [facility] Blood Structure of peripheral vein / Unknown Venipuncture / Unknown 08/23/2024 4:12 PM EDT 08/23/2024 4:18 PM EDT Davidson Garvey MD LAB BLOOD ORDERABLES Final Result [facility] [address] [place] [address], * Phosphorus (08/23/2024 4:12 PM EDT) Phosphorus 3.2 2.5 - 4.5 mg/dL 08/23/2024 5:04 PM EDT [facility] Blood Structure of peripheral vein / Unknown Venipuncture / Unknown 08/23/2024 4:12 PM EDT 08/23/2024 4:23 PM EDT Davidson Garvey MD LAB BLOOD ORDERABLES Final Result Performing Organization Address City/[facility]/ZIP Co de Phone Number [facility] [address] [place] [address], * (ABNORMAL) PTH, Intact (without Calcium) (08/23/2024 4:12 PM EDT) Parathyroid Hormone, Intact 273(H) 16 - 77 pg/mL 08/24/2024 8:06 AM EDT [employer] [facility] Comment: Interpretive Guide Intact PTH Calcium [...] - 08/24/2024 8:06 AM EDT [facility] Received Date:[id number] Davidson Garvey MD LAB BLOOD ORDERABLES Final Result [facility] [place] [address] [facility] [address], [place] [address], [employer] [facility] [address] [facility] [address], [place] [address], * (ABNORMAL) Comprehensive Metabolic Panel (08/23/2024 4:12 PM EDT) NA 136 135 - 145 mmol/L 08/23/2024 5:04 PM EDT [facility] K 3.7 3.5 - 5.3 mmol/L 08/23/2024 5:04 PM EDT [facility] Cl 100 98 - 107 mmol/L 08/23/2024 5:04 PM EDT [facility] CO2 19(L) 22 - 32 mmol/L 08/23/2024 5:04 PM EDT [facility] Anion Gap 17(H) 5 - 15 08/23/2024 5:04 PM EDT [facility] Glucose 104(H) 65 - 99 mg/dL 08/23/2024 5:04 PM EDT [facility] Creatinine 4.92(H) 0.50 - 1.20 mg/dL 08/23/2024 5:04 PM EDT [facility] Calcium 8.9 8.6 - 10.5 mg/dL 08/23/2024 5:04 PM EDT [facility] Total Protein 7.7 6.0 - 8.0 g/dL 08/23/2024 5:04 PM EDT [facility] Albumin 4.5 3.5 - 5.2 g/dL 08/23/2024 5:04 PM EDT [facility] Bilirubin, Total 0.3 0.2 - 1.2 mg/dL 08/23/2024 5:04 PM EDT [facility] Alkaline Phosphatase 99 35 - 129 U/L 08/23/2024 5:04 PM EDT [facility] AST 19 10 - 40 U/L 08/23/2024 5:04 PM EDT [facility] ALT 13 10 - 40 U/L 08/23/2024 5:04 PM EDT [facility] BUN 42(H) 7 - 23 mg/dL 08/23/2024 5:04 PM EDT [facility] eGFR 11(L) >=60 mL/min/1 .73m2 08/23/2024 5:04 PM EDT [employer] [facility] Comment:The estimated glomer ular [...] - 4.2 g/dL 08/23/2024 5:04 PM T [facility] A/G Ratio 1.4(L) 1.5 - 3.0 08/23/2024 5:04 PM T [facility] Blood Structure of peripheral vein / Unknown Venipuncture / Unknown 08/23/2024 4:12 PM EDT 08/23/2024 4:23 PM EDT us Davidson Garvey MD LAB BLOOD ORDERABLES Final Result Performing Organization Address [facility]/ZIP Co de Phone Number [facility] [address] [place] [address], * Hepatitis Panel, Acute (02/14/2024 3:23 PM EDT) Pathologist [facility] Hepatitis A IgM NON-REACT HILDA NON-REACT HILDA 02/15/2024 3:21 AM EDT [employer] [facility] Hepatitis B Surface Antigen NON-REACT HILDA NON-REACT HILDA 02/15/2024 3:21 AM EDT [employer] [facility] Hepatitis B Core Antibody NON-REACT HILDA NON-REACT HILDA 02/15/2024 3:21 AM EDT [employer] [facility] Hepatitis C Antibody NON-REACT HILDA NON-REACT HILDA 02/15/2024 3:21 AM EDT [employer] [facility] Comment: HCV antibody was non-reactive. There is no laboratory evidence of HCV infection. In most cases, no further action is required. However, if recent HCV exposure is suspected, a test for HCV RNA (test code 58108) is suggested. For additional information please refer to http://Pin-Digital.Zoopla/faq/NTG51c0 (This link is being provided for informational/ educational purposes only.) For additional information, please refer to http://[employer].Zoopla/faq/UJN849 (This link is being provided for informational/ educational purposes only.) Blood Structure of peripheral vein / Unknown Venipuncture / Unknown 02/14/2024 3:23 PM EDT 02/14/2024 3:32 PM EDT Narrative JORDEN CAMARILLO - 02/15/2024 3:21 AM EDT [facility] Received Date:[id number] us Calvin Restrepo MD LAB BLOOD ORDERABLES Final Re sult JORDEN CAMARILLO [address] [facility] [address], [place] [address], [place] [phone] JORDEN ELLIOTT [facility] [address] [facility] [address], [address] [place] [address], [place] [phone] from Last 3 Months or Most Recently Relevant to Health Maintenance Insurance [facility] [place] [address] [place] [address] MEDICAID Advance Directives Documents on File Type Date Recorded Patient Plastics Fabrication Supervisor Expl anation Health Care Proxy 02/21/2024 8:06 AM 02-13 Care Teams Sketch Maker Relationship Specialty Start Date End Date Melissa Denton [address] [place] [address] PCP - General 02/14/24
--- OUTSIDE RECORDS SUMMARY | 2025-01-18 14:58 | XMS_ITS | Encounter Summary ---
Author Organization [facility] Address [address] [place] [address] Care Team Providers Care Telesales Specialist Name Role Phone Melissa Denton MD Primary Care Provider [phone] Reason for Visit * Reason Onset Date Comments Prior Authorization 01/10/2025 01/24/25 Dr. Adama Solis Encounter Details Date Type Department Care Team ([facility] st Contact Info) Description 01/10/2025 Telephone General Surgery - [place] [address] [facility] [address] [place] [phone] Adama Solis MD [address] [facility] [address] [place] [address] Prior Authorization (01/24/25 Dr. Adama Solis) Social [...] encounter Progress Notes * Virginia Ambrosio - 01/15/2025 1:47 PM EDT I received an notification that no authorization is required. * Virginia Ambrosio - 01/10/2025 3:10 PM EDT She is having surgery with Dr. Patel Solis on 01/24/25 at [facility]. She has [employer] for insurance.I went online and it is pending for CPT code 56326. documented in this encounter Plan of Treatment Upcoming Encounters Date Type Department Care Team (Latest Contact Info) Description 01/24/2025 1:00 PM EDT Hospital Encounter [facility] Main OR [address] [place] [address] Adama Solis MD [address] [address] 01/24/2025 1:00 PM EDT - 01/24/2025 3:30 PM EDT Surgery [facility] Main OR [address] [place] [address] Adama Solis MD [address] [address] CREATION FISTULA AV LEFT UPPER EXTREMITY; ?LEFT ARM GRAFT INSERTION [03451 (CPT )] 03/05/2025 1:30 PM EDT Office Visit Internal Medicine - [address] [address] Melissa Denton MD [address] [address] Scheduled Procedures Name Priority Associated Diagnoses Date/Ti me CREATION FISTULA AV UPPER EXTREMITY CKD (chronic kidney disease) stage 5, GFR less than 15 ml/min (CMS/[facility] V24, CMS/[facility] V28) 01/24/2025 1:00 PM EDT documented as of this encounter Visit Diagnoses Not on filedocumented in this encounter Care Teams Telesales Specialist Relationship Specialty Start Date End Date Melissa Denton MD [address] [place] [address] [place] [address] PCP - General Internal Medicine 06/05/24 documented as of this encounter
[2025-01-18 15:12] VITALS: BP 126/80; PULSE 82; O2SAT 99; BMI 19.9
--- NOTE | 2025-01-18 15:12 | HO.NEPHOV ---
Vital Signs 01/18/25 15:12 Height 4 ft 10 in Weight 95 lb BMI 19.9 BP 126/80 Blood Pressure Location Lt brachial Position Sitting Pulse 82 Pulse Source Pulse Oximeter Pulse Oximetry (%) 99 Oxygen Delivery Method Room Air Intake Visit Reasons: 1mon Retacrit follow-up w/labs-Conf Metal Furniture Panel Coverer Required: No Accompanied by: Self / Same As Patient Allergies alcohol Allergy (Verified 01/18/25 15:12) Unknown Beef Containing Products Allergy (Verified 01/18/25 15:12) Unknown HPI Comments Details: Ms. Gasca was seen in follow up of her advance chronic kidney disease and hypertension. Her blood pressure control is at goal. She is anemic and has been getting Procrit through my office. She denies diabetes, edema, microscopic or macroscopic hematuria, photosensitivity, joint swellings, hematemesis, melena, edema, proximal nocturnal dyspnea, orthopnea or chest pain. Her appetite is good. 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 She denies taking excessive nonsteroidal anti-inflammatory medications. She has no other systemic complaints. She has family H/O rhuematoid arthritis( mom). She has strong family history of chronic kidney disease. 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 She also had chronic interstitial inflammation. She had global glomerulosclerosis 50-70%. Also there was severe interstitial fibrosis and tubular atrophy at 30-80% along with chronic thrombotic microangiopathic changes. She denies uremic symptoms but feeling tired. She is listed for transplant in [facility] Medical History Elevated blood pressure reading Gastroesophageal reflux disease Chronic kidney disease, stage 4 (severe) Family History Father Myocardial infarct Sister Chronic kidney disease Hypertension Hypercholesteremia Diabetes Mother Hypertension Hypercholesteremia Diabetes Coronary artery disease Rheumatoid arthritis Chronic kidney disease Brother Diabetes Hypercholesteremia Chronic kidney disease Social History Alcohol intake: never Patient Tobacco Use Status: Never used Tobacco Review of Systems Const All systems reviewed & are unremarkable except as noted in HPI and below Physical Exam Vital Signs: Last Vital Signs Pulse 82 08/21/25 15:12 BP 126/80 01/18/25 15:12 Pulse Ox 99 01/18/25 15:12 Oxygen Delivery Method Room Air 01/18/25 15:12 BMI result Body Mass Index 19.9 Const General: comfortable and no acute distress Orientation/consciousness: patient oriented x3 HEENT Head: Yes normocephalic Mouth: Normal oral and palatal mucosa present Eyes EOM: EOMs intact bilaterally Neck Neck: Yes supple Resp Auscultation: clear to auscultation bilaterally Cardio Jugular venous distension: no JVD Rate: regular rate GI Palpation (GI): Soft to palpation Auscultation: normal bowel sounds General: Yes no CVA tenderness Back/Spine/Pelvis Back: no CVA tenderness Skin General skin exam: no rashes or lesions noted Neuro General: patient oriented x3 and moves all extremities Extrem General: Yes no pedal edema Office Meds epoetin tea-epbx 10,000 unit/mL injection solution Performing Provider: Niraj Corbin MD [place] [facility] [place] [facility] Administered by: Niraj Corbin MD on 01/18/25 15:22 Dose Route Admin Location Dispensed Lot Number Expiration Date [facility] Director 20,000 unit subcut LUE 2 mL [id number] 07/01/26 0659-5985-01 [employer] US PHARM Total Dispensed Waste 2 mL 0 % Results Reviewed Nephrology Results: Hgb, (12.0-16.0) 9.0 g/dl L 01/11/25 WBC, (4.8-10.8) 5.7 X10*3/uL 01/11/25 Plt Count, (160-400) 163 X10*3/uL 01/11/25 Sodium, (135-145) 138 mmol/L 01/11/25 Potassium, (3.3-5.1) 4.2 mmol/L 01/11/25 Chloride, (96-108) 107 mmol/L 01/11/25 Carbon Dioxide, (22-29) 20 mmol/L L 01/11/25 BUN, (9-16) 69 mg/dL H 01/11/25 Creatinine, (0.5-1.4) 7.29 mg/dL H* 01/11/25 Calcium, (8.4-10.2) 8.4 mg/dL 01/11/25 Assessment & Plan Assessment & Plan (1) Anemia in chronic kidney disease: Code(s): N18.9 - Chronic kidney disease, unspecified; D63.1 - Anemia in chronic kidney disease Category: Medical Qualifiers: Chronic kidney disease stage: stage 4 (severe) Qualified Code(s): N18.4 - Chronic kidney disease, stage 4 (severe); D63.1 - Anemia in chronic kidney disease (2) HTN (hypertension): Code(s): I10 - Essential (primary) hypertension Category: Medical Qualifiers: Hypertension type: secondary to other renal disorders Qualified Code(s): I15.1 - Hypertension secondary to other renal disorders (3) CKD (chronic kidney disease) stage 5, GFR less than 15 ml/min: Code(s): N18.5 - Chronic kidney disease, stage 5 Category: Medical Plan Olesya has advanced chronic kidney disease and is close to initiation of renal replacement .She had epistaxis and was Anti MA 3 positive. Her renal biopsy which showed of focal segmental glomerulosclerosis with a perihilar, peripheral and tip lesions. She has chronic interstitial inflammation. She had global glomerulosclerosis 50-70%. Also there was severe interstitial fibrosis and tubular atrophy at 30-80% along with chronic thrombotic microangiopathic changes. She is hypertensive but BP is at goal on current medication. She should continue amlodipine 10 mg daily. She is off PO prednisone . She should avoid nonsteroidal anti-inflammatory medications and any other fvtm-xhb-cdimkbr medications in addition to any unusual herbs. She should remain well hydrated. She could minimize animal protein intake. She should continue 2 Iron tablets a day along with Vitamin D 71561 Units once a month. She can continue calcitriol 0.25 mcg four times a week. She is listed in [facility] for renal transplantation. She had dialysis education. I gave 660[address] U of Procrit today. She has an appointment for AVF. She wants a low dose ACEI but I did not initiate given her high K. Further management has been involving data. All questions were answered Orders: Orders AMB Epoetin Injection Practice Supplied Today D63.1 - Anemia in chronic kidney disease, N18.4 - Chronic kidney disease, stage 4 (severe) Electrolytes 1 Month D63.1 - Anemia in chronic kidney disease, I15.1 - Hypertension secondary to other renal disorders, N18.4 - Chronic kidney disease, stage 4 (severe), N18.5 - Chronic kidney disease, stage 5 Complete Blood Count Auto Diff 1 Month D63.1 - Anemia in chronic kidney disease, I15.1 - Hypertension secondary to other renal disorders, N18.4 - Chronic kidney disease, stage 4 (severe), N18.5 - Chronic kidney disease, stage 5 Creatinine 1 Month D63.1 - Anemia in chronic kidney disease, I15.1 - Hypertension secondary to other renal disorders, N18.4 - Chronic kidney disease, stage 4 (severe), N18.5 - Chronic kidney disease, stage 5 Blood Urea Nitrogen 1 Month D63.1 - Anemia in chronic kidney disease, I15.1 - Hypertension secondary to other renal disorders, N18.4 - Chronic kidney disease, stage 4 (severe), N18.5 - Chronic kidney disease, stage 5 Coding Level of Care Code Est Pt Level 4 (40202) Diagnoses Anemia in stage 4 chronic kidney disease N18.4; D63.1 Chronic kidney disease stage: stage 4 (severe) Hypertension secondary to other renal disorders I15.1 Hypertension type: secondary to other renal disorders CKD (chronic kidney disease) stage 5, GFR less than 15 ml/min N18.5
== END 2025-01-18 15:31 | disposition home or self-care (01) ==
LOC: HO.HKAS 14:53
PROVIDERS: PCP Student in an Organized Health Care Education/Training Program; Visit Provider Internal Medicine Nephrology
DX: N18.4 Chronic kidney disease, stage 4 (severe) (principal); D63.1 Anemia in chronic kidney disease; I15.1 Hypertension secondary to other renal disorders; N18.5 Chronic kidney disease, stage 5
CPT/HCPCS: 99214

== ENCOUNTER → 2025-01-18 14:53 | Outpatient (BNVA) | payer OTHER, SELFPAY | PROVIDERS: PCP Student in an Organized Health Care Education/Training Program; Visit Provider Internal Medicine Nephrology | DX: N18.5 Chronic kidney disease, stage 5 (principal); D63.1 Anemia in chronic kidney disease; I15.1 Hypertension secondary to other renal disorders | CPT/HCPCS: 96372; 99212; Q5106 ==

== ENCOUNTER 2025-02-15 14:55 | Outpatient (REF) | payer OTHER, SELFPAY ==
--- OUTSIDE RECORDS SUMMARY | 2025-02-15 16:34 | XMS_ITS | Encounter Summary ---
Author Organization [facility] Address [address] [place] [address] Care Team Providers Care Us Administrative Law Judge Name Role Phone Melissa Denton Primary Care Provider [phone] Encounter Details Date Type Department Care Team (Late st Contact Info) Description 01/20/2025 myChart Message [facility] Renal Transplant [address] [place] [address] China Caputo RN [address] [place] [address] Your Recent Visit Social History Tobacco Use Types Packs/Day Years [...] Care Team (Late st Contact Info) Description 02/28/2025 1:40 PM EDT Follow-Up [facility] Renal Transplant [address] [place] [address] Calvin Restrepo MD [address] [place] [address] 03/13/2025 1:40 PM EDT Follow-Up [facility] Clinic [address] [place] [address] Dynamics Ax Technical Architect: Davidson Caballero MD [address] [place] [address] 01/29/2026 11:30 AM EDT Social Work [facility] Renal Transplant [address] [place] [address] Jacob Franz documented as of this encounter Visit Diagnoses Not on filedocumented in this encounter Care Teams Us Administrative Law Judge Relationship Specialty Start Date End Date Melissa Denton [address] [address] PCP - General 02/14/24 documented as of this encounter
--- OUTSIDE RECORDS SUMMARY | 2025-02-15 16:34 | XMS_ITS ---
Author Organization [facility] Address [address] [place] [address] Care Team Providers Care Senior Medical Transcriptionist Name Role Phone Melissa Denton Primary Care Provider [phone] Transplant Episode Kidney Candidate [facility] ([place], [place]) - [facility] waitlisted on 03/16/2024 Marked as Inactive on 02/02/2025 Reason: Financial/Insurance Complications Kidney CoordinatorIndia Benavides RN Fax: N/A Email: N/A Scores Score Value Updated Exceptions/Reas ons CPRA 0 04/03/2024 EPTS (Calc) 7 02/15/2025 Care Team Name Role Phone Fax Email India Benavides RN Kidney Coordinator [phone] N/A N/A Niraj Corbin Referring Physician [phone] N/A Events Pre-Transplant Referred: 11/26/2023 Evaluation began: 02/14/2024 Committee: 02/16/2024 Center waitlisted: 03/16/2024 Appointments (01/15/2025 - 03/17/2025) When With Visit Type Description 01/30/2025 [facility] 02/28/2025 Transplant - Soraya Restrepo Follow Up
--- OUTSIDE RECORDS SUMMARY | 2025-02-15 16:34 | XMS_ITS | Encounter Summary ---
Author Organization [facility] Address [address] [place] [address] Care Team Providers Care Bunk Assembler Name Role Phone Melissa Denton Primary Care Provider [phone] Encounter Details Date Type Department Care Team (Late st Contact Info) Description 02/13/2025 myChart Message [facility]plant [address] [place] [address] India Benavides RN [address] [place] [address] ruel Osborne Social History Tobacco Use Types Packs/Day Years [...] Info) Description 02/28/2025 1:40 PM EDT Follow-Up [facility]plant [address] [place] [address] Calvin Restrepo MD [address] [place] [address] 03/13/2025 1:40 PM EDT Follow-Up [facility] [address] [place] [address] Reservation Sales Agent: Davidson Caballero MD [address] [place] [address] 01/29/2026 11:30 AM EDT Social Work [facility]plant [address] [place] [address] Jacob Franz documented as of this encounter Visit Diagnoses Not on filedocumented in this encounter Care Teams Bunk Assembler Relationship Specialty Start Date End Date Melissa Denton [address] [place] [address] PCP - General 02/14/24 documented as of this encounter
--- OUTSIDE RECORDS SUMMARY | 2025-02-15 16:34 | XMS_ITS | Encounter Summary ---
Author Organization [facility], Address [address] [place] [address] Phone Care Team Providers Care Enrober Name Role Phone Melisas Denton Primary Care Provider [phone] Encounter Details Date Type Department Care Team (Late st Contact Info) Description 12/26/2024 Orders Only [facility] - [facility] [address] [place] [id number] Peg Crouch [address] [place] [phone] Social History Tobacco Use Types Packs/Day Years Used Date Smoking Tobacco: Never Assessed Comments Unknown Sex and Gender Information Value Date Recorded Sex Assigned at Not on file Legal Sex Female 1:42 PM EDT Gender Identity Not on file Sexual Orientation Not on file documented as of this encounter Plan of Treatment Not on file documented as of this encounter Visit Diagnoses Not on filedocumented in this encounter Care Teams Enrober Relationship Specialty Start Date End Date Melissa Denton [address] [facility] [address] [place] [address] PCP - General 03/05/23 documented as of this encounter
--- OUTSIDE RECORDS SUMMARY | 2025-02-15 16:34 | XMS_ITS | Encounter Summary ---
Author Organization [facility] Address [address] [place] [address] Care Team Providers Care Smoke Jumper Supervisor Name Role Phone Melissa Denton Primary Care Provider [phone] Encounter Details Date Type Department Care Team (Late st Contact Info) Description 02/13/2025 myChart Message [facility] Rhe[facility]ology Clinic [address] [place] [address] Supervisor Yard: Micaela Garvey, Davidson Spann MD [address] [place] [address] Garvey Social History Tobacco Use Types Packs/Day Years [...] Info) Description 02/28/2025 1:40 PM EDT Follow-Up [facility] Renal Transplant [address] [place], [place] [phone] Calvin Restrepo MD [address], [place] [phone] 03/13/2025 1:40 PM EDT Follow-Up [facility] [address] [place] [address] Supervisor Yard: Davidson Caballero MD [address] [place] [address] 01/29/2026 11:30 AM EDT Social Work [facility] Renal Transplant [address] [place] [address] Jacob Franz documented as of this encounter Visit Diagnoses Not on filedocumented in this encounter Care Teams Smoke Jumper Supervisor Relationship Specialty Start Date End Date Melissa Denton [address] [facility] [address] [place] [address] PCP - General 02/14/24 documented as of this encounter
--- OUTSIDE RECORDS SUMMARY | 2025-02-15 16:34 | XMS_ITS | Clinical Summary ---
Author Organization [facility] Address [address] [place] [address] Care Team Providers Care Casing Tester Name Role Phone Melissa Denton Primary Care Provider [phone] Allergies Active Allergy Reactions Criticality Noted Date [...] get the renal biopsy report over from [facility] (I do not see in care everywhere [...] Encounters Date Type Department Care Team Description 02/13/2025 myChart Message [facility] Renal Transplant [address] [place] [address] India Benavides RN hi Linda 02/13/2025 myChart Message [facility] [address] [place] [address] Stone Processing Machine Operator: Davidson Caballero MD Hi DR Cheah 02/02/2025 Telephone [facility] Transplant Department [address] [place] [phone] India Benavides RN 01/20/2025 myChart Message [facility] Ren[facility] Transplant [address] [place] [phone] China Caputo RN Your Recent Visit 01/19/2025 Telephone [facility] Transplant Department [address] [place] [address] Jacob Franz 12/23/2024 myChart Message [facility] [address] [place] [address] Stone Processing Machine Operator: Davidson Caballero MD Ms Dr Garvey 12/20/2024 myChart Message [facility] Renal Transplant [address] [place] [address] China Caputo RN Your Recent Visit 11/28/2024 12:12 PM EDT - 11/28/2024 11:59 PM EDT Hospital Encounter [facility] [address] [place] [address] PR3 ANCA antibodies present Discharge Disposition: Home or Self Care () 11/20/2024 Trelliehart Message [facility] Renal Transplant [address] [place] [address] China Caputo, RN Your Recent Visit from Last 3 [...] Info) Description 02/28/2025 1:40 PM EDT Follow-Up [facility] Renal Transplant [address] [place] [address] Calvin Restrepo MD [address] [place] [address] 03/13/2025 1:40 PM EDT Follow-Up [facility] [address] [place] [address] Stone Processing Machine Operator: Davidson Caballero MD [address] [place] [phone] 01/29/2026 11:30 AM EDT Social Work [facility] Renal Transplant [address] [place], [place] [phone] Jacob Franz Health Maintenance Due Date Last Done Comments 25 Hydroxy / Vitamin D 1984 CKD: Referral to Nutrition 1984 Cervical Cancer Screening 1984 HPV and Pap Smear 1984 Pap Smear 1984 Urine Microalbumin 1994 Varicella Vaccines (1 of 2 - 13+ 2-dose series) 1997 Hepatitis B Vaccines (1 of 3 - 19+ 3-dose series) 11/05/2003 DTaP,Tdap,and Td Vaccines (1 - Tdap) 03/25/2024 03/24/2024 Depression Screening and Follow-Up 05/31/2024 Social Drivers of Health Annual Screening 05/31/2024 Mammogram 2024 COVID-19 Vaccine (1 - 2023-2 5 season) 2025 Influenza Vaccine (#1) 2025 Basic Metabolic Panel 04/26/2025 01/24/2025 , 08/23/2024 Hemoglobin 08/23/2025 08/23/2024, 02/14/2024 PTH 08/23/2025 08/23/2024 [...] complete this topic Procedures * Due to [place] state law, this organization might not be sharing negative HIV tests. Procedure Name Priority Date/Time Associated Diagnosis Comments HLA MONTHLY ANTIBODY IDENTIFICATION - CLASS I Routine 01/22/2025 10:23 AM EDT Stage 4 chronic kidney disease (HCC) Pre-transplant evaluation for kidney transplant HLA MONTHYLY ANTIBODY IDENTIFICATION - CLASS II Routine 01/22/2025 10:23 AM EDT Stage 4 chronic kidney disease [...] to Health Maintenance Results * Due to [place] state law, this organization might not be [...] to obtain the completed interpretation. Workstation ID: [id number] Up-to-date CT equipment and radiation dose reduction [...] thoracic vertebral body heights. Resulting Agency Comment [id number] Procedure Note Win Abdi MD PhD - [...] possible to obtain thecompleted interpretation. Workstation ID: [id number] Up-to-date CT equipment and radiation dose reduction techniques wereemployed. CTDIvol: 3.0 - 3.8 mGy. DLP: 312 mGy-cm. us Davidson Garvey MD IMG CT PROCEDURES Final Res ult * (ABNORMAL) CBC Auto Differential (08/23/2024 4:12 PM EDT) WBC 8.4 3.8 - 10.8 10*3/uL 08/23/2024 4:33 PM EDT [facility] RBC 2.96(L) 3.80 - 5.10 10*6/uL 08/23/2024 4:33 PM EDT [facility] Hemoglobin 8.9(L) 11.7 - 15.5 g/dL 08/23/2024 4:33 PM EDT [facility] Hematocrit 26.8(L) 35.0 - 45.0 % 08/23/2024 4:33 PM EDT [facility] MCV 90.5 80.0 - 100.0 fL 08/23/2024 4:33 PM EDT [facility] MCH 30.1 27.0 - 33.0 pg 08/23/2024 4:33 PM EDT [facility] MCHC 33.2 32.0 - 36.0 g/dL 08/23/2024 4:33 PM EDT [facility] RDW 12.3 11.0 - 15.0 % 08/23/2024 4:33 PM EDT [facility] Platelets 178 140 - 400 10*3/uL 08/23/2024 4:33 PM EDT [facility] MPV 9.6 7.5 - 12.5 fL 08/23/2024 4:33 PM EDT [facility] Neutrophil % 72.3 % 08/23/2024 4:33 PM EDT [facility] Immature Grans % 0.2 0.0 - 0.9 % 08/23/2024 4:33 PM EDT [facility] Lymphocyte % 19.9 % 08/23/2024 4:33 PM EDT [facility] Monocyte % 3.2 % 08/23/2024 4:33 PM EDT [facility] Eosinophil % 3.8 % 08/23/2024 4:33 PM EDT [facility] Basophil % 0.6 % 08/23/2024 4:33 PM EDT [facility] Neutrophil # 6.08 1.50 - 7.80 10*3/uL 08/23/2024 4:33 PM EDT [facility] Immature Grans # <0.03 <=0.03 10*3/uL 08/23/2024 4:33 PM EDT [facility] Lymphocyte # 1.70 0.85 - 3.90 10*3/uL 08/23/2024 4:33 PM EDT [facility] Monocyte # 0.30 0.20 - 0.95 10*3/uL 08/23/2024 4:33 PM EDT [facility] Eosinophil # 0.30 0.02 - 0.50 10*3/uL 08/23/2024 4:33 PM EDT [facility] Basophil # 0.10 0.00 - 0.20 10*3/uL 08/23/2024 4:33 PM EDT [facility] nRBC % 0.0 /100 WBCs 08/23/2024 4:33 PM EDT [facility] nRBC # <0.01 <0.01 10*3/uL 08/23/2024 4:33 PM EDT [facility] Blood Structure of peripheral vein / Unknown Venipuncture / Unknown 08/23/2024 4:12 PM EDT 08/23/2024 4:18 PM EDT Davidson Garvey MD LAB BLOOD ORDERABLES Final Result [facility] [address] [place] [address], [place] * Phosphorus (08/23/2024 4:12 PM EDT) [facility] Phosphorus 3.2 2.5 - 4.5 mg/dL 08/23/2024 5:04 PM EDT [facility] Blood Structure of peripheral vein / Unknown Venipuncture / Unknown 08/23/2024 4:12 PM EDT 08/23/2024 4:23 PM EDT Davidson Garvey MD LAB BLOOD ORDERABLES Final Result [facility] [address] [place] [address], [place] * (ABNORMAL) PTH, Intact (without Calcium) (08/23/2024 4:12 PM EDT) [facility] Parathyroid Hormone, Intact 273(H) 16 - 77 pg/mL 08/24/2024 8:06 AM EDT [facility] Comment: Interpretive Guide Intact PTH Calcium ------- Normal Parathyroid Normal Normal Hypoparathyroidism Low or Low Normal Low Hyperparathyroidism Primary Normal or High High Secondary High Normal or Low Tertiary High High Non-Parathyroid Hypercalcemia Low or Low Normal High Blood Structure of peripheral vein / Unknown Venipuncture / Unknown 08/23/2024 4:12 PM EDT 08/23/2024 4:18 PM EDT [facility] - 08/24/2024 8:06 AM EDT [facility] Received Date: Davidson Garvey MD LAB BLOOD ORDERABLES Final Result [facility] [address], [place] [address], Action [facility] [address] [facility] [address] [facility], [place] [address], * (ABNORMAL) Comprehensive Metabolic Panel (08/23/2024 4:12 PM EDT) NA 136 135 - 145 mmol/L 08/23/2024 5:04 PM EDT [facility] K 3.7 3.5 - 5.3 mmol/L 08/23/2024 5:04 PM EDT [facility] Cl 100 98 - 107 mmol/L 08/23/2024 5:04 PM EDT [facility] CO2 19(L) 22 - 32 mmol/L 08/23/2024 5:04 PM EDT [facility] Anion Gap 17(H) 5 - 15 08/23/2024 5:04 PM EDT [facility] Glucose 104(H) 65 - 99 mg/dL 08/23/2024 5:04 PM EDT [facility] Creatinine 4.92(H) 0.50 - 1.20 mg/dL 08/23/2024 5:04 PM EDT [facility] Calcium 8.9 8.6 - 10.5 mg/dL 08/23/2024 5:04 PM EDT [facility] Total Protein 7.7 6.0 - 8.0 g/dL 08/23/2024 5:04 PM EDT [facility] Albumin 4.5 3.5 - 5.2 g/dL 08/23/2024 5:04 PM EDT [facility] Bilirubin, Total 0.3 0.2 - 1.2 mg/dL 08/23/2024 5:04 PM EDT [facility] Alkaline Phosphatase 99 35 - 129 U/L 08/23/2024 5:04 PM EDT [facility] AST 19 10 - 40 U/L 08/23/2024 5:04 PM EDT [facility] ALT 13 10 - 40 U/L 08/23/2024 5:04 PM EDT [facility] BUN 42(H) 7 - 23 mg/dL 08/23/2024 5:04 PM EDT [facility] eGFR 11(L) >=60 mL/min/1 .73m2 08/23/2024 5:04 PM EDT [facility] Comment:The estimated glomer ular filtration rate (eGFR) is calculated using a new formula developed by the NKF-ASN task force to eliminate race-based correction factors. The new formula uses serum/plasma creatinine, age, and gender to determine eGFR. A value below 60mls/min might indicate kidney disease and will be flagged. For additional information, see Samia tee al, Am J Kidney Dis. 2021;79(2):268- 288, A Unifying Approach for GFR estimation: Recommendations of the NKF-ASN Task Force on Reassessing the Inclusion of Race in Diagnosing Kidney Disease . Globulin, Total 3.2 2.1 - 4.2 g/dL 08/23/2024 5:04 PM EDT [facility] A/G Ratio 1.4(L) 1.5 - 3.0 08/23/2024 5:04 PM EDT [facility] Blood Structure of peripheral vein / Unknown Venipuncture / Unknown 08/23/2024 4:12 PM EDT 08/23/2024 4:23 PM EDT us Davidson Garvey MD LAB BLOOD ORDERABLES Final Result [facility] [address] [place] [address], * Hepatitis Panel, Acute (02/14/2024 3:23 PM EDT) Hepatitis A IgM NON-REACT HILDA NON-REACT HILDA 02/15/2024 3:21 AM EDT [facility] Hepatitis B Surface Antigen NON-REACT HILDA NON-REACT HILDA 02/15/2024 3:21 AM EDT [facility] Hepatitis B Core Antibody NON-REACT HILDA NON-REACT HILDA 02/15/2024 3:21 AM EDT [facility] Hepatitis C Antibody NON-REACT HILDA NON-REACT HILDA 02/15/2024 3:21 AM EDT [facility] Comment: HCV antibody was non-reactive. There is no laboratory evidence of HCV infection. In most cases, no further action is required. However, if recent HCV exposure is suspected, a test for HCV RNA (test code 73507) is suggested. For additional information please refer to http://[employer].Stageit/faq/BIY12s2 (This link is being provided for informational/ educational purposes only.) For additional information, please refer to http://[employer].Stageit/faq/IGE781 (This link is being provided for informational/ educational purposes only.) Blood Structure of peripheral vein / Unknown Venipuncture / Unknown 02/14/2024 3:23 PM EDT 02/14/2024 3:32 PM EDT Narrative [facility] - 02/15/2024 3:21 AM EDT [facility] Received Date:[id number] us Calvin Restrepo MD LAB BLOOD ORDERABLES Final Re sult [facility] [address] [facility] 3rd Floor, [place] [address], [place] [phone] [facility] [address] [place] [address], [place] [address], [place] [phone] from Last 3 Months or Most Recently Relevant to Health Maintenance Insurance [employer] Advance Directives Documents on File Type Date Recorded 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
--- OUTSIDE RECORDS SUMMARY | 2025-02-15 16:34 | XMS_ITS | Clinical Summary ---
Author Organization [facility], Address [address] [place] [address] [place] [address] Phone Care Team Providers Care Scrubber Operator Name Role Phone Melissa Denton Primary Care Provider [phone] Allergies Active Allergy Reactions Criticality Noted Date [...] Visit [facility] Center [address] [place] [address] [place] [address] Adama Solis MD Stage 5 chronic kidney disease (HCC) (Primary Dx) 12/26/2024 Orders Only [facility] V[facility] Access [address] [place] [address] Peg Crouch from Last 3 Months Social [...] PCV) 11/05/2003 Influenza Vaccine (#1) 2025 Insurance [facility] Medicaid Care Teams Scrubber Operator Relationship Specialty Start Date End Date Neil Dentonluis fernandomaxine 175 [facility] [address] [place] [address] PCP - General 03/05/23
--- OUTSIDE RECORDS SUMMARY | 2025-02-15 16:34 | XMS_ITS | Clinical Summary ---
Author Organization 175 [facility] Address [address] [place] [address] Phone Care Team Providers Care Shop Lead Name Role Phone Melissa Denton MD Primary Care Provider [phone] Allergies Active Allergy Reactions Criticality Noted Date [...] mg by mouth 2 times daily. Active oxyCODONE (ROXICODONE) 5 mg immediate release tabletIndicatio ns:CKD (chronic kidney disease) stage 5, GFR less than 15 ml/min ([facility] V24, [facility] V28) Take 1 tablet (5 mg total) by mouth every 6 (six) hours if needed for severe pain. Max Daily Amount: 20 mg 8 tablet Active Active Problems Problem Noted Date Diagnosed Date CKD (chronic kidney disease) stage 5, GFR less than 15 ml/min ([facility] V24, [facility] V28) 12/26/2024 Primary hypertension 07/05/2023 Gastroesophageal reflux disease 03/24/2023 Overview (08/01/2024): DX:GERD (gastroesophageal reflux disease) Elevated blood pressure reading 03/24/2023 Stage 4 chronic kidney disease ([facility] V24, [facility] V28) 03/24/2023 Encounters Date Type Department Care Team Description 02/09/2025 9:00 AM EDT Office Visit General Surgery [address] [place] [phone] Adama Solis MD CKD (chronic kidney disease) stage 5, GFR less than 15 ml/min ([facility] V24, [facility] V28) (Primary Dx) 01/24/2025 1:52 PM EDT Anesthesia Event [facility] OR [address] [place] [phone] Jose Carlos Cunningham MD Mounsey, Sarah, VERNELL 01/24/2025 1:00 PM EDT - 01/24/2025 3:30 PM EDT Surgery [facility] OR [address] [place] [phone] Adama Solis MD CREATION FISTULA AV LEFT UPPER EXTREMITY; ?LEFT ARM GRAFT INSERTION [07487 (CPT )] 01/24/2025 10:59 AM EDT - 01/24/2025 6:01 PM EDT Hospital Encounter [facility] Main OR [address] [place] [phone] Adama Solis MD CKD (chronic kidney disease) stage 5, GFR less than 15 ml/min ([facility] V24, [facility] V28) (Primary Dx) Discharge Disposition: Home or Self Care 01/10/2025 Telephone General Surgery [facility] [address] [phone] Adama Solis MD 12/22/[address] [phone] Adama Solis MD 12/20/2024 9:30 AM EDT Consult [address] [phone] Adama Solis MD CKD (chronic kidney disease) stage 5, GFR less than 15 ml/min ([facility] V24, [facility] V28) (Primary Dx) from Last 3 Months Immunizations Name Administration Dates Next Due Td Tetanus diptheria (Tdvax) 7yo and older 03/24 Surgical History Surgery Date Site/Laterality Comments OTHER SURGICAL HISTORY 06/03/2023 PROCEDURE: [facility] RENAL BIOPSY SURG EXPOSURE KIDNEY Medical History Medical History Date Comments GERD (gastroesophageal reflu x disease) DX:GERD (gastroesophageal re flux disease) Renal failure 2022 DX:Renal failure ; COMMENT: SAtage 4 Essential (primary) hypertension DX:Essential (primary) hypertension Stage 4 chronic kidney disea se (CMS/HCC V24, CMS/HCC V28) 03/24/2023 Family History Medical History Relation [...] drink = 0.6 oz pur e alcohol) Interpersonal Safety Answer Date Record ed Physical Abuse 01/24/2025 Verbal Abuse 01/24/2025 Education Answer Date Recorded What is the highest level of school you have completed or the highest degree you have received? Bachelor's degree (e.g., BA, AB, BS) 08/31/2024 Comments No Sex and Gender Information Value Date Recorded Sex Assigned at Female 09/01/2024 3:49 PM EDT Legal Sex Female 8:49 PM EST Gender Identity Female 09/01/2024 3:49 PM EDT Sexual Orientation Not on file Obstetrics History Last Filed Vital Signs Vital Sign Reading Time Taken Comments Blood Pressure 136/83 02/09/2025 9:19 AM EDT Pulse 79 01/24/2025 5:29 PM EDT Temperature 36.3 C (97.4 F) 02/09/2025 9:19 AM EDT Respiratory Rate 16 01/24/2025 5:29 PM EDT Oxygen Saturation 97% 01/24/2025 5:29 PM EDT Inhaled Oxygen Concentration - - Weight 42.7 kg (94 lb 3.2 oz) 02/09/2025 9:19 AM EDT Height 146.1 cm (4' 9.5 ) 12/20/2024 9:14 AM EDT Body Mass Index 20.03 12/20/2024 9:14 AM EDT Plan of Treatment Upcoming Encounters Date Type Department Care Team (Late st Contact Info) Description 02/20/2025 9:45 AM EDT Office Visit General Surgery - [place] 175 [facility] [address] [place] [address] Adama Solis MD [address] [place] [phone] 03/05/2025 1:30 PM EDT Office Visit Internal Medicine [facility] 175 [facility] [address] [place] [phone] Melissa Denton MD 175 [facility] 200 [place] [phone] Health Maintenance Due Date Last Done Comments Breast Cancer Screening 1984 COVID-19 Vaccine (#1) 1989 Hepatitis B Vaccines (1 of 3 - 19+ 3-dose series) 11/05/2003 HIV Screening 06/25/2023 Depression Screening 05/31/2024 Influenza Vaccine (#1) 2025 Social Influencers of Health Screening 08/31/2025 08/31/2024 Hypertension/CHF/CAD Annual BMP Blood Test 01/24/2026 01/24/2025, 09/25/2024, 08/23/2024, Additional history exists Cervical Cancer Screening: HPV 07/01/2028 07/01/2023 Cholesterol Screening (Lipid Panel) 08/31/2029 08/31/2024, 02/22/2023 DTaP,Tdap,and Td Vaccines (2 - Td or Tdap) 03/24/2034 03/24/2024 RSV Immunization Adult Patients (1 - 1-dose 75+ series) 11/05/2059 Hepatitis C Screening Completed 02/14/2024, 023 HIB [...] on patient's age to complete this topic Medical Devices Implanted Type Area Spring Layer Device Identifier Shelf Expiration Date Model / Serial / Lot Kit Surgiflo W 2000 Units Ster Lyo - Sn/A - [id number] Implanted:Qty: 1 on 01/24/2025 by Adama Solis MD at [facility] Hemostasis Left: Wrist [employer] [id number] / N/A / N/A Hemostat Absorb Surgicel 4x8in - Sn/A - [id number] Implanted:Qty: 1 on 01/24/2025 by Adama Solis MD at [facility] Hemostasis Left: Wrist [employer] 10/28/2025 1952S / N/A / [id number] Procedures Procedure Name Priority Date/Time Associated Diagnosis Comments TH AN ENDOTRACHEAL(NO CHARGE) Routine 01/24/2025 2:20 PM EDT [facility] ANASTOMOSIS ARTERIOVENOUS DIRECT ANY SITE OPEN (SEPARATE PROCEDURE) 01/24/2025 1:52 PM EDT CKD (chronic kidney disease) stage 5, GFR less than 15 ml/min (CMS/HCC V24, CMS/HCC V28) Case Notes Pre-surgical block Special Needs Creation left arm AV fistula; possible left arm graft insertion - 120 minutes - Anesthesia to decide what level left arm block goes. CBC WITH AUTO DIFFERENTIAL Routine 01/24/2025 11:52 AM EDT BASIC METABOLIC PANEL Routine 01/24/2025 11:52 AM EDT CBC AND DIFFERENTIAL Routine 01/24/2025 11:52 AM EDT EXTERNAL LAB - COLLECTION, PROCESSING AND HANDLING Routine 01/22/2025 12:48 PM EDT Chronic kidney disease, stage IV (severe) (CMS/HCC V24, CMS/HCC V28) Preop examination EXTERNAL LAB - COLLECTION, PROCESSING AND HANDLING Routine 12/28/2024 12:12 PM EDT Chronic kidney disease, stage IV (severe) (CMS/HCC V24, CMS/HCC V28) Preop examination VENIPUNCTURE CHARGE Routine 11/22/2024 1 :45 PM EDT Chronic kidney disease, stage IV (severe) (CMS/HCC V24, CMS/HCC V28) Encounter for pre-transplant evaluation for kidney transplant LIPID PANEL WITH REFLEX TO DIRECT LDL Routine 08/31/2024 11:23 AM EDT Encounter for annual physical exam Encounter for lipid screening for cardiovascular disease HPV Routine 07/01/2023 HEPATITIS C SCREENING Routine 02/22/2023 from Last 3 Months or Most Recently Relevant to Health Maintenance Results * TH AN ENDOTRACHEAL(NO CHARGE) (01/24/2025 2:20 PM EDT) Linda Beckman CRNA - 01/24/2025 2:20 PM EDT Linda Manriquez CRNA 01/24/2025 2:21 PM General Information and Staff Patient location during procedure: OR Anesthesiologist: Meryl Salazar MD Resident/CLINICAL NURSE MANAGER: Linda Manriquez CRNA Performed: resident/CLINICAL NURSE MANAGER/CAA Performed by: Linda Manriquez CRNA Authorized by: Meryl Salazar MD Intubation Airway not difficult Urgency: elective Final Airway Details Successful airway: ETT Cuffed: yes Successful intubation technique: direct laryngoscopy Endotracheal tube insertion site: oral Blade: Phoebe Blade size: #3 ETT size (mm): 7.0 Cormack-Lehane Classification: grade IIb - view of arytenoids or posterior of glottis only Placement verified by: chest auscultation and capnometry Inital cuff pressure (cm H2O): 21 Measured from: lips Number of attempts at approach: 1Final airway type: endotracheal airway Indications and Patient Condition Indications for airway management: anesthesia Spontaneous ventilation: present Sedation level: Yes Preoxygenated: yes Soft Tissue Damage: No Dentition Unchanged: Yes Patient position: neutral MILS maintained throughout Mask difficulty assessment: 0 - not attempted us Meryl Salazar MD ANESTHESIA ORDERABLES Fin al Result * (ABNORMAL) CBC auto differential (01/24/2025 11:52 AM EDT) [facility] WBC 5.6 4.8 - 10.8 K/mcL LAB HEMETOLOGY METHOD 01/24/2025 12:11 PM EDT [facility] RBC 3.30(L) 3.80 - 4.80 M/mcL LAB HEMETOLOGY METHOD 01/24/2025 12:11 PM [facility] Hemoglobin 9.8(L) 11.5 - 16.0 g/dL LAB HEMETOLOGY METHOD 01/24/2025 12:11 PM [facility] Hematocrit 30.2(L) 35.0 - 47.0 % LAB HEMETOLOGY METHOD 01/24/2025 12:11 PM [facility] MCV 92.4 79.0 - 98.0 FL LAB HEMETOLOGY METHOD 01/24/2025 12:11 PM [facility] MCH 30.0 27.0 - 32.0 pcg LAB HEMETOLOGY METHOD 01/24/2025 12:11 PM [facility] MCHC 32.5 32.0 - 37.0 g/dL LAB HEMETOLOGY METHOD 01/24/2025 12:11 [facility] RDW 13.1 11.0 - 15.0 % LAB HEMETOLOGY METHOD 01/24/2025 12:11 PM [facility] Platelets 163 130 - 400 K/mcL LAB HEMETOLOGY METHOD 01/24/2025 12:11 PM [facility] MPV 9.4 7.0 - 11.0 FL LAB HEMETOLOGY METHOD 01/24/2025 12:11 PM [facility] NRBC 0.0 <1.0 % LAB HEMETOLOGY METHOD 01/24/2025 12:11 PM [facility] NRBC Absolute 0.00 <0.10 K/mcL LAB HEMETOLOGY METHOD 01/24/2025 12:11 PM [facility] Neutrophils Relative 75.5 % LAB HEMETOLOGY METHOD 01/24/2025 12:11 PM [facility] Lymphocytes Relative 12.8 % LAB HEMETOLOGY METHOD 01/24/2025 12:11 PM [facility] Monocytes Relative 7.4 % LAB HEMETOLOGY METHOD 01/24/2025 12:11 PM [facility] Eosinophils Relative 3.4 % LAB HEMETOLOGY METHOD 01/24/2025 12:11 PM [facility] Basophils Relative 0.5 % LAB HEMETOLOGY METHOD 01/24/2025 12:11 PM [facility] Immature Granulocytes Relative 0.4 % LAB HEMETOLOGY METHOD 01/24/2025 12:11 PM [facility] Neutrophils Absolute 4.26 1.50 - 7.00 K/mcL LAB HEMETOLOGY METHOD 01/24/2025 12:11 PM [facility] Lymphocytes Absolute 0.72(L) 1.00 - 5.00 K/mcL LAB HEMETOLOGY METHOD 01/24/2025 12:11 PM [facility] Monocytes Absolute 0.42 0.20 - 1.00 K/mcL LAB HEMETOLOGY METHOD 01/24/2025 12:11 PM [facility] Eosinophils Absolute 0.19 0.00 - 0.50 K/mcL LAB HEMETOLOGY METHOD 01/24/2025 12:11 PM [facility] Basophils Absolute 0.03 0.00 - 0.20 K/mcL LAB HEMETOLOGY METHOD 01/24/2025 12:11 PM [facility] Immature Granulocytes Absolute 0.02 0.00 - 0.03 K/mcL LAB HEMETOLOGY METHOD 01/24/2025 12:11 PM [facility] Blood Venous blood specimen / Unknown Venipuncture / Unknown 01/24/2025 11:52 AM EDT 01/24/2025 11:58 AM EDT Adama Solis MD LAB BLOOD ORDERABLES Final Result [facility] [address] [place] [address], * (ABNORMAL) Basic metabolic panel (01/24/2025 11:52 AM EDT) Sodium 138 133 - 145 mmol/L LAB CHEMISTRY METHOD 01/24/2025 1:04 PM [facility] Potassium 3.8 3.5 - 5.5 mmol/L LAB CHEMISTRY METHOD 01/24/2025 1:04 PM [facility] Chloride 106 96 - 110 mmol/L LAB CHEMISTRY METHOD 01/24/2025 1:04 PM [facility] CO2 20(L) 21 - 32 mmol/L LAB CHEMISTRY METHOD 01/24/2025 1:04 PM [facility] Anion Gap 12(H) 3 - 11 LAB CHEMISTRY METHOD 01/24/2025 1:04 PM [facility] Glucose 96 70 - 100 mg/dL LAB CHEMISTRY METHOD 01/24/2025 1:04 PM [facility] BUN 72(H) 5 - 25 mg/dL LAB CHEMISTRY METHOD 01/24/2025 1:04 PM [facility] Comment:Results verified by repeat testing Creatinine 7.53(H) 0.50 - 1.10 mg/dL LAB CHEMISTRY METHOD 01/24/2025 1:04 PM [facility] eGFR 6(L) >=60 mL/min/1. 73m2 LAB CHEMISTRY METHOD 01/24/2025 1:04 PM [facility] Comment:Calculation based on the Chronic Kidney Disease Epidemiology Collaboration (CKD-EPI) equation refit without adjustment for race. BUN/Creatinine Ratio 9.6 LAB CHEMISTRY METHOD 01/24/2025 1:04 PM [facility] Calcium 9.0 8.5 - 10.5 mg/dL LAB CHEMISTRY METHOD 01/24/2025 1:04 PM EDT [facility] Blood Venous blood specimen / Unknown Venipuncture / Unknown 01/24/2025 11:52 AM EDT 01/24/2025 11:58 AM EDT Adama Solis MD LAB BLOOD ORDERABLES Final Result Performing Organization Address City/[facility]/ZIP Co de Phone Number [facility] [address] [place] [address], [place] [phone] * External lab - collection, processing and handling (01/22/2025 12:48 PM EDT) Only the most recent of2 resultswithin the time period is included. Extra Tube Hold for add-ons. 01/22/2025 3:02 PM EDT [facility] Comment:Auto resulted. Blood Venous blood specimen / Unknown Venipuncture / Unknown 01/22/2025 12:48 PM EDT 01/22/2025 1:02 PM EDT Calvin Restrepo MD LAB BLOOD ORDERABLES Final Resu lt Performing Organization Address [facility] Co de Phone Number [facility] [address] [place] [address], [place] [phone] * Venipuncture charge (11/22/2024 1:45 PM EDT) Extra Tube Hold for add-ons. 11/22/2024 4:01 PM EDT [facility] Comment:Auto resulted. Blood Venous blood specimen / Unknown Venipuncture / Unknown 11/22/2024 1:45 PM EDT 11/22/2024 2:11 PM EDT Calvin Restrepo MD LAB BLOOD ORDERABLES Final Resu lt Performing Organization Address City/[facility]/ZIP Co de Phone Number [facility] [address] [place] [address], [place] [phone] * (ABNORMAL) Lipid panel with reflex to direct LDL (08/31/2024 11:23 AM EDT) [facility] Cholesterol 247(H) 0 - 200 mg/dL LAB CHEMISTRY METHOD 08/31/2024 4:33 PM EDT [facility] Triglycerides 125 0 - 150 mg/dL LAB CHEMISTRY METHOD 08/31/2024 4:33 PM EDT [facility] HDL 89 >=40 mg/dL LAB CHEMISTRY METHOD 08/31/2024 4:33 PM EDT [facility] LDL Calculated 133(H) 0 - 100 mg/dL LAB CHEMISTRY METHOD 08/31/2024 4:33 PM EDT [facility] VLDL Cholesterol Germán 25 mg/dL LAB CHEMISTRY METHOD 08/31/2024 4:33 PM EDT [facility] Non HDL Chol. (LDL+VLDL) 158(H) <145 mg/dL LAB CHEMISTRY METHOD 08/31/2024 4:33 PM EDT [facility] Chol/HDL Ratio 2.8 0.0 - 4.4 LAB CHEMISTRY METHOD 08/31/2024 4:33 PM EDT [facility] Blood Venous blood specimen / Unknown Venipuncture / Unknown 08/31/2024 11:23 AM EDT 08/31/2024 12:49 PM EDT Melissa Denton MD LAB BLOOD ORDERABLES Final Resul t [facility] [address] [place] [address], [place] [phone] * Cervical Cancer Screening: HPV (07/01/2023) [facility] Cervical Cancer Screening: HPV Negative, Abstracted Historical Provider HEALTH MAINTENANCE Final Result * Hepatitis C Screening (02/22/2023) Hepatitis C Screening Abstracted us Historical Provider HEALTH MAINTENANCE Final Result from Last 3 Months or Most Recently Relevant to Health Maintenance Insurance [facility] [employer] Care Teams Shop Lead Relationship Specialty Start Date End Date Melissa Denton MD [address] [place] [phone] PCP - General Internal Medicine 06/05/24
[2025-02-15 17:28] LABS: MANUAL DIFF FLAG NO
[2025-02-15 17:55] LABS: Hematocrit 26.0 % (37.0-47.0); Hemoglobin 8.6 g/dl (12.0-16.0); Imm Gran Abs Auto 0.02 X10*3/uL (0.00-0.03); Imm Gran Pct Auto 0.3 % (0.0-0.4); Lymphocytes Absolute Auto 1.6 X10*3/uL (1.2-4.9); Mean Corpuscular HGB Conc 33.1 g/dl (31.0-35.0); Mean Corpuscular Hemoglobin 29.6 pg (27.0-33.0); Mean Corpuscular Volume 89.3 fL (80.0-98.0); NRBC Abs Auto 0.000 X10*3/uL (0.0-0.012); NRBC Pct Auto 0.0 /100WBC (0.0-0.2); Platelet Count 172 X10*3/uL (160-400); Red Blood Count 2.91 X10*6/uL (4.20-5.50); White Blood Count 5.8 X10*3/uL (4.8-10.8)
[2025-02-15 18:27] LABS: Anion Gap 15 (12-20); Blood Urea Nitrogen 57 mg/dL (9-16); Carbon Dioxide 21 mmol/L (22-29); Chloride 103 mmol/L (96-108); Potassium 5.2 mmol/L (3.3-5.1); Sodium 134 mmol/L (135-145)
[2025-02-15 19:25] LABS: Estimated Glomerular Filt Rate 7
== END 2025-02-15 14:56 | disposition home or self-care (01) ==
LOC: HO.HKASLDS 14:55
PROVIDERS: Visit Provider Internal Medicine Nephrology
DX: N18.5 Chronic kidney disease, stage 5 (principal); I15.1 Hypertension secondary to other renal disorders; D63.1 Anemia in chronic kidney disease
CPT/HCPCS: 36415; 80051; 82565; 84520; 85025

== ENCOUNTER 2025-02-20 14:38 | Outpatient (AMB) | payer OTHER, SELFPAY ==
--- OUTSIDE RECORDS SUMMARY | 2025-02-20 09:45 | XMS_ITS | Encounter Summary ---
Author Organization [facility] Address [address] [place] [address] Care Team Providers Care Pressing Machine Tender Name Role Phone Melissa Denton MD Primary Care Provider [phone] Reason for Visit * Reason Comments Follow-up Kidney Problems Encounter Details Date Type Department Care Team ([facility] st Contact Info) Description 02/20/2025 9:45 AM EDT Office Visit General Surgery [address] [place] [address] Adama Solis MD [address] [place] [phone] Social History Tobacco Use Types Packs/Day Years [...] on file documented as of this encounter Last Filed Vital Signs Vital Sign Reading Time Taken Comments Blood Pressure 136/85 02/20/2025 9:23 AM EDT Pulse 92 02/20/2025 9:23 AM EDT Temperature - - Respiratory Rate - - Oxygen Saturation - - Inhaled Oxygen Concentration - - Weight 42 kg (92 lb 9.6 oz) 02/20/2025 9:23 AM E DT Height 146.1 cm (4' 9.5 ) 02/20/2025 9:23 AM EDT Body Mass Index 19.69 02/20/2025 9:23 AM EDT documented in this encounter Plan of Treatment Upcoming Encounters Date Type Department Care Team (Late st Contact Info) Description 03/05/2025 1:30 PM EDT Office Visit Internal Medicine - [address] [phone] Melissa Denton MD [address] [phone] documented as of this encounter Visit Diagnoses Not on filedocumented in this encounter Care Teams Pressing Machine Tender Relationship Specialty Start Date End Date Melissa Denton MD [address] [phone] PCP - General Internal Medicine 06/05/24 documented as of this encounter
--- NOTE | 2025-02-20 14:43 | HO.NEPHOV ---
Vital Signs 02/20/25 14:44 Height 4 ft 10 in Weight 93 lb 2 oz BMI 19.5 BP 130/70 Blood Pressure Location Rt brachial Position Sitting Pulse 92 Pulse Source Pulse Oximeter Pulse Oximetry (%) 99 Oxygen Delivery Method Room Air Intake Visit Reasons: 1mnth retacrit w labs-LVM Decontamination Worker Required: No Accompanied by: Self / Same As Patient Allergies alcohol Allergy (Verified 02/20/25 14:44) Unknown Beef Containing Products Allergy (Verified 02/20/25 14:44) Unknown HPI Comments Details: Ms. Gasca was seen in follow up of her advance chronic kidney disease and hypertension. Her blood pressure control is at goal. She is anemic and has been getting Procrit through my office. She denies diabetes, edema, microscopic or macroscopic hematuria, photosensitivity, joint swellings, hematemesis, melena, edema, proximal nocturnal dyspnea, orthopnea or chest pain. Her appetite is good. 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 She denies taking excessive nonsteroidal anti-inflammatory medications. She has no other systemic complaints. She has family H/O rhuematoid arthritis( mom). She has strong family history of chronic kidney disease. 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 She also had chronic interstitial inflammation. She had global glomerulosclerosis 50-70%. Also there was severe interstitial fibrosis and tubular atrophy at 30-80% along with chronic thrombotic microangiopathic changes. She denies uremic symptoms but feeling tired. She is listed for transplant in [facility] Medical History Elevated blood pressure reading Gastroesophageal reflux disease Chronic kidney disease, stage 4 (severe) Family History Father Myocardial infarct Sister Chronic kidney disease Hypertension Hypercholesteremia Diabetes Mother Hypertension Hypercholesteremia Diabetes Coronary artery disease Rheumatoid arthritis Chronic kidney disease Brother Diabetes Hypercholesteremia Chronic kidney disease Social History Alcohol intake: never Patient Tobacco Use Status: Never used Tobacco Review of Systems Const All systems reviewed & are unremarkable except as noted in HPI and below Physical Exam Vital Signs: Last Vital Signs Pulse 92 09/23/25 14:44 BP 130/70 02/20/25 14:44 Pulse Ox 99 02/20/25 14:44 Oxygen Delivery Method Room Air 02/20/25 14:44 BMI result Body Mass Index 19.5 Const General: comfortable and no acute distress Orientation/consciousness: patient oriented x3 HEENT Head: Yes normocephalic Mouth: Normal oral and palatal mucosa present Eyes EOM: EOMs intact bilaterally Neck Neck: Yes supple Resp Auscultation: clear to auscultation bilaterally Cardio Jugular venous distension: no JVD Rate: regular rate GI Palpation (GI): Soft to palpation Auscultation: normal bowel sounds General: Yes no CVA tenderness Back/Spine/Pelvis Back: no CVA tenderness Skin General skin exam: no rashes or lesions noted Neuro General: patient oriented x3 and moves all extremities Extrem General: Yes no pedal edema Office Meds epoetin tea-epbx 10,000 unit/mL injection solution Performing Provider: Niraj Corbin MD Performing Location: [facility] Administered by: Niraj Corbin MD on 02/20/25 14:56 Dose Route Admin Location Dispensed Lot Number Expiration Date [facility] Podiatry Professor 40,000 unit subcut RUE 4 mL [id number] 07/01/26 1570-6753-18 [employer] Total Dispensed Waste 4 mL 0 % Results Reviewed Nephrology Results: Hgb, (12.0-16.0) 8.6 g/dl L 02/15/25 WBC, (4.8-10.8) 5.8 X10*3/uL 02/15/25 Plt Count, (160-400) 172 X10*3/uL 02/15/25 Sodium, (135-145) 134 mmol/L L 02/15/25 Potassium, (3.3-5.1) 5.2 mmol/L H Δ 02/15/25 Chloride, (96-108) 103 mmol/L 02/15/25 Carbon Dioxide, (22-29) 21 mmol/L L 02/15/25 BUN, (9-16) 57 mg/dL H 02/15/25 Creatinine, (0.5-1.4) 6.78 mg/dL H* 09/18/25 Calcium, (8.4-10.2) 8.4 mg/dL 01/11/25 Assessment & Plan Assessment & Plan (1) HTN (hypertension): Code(s): I10 - Essential (primary) hypertension Category: Medical Qualifiers: Hypertension type: secondary to other renal disorders Qualified Code(s): I15.1 - Hypertension secondary to other renal disorders (2) Secondary hyperparathyroidism (of renal origin): Code(s): N25.81 - Secondary hyperparathyroidism of renal origin Category: Medical (3) Vitamin D deficiency: Code(s): E55.9 - Vitamin D deficiency, unspecified Category: Medical (4) CKD (chronic kidney disease) stage 5, GFR less than 15 ml/min: Code(s): N18.5 - Chronic kidney disease, stage 5 Category: Medical (5) Anemia in chronic kidney disease: Code(s): N18.9 - Chronic kidney disease, unspecified; D63.1 - Anemia in chronic kidney disease Category: Medical Qualifiers: Chronic kidney disease stage: stage 4 (severe) Qualified Code(s): N18.4 - Chronic kidney disease, stage 4 (severe); D63.1 - Anemia in chronic kidney disease Plan Olesya has advanced chronic kidney disease and is close to initiation of renal replacement .She had epistaxis and was Anti IN 3 positive. Her renal biopsy which showed of focal segmental glomerulosclerosis with a perihilar, peripheral and tip lesions. She has chronic interstitial inflammation. She had global glomerulosclerosis 50-70%. Also there was severe interstitial fibrosis and tubular atrophy at 30-80% along with chronic thrombotic microangiopathic changes. She is hypertensive but BP is at goal on current medication. She should continue amlodipine 10 mg daily. She is off PO prednisone . She should avoid nonsteroidal anti-inflammatory medications and any other qmkt-ksa-jhnxhls medications in addition to any unusual herbs. She should remain well hydrated. She could minimize animal protein intake. She should continue 2 Iron tablets a day along with Vitamin D 89708 Units once a month. She can continue calcitriol 0.25 mcg four times a week. She is listed in [facility] for renal transplantation. She had dialysis education. I gave [id number] U of Procrit today. She has an AVF. She wants a low dose ACEI but I did not initiate given her high K. Further management has been involving data. All questions were answered Orders: Orders AMB Epoetin Injection Practice Supplied Today D63.1 - Anemia in chronic kidney disease, N18.4 - Chronic kidney disease, stage 4 (severe) Creatinine 1 Month D63.1 - Anemia in chronic kidney disease, E55.9 - Vitamin D deficiency, unspecified, I15.1 - Hypertension secondary to other renal disorders, N18.4 - Chronic kidney disease, stage 4 (severe), N18.5 - Chronic kidney disease, stage 5, N25.81 - Secondary hyperparathyroidism of renal origin Blood Urea Nitrogen 1 Month D63.1 - Anemia in chronic kidney disease, E55.9 - Vitamin D deficiency, unspecified, I15.1 - Hypertension secondary to other renal disorders, N18.4 - Chronic kidney disease, stage 4 (severe), N18.5 - Chronic kidney disease, stage 5, N25.81 - Secondary hyperparathyroidism of renal origin Phosphorus 1 Month D63.1 - Anemia in chronic kidney disease, E55.9 - Vitamin D deficiency, unspecified, I15.1 - Hypertension secondary to other renal disorders, N18.4 - Chronic kidney disease, stage 4 (severe), N18.5 - Chronic kidney disease, stage 5, N25.81 - Secondary hyperparathyroidism of renal origin Complete Blood Count Auto Diff 1 Month D63.1 - Anemia in chronic kidney disease, E55.9 - Vitamin D deficiency, unspecified, I15.1 - Hypertension secondary to other renal disorders, N18.4 - Chronic kidney disease, stage 4 (severe), N18.5 - Chronic kidney disease, stage 5, N25.81 - Secondary hyperparathyroidism of renal origin Electrolytes 1 Month D63.1 - Anemia in chronic kidney disease, E55.9 - Vitamin D deficiency, unspecified, I15.1 - Hypertension secondary to other renal disorders, N18.4 - Chronic kidney disease, stage 4 (severe), N18.5 - Chronic kidney disease, stage 5, N25.81 - Secondary hyperparathyroidism of renal origin Calcium 1 Month D63.1 - Anemia in chronic kidney disease, E55.9 - Vitamin D deficiency, unspecified, I15.1 - Hypertension secondary to other renal disorders, N18.4 - Chronic kidney disease, stage 4 (severe), N18.5 - Chronic kidney disease, stage 5, N25.81 - Secondary hyperparathyroidism of renal origin Coding Level of Care Code Est Pt Level 4 (26604) Diagnoses Hypertension secondary to other renal disorders I15.1 Hypertension type: secondary to other renal disorders Secondary hyperparathyroidism (of renal origin) N25.81 Vitamin D deficiency E55.9 CKD (chronic kidney disease) stage 5, GFR less than 15 ml/min N18.5 Anemia in stage 4 chronic kidney disease N18.4; D63.1 Chronic kidney disease stage: stage 4 (severe)
[2025-02-20 14:44] VITALS: BP 130/70; PULSE 92; O2SAT 99; BMI 19.5
--- OUTSIDE RECORDS SUMMARY | 2025-02-20 17:50 | XMS_ITS | Clinical Summary ---
Author Organization [facility], Address [address] [place] [address] [place] [address] Phone Care Team Providers Care Choke Setter Name Role Phone Melissa Denton Primary Care Provider [phone] Allergies Active Allergy Reactions Criticality Noted Date [...] Visit [facility] [address] [place] [address] [place] [address] Adama Solis MD Stage 5 chronic kidney disease (HCC) (Primary Dx) 12/26/2024 Orders Only [facility] [address] [place] [address] Peg Crouch from Last 3 Months Social [...] PCV) 11/05/2003 Influenza Vaccine (#1) 2025 Insurance [facility] Medicaid Care Teams Choke Setter Relationship Specialty Start Date End Date Neil Dentonluis fernandomaxine 175 [facility] [address] [place] [address] PCP - General 03/05/23
--- OUTSIDE RECORDS SUMMARY | 2025-02-20 17:50 | XMS_ITS ---
Author Organization [facility] Address [address] [place] [address] Care Team Providers Care Residential Sales Consultant Name Role Phone Melissa Denton Primary Care Provider [phone] Transplant Episode Kidney Candidate [facility] ([place], [place]) - [facility] waitlisted on 03/16/2024 Marked as Inactive on 02/02/2025 Reason: Financial/Insurance Complications Kidney CoordinatorIndia Benavides RN Fax: N/A Email: N/A Scores Score Value Updated Exceptions/Reas ons CPRA 0 04/03/2024 EPTS (Calc) 7 02/20/2025 Care Team Name Role Phone Fax Email India Benavides RN Kidney Coordinator [phone] N/A N/A Niraj Corbin Referring Physician [phone] N/A Events Pre-Transplant Referred: 11/26/2023 Evaluation began: 02/14/2024 Committee: 02/16/2024 Center waitlisted: 03/16/2024 Appointments (01/20/2025 - 03/22/2025) When With Visit Type Description 01/30/2025 Transplant - Soraya Franz [facility] 02/28/2025 Transplant - Soraya Restrepo Follow Up
--- OUTSIDE RECORDS SUMMARY | 2025-02-20 17:50 | XMS_ITS | Encounter Summary ---
Author Organization [facility] Address [address] [place] [address] Care Team Providers Care Strap Buckler Machine Name Role Phone Melissa Denton Primary Care Provider [phone] Encounter Details Date Type Department Care Team (Late st Contact Info) Description 02/13/2025 myChart Message [facility]al Transplant [address] [place] [address] India Benavides RN [address] [place] [address] ruel Osborne Social History Tobacco Use Types [...] Info) Description 02/28/2025 1:40 PM EDT Follow-Up [facility] Transplant [address] [place] [address] Calvin Restrepo MD [address] [place] [address] 03/13/2025 1:40 PM EDT Follow-Up [facility] [address] [place] [phone] Advertising Inserter: Davidson Caballero MD [address] [place] [phone] 01/29/2026 11:30 AM EDT Social Work [facility] Transplant [address] [place] [address] Jacob Franz documented as of this encounter Visit Diagnoses Not on filedocumented in this encounter Care Teams Strap Buckler Machine Relationship Specialty Start Date End Date Melissa Denton [address] [place] [phone] PCP - General 02/14/24 documented as of this encounter
--- OUTSIDE RECORDS SUMMARY | 2025-02-20 17:50 | XMS_ITS | Encounter Summary ---
Author Organization [facility] Address [address] [place] [address] Care Team Providers Care Barrel Charrer Helper Name Role Phone Melissa Denton Primary Care Provider [phone] Encounter Details Date Type Department Care Team (Late st Contact Info) Description 02/13/2025 myChart Message [facility] [address] [place] [address] Malt Loader: Micaela Garvey, Davidson Spann MD [address] [place] [address] Garvey Social History Tobacco Use Types [...] Info) Description 02/28/2025 1:40 PM EDT Follow-Up [facility] Renal Transplant [address] [place], [place] [phone] Calvin Restrepo MD [address] [place], [place] [phone] 03/13/2025 1:40 PM EDT Follow-Up [facility] [address] [place] [address] Malt Loader: Davidson Caballero MD [address] [place] [address] 01/29/2026 11:30 AM EDT Social Work [facility] Renal Transplant [address] [place] [phone] Jacob Franz documented as of this encounter Visit Diagnoses Not on filedocumented in this encounter Care Teams Barrel Charrer Helper Relationship Specialty Start Date End Date Melissa Denton 175 [facility] [address] [place] [address] PCP - General 02/14/24 documented as of this encounter
--- OUTSIDE RECORDS SUMMARY | 2025-02-20 17:50 | XMS_ITS | Encounter Summary ---
Author Organization [facility] Address [address] [place] [address] Care Team Providers Care Weapons Mechanic Name Role Phone Melissa Denton Primary Care Provider [phone] Encounter Details Date Type Department Care Team (Late st Contact Info) Description 01/20/2025 myChart Message [facility] Renal Transplant [address] [place] [address] China Caputo RN [address] [place] [address] Your Recent Visit Social History Tobacco Use [...] Info) Description 02/28/2025 1:40 PM EDT Follow-Up [facility] Transplant [address] [place] [address] Calvin Restrepo MD [address] [place] [address] 03/13/2025 1:40 PM EDT Follow-Up [facility] [address] [place] [address] Ice Scraper: Davidson Caballero MD [address] [place] [phone] 01/29/2026 11:30 AM EDT Social Work [facility] Renal Transplant [address] [place] [address] Jacob Franz documented as of this encounter Visit Diagnoses Not on filedocumented in this encounter Care Teams Weapons Mechanic Relationship Specialty Start Date End Date Melissa Denton [address] [address] PCP - General 02/14/24 documented as of this encounter
--- OUTSIDE RECORDS SUMMARY | 2025-02-20 17:50 | XMS_ITS | Clinical Summary ---
Author Organization [facility] Address [address] [place] [address] Care Team Providers Care Containers Sales Representative Name Role Phone Melissa Denton Primary Care Provider [phone] Allergies Active Allergy Reactions Criticality Noted Date [...] get the renal biopsy report over from [facility] (I do not see in care [...] Department Care Team Description 02/13/2025 myChart Message [facility] [address] [place] [address] India Benavides RN hi Linda 02/13/2025 myChart Message [facility] [address] [place] [address] Access Specialist: Davidson Caballero MD Hi DR Cheah 02/02/2025 Telephone [facility] Trans[facility] Department [address] [place] [phone] India Benavides RN 01/20/2025 myChart Message [facility] [address] [place] [address] China Caputo RN Your Recent Visit 01/19/2025 Telephone [facility] [address] [place] [address] Jacob Franz 12/23/2024 myChart Message [facility] [address] [place] [phone] Access Specialist: Davidson Caballero MD Ky Dr Garvey 12/20/2024 myChart Message [facility] [address] [place] [address] China Caputo RN Your Recent Visit 11/28/2024 12:12 PM EDT - 11/28/2024 11:59 PM EDT Hospital Encounter [facility] [address] [place] [address] PR3 ANCA antibodies present Discharge Disposition: Home or Self Care () 11/20/2024 mySBXhart Message [facility] [address] [place] [address] China Caputo, RN Your Recent Visit from [...] Info) Description 02/28/2025 1:40 PM EDT Follow-Up [facility] [address] [place] [address] Calvin Restrepo MD [address] [place] [address] 03/13/2025 1:40 PM EDT Follow-Up [facility] [address] [place] [address] Access Specialist: Davidson Caballero MD [address] [place] [address] [id number] 01/29/2026 11:30 AM EDT Social Work [facility] [address] [place], [place] [phone] Jacob Franz Health Maintenance Due Date Last [...] complete this topic Procedures * Due to [place] state law, this organization might not be [...] to Health Maintenance Results * Due to [place] state law, this organization might not be [...] findings as reported or so edited. Trainee: eVda Higginbotham If this radiology report contains a blank impression section, it is an incomplete radiology report. Please contact the interpreting radiologist or applicable radiology division as soon as possible to obtain the completed interpretation. Workstation ID: [id number] Up-to-date CT equipment and radiation dose reduction [...] thoracic vertebral body heights. Resulting Agency Comment [id number] Procedure Note Win Abdi MD PhD - [...] possible to obtain thecompleted interpretation. Workstation ID: [id number] Up-to-date CT equipment and radiation dose reduction techniques wereemployed. CTDIvol: 3.0 - 3.8 mGy. DLP: 312 mGy-cm. us Davidson Garvey MD IMG CT PROCEDURES Final Res ult * (ABNORMAL) CBC Auto Differential (08/23/2024 4:12 PM EDT) WBC 8.4 3.8 - 10.8 10*3/uL 08/23/2024 4:33 PM EDT [facility] RBC 2.96(L) 3.80 - 5.10 10*6/uL 08/23/2024 4:33 PM EDT [facility] Hemoglobin 8.9(L) 11.7 - 15.5 g/dL 08/23/2024 4:33 PM EDT [facility] Hematocrit 26.8(L) 35.0 - 45.0 % 08/23/2024 4:33 PM EDT [facility] MCV 90.5 80.0 - 100.0 fL 08/23/2024 4:33 PM EDT [facility] MCH 30.1 27.0 - 33.0 pg 08/23/2024 4:33 PM EDT [facility] MCHC 33.2 32.0 - 36.0 g/dL 08/23/2024 4:33 PM EDT [facility] RDW 12.3 11.0 - 15.0 % 08/23/2024 4:33 PM EDT [facility] Platelets 178 140 - 400 10*3/uL 08/23/2024 4:33 PM EDT [facility] MPV 9.6 7.5 - 12.5 fL 08/23/2024 4:33 PM EDT [facility] Neutrophil % 72.3 % 08/23/2024 4:33 PM EDT [facility] Immature Grans % 0.2 0.0 - 0.9 % 08/23/2024 4:33 PM EDT [facility] Lymphocyte % 19.9 % 08/23/2024 4:33 PM EDT [facility] Monocyte % 3.2 % 08/23/2024 4:33 PM EDT [facility] Eosinophil % 3.8 % 08/23/2024 4:33 PM EDT [facility] Basophil % [...] - 0.95 10*3/uL 08/23/2024 4:33 PM EDT [facility] Eosinophil # 0.30 0.02 - 0.50 10*3/uL 08/23/2024 4:33 PM EDT [facility] Basophil # 0.10 0.00 - 0.20 10*3/uL 08/23/2024 4:33 PM EDT [facility] nRBC % 0.0 /100 WBCs 08/23/2024 4:33 PM EDT [facility] nRBC # <0.01 <0.01 10*3/uL 08/23/2024 4:33 PM EDT [facility] Blood Structure of peripheral vein / Unknown Venipuncture / Unknown 08/23/2024 4:12 PM EDT 08/23/2024 4:18 PM EDT Davidson Garvey MD LAB BLOOD ORDERABLES Final Result [facility] [address] [place] [address], [place] * Phosphorus (08/23/2024 4:12 PM EDT) [facility] Phosphorus 3.2 2.5 - 4.5 mg/dL 08/23/2024 5:04 PM EDT [facility] Blood Structure of peripheral vein / Unknown Venipuncture / Unknown 08/23/2024 4:12 PM EDT 08/23/2024 4:23 PM EDT Davidson Garvey MD LAB BLOOD ORDERABLES Final Result [facility] [address] [place] [address], [place] * (ABNORMAL) PTH, Intact (without Calcium) (08/23/2024 4:12 PM EDT) [facility] Parathyroid Hormone, Intact 273(H) 16 - 77 pg/mL 08/24/2024 8:06 AM EDT [facility] Comment: Interpretive Guide Intact PTH Calcium ------- Normal Parathyroid Normal Normal Hypoparathyroidism Low or Low Normal Low Hyperparathyroidism Primary Normal or High High Secondary High Normal or Low Tertiary High High Non-Parathyroid Hypercalcemia Low or Low Normal High Blood Structure of peripheral vein / Unknown Venipuncture / Unknown 08/23/2024 4:12 PM EDT 08/23/2024 4:18 PM EDT [facility] - 08/24/2024 8:06 AM EDT [facility] Received Date: Davidson Garvey MD LAB BLOOD ORDERABLES Final Result [facility] [address], [place] [address], [facility] [address] [facility] [address] [facility], [place] [address], * (ABNORMAL) Comprehensive Metabolic Panel (08/23/2024 4:12 PM EDT) NA 136 135 - 145 mmol/L 08/23/2024 5:04 PM EDT [facility] K 3.7 3.5 - 5.3 mmol/L 08/23/2024 5:04 PM EDT [facility] Cl 100 98 - 107 mmol/L 08/23/2024 5:04 PM EDT [facility] CO2 19(L) 22 - 32 mmol/L 08/23/2024 5:04 PM EDT [facility] Anion Gap 17(H) 5 - 15 08/23/2024 5:04 PM EDT [facility] Glucose 104(H) 65 - 99 mg/dL 08/23/2024 5:04 PM EDT [facility] Creatinine 4.92(H) 0.50 - 1.20 mg/dL 08/23/2024 5:04 PM EDT [facility] Calcium 8.9 8.6 - 10.5 mg/dL 08/23/2024 5:04 PM EDT [facility] Total Protein 7.7 6.0 - 8.0 g/dL 08/23/2024 5:04 PM EDT [facility] Albumin 4.5 3.5 - 5.2 g/dL 08/23/2024 5:04 PM EDT [facility] Bilirubin, Total 0.3 0.2 - 1.2 mg/dL 08/23/2024 5:04 PM EDT [facility] Alkaline Phosphatase 99 35 - 129 U/L 08/23/2024 5:04 PM EDT [facility] AST 19 10 - 40 U/L 08/23/2024 5:04 PM EDT [facility] ALT 13 10 - 40 U/L 08/23/2024 5:04 PM EDT [facility] BUN 42(H) 7 - 23 mg/dL 08/23/2024 5:04 PM EDT [facility] eGFR 11(L) >=60 mL/min/1 .73m2 08/23/2024 5:04 PM EDT [facility] Comment:The estimated glomer ular [...] - 4.2 g/dL 08/23/2024 5:04 PM EDT [facility] A/G Ratio 1.4(L) 1.5 - 3.0 08/23/2024 5:04 PM EDT [email or web address] Blood Structure of peripheral vein / Unknown Venipuncture / Unknown 08/23/2024 4:12 PM EDT 08/23/2024 4:23 PM EDT us Davidson Garvey MD LAB BLOOD ORDERABLES Final Result [facility] [address] [place] [address], * Hepatitis Panel, Acute (02/14/2024 3:23 PM EDT) Hepatitis A IgM NON-REACT HILDA NON-REACT HILDA 02/15/2024 3:21 AM EDT [email or web address] Hepatitis B Surface Antigen NON-REACT HILDA NON-REACT HILDA 02/15/2024 3:21 AM EDT [email or web address] Hepatitis B Core Antibody NON-REACT HILDA NON-REACT HILDA 02/15/2024 3:21 AM EDT [email or web address] Hepatitis C Antibody NON-REACT HILDA NON-REACT HILDA 02/15/2024 3:21 AM EDT [email or web address] Comment: HCV antibody was non-reactive. There is no laboratory evidence of HCV infection. In most cases, no further action is required. However, if recent HCV exposure is suspected, a test for HCV RNA (test code 45012) is suggested. For additional information please refer to http://[employer]ActionBase/faq/QCO85f8 (This link is being provided for informational/ educational purposes only.) For additional information, please refer to http://[employer]ActionBase/faq/UNN793 (This link is being provided for informational/ educational purposes only.) Blood Structure of peripheral vein / Unknown Venipuncture / Unknown 02/14/2024 3:23 PM EDT 02/14/2024 3:32 PM EDT Narrative [facility] - 02/15/2024 3:21 AM EDT [facility] Received Date:[id number] us Calvin Restrepo MD LAB BLOOD ORDERABLES Final Re sult [facility] [address] [facility] 3rd Floor, [place] [address], [place] [phone] [email or web address] [address] [facility] [address], [place] [address], [place] [phone] from Last 3 Months or Most Recently Relevant to Health Maintenance Insurance [employer] Advance Directives Documents on File Type Date Recorded Patient Line Service Supervisor Expl anation Health Care Proxy 02/21/2024 8:06 AM 02-13 Care Teams Containers Sales Representative Relationship Specialty Start Date End Date Melissa Denton [address] [place] [address] PCP - General 02/14/24
--- OUTSIDE RECORDS SUMMARY | 2025-02-20 17:50 | XMS_ITS | Encounter Summary ---
Author Organization [facility], Address [address] [place] [address] Phone Care Team Providers Care Ui Developer Name Role Phone Melissa Denton Primary Care Provider [phone] Encounter Details Date Type Department Care Team (Late st Contact Info) Description 12/26/2024 Orders Only [facility] - [facility] [address] [place] [phone] Peg Crouch [address] [place] [phone] Social History Tobacco Use Types Packs/Day [...] on filedocumented in this encounter Care Teams Ui Developer Relationship Specialty Start Date End Date Melissa Denton [address] [facility] [address] [place] [address] PCP - General 03/05/23 documented as of this encounter
--- OUTSIDE RECORDS SUMMARY | 2025-02-20 17:50 | XMS_ITS | Clinical Summary ---
Author Organization [facility] Address [address] [place] [address] Phone Care Team Providers Care Watermelon Inspector Name Role Phone Melissa Denton MD Primary Care Provider [phone] Allergies Active Allergy Reactions Criticality Noted Date [...] stage 5, GFR less than 15 ml/min ([facility] V24, [facility] V28) Take 1 tablet (5 mg total) by mouth every 6 (six) hours if needed for severe pain. Max Daily Amount: 20 mg 8 tablet Active Active Problems Problem Noted Date Diagnosed Date CKD (chronic kidney disease) stage 5, GFR less than 15 ml/min ([facility] V24, [facility] V28) 12/26/2024 Primary hypertension 07/05/2023 Gastroesophageal reflux disease 03/24/2023 Overview (08/01/2024): DX:GERD (gastroesophageal reflux disease) Elevated blood pressure reading 03/24/2023 Stage 4 chronic kidney disease ([facility] V24, [facility] /[facility] V28) 03/24/2023 Encounters Date Type Department Care Team Description 02/20/2025 9:45 AM EDT Office Visit General Surgery [address] [address] Adama Solis MD 02/09/2025 9:00 AM EDT Office Visit General Surgery [address] [address] Adama Solis MD CKD (chronic kidney disease) stage 5, GFR less than 15 ml/min ([facility] V24, [facility] V28) (Primary Dx) 01/24/2025 1:52 PM EDT Anesthesia Event [facility] Main OR [address] [place] [address] Jose Carlos Cunningham MD Mounsey, Sarah, CRNA 01/24/2025 1:00 PM EDT - 01/24/2025 3:30 PM EDT Surgery [facility] Main OR [address] [place] [phone] Adama Solis MD CREATION FISTULA AV LEFT UPPER EXTREMITY; ?LEFT ARM GRAFT INSERTION [36613 (CPT )] 01/24/2025 10:59 AM EDT - 01/24/2025 6:01 PM EDT Hospital Encounter [facility] Main OR [address] [place] [address] Adama Solis MD CKD (chronic kidney disease) stage 5, GFR less than 15 ml/min (CMS/HCC V24, CMS/HCC V28) (Primary Dx) Discharge Disposition: Home or Self Care 01/10/[address] [address] Adama Solis MD 12/22/[address] [address] Adama Solis MD 12/20/2024 9:30 AM EDT Consult [address] [address] Adama Solis MD CKD (chronic kidney disease) stage 5, GFR less than 15 ml/min (CMS/HCC V24, CMS/HCC V28) (Primary Dx) from Last 3 Months Immunizations Name Administration Dates Next Due Td Tetanus diptheria (Tdvax) 7yo and older 03/24 Surgical History Surgery Date Site/Laterality Comments OTHER SURGICAL HISTORY 06/03/2023 PROCEDURE: [place] RENAL BIOPSY SURG EXPOSURE KIDNEY Medical History [...] Pulse 92 02/20/2025 9:23 AM EDT Temperature 36.3 C (97.4 F) 02/09/2025 9:19 AM EDT Respiratory Rate 16 01/24/2025 5:29 PM EDT Oxygen Saturation 97% 01/24/2025 5:29 PM EDT Inhaled Oxygen Concentration - - Weight 42 kg (92 lb 9.6 oz) 02/20/2025 9:23 AM E DT Height 146.1 cm (4' 9.5 ) 02/20/2025 9:23 AM EDT Body Mass Index 19.69 02/20/2025 9:23 AM EDT Plan of Treatment Upcoming Encounters Date Type Department Care Team (Late st Contact Info) Description 03/05/2025 1:30 PM EDT Office Visit Internal Medicine - [place] [facility] [address] [place] [phone] Melissa Denton MD 175 [facility] [address] [place] [phone] Health Maintenance Due Date Last Done Comments [...] this topic Medical Devices Implanted Type Area Top Screw Device Identifier Shelf Expiration Date Model / Serial / Lot Kit Surgiflo W 2000 Units Ster Lyo - Sn/A - [id number] Implanted:Qty: 1 on 01/24/2025 by Adama Solis MD at [facility] Hemostasis Left: Wrist [employer] 2994 / N/A / N/A Hemostat Absorb Surgicel 4x8in - Sn/A - [id number] Implanted:Qty: 1 on 01/24/2025 by Adama Solis MD at [facility] Hemostasis Left: Wrist [employer] 10/28/2025 1952S / N/A / [id number] Procedures Procedure Name Priority Date/Time Associated Diagnosis Comments TH AN ENDOTRACHEAL(NO CHARGE) Routine 01/24/2025 2:20 PM EDT [place] ANASTOMOSIS ARTERIOVENOUS DIRECT ANY SITE OPEN (SEPARATE [...] during procedure: OR Anesthesiologist: Meryl Salazar MD Resident/PHOTO MASK CLEANER: Linda Manriquez CRNA Performed: resident/PHOTO MASK CLEANER/CAA Performed by: Linda Manriquez CRNA Authorized by: [...] CBC auto differential (01/24/2025 11:52 AM EDT) WBC 5.6 4.8 - 10.8 K/mcL LAB HEMETOLOGY METHOD 01/24/2025 12:11 PM EDT [facility] RBC 3.30(L) 3.80 - 4.80 M/mcL LAB HEMETOLOGY METHOD 01/24/2025 12:11 PM EDT [facility] Hemoglobin 9.8(L) 11.5 - 16.0 g/dL LAB HEMETOLOGY METHOD 01/24/2025 12:11 PM [facility] Hematocrit 30.2(L) 35.0 - 47.0 % LAB HEMETOLOGY METHOD 01/24/2025 12:11 PM [facility] MCV 92.4 79.0 - 98.0 FL LAB HEMETOLOGY METHOD 01/24/2025 12:11 [facility] MCH 30.0 27.0 - 32.0 pcg LAB HEMETOLOGY METHOD 01/24/2025 12:11 PM [facility] MCHC 32.5 32.0 - 37.0 g/dL LAB HEMETOLOGY METHOD 01/24/2025 12:11 [facility] RDW 13.1 11.0 - 15.0 % LAB HEMETOLOGY METHOD 01/24/2025 12:11 [facility] Platelets 163 130 - 400 K/mcL LAB HEMETOLOGY METHOD 01/24/2025 12:11 PM [facility] MPV 9.4 7.0 - 11.0 FL LAB HEMETOLOGY METHOD 01/24/2025 12:11 [facility] NRBC 0.0 <1.0 % LAB HEMETOLOGY METHOD 01/24/2025 12:11 PM [facility] NRBC Absolute 0.00 <0.10 K/mcL LAB HEMETOLOGY METHOD 01/24/2025 12:11 [facility] Neutrophils Relative 75.5 % LAB HEMETOLOGY METHOD 01/24/2025 12:11 PM [facility] Lymphocytes Relative 12.8 % LAB HEMETOLOGY METHOD 01/24/2025 12:11 [facility] Monocytes Relative 7.4 % LAB HEMETOLOGY METHOD 01/24/2025 12:11 PM EDT [facility] Eosinophils Relative 3.4 % LAB HEMETOLOGY METHOD 01/24/2025 12:11 PM EDT [facility] Basophils Relative 0.5 % LAB HEMETOLOGY METHOD 01/24/2025 12:11 PM EDT [facility] Immature Granulocytes Relative 0.4 % LAB HEMETOLOGY METHOD 01/24/2025 12:11 PM EDT [facility] Neutrophils Absolute 4.26 1.50 - 7.00 K/mcL LAB HEMETOLOGY METHOD 01/24/2025 12:11 PM EDT [facility] Lymphocytes Absolute 0.72(L) 1.00 - 5.00 K/mcL LAB [facility]ETOLOGY METHOD [facility]25 [facility] Monocytes Absolute 0.42 0.20 - 1.00 K/mcL LAB HEMETOLOGY METHOD 01/24/2025 12:11 PM EDT [facility] Eosinophils Absolute 0.19 0.00 - 0.50 K/mcL LAB HEMETOLOGY METHOD [facility]/24[facility]25 [facility] Basophils Absolute 0.03 0.00 - 0.20 K/mcL LAB HEMETOLOGY METHOD 01/24/2025 12:11 PM EDT [facility] Immature Granulocytes Absolute 0.02 0.00 - 0.03 K/mcL LAB HEMETOLOGY METHOD 01/24/2025 12:11 PM T [facility] Blood Venous blood specimen / Unknown Venipuncture / Unknown 01/24/2025 11:52 AM EDT 01/24/2025 11:58 AM EDT us Adama Solis MD LAB BLOOD ORDERABLES Final Result [facility] [address] [place] [address], * (ABNORMAL) Basic metabolic panel (01/24/2025 11:52 AM EDT) Sodium 138 133 - 145 mmol/L LAB CHEMISTRY METHOD 01/24/2025 1:04 PM [facility] Potassium 3.8 3.5 - 5.5 mmol/L LAB CHEMISTRY METHOD 01/24/2025 1:04 PM [facility] Chloride 106 96 - 110 mmol/L LAB CHEMISTRY METHOD 01/24/2025 1:04 PM [facility] CO2 20(L) 21 - 32 mmol/L LAB CHEMISTRY METHOD 01/24/2025 1:04 PM [facility] Anion Gap 12(H) 3 - 11 LAB CHEMISTRY METHOD 01/24/2025 1:04 PM [facility] Glucose 96 70 - 100 mg/dL LAB CHEMISTRY METHOD 01/24/2025 1:04 PM [facility] BUN 72(H) 5 - 25 mg/dL LAB CHEMISTRY METHOD 01/24/2025 1:04 PM [facility] Comment:Results verified by repeat testing Creatinine 7.53(H) 0.50 - 1.10 mg/dL LAB CHEMISTRY METHOD 01/24/2025 1:04 PM [facility] eGFR 6(L) >=60 mL/min/1. 73m2 LAB CHEMISTRY METHOD 01/24/2025 1:04 PM [facility] Comment:Calculation based on the Chronic Kidney Disease Epidemiology Collaboration (CKD-EPI) equation refit without adjustment for race. BUN/Creatinine Ratio 9.6 LAB CHEMISTRY METHOD 01/24/2025 1:04 PM [facility] Calcium 9.0 8.5 - 10.5 mg/dL LAB CHEMISTRY METHOD 01/24/2025 1:04 PM [facility] Blood Venous blood specimen / Unknown Venipuncture / Unknown 01/24/2025 11:52 AM EDT 01/24/2025 11:58 AM EDT Adama Solis MD LAB BLOOD ORDERABLES Final Result Performing Organization Address City/[facility]/ZIP Co de Phone Number [facility] [address] [place] [address], [place] [phone] * External lab - collection, processing and handling (01/22/2025 12:48 PM EDT) Only the most recent of2 resultswithin the time period is included. Extra Tube Hold for add-ons. 01/22/2025 3:02 PM EDT [facility] Comment:Auto resulted. Blood Venous blood specimen / Unknown Venipuncture / Unknown 01/22/2025 12:48 PM EDT 01/22/2025 1:02 PM EDT Calvin Restrepo MD LAB BLOOD ORDERABLES Final Resu lt Performing Organization Address [facility] Co de Phone Number [facility] [address] [place] [address], [place] [phone] * Venipuncture charge (11/22/2024 1:45 PM EDT) Extra Tube Hold for add-ons. 11/22/2024 4:01 PM EDT [facility] Comment:Auto resulted. Blood Venous blood specimen / Unknown Venipuncture / Unknown 11/22/2024 1:45 PM EDT 11/22/2024 2:11 PM EDT Calvin Restrepo MD LAB BLOOD ORDERABLES Final Resu lt Performing Organization Address [facility]/ZIP Co de Phone Number [facility] [address] [place] [address], [place] [phone] * (ABNORMAL) Lipid panel with reflex to direct LDL (08/31/2024 11:23 AM EDT) [facility] Cholesterol 247(H) 0 - 200 mg/dL LAB CHEMISTRY METHOD 08/31/2024 4:33 PM EDT [facility] Triglycerides 125 0 - 150 mg/dL LAB CHEMISTRY METHOD 08/31/2024 4:33 PM EDT [facility] HDL 89 >=40 mg/dL LAB CHEMISTRY METHOD 08/31/2024 4:33 PM EDT [facility] LDL Calculated 133(H) 0 - 100 mg/dL LAB CHEMISTRY METHOD 08/31/2024 4:33 PM EDT [facility] VLDL Cholesterol Germán 25 mg/dL LAB CHEMISTRY METHOD 08/31/2024 4:33 PM EDT [facility] Non HDL Chol. (LDL+VLDL) 158(H) <145 mg/dL LAB CHEMISTRY METHOD 08/31/2024 4:33 PM EDT [facility] Chol/HDL Ratio 2.8 0.0 - 4.4 LAB CHEMISTRY METHOD 08/31/2024 4:33 PM EDT [facility] Blood Venous blood specimen / Unknown Venipuncture / Unknown 08/31/2024 11:23 AM EDT 08/31/2024 12:49 PM EDT Melissa Denton MD LAB BLOOD ORDERABLES Final Resul t [facility] [address] [place] [address], [place] [phone] * Cervical Cancer Screening: HPV (07/01/2023) [facility] Cervical Cancer Screening: HPV Negative, Abstracted Historical Provider HEALTH MAINTENANCE Final Result * Hepatitis C Screening (02/22/2023) [facility] Hepatitis C Screening Abstracted Agustina Bey MD HEALTH MAINTENANCE Final Result from Last 3 Months or Most Recently Relevant to Health Maintenance Insurance [facility] Care Teams Watermelon Inspector Relationship Specialty Start Date End Date Melissa Denton MD [address] [place] [phone] PCP - General Internal Medicine 06/05/24
== END 2025-02-20 15:03 | disposition home or self-care (01) ==
LOC: HO.HKAS 14:39
PROVIDERS: PCP Student in an Organized Health Care Education/Training Program; Visit Provider Internal Medicine Nephrology
DX: I15.1 Hypertension secondary to other renal disorders (principal); N25.81 Secondary hyperparathyroidism of renal origin; E55.9 Vitamin D deficiency, unspecified; N18.5 Chronic kidney disease, stage 5; N18.4 Chronic kidney disease, stage 4 (severe); D63.1 Anemia in chronic kidney disease
CPT/HCPCS: 99214

== ENCOUNTER → 2025-02-20 14:38 | Outpatient (BNVA) | payer OTHER, SELFPAY | PROVIDERS: PCP Student in an Organized Health Care Education/Training Program; Visit Provider Internal Medicine Nephrology | DX: I15.1 Hypertension secondary to other renal disorders (principal); N25.81 Secondary hyperparathyroidism of renal origin; E55.9 Vitamin D deficiency, unspecified; N18.5 Chronic kidney disease, stage 5; D63.1 Anemia in chronic kidney disease | CPT/HCPCS: 96372; 99212; Q5106 ==

== ENCOUNTER 2025-03-26 13:49 | Outpatient (REF) | payer OTHER, SELFPAY ==
--- OUTSIDE RECORDS SUMMARY | 2025-03-26 17:29 | XMS_ITS | Clinical Summary ---
Author Organization [facility] Address [address] [place] [address] Care Team Providers Care Installation And Repair Technician Name Role Phone Melissa Denton Primary Care Provider [phone] Allergies Active Allergy Reactions Criticality Noted Date Comments Alcohol Hives 02/14/2024 Beef Containing Products Hives 02/14/2024 Medications amLODIPine (NORVASC) 5 mg tablet Take 5 mg by mouth 2 times a day. Active cholecalciferol (VITAMIN D3) 1,250 mcg (50,000 unit) capsule Take 50,000 Units by mouth every [address] (PROTONIX) 40 mg tablet Take 40 mg by mouth once a day. Active ferrous sulfate 325 mg (65 mg iron) tablet SMARTSI Tablet(s) By Mouth Twice Daily 02/15/2025 Active calcitrioL (ROCALTROL) 0.25 mcg capsule Take 0.25 mcg by mouth. 06/06/2024 Active ferrous sulfate 325 mg (65 mg iron) EC tablet Take 65 mg by mouth 2 (two) times a day. 02/29/20 25 Discontinu ed(Duplica te order) Active Problems Problem Noted Date Diagnosed Date Hypertension 02/04/2024 Chronic kidney disease, stage V 02/04/2024 Assessment & Plan (03/13/2025 2:11 PM EDT): Here for CKD V and [...] not seem to be evidence of ongoing inflammation and our additional work up has not demonstrated this either at the present time. -at this time, given that there is lack of evidence of active systemic inflammation, I agree that we should not lindquist into systemic immunosuppression given the potential for adverse effects which may then impact the ability re: transplant -we have discussed things to look out for e.g. arthritis, tingling/numbness, rashes that would warrant a message and for us to reassess Assessment & Plan (08/23/2024 1:14 PM EDT): [...] get the renal biopsy report over from [facility] (I do not see in [...] Encounters Date Type Department Care Team Description 03/22/2025 myChart Message [facility] Renal Transplant [address] [place] [address] China Caputo, JAS Your Recent Visit 03/13/2025 1:40 PM EDT Follow-Up [facility] [address] [place] [address] Laundry Assistant: Davidson Caballero MD Chronic kidney disease, stage V (Primary Dx) 03/02/2025 Orders Only [facility] Transplant Department [address] [place] [address] China Caputo, JAS Stage 4 chronic kidney disease (Primary Dx); Pre-transplant evaluation for kidney transplant 02/28/2025 1:40 PM EDT Follow-Up [facility] Transplant [address] [place] [address] Calvin Restrepo MD Pre-transplant evaluation for kidney transplant (Primary Dx); ANCA-associated vasculitis ; Stage 4 chronic kidney disease 02/21/2025 myChart Message [facility] Transplant [address] [place] [address] India Benavides RN Active 02/13/2025 myChart Message [facility]plant [address] [place] [address] India Benavides RN la [place] 02/13/2025 myChart Message [facility] [address] [place] [address] Laundry Assistant: Davidson Caballero MD Nv DR Garvey 02/02/2025 Telephone [facility] Transplant Department [address] [place] [address] India Benavides RN 01/30/2025 11:00 AM EDT Social Work [facility] Transplant [address] [place] [address] Jacob Franz 01/20/2025 myChart Message [facility] Transplant [address] [place] [address] China Caputo RN Your Recent Visit 01/19/2025 Telephone [facility] Transplant Department [address] [place] [address] Jacob Franz from Last 3 Months Family History Medical [...] Sign Reading Time Taken Comments Blood Pressure 136/88 03/13/2025 1:38 PM EDT Pulse 88 03/13/2025 1:38 PM EDT Temperature 36.8 C (98.3 F) 03/13/2025 1:38 PM EDT Respiratory Rate 18 02/28/2025 1:14 PM EDT Oxygen Saturation 100% 02/28/2025 1:14 PM EDT Inhaled Oxygen Concentration - - Weight 40.8 kg (90 lb) 03/13/2025 1:38 PM EDT Height 149.9 cm (4' 11.02 ) 11/01/2024 9:05 AM E DT Body Mass Index 18.17 11/01/2024 9:05 AM EDT Plan of Treatment Upcoming Encounters Date Type Department Care Team (Late st Contact Info) Description 01/29/2026 11:30 AM EDT Social Work [facility] Transplant [address] [place] [address] Jacob Franz 02/28/2026 11:40 AM EDT Follow-Up [facility] Transplant [address] [place] [address] Calvin Restrepo MD [address] [place] [address] 03/12/2026 1:00 PM EDT Follow-Up [facility] [address] [place] [address] Laundry Assistant: Nishi Michelle MD [address] [place] [address] Health Maintenance Due Date Last Done Comments [...] 05/31/2024 Mammogram 2024 COVID-19 Vaccine (1 - 2024-2 6 season) 2025 Influenza Vaccine (#1) 2025 Basic Metabolic Panel 04/26/2025 01/24/2025 , 08/23/2024 Hemoglobin 08/23/2025 08/23/2024, 02/14/2024 PTH 08/23/2025 08/23/2024 Phosphorus 08/23/2025 08/23/2024, 02/14/2024 RSV Vaccine (60+ years old and patients) (1 - 1-dose 75+ series) 11/05/2059 HIV Screening Completed 02/14/2024 Hepatitis C Screening Completed 02/14/2024 , 04/07/2023 Alcohol/Substance Use Screening Completed 11/01/2024 CKD: Referral to Nephrology Completed 02/28/2025 Pneumococcal Vaccine: Pediatric (0-5 Years) and At-Risk Patients (6-50 Years) Aged Out No longer eligible based on patient's age to complete this topic Procedures * Due to [place] state law, this organization might not be sharing negative HIV tests. Procedure Name Priority Date/Time Associated Diagnosis Comments MITOCHONDRIAL TITER Routine 02/28/2025 2 :20 PM EDT ANCA-associated vasculitis MITOCHONDRIAL ANTIBODY W/REFLEX Today 02/28/2025 2:20 PM EDT ANCA-associated vasculitis ANCA SCREEN W MPO AND PR3, W REFLEX TO ANCA TITER Today 02/28/2025 2:20 PM EDT ANCA-associated vasculitis HLA MONTHLY ANTIBODY IDENTIFICATION - CLASS I Routine 02/26/2025 12:40 PM EDT Stage 4 chronic kidney disease (HCC) Pre-transplant evaluation for kidney transplant HLA MONTHYLY ANTIBODY IDENTIFICATION - CLASS II Routine 02/26/2025 12:40 PM EDT Stage 4 chronic kidney disease [...] to Health Maintenance Results * Due to [place] state law, this organization might not be sharing negative HIV tests. * (ABNORMAL) ANCA Screen w MPO and PR3 w/ Reflex to ANCA Titer (02/28/2025 2:20 PM EDT) ANCA Screen NEGATIVE NEGATIVE 03/07/2025 1:49 PM EDT [facility] Comment: ANCA screen uses indirect immunofluorescence to detect antibodies to neutrophil cytoplasmic antigens. A positive screen reflexes to titer and pattern. Patterns include cytoplasmic (c-ANCA) and perinuclear (p-ANCA) both of which are associated with vasculitis, and atypical p-ANCA which is associated with inflammatory bowel disease and other disorders. Myeloperoxidase Antibody <1.0 AI 03/07/2025 1:49 PM EDT [facility] Comment: Value Interpretation ----- <1.0 No Antibody [...] are present in active disease. Proteinase-3 Antibody 5.5(H) AI 03/07/2025 1:49 PM EDT [facility] Comment: Value Interpretation ----- <1.0 No Antibody Detected > or = 1.0 Antibody Detected Autoantibodies to proteinase-3 (MT-3) are accepted as characteristic for granulomatosis with polyangiitis (GPA, Kiarra's), and are detectable in 95% of the histologically proven cases. The cytoplasmic IFA pattern, (c-ANCA), is based largely on autoantibody to MT-3 which serves as the primary antigen. These autoantibodies are present in active disease. Blood Structure of peripheral vein / Unknown Venipuncture / Unknown 02/28/2025 2:20 PM EDT 02/28/2025 2:40 PM EDT Narrative [facility] - 03/07/2025 1:49 PM EDT [facility] Received Date:[id number] us Calvin Restrepo MD LAB BLOOD ORDERABLES Final Re sult Performing Organization Address [facility] Co de Phone Number [address], [place] [address], [facility] [address], [place] [address], * (ABNORMAL) Mitochondrial Titer (02/28/2025 2:20 PM EDT) Mitochondrial Antibody Titer 1:640(H) <1:20 titer 03/07/2025 7:58 AM EDT [facility] Blood Structure of peripheral vein / Unknown Venipuncture / Unknown 02/28/2025 2:20 PM EDT 02/28/2025 2:40 PM EDT Narrative [facility] - 03/07/2025 7:58 AM EDT [facility] Received Date:[id number] us Calvin Restrepo MD LAB BLOOD ORDERABLES Final Re sult Performing Organization Address [facility] Co de Phone Number [facility] [address], [place] [address], [place] [phone] [facility] [address], [place] [address], * (ABNORMAL) Mitochondrial Antibody w/Reflex (02/28/2025 2:20 PM EDT) Pathologist [facility] Mitochondrial Ab Screen POSITIVE (A) NEGATIVE 03/07/2025 7:41 AM EDT [facility] Blood Structure of peripheral vein / Unknown Venipuncture / Unknown 02/28/2025 2:20 PM EDT 02/28/2025 2:40 PM EDT Narrative [facility] - 03/07/2025 7:41 AM EDT [facility] Received Date: Calvin Restrepo MD LAB BLOOD ORDERABLES Final Re sult [facility] [address] [facility] [address]rd Floor, [place] [address], [place] [phone] [facility] [address] [facility] 3rd Floor, [place] [address], * (ABNORMAL) CBC Auto Differential (08/23/2024 4:12 PM EDT) [facility] WBC 8.4 3.8 - 10.8 10*3/uL 08/23/2024 4:33 PM EDT [facility] RBC 2.96(L) 3.80 - 5.10 10*6/uL 08/23/2024 4:33 PM EDT [facility] Hemoglobin 8.9(L) 11.7 - 15.5 g/dL 08/23/2024 4:33 PM EDT [facility] Hematocrit 26.8(L) 35.0 - 45.0 % 08/23/2024 4:33 PM EDT [facility] MCV 90.5 80.0 - 100.0 fL 08/23/2024 4:33 PM EDT [facility] MCH 30.1 27.0 - 33.0 pg 08/23/2024 4:33 PM EDT [facility] MCHC 33.2 32.0 - 36.0 g/dL 08/23/2024 4:33 PM EDT [facility] RDW 12.3 11.0 - 15.0 % 08/23/2024 4:33 PM EDT [facility] Platelets 178 140 - 400 10*3/uL 08/23/2024 4:33 PM EDT [facility] MPV 9.6 7.5 - 12.5 fL 08/23/2024 4:33 PM EDT [facility] Neutrophil % 72.3 % 08/23/2024 4:33 PM EDT [facility] Immature Grans % 0.2 0.0 - 0.9 % 08/23/2024 4:33 PM EDT [facility] Lymphocyte % 19.9 % 08/23/2024 4:33 PM EDT [facility] Monocyte % 3.2 % 08/23/2024 4:33 PM EDT [facility] Eosinophil % 3.8 % 08/23/2024 4:33 PM EDT [facility] Basophil % 0.6 % 08/23/2024 4:33 PM EDT [facility] Neutrophil # 6.08 1.50 - 7.80 10*3/uL 08/23/2024 4:33 PM EDT [facility] Immature Grans # <0.03 <=0.03 10*3/uL 08/23/2024 4:33 PM EDT [facility] Lymphocyte # 1.70 0.85 - 3.90 10*3/uL 08/23/2024 4:33 PM EDT [facility] Monocyte # 0.30 0.20 - 0.95 10*3/uL 08/23/2024 4:33 PM EDT [facility] Eosinophil # 0.30 0.02 - 0.50 10*3/uL 08/23/2024 4:33 PM EDT [facility] Basophil # 0.10 0.00 - 0.20 10*3/uL 08/23/2024 4:33 PM EDT [facility] nRBC % 0.0 /100 WBCs 08/23/2024 4:33 PM EDT [facility] nRBC # <0.01 <0.01 10*3/uL 08/23/2024 4:33 PM EDT [facility] Blood Structure of peripheral vein / Unknown Venipuncture / Unknown 08/23/2024 4:12 PM EDT 08/23/2024 4:18 PM EDT Davidson Garvey MD LAB BLOOD ORDERABLES Final Result Performing Organization Address City/[facility]/ZIP Co de Phone Number [facility] [address] [place] [address], [place] * Phosphorus (08/23/2024 4:12 PM EDT) Pathologist [facility] Phosphorus 3.2 2.5 - 4.5 mg/dL 08/23/2024 5:04 PM EDT [facility] Blood Structure of peripheral vein / Unknown Venipuncture / Unknown 08/23/2024 4:12 PM EDT 08/23/2024 4:23 PM EDT Davidson Garvey MD LAB BLOOD ORDERABLES Final Result [facility] [address] [place] [address], * (ABNORMAL) PTH, Intact (without Calcium) (08/23/2024 4:12 PM EDT) Parathyroid Hormone, Intact 273(H) 16 - 77 pg/mL 08/24/2024 8:06 AM EDT [facility] Comment: Interpretive Guide Intact PTH Calcium ------- Normal Parathyroid Normal Normal Hypoparathyroidism Low or Low Normal Low Hyperparathyroidism Primary Normal or High High Secondary High Normal or Low Tertiary High High Non-Parathyroid Hypercalcemia Low or Low Normal High Blood Structure of peripheral vein / Unknown Venipuncture / Unknown 08/23/2024 4:12 PM EDT 08/23/2024 4:18 PM EDT [facility] 08/24/2024 8:06 AM EDT [facility] Received Date: us Davidson Garvey MD LAB BLOOD ORDERABLES Final Result [facility] [address] [facility] [address]rd [facility], [place] [address], [place] [phone] [facility] [address], [place] [address], [place] [phone] * (ABNORMAL) Comprehensive Metabolic Panel (08/23/2024 4:12 PM EDT) NA 136 135 - 145 mmol/L 08/23/2024 5:04 PM EDT [facility] K 3.7 3.5 - 5.3 mmol/L 08/23/2024 5:04 PM EDT [facility] Cl 100 98 - 107 mmol/L 08/23/2024 5:04 PM EDT [facility] CO2 19(L) 22 - 32 mmol/L 08/23/2024 5:04 PM EDT [facility] Anion Gap 17(H) 5 - 15 08/23/2024 5:04 PM EDT [facility] Glucose 104(H) 65 - 99 mg/dL 08/23/2024 5:04 PM EDT [facility] Creatinine 4.92(H) 0.50 - 1.20 mg/dL 08/23/2024 5:04 PM EDT [facility] Calcium 8.9 8.6 - 10.5 mg/dL 08/23/2024 5:04 PM EDT [facility] Total Protein 7.7 6.0 - 8.0 g/dL 08/23/2024 5:04 PM EDT [facility] Albumin 4.5 3.5 - 5.2 g/dL 08/23/2024 5:04 PM EDT [facility] Bilirubin, Total 0.3 0.2 - 1.2 mg/dL 08/23/2024 5:04 PM EDT [facility] Alkaline Phosphatase 99 35 - 129 U/L 08/23/2024 5:04 PM EDT [facility] AST 19 10 - 40 U/L 08/23/2024 5:04 PM EDT [facility] ALT 13 10 - 40 U/L 08/23/2024 5:04 PM EDT [facility] BUN 42(H) 7 - 23 mg/dL 08/23/2024 5:04 PM EDT [facility] eGFR 11(L) >=60 mL/min/1 .73m2 08/23/2024 5:04 PM EDT [facility] Comment:The estimated glomer ular [...] - 4.2 g/dL 08/23/2024 5:04 PM EDT [facility] A/G Ratio 1.4(L) 1.5 - 3.0 08/23/2024 5:04 PM EDT [facility] Blood Structure of peripheral vein / Unknown Venipuncture / Unknown 08/23/2024 4:12 PM EDT 08/23/2024 4:23 PM EDT Davdison Garvey MD LAB BLOOD ORDERABLES Final Result [facility] [address] [place] [address], * Hepatitis Panel, Acute (02/14/2024 3:23 PM EDT) Hepatitis A IgM NON-REACT HILDA NON-REACT HILDA 02/15/2024 3:21 AM EDT [facility] Hepatitis B Surface Antigen NON-REACT HILDA NON-REACT HILDA 02/15/2024 3:21 AM EDT [facility] Hepatitis B Core Antibody NON-REACT HILDA NON-REACT HILDA 02/15/2024 3:21 AM EDT [facility] Hepatitis C Antibody NON-REACT HILDA NON-REACT HILDA 02/15/2024 3:21 AM EDT [facility] Comment: HCV antibody was non-reactive. There is no laboratory evidence of HCV infection. In most cases, no further action is required. However, if recent HCV exposure is suspected, a test for HCV RNA (test code 51358) is suggested. For additional information please refer to http://GeoVS.Amerityre.[employer]/faq/VTP19m9 (This link is being provided for informational/ educational purposes only.) For additional information, please refer to http://Ge[employer]merityre.[employer]/faq/AHH562 (This link is being provided for informational/ educational purposes only.) Blood Structure of peripheral vein / Unknown Venipuncture / Unknown 02/14/2024 3:23 PM EDT 02/14/2024 3:32 PM EDT Narrative [facility] - 02/15/2024 3:21 AM EDT [facility] Received Date:[id number] us Calvin Restrepo MD LAB BLOOD ORDERABLES Final Re sult [facility] [address], [place] [address], [place] [phone] [facility] [address], [place] [address], [place] [phone] from Last 3 Months or Most Recently Relevant to Health Maintenance Insurance [place] [address] [address] MEDICAID Advance Directives Documents on File Type Date Recorded Patient History Teacher Expl anation Health Care Proxy 02/21/2024 8:06 AM 02-13 Care Teams Installation And Repair Technician Relationship Specialty Start Date End Date Melissa Denton [address] [address] PCP - General 02/14/24
--- OUTSIDE RECORDS SUMMARY | 2025-03-26 17:29 | XMS_ITS | Encounter Summary ---
Author Organization [facility] Address [address] [place] [address] Care Team Providers Care Adjunct Political Science Instructor Name Role Phone Melissa Denton Primary Care Provider [phone] Encounter Details Date Type Department Care Team (Late st Contact Info) Description 02/21/2025 myChart Message [facility] Transplant [address] [place] [address] India Benavides RN [address] [place] [address] Active Social History Tobacco Use Types Packs/Day Years [...] Description 01/29/2026 11:30 AM EDT Social Work [facility] [address] [place], [place] [phone] Jacob Franz 02/28/2026 11:40 AM EDT Follow-Up [facility]plant [address] [place] [address] Calvin Restrepo MD [address] [place], [place] [phone] 03/12/2026 1:00 PM EDT Follow-Up [facility] [address] [place] [address] Pipe Inspector: Nishi Michelle MD [address] [place] [address] documented as of this encounter Visit Diagnoses Not on filedocumented in this encounter Care Teams Adjunct Political Science Instructor Relationship Specialty Start Date End Date Melissa Denton [address] [place] [address] [place] [address] PCP - General 02/14/24 documented as of this encounter
--- OUTSIDE RECORDS SUMMARY | 2025-03-26 17:29 | XMS_ITS | Encounter Summary ---
Author Organization [facility] Address [address] [place] [address] Care Team Providers Care Napper Grinder Name Role Phone Melissa Denton Primary Care Provider [phone] Encounter Details Date Type Department Care Team (Late st Contact Info) Description 03/22/2025 myChart Message [facility] Renal Transplant [address] [place] [address] China Caputo RN [address] [place] [address] Your Recent Visit Social History Tobacco Use [...] Description 01/29/2026 11:30 AM EDT Social Work [facility] Transplant [address] [place], [place] [phone] Jacob Franz 02/28/2026 11:40 AM EDT Follow-Up [facility]al Transplant [address] [place], [place] [phone] Calvin Restrepo MD [address] [place] [address] 03/12/2026 1:00 PM EDT Follow-Up [facility] [address] [place] [address] Final Assembler: Nishi Michelle MD [address] [place] [address] documented as of this encounter Visit Diagnoses Not on filedocumented in this encounter Care Teams Napper Grinder Relationship Specialty Start Date End Date Melissa Denton [address] [place] [address] PCP - General 02/14/24 documented as of this encounter
--- OUTSIDE RECORDS SUMMARY | 2025-03-26 17:29 | XMS_ITS ---
Author Organization [facility] Address [address] [place] [address] Care Team Providers Care Maintenance Engineer Name Role Phone Melissa Denton Primary Care Provider [phone] Transplant Episode Kidney Candidate [facility] ([place], [place]) - [facility] Center waitlisted on 03/16/2024 Marked as Active on 02/21/2025 Kidney CoordinatorIndia Benavides RN Fax: N/A Email: N/A Scores Score Value Updated Exceptions/Reas ons CPRA 0 04/03/2024 EPTS (Calc) 7 03/26/2025 [place] Organ Diagnosis Organ Primary Contributory Kidney Other, Specify - ANCA Vasculitis Care Team Name Role Phone Fax Email India Benavides RN Kidney Coordinator [phone] N/A N/A Niraj Corbin Referring Physician [phone] N/A Events Pre-Transplant Referred: 11/26/2023 Evaluation began: 02/14/2024 Committee: 02/16/2024 Center waitlisted: 03/16/2024 Appointments (02/24/2025 - 04/26/2025) When With Visit Type Description 02/28/2025 Transplant - Soraya Restrepo Follow Up Pre-tra nsplant evaluation for kidney transplant (Primary Dx); ANCA-associated vasculitis ; Stage 4 chronic kidney disease
--- OUTSIDE RECORDS SUMMARY | 2025-03-26 17:29 | XMS_ITS | Clinical Summary ---
Author Organization [facility] Address [address] [place] [address] Phone Care Team Providers Care Follow Up Specialist Name Role Phone Melissa Denton MD Primary Care Provider [phone] Allergies Active Allergy Reactions Criticality Noted Date Comments Alcohol 02/22/2023 Medications calcium carbonate-chandler min D 500 mg-5 mcg (200 unit) per tablet Take 1 tablet by mouth 2 (two) times a day. 180 each 3 09/01/19 25 026 Active amLODIPine (NORVASC) 10 mg tablet Take 1 tablet (10 mg total) by mouth 1 (one) time each day. Active calcitrioL (ROCALTROL) 0.25 mcg capsule Take 1 capsule (0.25 mcg total) by mouth 2 (two) times a week. 09/13/19 25 Active ferrous sulfate 325 mg (65 mg iron) EC tablet Take 65 mg by mouth 2 times daily. Active oxyCODONE (ROXICODONE) 5 mg immediate release tabletIndicati ons:CKD (chronic kidney disease) stage 5, GFR less than 15 ml/min (CMS/HCC V24, CMS/HCC V28) Take 1 tablet (5 mg total) by mouth every 6 (six) hours if needed for severe pain. Max Daily Amount: 20 mg 8 tablet 01/25/20 25 Active pantoprazole (PROTONIX) 40 mg EC tablet Take 1 tablet (40 mg total) by mouth 1 (one) time each day before breakfast. 90 tablet 1 03/08/20 25 Active betamethasone, augmented, (DIPROLENE-AF) 0.05 % cream Apply topically 2 times daily. 025 Discontinued( erapy completed) fluticasone propionate (FLONASE) 50 mcg/actuation nasal spray 2 times/day as needed. 07/05/19 24 025 Discontinued( erapy completed) predniSONE (DELTASONE) 20 mg tablet Take 2 Tablets by mouth daily. 025 Discontinued( erapy completed) pantoprazole (PROTONIX) 40 mg EC tablet Take 1 tablet (40 mg total) by mouth 1 (one) time each day. Do not crush, chew, or split. 90 each 1 09/01/19 25 025 Discontinued psyllium (MetamuciL) 0.4 gram capsule Take 1 capsule (400 mg total) by mouth 1 (one) time each day if needed for constipation. 90 capsule 1 09/01/19 25 025 polyethylene glycol (MIRALAX) 17 gram packet Take 17 g by mouth 1 (one) time each day. 1530 g 1 09/01/19 25 025 Active Problems Problem Noted Date Diagnosed Date CKD (chronic kidney disease) stage 5, GFR less than 15 ml/min ([facility] V24, [facility] V28) 12/26/2024 Primary hypertension 07/05/2023 Gastroesophageal reflux disease 03/24/2023 Overview (08/01/2024): DX:GERD (gastroesophageal reflux disease) Elevated blood pressure reading 03/24/2023 Stage 4 chronic kidney disease ([facility] V24, [facility] V28) 03/24/2023 Encounters Date Type Department Care Team Description 03/05/2025 1:30 PM EDT Office Visit Internal Medicine - [address] [place] [phone] Melissa Denton MD Elevated blood pressure reading (Primary Dx); Primary hypertension; ESRD needing dialysis ([facility] V24, [facility] V28) 02/20/2025 9:45 AM EDT Office Visit General Surgery - [address] [place] [address] Adama Solis MD CKD (chronic kidney disease) stage 5, GFR less than 15 ml/min (CMS/HCC V24, CMS/HCC V28) (Primary Dx) 02/09/2025 9:00 AM EDT Office Visit [address] [phone] Admaa Solis MD CKD (chronic kidney disease) stage 5, GFR less than 15 ml/min (CMS/HCC V24, CMS/HCC V28) (Primary Dx) 01/24/2025 1:52 PM EDT Anesthesia Event [facility] OR [address] [place] [phone] Jose Carlos Cunningham MD Mounsey, Sarah, PIGSKIN TRIMMER 01/24/2025 1:00 PM EDT - 01/24/2025 3:30 PM EDT Surgery [facility] OR [address] [place] [phone] Adama Solis MD CREATION FISTULA AV LEFT UPPER EXTREMITY; ?LEFT ARM GRAFT INSERTION [78911 (CPT )] 01/24/2025 10:59 AM EDT - 01/24/2025 6:01 PM EDT Hospital Encounter [facility] [place] [address] [place] [phone] Adama Solis MD CKD (chronic kidney disease) stage 5, GFR less than 15 ml/min ([facility] V24, [facility] V28) (Primary Dx) Discharge Disposition: Home or Self Care 01/10/[address] [phone] Adama Solis MD from Last 3 Months Immunizations Immunization Administration Dates Next Due Td Tetanus diptheria (Tdvax) 7yo and older 03/24 Surgical History Surgery Date Site/Laterality Comments OTHER SURGICAL HISTORY 06/03/2023 PROCEDURE: [place] RENAL BIOPSY SURG EXPOSURE KIDNEY Medical History Medical History Date Comments GERD (gastroesophageal reflu x disease) DX:GERD (gastroesophageal re flux disease) Renal failure 2022 DX:Renal failure ; COMMENT: SAtage 4 Essential (primary) hypertension DX:Essential (primary) hypertension Stage 4 chronic kidney disea se ([facility] V24, [facility] V28) 03/24/2023 Family History Medical History Relation [...] Safety Answer Date Record ed Physical Abuse Unrecognized value 01/24/2025 Verbal Abuse Unrecognized value 01/24/2025 Education Answer Date Recorded What is [...] Sign Reading Time Taken Comments Blood Pressure 156/90 03/05/2025 1:28 PM EDT Pulse 77 03/05/2025 1:15 PM EDT Temperature 36.6 C (97.8 F) 03/05/2025 1:15 PM EDT Respiratory Rate 16 01/24/2025 5:29 PM EDT Oxygen Saturation 99% 03/05/2025 1:15 PM EDT Inhaled Oxygen Concentration - - Weight 41.3 kg (91 lb) 03/05/2025 1:15 PM EDT Height 141 cm (4' 7.5 ) 03/05/2025 1:15 PM EDT Body Mass Index 20.77 03/05/2025 1:15 PM EDT Plan of Treatment Upcoming Encounters Date Type Department Care Team (Late st Contact Info) Description 09/04/2025 2:30 PM EDT Office Visit Internal Medicine - [address] [place] [phone] Melissa Denton MD [address] [place] [phone] Health Maintenance Due Date Last Done Comments Breast Cancer Screening 1984 COVID-19 Vaccine (#1) 1989 Hepatitis B Vaccines (1 of 3 - 19+ 3-dose series) 11/05/2003 HPV Vaccines (1 - 3-dose SCDM series) 11/05/2011 HIV Screening 06/25/2023 Depression Screening 05/31/2024 Influenza [...] this topic Medical Devices Implanted Type Area Wardrobe Stylist Device Identifier Shelf Expiration Date Model / Serial / Lot Kit Surgiflo W 2000 Units Ster Lyo - Sn/A - [id number] Implanted:Qty: 1 on 01/24/2025 by Adama Solis MD at [facility] Hemostasis Left: Wrist [employer] 2994 / N/A / N/A Hemostat Absorb Surgicel 4x8in - Sn/A - [id number] Implanted:Qty: 1 on 01/24/2025 by Adama Solis MD at [facility] Hemostasis Left: Wrist [employer] 10/28/2025 1952S / N/A / [id number] Procedures Procedure Name Priority Date/Time Associated Diagnosis Comments EXTERNAL LAB - COLLECTION, PROCESSING AND HANDLING Routine 02/26/2025 12:40 PM EDT Chronic kidney disease, stage IV (severe) (CMS/HCC V24, CMS/HCC V28) Preop examination TH AN ENDOTRACHEAL(NO CHARGE) Routine 01/24/2025 2:20 PM EDT [place] ANASTOMOSIS ARTERIOVENOUS DIRECT ANY SITE OPEN (SEPARATE [...] (severe) (CMS/HCC V24, CMS/HCC V28) Preop examination LIPID PANEL WITH REFLEX TO DIRECT LDL Routine 08/31/2024 11:23 AM EDT Encounter for annual physical exam Encounter for lipid screening for cardiovascular disease HPV Routine 07/01/2023 HEPATITIS C SCREENING Routine 02/22/2023 from Last 3 Months or Most Recently Relevant to Health Maintenance Results * External lab - collection, processing and handling (02/26/2025 12:40 PM EDT) Only the most recent of3 resultswithin the time period is included. Extra Tube Hold for add-ons. 03/01/2025 6:01 AM EDT [facility] Comment:Auto resulted. Blood Venous blood specimen / Unknown Venipuncture / Unknown 02/26/2025 12:40 PM EDT 03/01/2025 4:42 AM EDT us Calvin Restrepo MD LAB BLOOD ORDERABLES Final Resu lt [facility] [address] [place] [address], [place] [phone] * TH AN ENDOTRACHEAL(NO CHARGE) (01/24/2025 2:20 PM EDT) Linda Beckman CRNA - 01/24/2025 2:20 PM EDT Linda Manriquez CRNA 01/24/2025 2:21 PM General Information and Staff Patient location during procedure: OR Anesthesiologist: Meryl Salazar MD Resident/PIGSKIN TRIMMER: Linda Manriquez CRNA Performed: resident/PIGSKIN TRIMMER/CAA Performed by: Linda Manriquez CRNA Authorized by: [...] Mask difficulty assessment: 0 - not attempted Meryl Salazar MD ANESTHESIA ORDERABLES Fin al Result * (ABNORMAL) CBC auto differential (01/24/2025 11:52 AM EDT) WBC 5.6 4.8 - 10.8 K/mcL LAB [facility] RBC 3.30(L) 3.80 - 4.80 M/mcL LAB HEMETOLOGY METHOD [facility] Hemoglobin 9.8(L) 11.5 - 16.0 g/dL LAB HEMETOLOGY METHOD 01/24/2025 12:[address] [facility] Hematocrit 30.2(L) 35.0 - 47.0 % LAB HEMETOLOGY METHOD 01/24/2025 12:[address] [facility] MCV 92.4 79.0 - 98.0 FL LAB HEMETOLOGY METHOD [facility]/24[facility]2025 [facility] MCH 30.0 27.0 - 32.0 pcg LAB HEMETOLOGY METHOD [facility]/24[facility]2025 [facility] MCHC 32.5 32.0 - 37.0 g/dL LAB HEMETOLOGY METHOD 01/24/2025 12:[address] [facility] RDW 13.1 11.0 - 15.0 % LAB HEMETOLOGY METHOD 01/24/2025 12:[address] [facility] Platelets 163 130 - 400 K/mcL LAB HEMETOLOGY METHOD 01/24/2025 12:[address] [facility] MPV 9.4 7.0 - 11.0 FL LAB HEMETOLOGY METHOD 01/24/2025 12:[address] [facility] NRBC 0.0 <1.0 % LAB HEMETOLOGY METHOD 01/24/2025 12:[address] [facility] NRBC Absolute 0.00 <0.10 K/mcL LAB HEMETOLOGY METHOD 01/24/2025 12:[address] [facility] Neutrophils Relative 75.5 % LAB HEMETOLOGY METHOD 01/24/2025 12:[address] [facility] Lymphocytes Relative 12.8 % LAB HEMETOLOGY METHOD 01/24/2025 12:[address] [facility] Monocytes Relative 7.4 % LAB HEMETOLOGY METHOD 01/24/2025 12:[address] [facility] Eosinophils Relative 3.4 % LAB HEMETOLOGY METHOD 01/24/2025 12:[address] [facility] Basophils Relative 0.5 % LAB HEMETOLOGY METHOD 01/24/2025 12:[address] [facility] Immature Granulocytes Relative 0.4 % LAB HEMETOLOGY METHOD 01/24/2025 12:[address] [facility] Neutrophils Absolute 4.26 1.50 - 7.00 K/mcL LAB HEMETOLOGY METHOD 01/24/2025 12:[address] [facility] Lymphocytes Absolute 0.72(L) 1.00 - 5.00 K/mcL LAB HEMETOLOGY METHOD 01/24/2025 12:[address] [facility] Monocytes Absolute 0.42 0.20 - 1.00 K/mcL LAB HEMETOLOGY METHOD 01/24/2025 12:11 PM EDT [facility] Eosinophils Absolute 0.19 0.00 - 0.50 K/[facility] LAB HEMETOLOGY METHOD 01/24/2025 12:11 PM EDT [facility] Basophils Absolute 0.03 0.00 - 0.20 K/mcL LAB HEMETOLOGY METHOD 01/24/2025 12:11 PM EDT [facility] Immature Granulocytes Absolute 0.02 0.00 - 0.03 K/[facility] LAB HEMETOLOGY METHOD 01/24/2025 12:11 PM EDT [facility] Blood Venous blood specimen / Unknown Venipuncture / Unknown 01/24/2025 11:52 AM EDT 01/24/2025 11:58 AM EDT Adama Solis MD LAB BLOOD ORDERABLES Final Result [facility] [address] [place] [address], * (ABNORMAL) Basic metabolic panel (01/24/2025 11:52 AM EDT) Sodium 138 133 - 145 mmol/L LAB CHEMISTRY METHOD 01/24/2025 1:[address] [facility] Potassium 3.8 3.5 - 5.5 mmol/L LAB CHEMISTRY METHOD 01/24/2025 1:[address] [facility] Chloride 106 96 - 110 mmol/L LAB CHEMISTRY METHOD 01/24/2025 1:[address] [facility] CO2 20(L) 21 - 32 mmol/L LAB CHEMISTRY METHOD 01/24/2025 1:[address] [facility] Anion Gap 12(H) 3 - 11 LAB CHEMISTRY METHOD 01/24/2025 1:[address] [facility] Glucose 96 70 - 100 mg/dL LAB CHEMISTRY METHOD 01/24/2025 1:04 PM EDT [facility] BUN 72(H) 5 - 25 mg/dL LAB CHEMISTRY METHOD 01/24/2025 1:04 PM EDT [facility] Comment:Results verified by repeat testing Creatinine 7.53(H) 0.50 - 1.10 mg/dL LAB CHEMISTRY METHOD 01/24/2025 1:04 PM EDT [facility] eGFR 6(L) >=60 mL/min/1. 73m2 LAB CHEMISTRY METHOD 01/24/2025 1:04 PM EDT [facility] Comment:Calculation based on the Chronic Kidney Disease Epidemiology Collaboration (CKD-EPI) equation refit without adjustment for race. BUN/Creatinine Ratio 9.6 LAB CHEMISTRY METHOD 01/24/2025 1:04 PM EDT [facility] Calcium 9.0 8.5 - 10.5 mg/dL LAB CHEMISTRY METHOD 01/24/2025 1:04 PM EDT [facility] Blood Venous blood specimen / Unknown Venipuncture / Unknown 01/24/2025 11:52 AM EDT 01/24/2025 11:58 AM EDT Adama Solis MD LAB BLOOD ORDERABLES Final Result [facility] [address] [place] [address], * (ABNORMAL) Lipid panel with reflex to direct LDL (08/31/2024 11:23 AM EDT) Cholesterol 247(H) 0 - 200 mg/dL LAB CHEMISTRY METHOD 08/31/2024 4:33 PM EDT [facility] Triglycerides 125 0 - 150 mg/dL LAB CHEMISTRY METHOD 08/31/2024 4:33 PM EDT [facility] HDL 89 >=40 mg/dL LAB CHEMISTRY METHOD 08/31/2024 4:33 PM EDT [facility] LDL Calculated 133(H) 0 - 100 mg/dL LAB CHEMISTRY METHOD 08/31/2024 4:33 PM EDT [facility] VLDL Cholesterol Germán 25 mg/dL LAB CHEMISTRY METHOD 08/31/2024 4:33 PM EDT [facility] Non HDL Chol. (LDL+VLDL) 158(H) <145 mg/dL LAB CHEMISTRY METHOD 08/31/2024 4:33 PM EDT [facility] Chol/HDL Ratio 2.8 0.0 - 4.4 LAB CHEMISTRY METHOD 08/31/2024 4:33 PM EDT [facility] Blood Venous blood specimen / Unknown Venipuncture / Unknown 08/31/2024 11:23 AM EDT 08/31/2024 12:49 PM EDT Melissa Denton MD LAB BLOOD ORDERABLES Final Resul t [facility] [address] [place] [address], * Cervical Cancer Screening: HPV (07/01/2023) [facility] Cervical Cancer Screening: HPV Negative, Abstracted Historical Provider HEALTH MAINTENANCE Final Result * Hepatitis C Screening (02/22/2023) [facility] Hepatitis C Screening Abstracted Historical [facility] HEALTH MAINTENANCE Final Result from Last 3 Months or Most Recently Relevant to Health Maintenance Insurance [facility] Care Teams Follow Up Specialist Relationship Specialty Start Date End Date Melissa Denton MD [address] [place] [phone] PCP - General Internal Medicine 06/05/24
[2025-03-26 17:57] LABS: MANUAL DIFF FLAG NO
[2025-03-26 18:08] LABS: Hematocrit 26.4 % (37.0-47.0); Hemoglobin 8.6 g/dl (12.0-16.0); Imm Gran Abs Auto 0.00 X10*3/uL (0.00-0.03); Imm Gran Pct Auto 0.0 % (0.0-0.4); Lymphocytes Absolute Auto 1.2 X10*3/uL (1.2-4.9); Mean Corpuscular HGB Conc 32.6 g/dl (31.0-35.0); Mean Corpuscular Hemoglobin 29.4 pg (27.0-33.0); Mean Corpuscular Volume 90.1 fL (80.0-98.0); NRBC Abs Auto 0.000 X10*3/uL (0.0-0.012); NRBC Pct Auto 0.0 /100WBC (0.0-0.2); Platelet Count 127 X10*3/uL (160-400); Red Blood Count 2.93 X10*6/uL (4.20-5.50); White Blood Count 3.9 X10*3/uL (4.8-10.8)
[2025-03-26 19:00] LABS: Anion Gap 17 (12-20); Blood Urea Nitrogen 71 mg/dL (9-16); Calcium 7.9 mg/dL (8.4-10.2); Carbon Dioxide 20 mmol/L (22-29); Chloride 106 mmol/L (96-108); Ferritin 368 ng/mL (10-250); Iron 125 mcg/dL (30-160); Percent Iron Saturation 57 % (15-50); Potassium 4.2 mmol/L (3.3-5.1); Sodium 139 mmol/L (135-145); Total Iron Binding Capacity 218 mcg/dL (228-428); Unsaturated Iron Binding 93 ug/dL
[2025-03-26 19:39] LABS: Estimated Glomerular Filt Rate 5
== END 2025-03-26 13:50 | disposition home or self-care (01) ==
LOC: HO.HKASLDS 13:49
PROVIDERS: PCP Student in an Organized Health Care Education/Training Program; Visit Provider Internal Medicine Nephrology
DX: I15.1 Hypertension secondary to other renal disorders (principal); N18.5 Chronic kidney disease, stage 5; D63.1 Anemia in chronic kidney disease; E55.9 Vitamin D deficiency, unspecified; N25.81 Secondary hyperparathyroidism of renal origin
CPT/HCPCS: 36415; 80051; 82310; 82565; 82728; 83540; 84100; 84520; 85025

== ENCOUNTER 2025-03-29 15:04 | Outpatient (REF) | payer OTHER, SELFPAY ==
[2025-03-30 04:30] LABS: Hepatitis A Antibody IgM 0.21 Index (0-0.79); ~Hepatitis A Antibody IgM Nonreactive (Nonreactive)
[2025-03-30 04:39] LABS: Hepatitis B Surface Ab Qnt 78 mIU/mL (> OR = 10)
[2025-03-30 05:10] LABS: HBS Num1 83.32 mIU/mL (0-7.99); HBc Num1 0.06 S/CO (0.00-0.79); HBsAGNum1 0.31 S/CO (0.00-0.99); Hepatitis B Surface Antigen Negative (Negative); ~HepC Num1 0.09 S/CO (0.00-0.79); ~Hepatitis B Surface Antibody REACTIVE (Nonreactive); ~Hepatitis C Antibody Nonreactive (Nonreactive)
== END 2025-03-29 15:05 | disposition home or self-care (01) ==
LOC: HO.HKASLDS 15:04
PROVIDERS: PCP Student in an Organized Health Care Education/Training Program; Visit Provider Internal Medicine Nephrology
DX: I15.1 Hypertension secondary to other renal disorders (principal); N25.81 Secondary hyperparathyroidism of renal origin; E55.9 Vitamin D deficiency, unspecified; D63.1 Anemia in chronic kidney disease; N18.6 End stage renal disease; R04.0 Epistaxis; Z11.59 Encounter for screening for other viral diseases; Z79.899 Other long term (current) drug therapy
CPT/HCPCS: 36415; 86317; 86704; 86706; 86709; 86803; 87340; 96372; 99212; Q5106

== ENCOUNTER 2025-03-29 15:04 | Outpatient (AMB) | payer OTHER, SELFPAY ==
--- NOTE | 2025-03-29 15:17 | HO.NEPHOV_ITS ---
Vital Signs 03/29/25 15:18 Height 4 ft 10 in Weight 94 lb 2 oz BMI 19.7 BP 160/80 H Blood Pressure Location Rt brachial Position Sitting Pulse 89 Pulse Source Pulse Oximeter Pulse Oximetry (%) 100 Oxygen Delivery Method Room Air Intake Visit Reasons: 1mnth w lab-LVM Communications Field Technician Required: No Accompanied by: Self / Same As Patient Allergies alcohol Allergy (Verified 03/29/25 15:18) Unknown Beef Containing Products Allergy (Verified 03/29/25 15:18) Unknown HPI Comments Details: Ms. Gasca was seen in follow up of her advance chronic kidney disease and hypertension. Her blood pressure control is at goal. She is anemic and has been getting Procrit through my office. She denies diabetes, edema, microscopic or macroscopic hematuria, photosensitivity, joint swellings, hematemesis, melena, edema, proximal nocturnal dyspnea, orthopnea or chest pain. Her appetite is good. 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 She denies taking excessive nonsteroidal anti-inflammatory medications. She has no other systemic complaints. She has family H/O rhuematoid arthritis( mom). She has strong family history of chronic kidney disease. 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 She also had chronic interstitial inflammation. She had global glomerulosclerosis 50-70%. Also there was severe interstitial fibrosis and tubular atrophy at 30-80% along with chronic thrombotic microangiopathic changes. She is uremic . She is listed for [facility] in [facility] Medical History Elevated blood pressure reading Gastroesophageal reflux disease Chronic kidney disease, stage 4 (severe) Family History Father Myocardial infarct Sister Chronic kidney disease Hypertension Hypercholesteremia Diabetes Mother Hypertension Hypercholesteremia Diabetes Coronary artery disease Rheumatoid arthritis Chronic kidney disease Brother Diabetes Hypercholesteremia Chronic kidney disease Social History Alcohol intake: never Patient Tobacco Use Status: Never used Tobacco Review of Systems Const All systems reviewed & are unremarkable except as noted in HPI and below Physical Exam Const General: comfortable and no acute distress Orientation/consciousness: patient oriented x3 HEENT Head: Yes normocephalic Mouth: Normal oral and palatal mucosa present Eyes EOM: EOMs intact bilaterally Neck Neck: Yes supple Resp Auscultation: clear to auscultation bilaterally Cardio Jugular venous distension: no JVD Rate: regular rate GI Palpation (GI): Soft to palpation Auscultation: normal bowel sounds General: Yes no CVA tenderness Back/Spine/Pelvis Back: no CVA tenderness Skin General skin exam: no rashes or lesions noted Neuro General: patient oriented x3 and moves all extremities Extrem General: Yes no pedal edema Office Meds epoetin tea-epbx 10,000 unit/mL injection solution Performing Provider: Niraj Corbin MD Performing Location: [facility] Administered by: Niraj Corbin MD on 03/29/25 15:35 Dose Route Admin Location Dispensed Lot Number Expiration Date [facility] Institutional [facility] 40,000 unit subcut RUE 4 mL [id number] 07/01/26 6885-7595-85 [facility] Total Dispensed Waste 4 mL 0 % Results Reviewed Nephrology Results: Hgb, (12.0-16.0) 8.6 g/dl L 03/26/25 WBC, (4.8-10.8) 3.9 X10*3/uL L 03/26/25 Plt Count, (160-400) 127 X10*3/uL L Δ 03/26/25 Sodium, (135-145) 139 mmol/L 03/26/25 Potassium, (3.3-5.1) 4.2 mmol/L 03/26/25 Chloride, (96-108) 106 mmol/L 03/26/25 Carbon Dioxide, (22-29) 20 mmol/L L 03/26/25 BUN, (9-16) 71 mg/dL H 03/26/25 Creatinine, (0.5-1.4) 8.34 mg/dL H* 03/26/25 Calcium, (8.4-10.2) 7.9 mg/dL L 03/26/25 Phosphorus, (2.7-4.5) 5.1 mg/dL H 03/26/25 Assessment & Plan Assessment & Plan (1) HTN (hypertension): Code(s): I10 - Essential (primary) hypertension Category: Medical Qualifiers: Hypertension type: secondary to other renal disorders Qualified Code(s): I15.1 - Hypertension secondary to other renal disorders (2) Secondary hyperparathyroidism (of renal origin): Code(s): N25.81 - Secondary hyperparathyroidism of renal origin Category: Medical (3) Vitamin D deficiency: Code(s): E55.9 - Vitamin D deficiency, unspecified Category: Medical (4) CKD (chronic kidney disease) stage 5, GFR less than 15 ml/min: Code(s): N18.5 - Chronic kidney disease, stage 5 Category: Medical (5) Anemia in chronic kidney disease: Code(s): N18.9 - Chronic kidney disease, unspecified; D63.1 - Anemia in chronic kidney disease Category: Medical Qualifiers: Chronic kidney disease stage: stage 4 (severe) Qualified Code(s): N18.4 - Chronic kidney disease, stage 4 (severe); D63.1 - Anemia in chronic kidney disease (6) ESRD (end stage renal disease): Code(s): N18.6 - End stage renal disease Category: Medical Plan Olesya has advanced chronic kidney disease and is close to initiation of renal replacement .She had epistaxis and was Anti [place] 3 positive. Her renal biopsy which showed of focal segmental glomerulosclerosis with a perihilar, peripheral and tip lesions. She has chronic interstitial inflammation. She had global glomerulosclerosis 50-70%. Also there was severe interstitial fibrosis and tubular atrophy at 30-80% along with chronic thrombotic microangiopathic changes. She is hypertensive but BP is at goal on current medication. She should continue amlodipine 10 mg daily. She is off PO prednisone . She should avoid nonsteroidal anti-inflammatory medications and any other [id number] medications in addition to any unusual herbs. She should remain well hydrated. She could minimize animal protein intake. She should continue 2 Iron tablets a day along with Vitamin D 42165 Units once a month. She can continue calcitriol 0.25 mcg four times a week. She is listed in [facility] for renal transplantation. She had dialysis education. I gave [id number] U of Procrit today. She has an AVF. She needs to be initiated on HD- shall arrange it. All questions were answered Orders: Orders Hepatitis B Surface Ab Qnt Today N18.6 - End stage renal disease AMB Epoetin Injection Practice Supplied Today D63.1 - Anemia in chronic kidney disease, N18.4 - Chronic kidney disease, stage 4 (severe) Hepatitis B Core Antibody Today N18.6 - End stage renal disease Hepatitis A,B,C Profile Today N18.6 - End stage renal disease Hepatitis B Surface Antigen Today N18.6 - End stage renal disease Coding Level of Care Code Est Pt Level 4 (54819) Diagnoses Hypertension secondary to other renal disorders I15.1 Hypertension type: secondary to other renal disorders Secondary hyperparathyroidism (of renal origin) N25.81 Vitamin D deficiency E55.9 CKD (chronic kidney disease) stage 5, GFR less than 15 ml/min N18.5 Anemia in stage 4 chronic kidney disease N18.4; D63.1 Chronic kidney disease stage: stage 4 (severe) ESRD (end stage renal disease) N18.6
[2025-03-29 15:18] VITALS: BP 160/80; PULSE 89; O2SAT 100; BMI 19.7
--- OUTSIDE RECORDS SUMMARY | 2025-03-29 17:55 | XMS_ITS | Clinical Summary ---
Author Organization [facility], Address [address] [place] [address] [place] [address] Phone Care Team Providers Care Rehab Spec Name Role Phone Melissa Denton Primary Care Provider [phone] Allergies Active Allergy Reactions Criticality Noted Date Comments Alcohol Hives Low 02/22/2023 Beef Allergy Hives Low 02/14/2024 Medications amLODIPine (NORVASC) 10 MG tablet Take 10 mg by mouth in the morning. Active calcitriol (ROCALTROL) 0.25 MCG capsule Take 0.25 mcg by mouth 2 (two) times a week 5 Active ferrous sulfate 325 (65 Fe) MG EC tablet Take 65 mg by mouth in the morning and 65 mg in the evening. Active pantoprazole (PROTONIX) 40 MG EC tablet Take 40 mg by mouth 5 Active cholecalcifero l (VITAMIN D-3) 1.25 MG (10839 UT) capsule Take 50,000 Units by mouth every 30 (thirty) days Active acetaminophen (TYLENOL 8 HOUR) 650 MG 8 hr tablet Take 650 mg by mouth every 8 (eight) hours if needed for mild pain Do not crush, chew, or split. Active betamethasone, augmented, (DIPROLENE) 0.05 % cream Apply topically in the morning and in the evening. APPLY TOPICALLY 2 TIMES DAILY. 03/02/20 25 Discontinue d(Med List Maintenance ) Calcium Carb-Cholecalc iferol (Oyster Shell Calcium w/D) 500-5 MG-MCG tablet Take 1 tablet by mouth in the morning and 1 tablet in the evening. 5 03/02/20 25 Discontinue d(Med List Maintenance ) fluticasone (FLONASE) 50 MCG/ACT nasal spray 2 times/day as needed. 4 03/02/20 25 Discontinue d(Med List Maintenance ) polyethylene glycol (GLYCOLAX) 17 g packet Take 17 g by mouth in the morning. 5 02/28/20 25 predniSONE (DELTASONE) 20 MG tablet Take 40 mg by mouth 1 (one) time each day 03/02/20 25 Discontinue d(Med List Maintenance ) Psyllium (Metamucil) 0.36 g capsule Take 400 mg by mouth 5 02/28/20 25 oxyCODONE (ROXICODONE) 5 MG immediate release tablet Take 5 mg by mouth every 6 hours as needed 5 03/02/20 25 Discontinue d(Med List Maintenance ) azithromycin (ZITHROMAX) 250 MG tablet TAKE 2 TABLETS BY MOUTH TODAY, THEN TAKE 1 TABLET DAILY FOR 4 DAYS DIRECTED 5 03/02/20 25 Discontinue d(Med List Maintenance ) Active Problems Problem Noted Date Diagnosed Date Hyperparathyroidism 03/02/2025 Anemia in chronic kidney disease 03/02/2025 Vitamin D deficiency 02/04/2024 Primary hypertension 07/05/2023 Gastroesophageal reflux disease 03/24/2023 Overview (12/26/2024): DX:GERD (gastroesophageal reflux disease) Elevated blood pressure reading 03/24/2023 Chronic kidney disease stage 4 03/24/2023 Encounters Date Type Department Care Team Description 03/28/2025 Telephone [facility] V[facility] Access Center [address] [place] [address] [place] [address] Manjula Faustin 03/19/2025 Telephone [facility] [address] [place] [address] Marlena Mccormack 03/16/2025 9:00 AM EDT Procedure visit [facility] Vascular Access [place] [address] [place] [place] [address] Win Acosta MD Dependence on renal dialysis (HCC) [Z99.2] (Primary Dx) 03/14/2025 Telephone [facility] V[facility] Access Center [address] [place] [address] [address] [place] [address] Latonia Núñez 03/05/2025 Telephone [facility] Vascular Access [address] [place] [address] Kristin Romero 03/02/2025 10:00 AM EDT Procedure visit [facility] V[facility] Access Center [address] [place] [address] [address] [place] [address] Colby Yost MD Chronic kidney disease, stage 4 (severe) (HCC) (Primary Dx); Other mechanical complication of surgically created arteriovenous fistula, initial encounter (HCC) 02/28/2025 Telephone [facility] Vascular Access [address] [place] [address] Manjula Faustin 02/22/2025 Telephone [facility] Vascular Access [address] [place] [address] Peg Crouch 12/27/2024 9:45 AM EDT Office Visit [facility] Vascular Access [address] [place] [address] Adama Solis MD Stage 5 chronic kidney disease (HCC) (Primary Dx) from Last 3 Months Social History Tobacco Use Types Packs/Day Years Used Date Smoking Tobacco: Never Tobacco Cessation:Counseling Given: Not Answered Alcohol Use Standard Drinks/Week Comments Never 0 (1 standard drink = 0.6 oz pur e alcohol) Comments Unknown Sex and Gender Information Value Date Recorded Sex Assigned at Not on file Legal Sex Female 1:42 PM EDT Gender Identity Not on file Sexual Orientation Not on file Last Filed Vital Signs Vital Sign Reading Time Taken Comments Blood Pressure 141/85 03/16/2025 8:01 AM EDT Pulse 71 03/16/2025 8:01 AM EDT Temperature 36.5 C (97.7 F) 03/16/2025 8:01 AM EDT Respiratory Rate 16 03/16/2025 8:01 AM EDT Oxygen Saturation 97% 03/16/2025 8:01 AM EDT Inhaled Oxygen Concentration - - Weight 41.7 kg (92 lb) 03/16/2025 8:01 AM EDT Height 147.3 cm (4' 10 ) 03/16/2025 8:01 AM EDT Body Mass Index 19.23 03/16/2025 8:01 AM EDT Plan of Treatment Upcoming Encounters Date Type Department Care Team (Late st Contact Info) Description 03/30/2025 9:00 AM EDT Procedure visit [facility] V[facility] Access Center [address] [place] [phone] Colby Yost MD [address] [place] [phone] Health Maintenance Due Date Last Done Comments Hepatitis B Vaccine (1 of 3 - 19+ 3-dose series) 11/04 Pneumococcal Vaccine: Peds ( 0 to 5 Years) and At-Risk Patients (6 to 49 Years) (1 of 2 - PCV) 11/05/2003 Influenza Vaccine (#1) 2025 Insurance [facility] Medicaid Care Teams Rehab Spec Relationship Specialty Start Date End Date Melissa Denton [address] [address] PCP - General 03/05/23
--- OUTSIDE RECORDS SUMMARY | 2025-03-29 17:55 | XMS_ITS | Encounter Summary ---
Author Organization [facility], Address [address] [place] [address] Phone Care Team Providers Care Network Systems Operator Name Role Phone Melissa Denton Primary Care Provider [phone] Encounter Details Date Type Department Care Team (Late st Contact Info) Description 12/26/2024 Orders Only [facility] Vascular Access [place] [address] [place] [address] Peg Crouch [address] [place] [phone] Social History Tobacco Use Types Packs/Day Years [...] [facility] Vascular Access [place] [address] [place] [phone] Colby Yost MD [address] [place] [address] documented as of this encounter Visit Diagnoses Not on filedocumented in this encounter Care Teams Network Systems Operator Relationship Specialty Start Date End Date Melissa Denton 175 [facility] [address] [place] [address] PCP - General 03/05/23 documented as of this encounter
--- OUTSIDE RECORDS SUMMARY | 2025-03-29 17:55 | XMS_ITS | Clinical Summary ---
Author Organization [facility] Address [address] [place] [address] Care Team Providers Care Shoe Cobbler Name Role Phone Melissa Denton Primary Care Provider [phone] Allergies Active Allergy Reactions Criticality Noted Date [...] get the renal biopsy report over from [facility] (I do not see in care [...] Department Care Team Description 03/22/2025 myChart Message [facility] Renal Transplant [address] [place] [address] China Caputo, JAS Your Recent Visit 03/13/2025 1:40 PM EDT Follow-Up [facility] Rheumatology Clinic [address] [place] [address] Hydroelectric Machinery Mechanic Helper: Davidson Caballero MD Chronic kidney disease, stage V (Primary Dx) 03/02/2025 Orders Only [facility] Transplant Department [address] [place] [address] China Caputo, JAS Stage 4 chronic kidney disease (Primary Dx); Pre-transplant evaluation for kidney transplant 02/28/2025 1:40 PM EDT Follow-Up [facility] Renal Transplant [address] [place] [address] Calvin Restrepo MD Pre-transplant evaluation for kidney transplant (Primary Dx); ANCA-associated vasculitis ; Stage 4 chronic kidney disease 02/21/2025 myChart Message [facility] Renal Transplant [address] [place] [address] Indai Benavides RN Active 02/13/2025 myChart Message [facility] Renal Transplant [address] [place] [address] India Benavides RN va [place] 02/13/2025 myChart Message [facility]ology [facility] [address] [place] [address] Hydroelectric Machinery Mechanic Helper: Davidson Caballero MD Ma DR Garvey 02/02/2025 Telephone [facility] Transplant Department [address] [place] [address] India Benavides RN 01/30/2025 11:00 AM EDT Social Work [facility] Renal Transplant [address] [place] [address] Jacob Franz 01/20/2025 myChart Message [facility] Renal Transplant [address] [place] [address] China Caputo RN Your Recent Visit 01/19/2025 Telephone [facility] Transplant Department [address] [place] [address] Jacob Franz from Last 3 Months Family [...] Description 01/29/2026 11:30 AM EDT Social Work [facility] Renal Transplant [address] [place] [address] Jacob Franz 02/28/2026 11:40 AM EDT Follow-Up [facility] Renal Transplant [address] [place] [address] Calvin Restrepo MD [address] [place] [address] 03/12/2026 1:00 PM EDT Follow-Up [facility] Rheumatology Clinic [address] [place] [address] Hydroelectric Machinery Mechanic Helper: Nishi Michelle MD [address] [place] [address] Health Maintenance Due Date Last Done Comments [...] this topic Procedures * Due to [place] state law, this organization might not be [...] Health Maintenance Results * Due to [place] state law, this organization might not be sharing negative HIV tests. * (ABNORMAL) ANCA Screen w MPO and PR3 w/ Reflex to ANCA Titer (02/28/2025 2:20 PM EDT) ANCA Screen NEGATIVE NEGATIVE 03/07/2025 1:49 PM EDT [facility] Comment: ANCA screen uses indirect immunofluorescence to detect antibodies to neutrophil cytoplasmic antigens. A positive screen reflexes to titer and pattern. Patterns include cytoplasmic (c-ANCA) and perinuclear (p-ANCA) both of which are associated with vasculitis, and atypical p-ANCA which is associated with inflammatory bowel disease and other disorders. Myeloperoxidase Antibody <1.0 AI 03/07/2025 1:49 PM EDT [facility] Comment: Value Interpretation ----- <1.0 No Antibody [...] Antibody 5.5(H) AI 03/07/2025 1:49 PM EDT [facility] Comment: Value Interpretation ----- <1.0 No Antibody Detected > or = 1.0 Antibody Detected Autoantibodies to proteinase-3 (RI-3) are accepted as characteristic for granulomatosis with polyangiitis (GPA, Kiarra's), and are detectable in 95% of the histologically proven cases. The cytoplasmic IFA pattern, (c-ANCA), is based largely on autoantibody to RI-3 which serves as the primary antigen. These autoantibodies are present in active disease. Blood Structure of peripheral vein / Unknown Venipuncture / Unknown 02/28/2025 2:20 PM EDT 02/28/2025 2:40 PM EDT Narrative [facility] - 03/07/2025 1:49 PM EDT [facility] Received Date:[id number] us Calvin Restrepo MD LAB BLOOD ORDERABLES Final Re sult Performing Organization Address [facility] Co de Phone Number [address], [place] [address], [facility] [address], [place] [address], * (ABNORMAL) Mitochondrial Titer (02/28/2025 2:20 PM EDT) Mitochondrial Antibody Titer 1:640(H) <1:20 titer 03/07/2025 7:58 AM EDT [facility] Blood Structure of peripheral vein / Unknown Venipuncture / Unknown 02/28/2025 2:20 PM EDT 02/28/2025 2:40 PM EDT Narrative [facility] - 03/07/2025 7:58 AM EDT [facility] Received Date:[id number] us Calvin Restrepo MD LAB BLOOD ORDERABLES Final Re sult Performing Organization Address [facility] Co de Phone Number [facility] [address], [place] [address], [place] [phone] [employer] [address], [place] [address], * (ABNORMAL) Mitochondrial Antibody w/Reflex (02/28/2025 2:20 PM EDT) Pathologist [facility] Mitochondrial Ab Screen POSITIVE (A) NEGATIVE 03/07/2025 7:41 AM EDT [facility] [facility] Blood Structure of peripheral vein / Unknown Venipuncture / Unknown 02/28/2025 2:20 PM EDT 02/28/2025 2:40 PM EDT Narrative [facility] - 03/07/2025 7:41 AM EDT [facility] Received Date: Calvin Restrepo MD LAB BLOOD ORDERABLES Final Re sult [facility] [address] [facility] 3rd Floor, [place] [address], [place] [phone] [facility] [address] [facility] 3rd [address], [place] [address], * (ABNORMAL) CBC Auto Differential (08/23/2024 4:12 PM EDT) [facility] WBC 8.4 3.8 - 10.8 10*3/uL 08/23/2024 4:33 PM EDT [facility] RBC 2.96(L) 3.80 - 5.10 10*6/uL 08/23/2024 4:33 PM EDT [facility] Hemoglobin 8.9(L) 11.7 - 15.5 g/dL 08/23/2024 4:33 PM EDT [facility] Hematocrit 26.8(L) 35.0 - 45.0 % 08/23/2024 4:33 PM EDT [facility] MCV 90.5 80.0 - 100.0 fL 08/23/2024 4:33 PM EDT [facility] MCH 30.1 27.0 - 33.0 pg 08/23/2024 4:33 PM EDT [facility] MCHC 33.2 32.0 - 36.0 g/dL 08/23/2024 4:33 PM EDT [facility] RDW 12.3 11.0 - 15.0 % 08/23/2024 4:33 PM EDT [facility] Platelets 178 140 - 400 10*3/uL 08/23/2024 4:33 PM EDT [facility] MPV 9.6 7.5 - 12.5 fL 08/23/2024 4:33 PM EDT [facility] Neutrophil % 72.3 % 08/23/2024 4:33 PM EDT [facility] Immature Grans % 0.2 0.0 - 0.9 % 08/23/2024 4:33 PM EDT [facility] Lymphocyte % 19.9 % 08/23/2024 4:33 PM EDT [facility] Monocyte % 3.2 % 08/23/2024 4:33 PM EDT [facility] Eosinophil % 3.8 % 08/23/2024 4:33 PM EDT [facility] Basophil % 0.6 % 08/23/2024 4:33 PM EDT [facility] Neutrophil # 6.08 1.50 - 7.80 10*3/uL 08/23/2024 4:33 PM EDT [facility] Immature Grans # <0.03 <=0.03 10*3/uL 08/23/2024 4:33 PM EDT [facility] Lymphocyte # 1.70 0.85 - 3.90 10*3/uL 08/23/2024 4:33 PM EDT [facility] Monocyte # 0.30 0.20 - 0.95 10*3/uL 08/23/2024 4:33 PM EDT [facility] Eosinophil # 0.30 0.02 - 0.50 10*3/uL 08/23/2024 4:33 PM EDT [facility] Basophil # 0.10 0.00 - 0.20 10*3/uL 08/23/2024 4:33 PM EDT [facility] nRBC % 0.0 /100 WBCs 08/23/2024 4:33 PM EDT [facility] nRBC # <0.01 <0.01 10*3/uL 08/23/2024 4:33 PM EDT [facility] Blood Structure of peripheral vein / Unknown Venipuncture / Unknown 08/23/2024 4:12 PM EDT 08/23/2024 4:18 PM EDT Davidson Garvey MD LAB BLOOD ORDERABLES Final Result Performing Organization Address City/[facility]/ZIP Co de Phone Number [facility] [address] [place] [address], [place] * Phosphorus (08/23/2024 4:12 PM EDT) Pathologist [facility] Phosphorus 3.2 2.5 - 4.5 mg/dL 08/23/2024 5:04 PM EDT [facility] Blood Structure of peripheral vein / Unknown Venipuncture / Unknown 08/23/2024 4:12 PM EDT 08/23/2024 4:23 PM EDT Davidson Garvey MD LAB BLOOD ORDERABLES Final Result [facility] [address] [place] [address], * (ABNORMAL) PTH, Intact (without Calcium) (08/23/2024 4:12 PM EDT) Parathyroid Hormone, Intact 273(H) 16 - 77 pg/mL 08/24/2024 8:06 AM EDT [facility] [facility] Comment: Interpretive Guide Intact PTH Calcium ------- Normal Parathyroid Normal Normal Hypoparathyroidism Low or Low Normal Low Hyperparathyroidism Primary Normal or High High Secondary High Normal or Low Tertiary High High Non-Parathyroid Hypercalcemia Low or Low Normal High Blood Structure of peripheral vein / Unknown Venipuncture / Unknown 08/23/2024 4:12 PM EDT 08/23/2024 4:18 PM EDT [facility] 08/24/2024 8:06 AM EDT [facility] Received Date: us Davidson Garvey MD LAB BLOOD ORDERABLES Final Result [facility] [address] [facility] [address] [facility], [place] [address], [place] [phone] [facility] [address], [place] [address], [place] [phone] * (ABNORMAL) Comprehensive Metabolic Panel (08/23/2024 4:12 PM EDT) NA 136 135 - 145 mmol/L 08/23/2024 5:04 PM EDT [facility] K 3.7 3.5 - 5.3 mmol/L 08/23/2024 5:04 PM EDT [facility] Cl 100 98 - 107 mmol/L 08/23/2024 5:04 PM EDT [facility] CO2 19(L) 22 - 32 mmol/L 08/23/2024 5:04 PM EDT [facility] Anion Gap 17(H) 5 - 15 08/23/2024 5:04 PM EDT [facility] Glucose 104(H) 65 - 99 mg/dL 08/23/2024 5:04 PM EDT [facility] Creatinine 4.92(H) 0.50 - 1.20 mg/dL 08/23/2024 5:04 PM EDT [facility] Calcium 8.9 8.6 - 10.5 mg/dL 08/23/2024 5:04 PM EDT [facility] Total Protein 7.7 6.0 - 8.0 g/dL 08/23/2024 5:04 PM EDT [facility] Albumin 4.5 3.5 - 5.2 g/dL 08/23/2024 5:04 PM EDT [facility] Bilirubin, Total 0.3 0.2 - 1.2 mg/dL 08/23/2024 5:04 PM EDT [facility] Alkaline Phosphatase 99 35 - 129 U/L 08/23/2024 5:04 PM EDT [facility] AST 19 10 - 40 U/L 08/23/2024 5:04 PM EDT [facility] ALT 13 10 - 40 U/L 08/23/2024 5:04 PM EDT [facility] BUN 42(H) 7 - 23 mg/dL 08/23/2024 5:04 PM EDT [facility] eGFR 11(L) >=60 mL/min/1 .73m2 08/23/2024 5:04 PM EDT [facility] Comment:The estimated glomer ular [...] - 4.2 g/dL 08/23/2024 5:04 PM EDT [facility] A/G Ratio 1.4(L) 1.5 - 3.0 08/23/2024 5:04 PM EDT [facility] Blood Structure of peripheral vein / Unknown Venipuncture / Unknown 08/23/2024 4:12 PM EDT 08/23/2024 4:23 PM EDT Davidson Garvey MD LAB BLOOD ORDERABLES Final Result [facility] [address] [place] [address], * Hepatitis Panel, Acute (02/14/2024 3:23 PM EDT) Hepatitis A IgM NON-REACT HILDA NON-REACT HILDA 02/15/2024 3:21 AM EDT [facility] Hepatitis B Surface Antigen NON-REACT HILDA NON-REACT HILDA 02/15/2024 3:21 AM EDT [facility] Hepatitis B Core Antibody NON-REACT HILDA NON-REACT HILDA 02/15/2024 3:21 AM EDT [facility] Hepatitis C Antibody NON-REACT HILDA NON-REACT HILDA 02/15/2024 3:21 AM EDT [facility] Comment: HCV antibody was non-reactive. There is no laboratory evidence of HCV infection. In most cases, no further action is required. However, if recent HCV exposure is suspected, a test for HCV RNA (test code 84290) is suggested. For additional information please refer to http://[employer].Zify/faq/ZGL14c3 (This link is being provided for informational/ educational purposes only.) For additional information, please refer to http://[employer].Zify/faq/KDC897 (This link is being provided for informational/ educational purposes only.) Blood Structure of peripheral vein / Unknown Venipuncture / Unknown 02/14/2024 3:23 PM EDT 02/14/2024 3:32 PM EDT [facility] 02/15/2024 3:21 AM EDT [facility] Received Date:[id number] us Calvin Restrepo MD LAB BLOOD ORDERABLES Final Re sult [facility] [address], [place] [address], [place] [phone] [facility] [address], [place] [address], [place] [phone] from Last 3 Months or Most Recently Relevant to Health Maintenance Insurance [place] [address] [place] [address] MEDICAID Advance Directives Documents on File Type Date Recorded Patient Retail Department Reset Expl anation Health Care Proxy 02/21/2024 8:06 AM 02-13 Care Teams Shoe Cobbler Relationship Specialty Start Date End Date Melissa Detnon [address] [address] PCP - General 02/14/24
--- OUTSIDE RECORDS SUMMARY | 2025-03-29 17:55 | XMS_ITS | Encounter Summary ---
Author Organization [facility] Address [address] [place] [address] Phone Care Team Providers Care Night Custodian Name Role Phone Melissa Denton Primary Care Provider [phone] Encounter Details Date Type Department Care Team (Late Contact Info) Description 03/28/2025 Telephone [facility] Vascular Access [address] [place] [address] Manjula Faustin [address] [place] [phone] Social History Tobacco Use Types Packs/Day Years Used Date Smoking Tobacco: Never Alcohol Use Standard Drinks/Week Comments Never 0 (1 standard drink = 0.6 oz pur e alcohol) Comments Unknown Sex and Gender Information Value Date Recorded Sex Assigned at Not on file Legal Sex Female 1:42 PM EDT Gender Identity Not on file Sexual Orientation Not on file documented as of this encounter Miscellaneous Notes * Telephone Encounter - Manjula Faustin - 03/28/2025 1:15 PM EDT PRE-OP REMINDER COMMUNICATION Left message on answering machine to confirm VAC procedure scheduled on 03/30/2025. Pre-procedure instructions were reviewed. documented in this encounter Plan of Treatment Upcoming Encounters Date Type Department Care Team (Late Contact Info) Description 03/30/2025 9:00 AM EDT Procedure visit [facility] Vascular Access [place] [address] [place] [phone] Colby Yost MD [address] [place] [address] documented as of this encounter Visit Diagnoses Not on filedocumented in this encounter Care Teams Night Custodian Relationship Specialty Start Date End Date Melissa Denton [address] [place] [address] [address] [place] [address] PCP - General 03/05/23 documented as of this encounter
--- OUTSIDE RECORDS SUMMARY | 2025-03-29 17:55 | XMS_ITS ---
Author Organization [facility] Address [address] [place] [address] Care Team Providers Care Crop And Soil Technician Name Role Phone Melissa Denton Primary Care Provider [phone] Transplant Episode Kidney Candidate [facility] ([place], [place]) - [facility] Center waitlisted on 03/16/2024 Marked as Active on 02/21/2025 Kidney CoordinatorIndia Benavides RN Fax: N/A Email: N/A Scores Score Value Updated Exceptions/Reas ons CPRA 0 04/03/2024 EPTS (Calc) 7 03/29/2025 [facility] [place] Organ Diagnosis Organ Primary Contributory Kidney Other, Specify - ANCA Vasculitis Care Team Name Role Phone Fax Email India Benavides RN Kidney Coordinator [phone] N/A N/A Niraj Corbin Referring Physician [phone] N/A Events Pre-Transplant Referred: 11/26/2023 Evaluation began: 02/14/2024 Committee: 02/16/2024 Center waitlisted: 03/16/2024 Appointments (02/27/2025 - 04/29/2025) When With Visit Type Description 02/28/2025 Transplant - Soraya Restrepo Follow Up Pre-tra nsplant evaluation for kidney transplant (Primary Dx); ANCA-associated vasculitis ; Stage 4 chronic kidney disease
--- OUTSIDE RECORDS SUMMARY | 2025-03-29 17:55 | XMS_ITS | Encounter Summary ---
Author Organization [facility] Address [address] [place] [address] Care Team Providers Care Oil Pump Station Operator Chief Name Role Phone Melissa Denton Primary Care Provider [phone] Encounter Details Date Type Department Care Team (Late st Contact Info) Description 02/21/2025 myChart Message [facility] Renal Transplant [address] [place] [address] India Benavides RN [address] [place] [address] Active Social History Tobacco Use Types Packs/Day [...] Description 01/29/2026 11:30 AM EDT Social Work [facility] Renal Transplant [address] [place], [place] [phone] Jacob Franz 02/28/2026 11:40 AM EDT Follow-Up [facility] Renal Transplant [address] [place] [address] Calvin Restrepo MD [address] [place], [place] [phone] 03/12/2026 1:00 PM EDT Follow-Up [facility] [address] [place] [phone] Fire Extinguisher Tester: Nishi Michelle MD [address] [place] [phone] documented as of this encounter Visit Diagnoses Not on filedocumented in this encounter Care Teams Oil Pump Station Operator Chief Relationship Specialty Start Date End Date Melissa Denton [address] [place] [address] [place] [phone] PCP - General 02/14/24 documented as of this encounter
--- OUTSIDE RECORDS SUMMARY | 2025-03-29 17:55 | XMS_ITS | Encounter Summary ---
Author Organization [facility] Address [address] [place] [address] Care Team Providers Care Sales Order Specialist Name Role Phone Melissa Denton Primary Care Provider [phone] Encounter Details Date Type Department Care Team (Late st Contact Info) Description 03/22/2025 myChart Message [facility] Renal Transplant [address] [place] [address] China Caputo RN [address] [place] [address] Your Recent Visit Social History Tobacco Use [...] Description 01/29/2026 11:30 AM EDT Social Work [facility] Renal Transplant [address] [place], [place] [phone] Jacob Franz 02/28/2026 11:40 AM EDT Follow-Up [facility] Renal Transplant [address] [place], [place] [phone] Calvin Restrepo MD [address] [place] [phone] 03/12/2026 1:00 PM EDT Follow-Up [facility] [address] [place] [phone] Nurse Reviewer: Nishi Michelle MD [address] [place] [phone] documented as of this encounter Visit Diagnoses Not on filedocumented in this encounter Care Teams Sales Order Specialist Relationship Specialty Start Date End Date Melissa Denton [address] [place] [phone] PCP - General 02/14/24 documented as of this encounter
--- OUTSIDE RECORDS SUMMARY | 2025-03-29 17:55 | XMS_ITS | Clinical Summary ---
Author Organization [facility] Address [address] [place] [address] Phone Care Team Providers Care Manager Wellness Name Role Phone Melissa Denton MD Primary Care Provider [phone] Allergies Active Allergy Reactions Criticality Noted Date [...] stage 5, GFR less than 15 ml/min ([facility] V24, [facility] V28) 12/26/2024 Primary hypertension 07/05/2023 Gastroesophageal reflux disease 03/24/2023 Overview (08/01/2024): DX:GERD (gastroesophageal reflux disease) Elevated blood pressure reading 03/24/2023 Stage 4 chronic kidney disease ([facility] V24, [facility] V28) 03/24/2023 Encounters Date Type Department Care Team Description 03/05/2025 1:30 PM EDT Office Visit Internal Medicine - [address] [place] [address] Melissa Denton MD Elevated blood pressure reading (Primary Dx); Primary hypertension; ESRD needing dialysis ([facility] V24, [facility] V28) 02/20/2025 9:45 AM EDT Office Visit General Surgery - [address] [place] [address] Adama Solis MD CKD (chronic kidney disease) stage 5, GFR less than 15 ml/min (CMS/HCC V24, CMS/HCC V28) (Primary Dx) 02/09/2025 9:00 AM EDT Office Visit [address] [phone] Adama Solis MD CKD (chronic kidney disease) stage 5, GFR less than 15 ml/min (CMS/HCC V24, CMS/HCC V28) (Primary Dx) 01/24/2025 1:52 PM EDT Anesthesia Event [facility] OR [address] [place] [phone] Jose Carlos Cunningham MD Mounsey, Sarah, EVENT MARKETING ASSISTANT 01/24/2025 1:00 PM EDT - 01/24/2025 3:30 PM EDT Surgery [facility] OR [address] [place] [phone] Adama Solis MD CREATION FISTULA AV LEFT UPPER EXTREMITY; ?LEFT ARM GRAFT INSERTION [53432 (CPT )] 01/24/2025 10:59 AM EDT - 01/24/2025 6:01 PM EDT Hospital Encounter [facility] OR [address] [place] [phone] Adama Solis MD CKD (chronic kidney disease) stage 5, GFR less than 15 ml/min ([facility] V24, [facility] V28) (Primary Dx) Discharge Disposition: Home or Self Care 01/10/[address] [phone] Adama Solis MD from Last 3 Months [...] hypertension Stage 4 chronic kidney disea se ([facility] V24, [facility] V28) 03/24/2023 Family History Medical [...] PM EDT Office Visit Internal Medicine - [address] [place] [address] Melissa Denton MD [address] [place] [phone] Health Maintenance Due Date Last Done Comments [...] this topic Medical Devices Implanted Type Area Multiple Spindle Router Operator Device Identifier Shelf Expiration Date Model / Serial / Lot Kit Surgiflo W 2000 Units Ster Lyo - Sn/A - [id number] Implanted:Qty: 1 on 01/24/2025 by Adama Solis MD at [facility] Hemostasis Left: Wrist [employer] [id number] / N/A / N/A Hemostat Absorb Surgicel 4x8in - Sn/A - [id number] Implanted:Qty: 1 on 01/24/2025 by Adama Solis MD at [facility] Hemostasis Left: Wrist [employer] 10/28/2025 1952S / N/A / [id number] Procedures Procedure Name Priority Date/Time Associated Diagnosis Comments EXTERNAL LAB - COLLECTION, PROCESSING AND HANDLING Routine 03/28/2025 7:53 AM EDT Chronic kidney disease, stage IV (severe) (CMS/HCC V24, CMS/HCC V28) Preop examination EXTERNAL LAB - COLLECTION, PROCESSING AND HANDLING Routine 02/26/2025 12:40 PM EDT Chronic kidney disease, stage IV (severe) (CMS/HCC V24, CMS/HCC V28) Preop examination TH AN ENDOTRACHEAL(NO CHARGE) Routine 01/24/2025 2:20 PM EDT WI ANASTOMOSIS ARTERIOVENOUS DIRECT ANY SITE OPEN (SEPARATE [...] External lab - collection, processing and handling (03/28/2025 7:53 AM EDT) Only the most recent of4 resultswithin the time period is included. Extra Tube Hold for add-ons. 03/28/2025 11:01 AM EDT [facility] Comment:Auto resulted. Blood Venous blood specimen / Unknown Venipuncture / Unknown 03/28/2025 7:53 AM EDT 03/28/2025 9:05 AM EDT us Calvin Restrepo MD LAB BLOOD ORDERABLES Final Resu lt [facility] [address] [place] [address], * TH AN ENDOTRACHEAL(NO CHARGE) (01/24/2025 2:20 PM EDT) Narrative Linda Manriquez CRNA - 01/24/2025 2:20 PM EDT Linda Manriquez CRNA 01/24/2025 2:21 PM General Information and Staff Patient location during procedure: OR Anesthesiologist: Meryl Salazar MD Resident/EVENT MARKETING ASSISTANT: Linda Manriquez CRNA Performed: resident/EVENT MARKETING ASSISTANT/CAA Performed by: Linda Manriquez CRNA Authorized by: [...] K/mcL LAB HEMETOLOGY METHOD 01/24/2025 12:[address] [facility] RBC 3.30(L) 3.80 - 4.80 M/mcL LAB HEMETOLOGY METHOD 01/24/2025 12:[address] [facility] Hemoglobin 9.8(L) 11.5 - 16.0 g/dL LAB HEMETOLOGY METHOD 01/24/2025 12:[address] [facility] Hematocrit 30.2(L) 35.0 - 47.0 % LAB HEMETOLOGY METHOD 01/24/2025 12:[address] [facility] MCV 92.4 79.0 - 98.0 FL LAB HEMETOLOGY METHOD 01/24/2025 12:[address] [facility] MCH 30.0 27.0 - 32.0 pcg LAB HEMETOLOGY METHOD 01/24/2025 12:[address] [facility] MCHC 32.5 32.0 - 37.0 g/dL LAB HEMETOLOGY METHOD 01/24/2025 12:[address] [facility] RDW 13.1 11.0 - 15.0 % LAB HEMETOLOGY METHOD 01/24/2025 12:[address] [facility] Platelets 163 130 - 400 K/mcL LAB HEMETOLOGY METHOD 01/24/2025 12:[address] [facility] MPV 9.4 7.0 - 11.0 FL LAB HEMETOLOGY METHOD 01/24/2025 12:[address] [facility] NRBC 0.0 <1.0 % LAB HEMETOLOGY METHOD 01/24/2025 12:[address] [facility] NRBC Absolute 0.00 <0.10 K/mcL LAB HEMETOLOGY METHOD 01/24/2025 12:[address] [facility] Neutrophils Relative 75.5 % LAB HEMETOLOGY METHOD 01/24/2025 12:[address] [facility] Lymphocytes Relative 12.8 % LAB HEMETOLOGY METHOD 01/24/2025 12:[address] [facility] Monocytes Relative 7.4 % LAB HEMETOLOGY METHOD 01/24/2025 12:[address] [facility] Eosinophils Relative 3.4 % LAB HEMETOLOGY METHOD 01/24/2025 12:[address] [facility] Basophils Relative 0.5 % LAB HEMETOLOGY METHOD 01/24/2025 12:[address] [facility] Immature Granulocytes Relative 0.4 % LAB HEMETOLOGY METHOD 01/24/2025 12:[address] [facility] Neutrophils Absolute 4.26 1.50 - 7.00 K/mcL LAB HEMETOLOGY METHOD 01/24/2025 12:[address] [facility] Lymphocytes Absolute 0.72(L) 1.00 - 5.00 K/[facility] LAB HEMETOLOGY METHOD 01/24/2025 12:11 PM EDT [facility] Monocytes Absolute 0.42 0.20 - 1.00 K/[facility] LAB HEMETOLOGY METHOD 01/24/2025 12:11 PM EDT [facility] Eosinophils Absolute 0.19 0.00 - 0.50 K/[facility] HEMETOLOGY METHOD 01/24/2025 12:11 PM EDT [facility] Basophils Absolute 0.03 0.00 - 0.20 K/[facility] LAB HEMETOLOGY METHOD 01/24/2025 12:11 PM EDT [facility] Immature Granulocytes Absolute 0.02 0.00 - 0.03 K/[facility] LAB HEMETOLOGY METHOD 01/24/2025 12:11 PM EDT [facility] Blood Venous blood specimen / Unknown Venipuncture / Unknown 01/24/2025 11:52 AM EDT 01/24/2025 11:58 AM EDT Adama Solis MD LAB BLOOD ORDERABLES Final Result [facility] [address] [place] [address], * (ABNORMAL) Basic metabolic panel (01/24/2025 11:52 AM EDT) Sodium 138 133 - 145 mmol/L LAB CHEMISTRY METHOD 01/24/2025 1:04 PM EDT [facility] Potassium 3.8 3.5 - 5.5 mmol/L LAB CHEMISTRY METHOD [facility] Chloride 106 96 - 110 mmol/L LAB CHEMISTRY METHOD 01/24[facility]2025 [facility] CO2 20(L) 21 - 32 mmol/L LAB CHEMISTRY METHOD 01/24/2025 1:[address] [facility] Anion Gap 12(H) 3 - 11 LAB CHEMISTRY METHOD 01/24/2025 1:[address] [facility] Glucose 96 70 - 100 mg/dL LAB CHEMISTRY METHOD 01/24/2025 1:[address] [facility] BUN 72(H) 5 - 25 mg/dL LAB CHEMISTRY METHOD 01/24/2025 1:[address] [facility] Comment:Results verified by repeat testing Creatinine 7.53(H) 0.50 - 1.10 mg/dL LAB CHEMISTRY METHOD 01/24/2025 1:[address] [facility] eGFR 6(L) >=60 mL/min/1. 73m2 LAB CHEMISTRY METHOD 01/24/2025 1:[address] [facility] Comment:Calculation based on the Chronic Kidney Disease Epidemiology Collaboration (CKD-EPI) equation refit without adjustment for race. BUN/Creatinine Ratio 9.6 LAB CHEMISTRY METHOD 01/24/2025 1:[address] [facility] Calcium 9.0 8.5 - 10.5 mg/dL LAB CHEMISTRY METHOD 01/24/2025 1:[address] [facility] Blood Venous blood specimen / Unknown Venipuncture / Unknown 01/24/2025 11:52 AM EDT 01/24/2025 11:58 AM EDT us Adama Solis MD LAB BLOOD ORDERABLES Final Result [facility] [address] [place] [address], * (ABNORMAL) Lipid panel with reflex to direct LDL (08/31/2024 11:23 AM EDT) Cholesterol 247(H) 0 - 200 mg/dL LAB CHEMISTRY METHOD 08/31/2024 4:[address] [facility] Triglycerides 125 0 - 150 mg/dL LAB CHEMISTRY METHOD 08/31/2024 4:33 PM EDT [facility] HDL 89 >=40 mg/dL LAB CHEMISTRY METHOD 08/31/2024 4:33 PM EDT [facility] LDL Calculated 133(H) 0 - 100 mg/dL LAB CHEMISTRY METHOD 08/31/2024 4:33 PM EDT [facility] VLDL Cholesterol Germán 25 mg/dL LAB CHEMISTRY METHOD 08/31/2024 4:33 PM EDT [facility] Non HDL Chol. (LDL+VLDL) 158(H) <145 mg/dL LAB CHEMISTRY METHOD 08/31/2024 4:33 PM EDT [facility] Chol/HDL Ratio 2.8 0.0 - 4.4 LAB CHEMISTRY METHOD 08/31/2024 4:33 PM EDT [facility] Blood Venous blood specimen / Unknown Venipuncture / Unknown 08/31/2024 11:23 AM EDT 08/31/2024 12:49 PM EDT Melissa Denton MD LAB BLOOD ORDERABLES Final Resul t [facility] [address] [place] [address], * Cervical Cancer Screening: HPV (07/01/2023) Pathologist [facility] Cervical Cancer Screening: HPV Negative, Abstracted Historical Provider HEALTH MAINTENANCE Final Result * Hepatitis C Screening (02/22/2023) Pathologist [facility] Hepatitis C Screening Abstracted Agustina Bey MD HEALTH MAINTENANCE Final Result from Last 3 Months or Most Recently Relevant to Health Maintenance Insurance [facility] Care Teams Manager Wellness Relationship Specialty Start Date End Date Melissa Denton MD [address] [place] [phone] PCP - General Internal Medicine 06/05/24
== END 2025-03-29 16:32 | disposition home or self-care (01) ==
LOC: HO.HKAS 15:05
PROVIDERS: PCP Student in an Organized Health Care Education/Training Program; Visit Provider Internal Medicine Nephrology
DX: I15.1 Hypertension secondary to other renal disorders (principal); N25.81 Secondary hyperparathyroidism of renal origin; E55.9 Vitamin D deficiency, unspecified; N18.5 Chronic kidney disease, stage 5; N18.4 Chronic kidney disease, stage 4 (severe); D63.1 Anemia in chronic kidney disease; N18.6 End stage renal disease
CPT/HCPCS: 99214

== ENCOUNTER → 2025-03-31 23:59 | Outpatient (BNV) | payer OTHER, SELFPAY | PROVIDERS: PCP Student in an Organized Health Care Education/Training Program; Visit Provider Internal Medicine Nephrology | DX: N18.6 End stage renal disease (principal) | CPT/HCPCS: 90962 ==

== ENCOUNTER → 2025-04-30 23:59 | Outpatient (BNV) | payer OTHER, SELFPAY | PROVIDERS: PCP Student in an Organized Health Care Education/Training Program; Visit Provider Internal Medicine Nephrology | DX: N18.6 End stage renal disease (principal) | CPT/HCPCS: 90961 ==